=== PATIENT | male | born 1930 | race Caucasian/White ===

== ENCOUNTER 2017-01-18 14:51 | Inpatient (IN) | payer MEDICARE ==
[~2017-01-18] VITALS: Ht 193 cm; Wt 92.0 kg
--- NOTE | 2017-01-18 15:22 | EKG ---
[address] [address] Test Date: 2017-01-18 Test Time: 15:20:40 Pat Name: KISHAN LOMBARDO Department: Room: Gender: M Beater Boss: : 1930 Requested By: MALINDA DASH Order Number: [id number] Reading MD: Aries Hernandez Measurements Intervals [place] Rate: 68 P: 90 IN: 208 QRS: 21 QRSD: 76 T: 63 QT: 372 QTc: 400 Interpretive Statements SINUS RHYTHM ATRIAL PREMATURE COMPLEX(ES) CONSISTENT WITH SEPTAL INFARCT PVC Electronically Signed On 01-21-2017 9:46:21 CDT by Aries Hernandez
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
[2017-01-18 15:41] LABS: BASO # 0.1 x10^3/uL (0.0-0.2); BASO % 1 % (0-3); EOS # 0.5 x10^3/uL (0.0-0.7); EOS % 5 % (0-3); HEMATOCRIT 36.2 % (39.0-53.0); LYMPH # 1.7 x10^3/uL (1.0-4.8); LYMPH % 18 % (24-48); MEAN CORPUSCULAR HEMOGLOBIN 30 pg (25-35); MEAN CORPUSCULAR HGB CONC 33 g/dL (31-37); MEAN CORPUSCULAR VOLUME 92 fL (79-100); MONO # 0.9 x10^3/uL (0.0-1.1); MONO % 9 % (0-9); NEUT # 6.5 x10^3uL (1.8-7.7); NEUT % 67 % (31-73); PLATELET COUNT 218 x10^3/uL (140-400); RED BLOOD COUNT 3.95 x10^6/uL (4.30-5.70); RED CELL DISTRIBUTION WIDTH 14.9 % (11.5-14.5); WHITE BLOOD COUNT 9.8 x10^3/uL (4.0-11.0)
--- NOTE | 2017-01-18 15:51 | RAD ---
CT head without contrast History: Altered mental status. Comparison: None. Procedure: Axial images are obtained of the head from the skull base through the vertex without IV contrast. One or more of the following individualized dose reduction techniques were utilized for the study: Automated exposure control Adjustment of mA and/or kV according to patient's size Use of iterative reconstruction technique. Findings: The ventricles and sulci are normal for the patient's age. No mass-effect, intracranial mass, midline shift, hemorrhage or obvious acute infarction is identified. Basilar cisterns are patent. Patchy, nonspecific white matter low attenuation is seen, probably from chronic microvascular ischemic disease. Bone windows demonstrate no significant calvarial abnormality. The visualized paranasal sinuses appear clear. Impression: 1. No acute intracranial process. Please note that CT can be relatively insensitive to acute ischemic infarction for up to 24 hours after symptom onset. 2. Patchy, nonspecific white matter changes, probably from chronic microvascular ischemic disease.
[2017-01-18 15:56] LABS: ALBUMIN 3.6 g/dL (3.4-5.0); CALCIUM 9.1 mg/dL (8.5-10.1); CREATININE 1.6 mg/dL (0.7-1.3); GFR 41.2; POTASSIUM 4.4 mmol/L (3.5-5.1); TOTAL BILIRUBIN 0.4 mg/dL (0.2-1.0); TOTAL PROTEIN 7.1 g/dL (6.4-8.2)
[2017-01-18 16:05] LABS: ACETAMIN < 2.0 mcg/mL (10-30); ETHANOL < 10 mg/dL (0-10); SALIC 0.7 mg/dL (2.8-20.0)
[2017-01-18 16:12] LABS: BARBITURATES NEG (NEG); BENZODIAZEPINES NEG (NEG); CANNABINOIDS NEG (NEG); COCAINE NEG (NEG); METHADONE NEG (NEG); OPIATES NEG (NEG); PHENCYCLIDINE NEG (NEG)
[2017-01-18 16:13] LABS: AMPHETAMINE/METHAMPHETAMINE NEG (NEG)
[2017-01-18] MEDS ORDERED: LORA1TAB PO (16:15)
[2017-01-18] MEDS ORDERED: ATOR40TA59 PO (16:15)
[2017-01-18] MEDS ORDERED: CLOP75TA57 PO (16:15)
[2017-01-18] MEDS ORDERED: ATEN25TA PO (16:15)
[2017-01-18] MEDS ORDERED: OMEP20TA8 PO ×2 (16:17→16:32)
[2017-01-18] MEDS ORDERED: OLME20TA19 PO ×2 (16:17→16:31)
[2017-01-18 16:19] LABS: BILIRUBIN,URINE NEG (NEG); CLARITY,URINE CLEAR; COLOR,URINE YELLOW; GLUCOSE,URINE NEG (NEG)
[2017-01-18 16:20] LABS: BACTERIA,URINE 0 /HPF (0-FEW); NITRITE,URINE NEG (NEG); RBC,URINE OCC /HPF (0-2); SQUAMOUS EPITHELIAL CELL,UR FEW /LPF; UROBILINOGEN,URINE 0.2 mg/dL (0.2 mg/dL)
[2017-01-18] MEDS ORDERED: QUET100T4 PO (16:34)
[2017-01-18] MEDS ORDERED: MAG HYDROX/AL HYDROX/SIMETH 30 ML ORAL.SUSP PO PRN (17:15)
[2017-01-18] MEDS ORDERED: METHYL SALICYLATE/MENTHOL TOPICAL OINTMENT 29GM TUBE. TP PRN (17:15)
[2017-01-18] MEDS ORDERED: MAGNESIUM HYDROXIDE 2,400 MG/30 ML ORAL.SUSP. PO PRN (17:15)
[2017-01-18 17:38] VITALS: BP 148/70
[2017-01-18] MEDS: QUEtiapine 100 MG TABLET. PO SCH (20:16)
[2017-01-18] MEDS: ATORVASTATIN CALCIUM 20 MG TABLET PO SCH (20:16)
[2017-01-18] MEDS: ATENOLOL 25 MG TABLET PO SCH (20:17)
[2017-01-18] MEDS: LORazepam 1 MG TABLET PO PRN (22:17)
[2017-01-18] MEDS: ACETAMINOPHEN 325 MG TABLET PO PRN (22:17)
--- NOTE | 2017-01-19 01:38 | PDOC ---
Exam Mauricio Demential Exam: Mauricio Note: Please also refer to the separate dictated note~for this date of service dictated separately.~Patient seen individually. Discussed the patient with Nursing staff reviewed the chart.~Reviewed interim history and current functioning. Reviewed vital signs,~Labs/ Radiology~and current medications noted below. Continue current treatment with the changes noted in the dictated addendum note Assessment: Vital Signs: Vital Signs Date Time Temp Pulse Resp B/P Pulse Ox O2 Delivery O2 Flow Rate FiO2 01/18/17 20:17 78 148/70 01/18/17 17:38 98.5 19 100 Room Air Labs: Laboratory Tests Test 01/18/17 15:27 01/18/17 15:40 White Blood Count 9.8x10^3/uL (4.0-11.0) Red Blood Count 3.95x10^6/uL (4.30-5.70) L Hemoglobin 12.0g/dL (13.0-17.5) L Hematocrit 36.2% (39.0-53.0) L Mean Corpuscular Volume 92fL (79-100) Mean Corpuscular Hemoglobin 30pg (25-35) Mean Corpuscular Hemoglobin Concent 33g/dL (31-37) Red Cell Distribution Width 14.9% (11.5-14.5) H Platelet Count 218x10^3/uL (140-400) Neutrophils (%) (Auto) 67% (31-73) Lymphocytes (%) (Auto) 18% (24-48) L Monocytes (%) (Auto) 9% (0-9) Eosinophils (%) (Auto) 5% (0-3) H Basophils (%) (Auto) 1% (0-3) Neutrophils # (Auto) 6.5x10^3uL (1.8-7.7) Lymphocytes # (Auto) 1.7x10^3/uL (1.0-4.8) Monocytes # (Auto) 0.9x10^3/uL (0.0-1.1) Eosinophils # (Auto) 0.5x10^3/uL (0.0-0.7) Basophils # (Auto) 0.1x10^3/uL (0.0-0.2) Sodium Level 139mmol/L (136-145) Potassium Level 4.4mmol/L (3.5-5.1) Chloride Level 107mmol/L (98-107) Carbon Dioxide Level 27mmol/L (21-32) Anion Gap 5 (6-14) L Blood Urea Nitrogen 34mg/dL (8-26) H Creatinine 1.6mg/dL (0.7-1.3) H Estimated GFR (Cockcroft-Gault) 41.2 BUN/Creatinine Ratio 21 (6-20) H Glucose Level 128mg/dL (70-99) H Calcium Level 9.1mg/dL (8.5-10.1) Magnesium Level 2.2mg/dL (1.8-2.4) Total Bilirubin 0.4mg/dL (0.2-1.0) Aspartate Amino Transferase (AST) 33U/L (15-37) Alanine Aminotransferase (ALT) 34U/L (16-63) Alkaline Phosphatase 60U/L (46-116) Troponin I Quantitative < 0.017ng/mL (0-0.055) Total Protein 7.1g/dL (6.4-8.2) Albumin 3.6g/dL (3.4-5.0) Albumin/Globulin Ratio 1.0 (1.0-1.7) Salicylates Level 0.7mg/dL (2.8-20.0) L Salicylate Last Dose Date Unk Salicylate Last Dose Time Unk Acetaminophen Level < 2.0mcg/mL (10-30) L Acetaminophen Last Dose Date Unk Acetaminophen Last Dose Time Unk Ethyl Alcohol Level < 10mg/dL (0-10) Urine Collection Type Unknown Urine Color Yellow Urine Clarity Clear Urine pH 5.0 Urine Specific [place] 1.015 Urine Protein 30 mg/dl (NEG-TRACE) Urine Glucose (UA) Negmg/dL (NEG) Urine Ketones (Stick) Negmg/dL (NEG) Urine Blood Neg (NEG) Urine Nitrite Neg (NEG) Urine Bilirubin Neg (NEG) Urine Urobilinogen Dipstick 0.2mg/dL (0.2 mg/dL) Urine Leukocyte Esterase Neg (NEG) Urine RBC Occ/HPF (0-2) Urine WBC 1-4/HPF (0-4) Urine Squamous Epithelial Cells Few/LPF Urine Bacteria 0/HPF (0-FEW) Urine Opiates Screen Neg (NEG) Urine Methadone Screen Neg (NEG) Urine Barbiturates Neg (NEG) Urine Phencyclidine Screen Neg (NEG) Urine Amphetamine/Methamphetamine Neg (NEG) Urine Benzodiazepines Screen Neg (NEG) Urine Cocaine Screen Neg (NEG) Urine Cannabinoids Screen Neg (NEG) Urine Ethyl Alcohol Neg (NEG) Current Medications: Meds: Current Medications Multivitamins/ Minerals (Preservision) 1 cap DAILY PO ; Start 01/19/17 at 09:00 Multivitamins/ Calcium (Thera-M Plus) 1 tab DAILY PO ; Start 01/19/17 at 09:00 Atenolol (Tenormin) 25 mg BID PO Last administered on 01/18/17 20:17; Start at 21:00 Clopidogrel Bisulfate (Plavix) 75 mg DAILY PO ; Start 01/19/17 at 09:00 Lorazepam (Ativan) 1 mg PRN Q6HRS PRN PO ANXIETY / AGITATION; Start 01/18/17 at 17:15 Quetiapine Fumarate (SEROquel) 100 mg HS PO Last administered on 01/18/17 20: 16; Start 01/18/17 at 21:00 Atorvastatin Calcium (Lipitor) 40 mg QHS PO Last administered on 01/18/17 20: 16; Start 01/18/17 at 21:00 Losartan Potassium (Cozaar) 100 mg DAILY PO ; Start 01/19/17 at 09:00 Pantoprazole Sodium (Protonix) 40 mg DAILY PO ; Start 01/19/17 at 09:00 Acetaminophen (Tylenol) 650 mg PRN Q6HRS PRN PO PAIN / TEMP; Start 01/18/17 at 17:15 Multi-Ingredient Ointment (Analgesic [place]) 1 carlos PRN QID PRN TP MUSCLE PAIN; Start 01/18/17 at 17:15 Al Hydroxide/Mg Hydroxide (Mylanta Plus Xs) 15 ml PRN AFTMEALHC PRN PO DYSPEPSIA; Start 01/18/17 at 17:15 Magnesium Hydroxide (Milk Of Magnesia) 2,400 mg PRN QHS PRN PO CONSTIPATION; Start 01/18/17 at 17:15 Active Scripts Active Reported Seroquel (Quetiapine Fumarate) 100 Mg Tablet 100 Mg PO HS Omeprazole 20 Mg Tablet.dr 20 Mg PO DAILY Benicar (Olmesartan Medoxomil) 20 Mg Tablet 20 Mg PO DAILY Lorazepam 1 Mg Tablet 1 Mg PO PRN Q6HRS PRN Plavix (Clopidogrel Bisulfate) 75 Mg Tablet 75 Mg PO DAILY Atorvastatin Calcium 40 Mg Tablet 40 Mg PO QHS Atenolol 25 Mg Tablet 25 Mg PO BID Diagnosis: Problems: (1) Abnormal behavior MARTHA SRINIVASAN MD Jan 18, 2017 21:04
[2017-01-19 05:10] LABS: HEMOGLOBIN A1C 5.9 % (4.8-5.6)
[2017-01-19 06:03] VITALS: BP 134/79
[2017-01-19 06:09] LABS: T3 TOTAL 99 ng/dL (71-180)
[2017-01-19] MEDS: MULTIVITAMIN PRESERVISION CAPSULE. PO SCH (08:44)
[2017-01-19] MEDS: PANTOPRAZOLE 40 MG TABLET. PO SCH (08:44)
[2017-01-19] MEDS: CLOPIDOGREL BISULFATE 75 MG TABLET PO SCH (08:44)
[2017-01-19] MEDS: LOSARTAN 50 MG TABLET. PO SCH (08:44)
[2017-01-19] MEDS: MULTIVITAMIN with MINERAL TABLET. PO SCH (08:45)
[2017-01-19] MEDS: ATENOLOL 25 MG TABLET PO SCH ×2 (08:45→19:41)
[2017-01-19 16:32] VITALS: BP 126/60
[2017-01-19] MEDS: ATORVASTATIN CALCIUM 20 MG TABLET PO SCH (19:41)
[2017-01-19] MEDS: QUEtiapine 100 MG TABLET. PO SCH (19:41)
[2017-01-19] MEDS: LORazepam 1 MG TABLET PO PRN (22:20)
[2017-01-20] MEDS: ACETAMINOPHEN 325 MG TABLET PO PRN (04:40)
[2017-01-20 06:10] VITALS: BP 161/80
[2017-01-20] MEDS: PANTOPRAZOLE 40 MG TABLET. PO SCH (08:14)
[2017-01-20] MEDS: LOSARTAN 50 MG TABLET. PO SCH (08:14)
[2017-01-20] MEDS: MULTIVITAMIN PRESERVISION CAPSULE. PO SCH (08:14)
[2017-01-20] MEDS: CLOPIDOGREL BISULFATE 75 MG TABLET PO SCH (08:14)
[2017-01-20] MEDS: ATENOLOL 25 MG TABLET PO SCH ×2 (08:14→20:23)
[2017-01-20] MEDS: MULTIVITAMIN with MINERAL TABLET. PO SCH (08:15)
--- NOTE | 2017-01-20 09:34 | RAD ---
Two-view right wrist study History: Fall and injured right wrist with pain. Findings: No acute fracture or dislocation or osteolytic process is seen. IMPRESSION: No acute fracture.
--- NOTE | 2017-01-20 09:36 | RAD ---
Two-view right forearm study History: Fall and injured right forearm with pain. Findings: No acute fracture or dislocation or osteolytic process is seen. IMPRESSION: No acute fracture.
--- NOTE | 2017-01-20 10:51 | ACF ---
Admission Criteria Forms MENTAL STATUS CHANGE Clinical Indications for Inpatient Care (Place 'X' for any and all applicable criteria): Ongoing inpatient care may be needed for 1 or more of the following(1)(2)(3)(5)( 6): [ ]I. Suspected serious etiology (eg, medical disorder, SALT MAKER event) of altered mental status [X]II. Danger to self or others not manageable at lower level of care [ ]III. Grave disability (eg, inability to perform self care necessary at lower level of care) [ ]IV. Agitation or inappropriate behavior interfering with care for primary condition (eg, attempting to discontinue lines or drains prematurely, unable to cooperate with respiratory care) [ ]V. Delirium [A] [D][E] as described by 1 or more of the following(26): [ ]a) Delirium due to alcohol or sedative [F] withdrawal [ ]b) Delirium of uncertain etiology that has not responded to appropriate empiric treatment [ ]c) Delirium that prevents performance of a life-sustaining function (eg, feeding or hydrating oneself) [ ]. General contraindications and/or Inappropriate clinical situations for Observational Care in patients with Mental Status Change, when ANY ONE of the following is required: [ ]a) Prediction of prolongation of LOS based on ANY ONE of the following may be considered as a contraindication for observational care 2, 3, 4, 5, 6, 7, 8, 9, 10, 11 [ ]i) Age > 65 yrs. [ ]ii) Patient arriving by ambulance [ ]iii) Patient with high acuity [ ]iv) Patient requiring vital sign monitoring [ ]v) Patient on IV medication [ ]b) Systolic blood pressures greater than or equal to 180mmHg 3, 12 [ ]c) Patient with altered mental status including delirium and other alteration of consciousness, (3) [ ]d) Patient whose discharge disposition will be to a senior living home or rehabilitation home should not be managed in Emergency Department Observation Unit. CMS rule requires 3 days hospital stay before such placement.3,13 [ ]e) Patient with failure to thrive due to broad array of etiologies 3,16,17 [ ]f) Inability to ambulate 3,14 Extended stay beyond goal length of stay for the primary condition may be needed until ALL of the following are present(3)(5): [ ]a) Underlying medical etiology of mental status change is absent, or has been established and adequately treated [ ]b) Danger to self or others is absent or manageable at lower level of care. [ ]c) Behavior crisis management, including physical or chemical restraints, is not required or available at lower level of car [ ]d) Substance or alcohol withdrawal is absent or manageable at lower level of care. [ ]e) Behavioral symptoms (eg, agitation, somnolence, inappropriate behavior) are absent, or are manageable at lower level of care. The original [facility] [place] [employer] content created by [facility] has been revised. The portions of the content which have been revised are identified through the use of italic text or in bold, and [facility] has neither reviewed nor approved the modified material. All other unmodified content is copyright [facility]. Please see references footnoted in the original [facility] edition 2016 Admission Criteria Met?: Yes TERRELL MICHELE Jan 20, 2017 10:51
[2017-01-20] MEDS: ATORVASTATIN CALCIUM 20 MG TABLET PO SCH (20:22)
[2017-01-20] MEDS: QUEtiapine 100 MG TABLET. PO SCH (20:22)
[2017-01-20] MEDS: DIVALPROEX 125 MG CAP.SPRINK PO SCH (20:24)
[2017-01-21 06:10] VITALS: BP 162/82
[2017-01-21] MEDS: MULTIVITAMIN with MINERAL TABLET. PO SCH (09:35)
[2017-01-21] MEDS: CLOPIDOGREL BISULFATE 75 MG TABLET PO SCH (09:35)
[2017-01-21] MEDS: DIVALPROEX 125 MG CAP.SPRINK PO SCH ×2 (09:36→20:52)
[2017-01-21] MEDS: LOSARTAN 50 MG TABLET. PO SCH (09:36)
[2017-01-21] MEDS: ATENOLOL 25 MG TABLET PO SCH ×2 (09:36→20:52)
[2017-01-21] MEDS: PANTOPRAZOLE 40 MG TABLET. PO SCH (09:37)
[2017-01-21] MEDS: MULTIVITAMIN PRESERVISION CAPSULE. PO SCH (09:38)
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
--- NOTE | 2017-01-21 12:15 | PN ---
DATE: 01/19/2017 PSYCHIATRIC PROGRESS NOTE This is a late entry of 01/19/2017, covers elements not covered in my initial note. SUBJECTIVE: The patient remains extremely agitated and confused. Nursing staff had called me as an emergency as he was looking for the door and the keys, agitated, combative and delusional. He was started on Zyprexa, but seems to help. REVIEW OF SYSTEMS: No CV, , pulmonary, eye, ENT system symptoms on review. Reliability poor. MENTAL STATUS EXAM: Oriented to himself. Insight, judgment, recent and remote memory, attention, concentration, fund of knowledge poor, consistent with his diagnosis. IMPRESSION: Major neurocognitive disorder, Alzheimer, vascular with depression, delusion, behavioral disturbance; anxiety disorder, unspecified; impulse control disorder, unspecified. Rest diagnoses unchanged. PLAN: Continue Ativan 1 mg q. 6 hours p.r.n., Seroquel 100 mg at bedtime, Zyprexa p.r.n. Start him on Depakote Sprinkles 125 mg twice a day. Check lab level in 3 days. Adjust further as clinically indicated. MAN Jules SRINIVASAN MD DR: VIVEK/jocelyn JOB#: [id number] / [id number]
[2017-01-21 15:50] VITALS: BP 174/86
--- NOTE | 2017-01-21 20:45 | PDOC ---
Exam Mauricio Demential Exam: Mauricio Note: Please also refer to the separate dictated note~for this date of service dictated separately.~Patient seen individually. Discussed the patient with Nursing staff reviewed the chart.~Reviewed interim history and current functioning. Reviewed vital signs,~Labs/ Radiology~and current medications noted below. Continue current treatment with the changes noted in the dictated addendum note Assessment: Vital Signs: Vital Signs Date Time Temp Pulse Resp B/P Pulse Ox O2 Delivery O2 Flow Rate FiO2 01/21/17 15:50 98.3 69 20 174/86 100 01/18/17 17:38 Room Air I&O Intake and Output 01/21/17 07:00 Intake Total 1080 ml Balance 1080 ml Intake Oral 1080 ml # Bowel Movements 2 Current Medications: Meds: Current Medications Multivitamins/ Minerals (Preservision) 1 cap DAILY PO Last administered on 09:38; Start 01/19/17 at 09:00 Multivitamins/ Calcium (Thera-M Plus) 1 tab DAILY PO Last administered on 09:35; Start 01/19/17 at 09:00 Atenolol (Tenormin) 25 mg BID PO Last administered on 01/21/17 09:36; Start at 21:00 Clopidogrel Bisulfate (Plavix) 75 mg DAILY PO Last administered on 01/21/17 09: 35; Start 01/19/17 at 09:00 Lorazepam (Ativan) 1 mg PRN Q6HRS PRN PO ANXIETY / AGITATION Last administered on 01/19/17 22:20; Start 01/18/17 at 17:15 Quetiapine Fumarate (SEROquel) 100 mg HS PO Last administered on 01/20/17 20: 22; Start 01/18/17 at 21:00 Atorvastatin Calcium (Lipitor) 40 mg QHS PO Last administered on 01/20/17 20: 22; Start 01/18/17 at 21:00 Losartan Potassium (Cozaar) 100 mg DAILY PO Last administered on 01/21/17 09:36 ; Start 01/19/17 at 09:00 Pantoprazole Sodium (Protonix) 40 mg DAILY PO Last administered on 01/21/17 09: 37; Start 01/19/17 at 09:00 Acetaminophen (Tylenol) 650 mg PRN Q6HRS PRN PO PAIN / TEMP Last administered on 01/20/17 04:40; Start 01/18/17 at 17:15 Multi-Ingredient Ointment (Analgesic [place]) 1 carlos PRN QID PRN TP MUSCLE PAIN; Start 01/18/17 at 17:15 Al Hydroxide/Mg Hydroxide (Mylanta Plus Xs) 15 ml PRN AFTMEALHC PRN PO DYSPEPSIA; Start 01/18/17 at 17:15 Magnesium Hydroxide (Milk Of Magnesia) 2,400 mg PRN QHS PRN PO CONSTIPATION; Start 01/18/17 at 17:15 Olanzapine (Zyprexa Zydis) 2.5 mg PRN Q2HR PRN PO PSYCHOSIS Last administered on 01/19/17 22:20; Start 01/19/17 at 11:30 Divalproex Sodium (Depakote Sprinkles) 125 mg BID PO Last administered on 09:36; Start 01/20/17 at 21:00 Active Scripts Active Reported Seroquel (Quetiapine Fumarate) 100 Mg Tablet 100 Mg PO HS Omeprazole 20 Mg Tablet.dr 20 Mg PO DAILY Benicar (Olmesartan Medoxomil) 20 Mg Tablet 20 Mg PO DAILY Lorazepam 1 Mg Tablet 1 Mg PO PRN Q6HRS PRN Plavix (Clopidogrel Bisulfate) 75 Mg Tablet 75 Mg PO DAILY Atorvastatin Calcium 40 Mg Tablet 40 Mg PO QHS Atenolol 25 Mg Tablet 25 Mg PO BID Diagnosis: Problems: (1) Abnormal behavior (2) Anxiety disorder (3) Dementia in Alzheimer's disease with delusions (4) Dementia in Alzheimer's disease with depression (5) Dementia, vascular, with delusions (6) Dementia, vascular, with depression (7) Impulse control disorder MARTHA SRINIVASAN MD January 21, 2017 20:45
[2017-01-21] MEDS: ATORVASTATIN CALCIUM 20 MG TABLET PO SCH (20:51)
[2017-01-21] MEDS: QUEtiapine 100 MG TABLET. PO SCH (20:51)
--- NOTE | 2017-01-22 04:36 | PN ---
DATE: 01/20/2017 PSYCHIATRIC PROGRESS NOTE This is late entry of 01/20/2017. SUBJECTIVE: The patient was seen individually evening of 01/20/2017, discussed with nursing staff, reviewed the chart, temperature 97.4, BP 162/80, pulse 70, respirations 16. The patient's gait was unsteady morning of 01/20/2017, otherwise wandering all day, received Zyprexa x 2 p.r.n. along with Ativan, thinks someone is after him, paranoid, delusional, suspicious looking for his keys. REVIEW OF SYSTEMS: No CV, , pulmonary, eye, ENT system symptoms on review. Reliability poor. MENTAL STATUS EXAMINATION: Oriented to himself. Insight, judgment, recent and remote memory, attention, concentration, fund of knowledge poor, consistent with his diagnosis. IMPRESSION: Major neurocognitive disorder, Alzheimer, vascular with depression, delusion, behavioral disturbance, rest unchanged. PLAN: Maintain Ativan p.r.n., Seroquel 100 at bedtime, Depakote 125 b.i.d., check valproic acid level on 01/23/2017, adjust further as clinically indicated. MAN Jules SRINIVASAN MD DR: VIVEK/jocelyn JOB#: [id number] / [id number]
[2017-01-22 06:32] VITALS: BP 168/63
[2017-01-22] MEDS: PANTOPRAZOLE 40 MG TABLET. PO SCH (10:09)
[2017-01-22] MEDS: CLOPIDOGREL BISULFATE 75 MG TABLET PO SCH (10:09)
[2017-01-22] MEDS: DIVALPROEX 125 MG CAP.SPRINK PO SCH ×2 (10:09→19:28)
[2017-01-22] MEDS: ATENOLOL 25 MG TABLET PO SCH ×2 (10:10→19:27)
[2017-01-22] MEDS: LOSARTAN 50 MG TABLET. PO SCH (10:10)
[2017-01-22] MEDS: MULTIVITAMIN with MINERAL TABLET. PO SCH (10:10)
[2017-01-22] MEDS: MULTIVITAMIN PRESERVISION CAPSULE. PO SCH (10:15)
[2017-01-22 16:00] VITALS: BP_SYST 125; BP_SYST 132; BP_DIAS 48; BP_DIAS 79
[2017-01-22] MEDS: ATORVASTATIN CALCIUM 20 MG TABLET PO SCH (19:27)
[2017-01-22] MEDS: QUEtiapine 100 MG TABLET. PO SCH (19:27)
--- NOTE | 2017-01-22 21:21 | PDOC ---
Exam Mauricio Demential Exam: Mauricio Note: Please also refer to the separate dictated note~for this date of service dictated separately.~Patient seen individually. Discussed the patient with Nursing staff reviewed the chart.~Reviewed interim history and current functioning. Reviewed vital signs,~Labs/ Radiology~and current medications noted below. Continue current treatment with the changes noted in the dictated addendum note Assessment: Vital Signs: Vital Signs Date Time Temp Pulse Resp B/P Pulse Ox O2 Delivery O2 Flow Rate FiO2 01/22/17 19:27 74 125/79 01/22/17 16:00 97.5 18 98 01/18/17 17:38 Room Air I&O Intake and Output 01/22/17 07:00 Intake Total 720 ml Balance 720 ml Intake Oral 720 ml # Voids 1 # Bowel Movements 1 Current Medications: Meds: Current Medications Multivitamins/ Minerals (Preservision) 1 cap DAILY PO Last administered on 10:15; Start 01/19/17 at 09:00 Multivitamins/ Calcium (Thera-M Plus) 1 tab DAILY PO Last administered on 10:10; Start 01/19/17 at 09:00 Atenolol (Tenormin) 25 mg BID PO Last administered on 01/22/17 19:27; Start at 21:00 Clopidogrel Bisulfate (Plavix) 75 mg DAILY PO Last administered on 01/22/17 10: 09; Start 01/19/17 at 09:00 Lorazepam (Ativan) 1 mg PRN Q6HRS PRN PO ANXIETY / AGITATION Last administered on 01/19/17 22:20; Start 01/18/17 at 17:15 Quetiapine Fumarate (SEROquel) 100 mg HS PO Last administered on 01/22/17 19:27 ; Start 01/18/17 at 21:00 Atorvastatin Calcium (Lipitor) 40 mg QHS PO Last administered on 01/22/17 19:27 ; Start 01/18/17 at 21:00 Losartan Potassium (Cozaar) 100 mg DAILY PO Last administered on 01/22/17 10:10 ; Start 01/19/17 at 09:00 Pantoprazole Sodium (Protonix) 40 mg DAILY PO Last administered on 01/22/17 10: 09; Start 01/19/17 at 09:00 Acetaminophen (Tylenol) 650 mg PRN Q6HRS PRN PO PAIN / TEMP Last administered on 01/20/17 04:40; Start 01/18/17 at 17:15 Multi-Ingredient Ointment (Analgesic [place]) 1 carlos PRN QID PRN TP MUSCLE PAIN; Start 01/18/17 at 17:15 Al Hydroxide/Mg Hydroxide (Mylanta Plus Xs) 15 ml PRN AFTMEALHC PRN PO DYSPEPSIA; Start 01/18/17 at 17:15 Magnesium Hydroxide (Milk Of Magnesia) 2,400 mg PRN QHS PRN PO CONSTIPATION; Start 01/18/17 at 17:15 Olanzapine (Zyprexa Zydis) 2.5 mg PRN Q2HR PRN PO PSYCHOSIS Last administered on 01/19/17 22:20; Start 01/19/17 at 11:30 Divalproex Sodium (Depakote Sprinkles) 125 mg BID PO Last administered on 19:28; Start 01/20/17 at 21:00 Active Scripts Active Reported Seroquel (Quetiapine Fumarate) 100 Mg Tablet 100 Mg PO HS Omeprazole 20 Mg Tablet.dr 20 Mg PO DAILY Benicar (Olmesartan Medoxomil) 20 Mg Tablet 20 Mg PO DAILY Lorazepam 1 Mg Tablet 1 Mg PO PRN Q6HRS PRN Plavix (Clopidogrel Bisulfate) 75 Mg Tablet 75 Mg PO DAILY Atorvastatin Calcium 40 Mg Tablet 40 Mg PO QHS Atenolol 25 Mg Tablet 25 Mg PO BID Diagnosis: Problems: (1) Abnormal behavior (2) Anxiety disorder (3) Dementia in Alzheimer's disease with delusions (4) Dementia in Alzheimer's disease with depression (5) Dementia, vascular, with delusions (6) Dementia, vascular, with depression (7) Impulse control disorder MARTHA SRINIVASAN MD January 22, 2017 21:20
[2017-01-23] MEDS: ACETAMINOPHEN 325 MG TABLET PO PRN (05:38)
[2017-01-23 06:33] VITALS: BP 183/75
[2017-01-23 07:48] LABS: BASO # 0.1 x10^3/uL (0.0-0.2); BASO % 1 % (0-3); EOS # 0.6 x10^3/uL (0.0-0.7); EOS % 6 % (0-3); HEMATOCRIT 34.7 % (39.0-53.0); HEMOGLOBIN 11.7 g/dL (13.0-17.5); LYMPH # 1.6 x10^3/uL (1.0-4.8); LYMPH % 17 % (24-48); MEAN CORPUSCULAR HEMOGLOBIN 31 pg (25-35); MEAN CORPUSCULAR HGB CONC 34 g/dL (31-37); MEAN CORPUSCULAR VOLUME 91 fL (79-100); MONO # 1.1 x10^3/uL (0.0-1.1); MONO % 11 % (0-9); NEUT # 6.6 x10^3uL (1.8-7.7); NEUT % 66 % (31-73); PLATELET COUNT 204 x10^3/uL (140-400); RED BLOOD COUNT 3.82 x10^6/uL (4.30-5.70); RED CELL DISTRIBUTION WIDTH 14.7 % (11.5-14.5); WHITE BLOOD COUNT 9.9 x10^3/uL (4.0-11.0)
[2017-01-23 07:59] LABS: ALBUMIN 3.1 g/dL (3.4-5.0); ALK PHOS 56 U/L (46-116); ALT (SGPT) 30 U/L (16-63); ANION GAP 8 (6-14); AST (SGOT) 26 U/L (15-37); BLOOD UREA NITROGEN 30 mg/dL (8-26); BUN/CREATININE RATIO 23 (6-20); CALCIUM 8.8 mg/dL (8.5-10.1); CARBON DIOXIDE 26 mmol/L (21-32); CHLORIDE 108 mmol/L (98-107); CREATININE 1.3 mg/dL (0.7-1.3); GFR 52.3; GLUCOSE 99 mg/dL (70-99); POTASSIUM 4.2 mmol/L (3.5-5.1); SODIUM 142 mmol/L (136-145); TOTAL BILIRUBIN 0.5 mg/dL (0.2-1.0); TOTAL PROTEIN 6.3 g/dL (6.4-8.2)
[2017-01-23 08:01] LABS: VAL ACID 17 mcg/mL (50-100)
--- NOTE | 2017-01-23 08:23 | PN ---
DATE: 01/21/2017 PSYCHIATRIC PROGRESS NOTE This is late entry of 01/21/2017, covers elements not covered in my initial note. SUBJECTIVE: The patient did well the previous night and during the day on 01/21/2017, remains confused, but not aggressive. REVIEW OF SYSTEMS: No CV, , pulmonary, eye, ENT system symptoms on review. Reliability poor. MENTAL STATUS EXAMINATION: Oriented to himself. Insight, judgment, recent and remote memory, attention, concentration, fund of knowledge poor, consistent with his diagnosis. IMPRESSION: Major neurocognitive disorder, Alzheimer, vascular with depression, delusion, behavioral disturbance; anxiety disorder, unspecified; impulse control disorder, unspecified. PLAN: Continue Ativan p.r.n., Seroquel 100 at bedtime, Depakote 125 b.i.d., check lab levels on 01/23/2017 and then adjust as indicated, maintain Zyprexa and Ativan p.r.n. MAN Jules SRINIVASAN MD DR: VIVEK/jocelyn JOB#: [id number] / [id number]
[2017-01-23] MEDS: DIVALPROEX 125 MG CAP.SPRINK PO SCH ×2 (08:35→20:37)
[2017-01-23] MEDS: LOSARTAN 50 MG TABLET. PO SCH (08:35)
[2017-01-23] MEDS: CLOPIDOGREL BISULFATE 75 MG TABLET PO SCH (08:35)
[2017-01-23] MEDS: PANTOPRAZOLE 40 MG TABLET. PO SCH (08:35)
[2017-01-23] MEDS: MULTIVITAMIN with MINERAL TABLET. PO SCH (08:35)
[2017-01-23] MEDS: ATENOLOL 25 MG TABLET PO SCH ×2 (08:36→20:37)
[2017-01-23] MEDS: MULTIVITAMIN PRESERVISION CAPSULE. PO SCH (08:38)
[2017-01-23 15:48] VITALS: BP 137/62
[2017-01-23] MEDS: QUEtiapine 100 MG TABLET. PO SCH (20:37)
[2017-01-23] MEDS: ATORVASTATIN CALCIUM 20 MG TABLET PO SCH (20:37)
--- NOTE | 2017-01-23 21:08 | PDOC ---
Exam Mauricio Demential Exam: Mauricio Note: Please also refer to the separate dictated note~for this date of service dictated separately.~Patient seen individually. Discussed the patient with Nursing staff reviewed the chart.~Reviewed interim history and current functioning. Reviewed vital signs,~Labs/ Radiology~and current medications noted below. Continue current treatment with the changes noted in the dictated addendum note Assessment: Vital Signs: Vital Signs Date Time Temp Pulse Resp B/P Pulse Ox O2 Delivery O2 Flow Rate FiO2 01/23/17 20:37 69 137/62 01/23/17 15:48 97.3 18 99 01/18/17 17:38 Room Air I&O Intake and Output 01/23/17 07:00 Intake Total 960 ml Balance 960 ml Intake Oral 960 ml # Voids 1 Labs: Laboratory Tests Test 01/23/17 07:26 White Blood Count 9.9x10^3/uL (4.0-11.0) Red Blood Count 3.82x10^6/uL (4.30-5.70) L Hemoglobin 11.7g/dL (13.0-17.5) L Hematocrit 34.7% (39.0-53.0) L Mean Corpuscular Volume 91fL (79-100) Mean Corpuscular Hemoglobin 31pg (25-35) Mean Corpuscular Hemoglobin Concent 34g/dL (31-37) Red Cell Distribution Width 14.7% (11.5-14.5) H Platelet Count 204x10^3/uL (140-400) Neutrophils (%) (Auto) 66% (31-73) Lymphocytes (%) (Auto) 17% (24-48) L Monocytes (%) (Auto) 11% (0-9) H Eosinophils (%) (Auto) 6% (0-3) H Basophils (%) (Auto) 1% (0-3) Neutrophils # (Auto) 6.6x10^3uL (1.8-7.7) Lymphocytes # (Auto) 1.6x10^3/uL (1.0-4.8) Monocytes # (Auto) 1.1x10^3/uL (0.0-1.1) Eosinophils # (Auto) 0.6x10^3/uL (0.0-0.7) Basophils # (Auto) 0.1x10^3/uL (0.0-0.2) Sodium Level 142mmol/L (136-145) Potassium Level 4.2mmol/L (3.5-5.1) Chloride Level 108mmol/L (98-107) H Carbon Dioxide Level 26mmol/L (21-32) Anion Gap 8 (6-14) Blood Urea Nitrogen 30mg/dL (8-26) H Creatinine 1.3mg/dL (0.7-1.3) Estimated GFR (Cockcroft-Gault) 52.3 BUN/Creatinine Ratio 23 (6-20) H Glucose Level 99mg/dL (70-99) Calcium Level 8.8mg/dL (8.5-10.1) Total Bilirubin 0.5mg/dL (0.2-1.0) Aspartate Amino Transferase (AST) 26U/L (15-37) Alanine Aminotransferase (ALT) 30U/L (16-63) Alkaline Phosphatase 56U/L (46-116) Total Protein 6.3g/dL (6.4-8.2) L Albumin 3.1g/dL (3.4-5.0) L Albumin/Globulin Ratio 1.0 (1.0-1.7) Valproic Acid Level 17mcg/mL (50-100) L Valproic Acid Last Dose Date 01/22/2017 Valproic Acid Last Dose Time 2100 Current Medications: Meds: Current Medications Multivitamins/ Minerals (Preservision) 1 cap DAILY PO Last administered on 08:38; Start 01/19/17 at 09:00; Stop 01/23/17 at 14:48; Status DC Multivitamins/ Calcium (Thera-M Plus) 1 tab DAILY PO Last administered on 08:35; Start 01/19/17 at 09:00 Atenolol (Tenormin) 25 mg BID PO Last administered on 01/23/17 20:37; Start at 21:00 Clopidogrel Bisulfate (Plavix) 75 mg DAILY PO Last administered on 01/23/17 08: 35; Start 01/19/17 at 09:00 Lorazepam (Ativan) 1 mg PRN Q6HRS PRN PO ANXIETY / AGITATION Last administered on 01/19/17 22:20; Start 01/18/17 at 17:15; Stop 01/23/17 at 18:41; Status DC Quetiapine Fumarate (SEROquel) 100 mg HS PO Last administered on 01/23/17 20:37 ; Start 01/18/17 at 21:00 Atorvastatin Calcium (Lipitor) 40 mg QHS PO Last administered on 01/23/17 20:37 ; Start 01/18/17 at 21:00 Losartan Potassium (Cozaar) 100 mg DAILY PO Last administered on 01/23/17 08:35 ; Start 01/19/17 at 09:00 Pantoprazole Sodium (Protonix) 40 mg DAILY PO Last administered on 01/23/17 08: 35; Start 01/19/17 at 09:00 Acetaminophen (Tylenol) 650 mg PRN Q6HRS PRN PO PAIN / TEMP Last administered on 01/23/17 05:38; Start 01/18/17 at 17:15 Multi-Ingredient Ointment (Analgesic [place]) 1 carlos PRN QID PRN TP MUSCLE PAIN; Start 01/18/17 at 17:15 Al Hydroxide/Mg Hydroxide (Mylanta Plus Xs) 15 ml PRN AFTMEALHC PRN PO DYSPEPSIA; Start 01/18/17 at 17:15 Magnesium Hydroxide (Milk Of Magnesia) 2,400 mg PRN QHS PRN PO CONSTIPATION; Start 01/18/17 at 17:15 Olanzapine (Zyprexa Zydis) 2.5 mg PRN Q2HR PRN PO PSYCHOSIS Last administered on 01/19/17 22:20; Start 01/19/17 at 11:30 Divalproex Sodium (Depakote Sprinkles) 125 mg BID PO Last administered on 20:37; Start 01/20/17 at 21:00 Multivitamins/ Minerals (I-Roya) 1 tab DAILY PO ; Start 01/24/17 at 09:00 Lorazepam (Ativan) 0.5 mg PRN Q4HRS PRN PO ANXIETY / AGITATION; Start 01/24/17 at 17:15 Active Scripts Active Reported Seroquel (Quetiapine Fumarate) 100 Mg Tablet 100 Mg PO HS Omeprazole 20 Mg Tablet.dr 20 Mg PO DAILY Benicar (Olmesartan Medoxomil) 20 Mg Tablet 20 Mg PO DAILY Lorazepam 1 Mg Tablet 1 Mg PO PRN Q6HRS PRN Plavix (Clopidogrel Bisulfate) 75 Mg Tablet 75 Mg PO DAILY Atorvastatin Calcium 40 Mg Tablet 40 Mg PO QHS Atenolol 25 Mg Tablet 25 Mg PO BID Diagnosis: Problems: (1) Abnormal behavior (2) Anxiety disorder (3) Dementia in Alzheimer's disease with delusions (4) Dementia in Alzheimer's disease with depression (5) Dementia, vascular, with delusions (6) Dementia, vascular, with depression (7) Impulse control disorder MARTHA SRINIVASAN MD January 23, 2017 21:08
--- NOTE | 2017-01-24 02:56 | PN ---
DATE: 01/22/2017 This is a late entry 01/22/2017, covers elements not covered in my initial note. SUBJECTIVE: Overall, the patient remains confused and had a better day. No, he is in [place], otherwise unaware of where he is, why he came here, agitated with another demented patient who was psychotic. REVIEW OF SYSTEMS: No CV, , pulmonary, eye, ENT system symptoms on review. Reliability poor. MENTAL STATUS EXAM: Oriented to himself. Insight, judgment, recent, and remote memory, attention, concentration, fund of knowledge poor consistent with his diagnosis mentioned in my initial note. PLAN: Continue psychotropics mentioned in my initial note, follow labs, level on the Depakote. Adjust to reach a therapeutic level. MAN Jules SRINIVASAN MD DR: VIVEK/jocelyn JOB#: [id number] / [id number]
[2017-01-24] MEDS: MULTIVITAMIN with MINERAL TABLET. PO SCH (08:38)
[2017-01-24] MEDS: DIVALPROEX 125 MG CAP.SPRINK PO SCH ×2 (08:38→20:08)
[2017-01-24] MEDS: LOSARTAN 50 MG TABLET. PO SCH (08:38)
[2017-01-24] MEDS: CLOPIDOGREL BISULFATE 75 MG TABLET PO SCH (08:38)
[2017-01-24] MEDS: PANTOPRAZOLE 40 MG TABLET. PO SCH (08:38)
[2017-01-24] MEDS: ATENOLOL 25 MG TABLET PO SCH ×2 (08:39→20:10)
[2017-01-24] MEDS: MULTIVITAMIN I-VITE TABLET. PO SCH (08:40)
[2017-01-24 09:59] VITALS: BP 145/59
[2017-01-24 15:59] VITALS: BP 102/58
[2017-01-24] MEDS ORDERED: LORazepam 0.5 MG TABLET PO PRN (17:15)
[2017-01-24] MEDS: QUEtiapine 100 MG TABLET. PO SCH (20:08)
[2017-01-24] MEDS: ATORVASTATIN CALCIUM 20 MG TABLET PO SCH (20:08)
--- NOTE | 2017-01-24 20:27 | PDOC ---
Exam Mauricio Demential Exam: Mauricio Note: Please also refer to the separate dictated note~for this date of service dictated separately.~Patient seen individually. Discussed the patient with Nursing staff reviewed the chart.~Reviewed interim history and current functioning. Reviewed vital signs,~Labs/ Radiology~and current medications noted below. Continue current treatment with the changes noted in the dictated addendum note Assessment: Vital Signs: Vital Signs Date Time Temp Pulse Resp B/P (MAP) Pulse Ox O2 Delivery O2 Flow Rate FiO2 01/24/17 15:59 97.8 77 16 102/58 (73) 97 01/18/17 17:38 Room Air I&O Intake and Output 01/24/17 07:00 Intake Total 1200 ml Balance 1200 ml Intake Oral 1200 ml # Voids 1 # Bowel Movements 1 Current Medications: Meds: Current Medications Multivitamins/ Minerals (Preservision) 1 cap DAILY PO Last administered on 08:38; Start 01/19/17 at 09:00; Stop 01/23/17 at 14:48; Status DC Multivitamins/ Calcium (Thera-M Plus) 1 tab DAILY PO Last administered on 08:38; Start 01/19/17 at 09:00 Atenolol (Tenormin) 25 mg BID PO Last administered on 01/24/17 08:39; Start at 21:00 Clopidogrel Bisulfate (Plavix) 75 mg DAILY PO Last administered on 01/24/17 08: 38; Start 01/19/17 at 09:00 Lorazepam (Ativan) 1 mg PRN Q6HRS PRN PO ANXIETY / AGITATION Last administered on 01/19/17 22:20; Start 01/18/17 at 17:15; Stop 01/23/17 at 18:41; Status DC Quetiapine Fumarate (SEROquel) 100 mg HS PO Last administered on 01/23/17 20:37 ; Start 01/18/17 at 21:00 Atorvastatin Calcium (Lipitor) 40 mg QHS PO Last administered on 01/23/17 20:37 ; Start 01/18/17 at 21:00 Losartan Potassium (Cozaar) 100 mg DAILY PO Last administered on 01/24/17 08:38 ; Start 01/19/17 at 09:00 Pantoprazole Sodium (Protonix) 40 mg DAILY PO Last administered on 01/24/17 08: 38; Start 01/19/17 at 09:00 Acetaminophen (Tylenol) 650 mg PRN Q6HRS PRN PO PAIN / TEMP Last administered on 01/23/17 05:38; Start 01/18/17 at 17:15 Multi-Ingredient Ointment (Analgesic [place]) 1 carlos PRN QID PRN TP MUSCLE PAIN; Start 01/18/17 at 17:15 Al Hydroxide/Mg Hydroxide (Mylanta Plus Xs) 15 ml PRN AFTMEALHC PRN PO DYSPEPSIA; Start 01/18/17 at 17:15 Magnesium Hydroxide (Milk Of Magnesia) 2,400 mg PRN QHS PRN PO CONSTIPATION; Start 01/18/17 at 17:15 Olanzapine (Zyprexa Zydis) 2.5 mg PRN Q2HR PRN PO PSYCHOSIS Last administered on 01/19/17 22:20; Start 01/19/17 at 11:30 Divalproex Sodium (Depakote Sprinkles) 125 mg BID PO Last administered on 08:38; Start 01/20/17 at 21:00 Multivitamins/ Minerals (I-Roya) 1 tab DAILY PO Last administered on 01/24/17 08:40; Start 01/24/17 at 09:00 Lorazepam (Ativan) 0.5 mg PRN Q4HRS PRN PO ANXIETY / AGITATION; Start 01/24/17 at 17:15 Sertraline HCl (Zoloft) 25 mg DAILY PO ; Start 01/25/17 at 09:00 Active Scripts Active Reported Seroquel (Quetiapine Fumarate) 100 Mg Tablet 100 Mg PO HS Omeprazole 20 Mg Tablet.dr 20 Mg PO DAILY Benicar (Olmesartan Medoxomil) 20 Mg Tablet 20 Mg PO DAILY Lorazepam 1 Mg Tablet 1 Mg PO PRN Q6HRS PRN Plavix (Clopidogrel Bisulfate) 75 Mg Tablet 75 Mg PO DAILY Atorvastatin Calcium 40 Mg Tablet 40 Mg PO QHS Atenolol 25 Mg Tablet 25 Mg PO BID Diagnosis: Problems: (1) Abnormal behavior (2) Anxiety disorder (3) Dementia in Alzheimer's disease with delusions (4) Dementia in Alzheimer's disease with depression (5) Dementia, vascular, with delusions (6) Dementia, vascular, with depression (7) Impulse control disorder MARTHA SRINIVASAN MD January 24, 2017 20:27
[2017-01-25 06:32] VITALS: BP 170/69
[2017-01-25] MEDS: MULTIVITAMIN I-VITE TABLET. PO SCH (08:55)
[2017-01-25] MEDS: CLOPIDOGREL BISULFATE 75 MG TABLET PO SCH (08:55)
[2017-01-25] MEDS: LOSARTAN 50 MG TABLET. PO SCH (08:56)
[2017-01-25] MEDS: DIVALPROEX 125 MG CAP.SPRINK PO SCH ×2 (08:56→19:42)
[2017-01-25] MEDS: PANTOPRAZOLE 40 MG TABLET. PO SCH (08:56)
[2017-01-25] MEDS: ATENOLOL 25 MG TABLET PO SCH ×2 (08:56→19:43)
[2017-01-25] MEDS: MULTIVITAMIN with MINERAL TABLET. PO SCH (08:57)
[2017-01-25] MEDS: SERTRALINE 25 MG TABLET. PO SCH (08:57)
[2017-01-25 15:53] VITALS: BP 159/78
[2017-01-25] MEDS: QUEtiapine 100 MG TABLET. PO SCH (19:43)
[2017-01-25] MEDS: ATORVASTATIN CALCIUM 20 MG TABLET PO SCH (19:44)
--- NOTE | 2017-01-25 20:19 | PDOC ---
Exam Mauricio Demential Exam: Mauricio Note: Please also refer to the separate dictated note~for this date of service dictated separately.~Patient seen individually. Discussed the patient with Nursing staff reviewed the chart.~Reviewed interim history and current functioning. Reviewed vital signs,~Labs/ Radiology~and current medications noted below. Continue current treatment with the changes noted in the dictated addendum note Assessment: Vital Signs: Vital Signs Date Time Temp Pulse Resp B/P (MAP) Pulse Ox O2 Delivery O2 Flow Rate FiO2 01/25/17 19:43 100 159/78 01/25/17 15:53 97.6 18 99 I&O Intake and Output 01/25/17 07:00 Intake Total 1160 ml Balance 1160 ml Intake Oral 1160 ml # Voids 2 # Bowel Movements 1 Current Medications: Meds: Current Medications Multivitamins/ Minerals (Preservision) 1 cap DAILY PO Last administered on 08:38; Start 01/19/17 at 09:00; Stop 01/23/17 at 14:48; Status DC Multivitamins/ Calcium (Thera-M Plus) 1 tab DAILY PO Last administered on 08:57; Start 01/19/17 at 09:00 Atenolol (Tenormin) 25 mg BID PO Last administered on 01/25/17 19:43; Start at 21:00 Clopidogrel Bisulfate (Plavix) 75 mg DAILY PO Last administered on 01/25/17 08: 55; Start 01/19/17 at 09:00 Lorazepam (Ativan) 1 mg PRN Q6HRS PRN PO ANXIETY / AGITATION Last administered on 01/19/17 22:20; Start 01/18/17 at 17:15; Stop 01/23/17 at 18:41; Status DC Quetiapine Fumarate (SEROquel) 100 mg HS PO Last administered on 01/25/17 19:43 ; Start 01/18/17 at 21:00 Atorvastatin Calcium (Lipitor) 40 mg QHS PO Last administered on 01/25/17 19:44 ; Start 01/18/17 at 21:00 Losartan Potassium (Cozaar) 100 mg DAILY PO Last administered on 01/25/17 08:56 ; Start 01/19/17 at 09:00 Pantoprazole Sodium (Protonix) 40 mg DAILY PO Last administered on 01/25/17 08: 56; Start 01/19/17 at 09:00 Acetaminophen (Tylenol) 650 mg PRN Q6HRS PRN PO PAIN / TEMP Last administered on 01/23/17 05:38; Start 01/18/17 at 17:15 Multi-Ingredient Ointment (Analgesic [place]) 1 carlos PRN QID PRN TP MUSCLE PAIN; Start 01/18/17 at 17:15 Al Hydroxide/Mg Hydroxide (Mylanta Plus Xs) 15 ml PRN AFTMEALHC PRN PO DYSPEPSIA; Start 01/18/17 at 17:15 Magnesium Hydroxide (Milk Of Magnesia) 2,400 mg PRN QHS PRN PO CONSTIPATION; Start 01/18/17 at 17:15 Olanzapine (Zyprexa Zydis) 2.5 mg PRN Q2HR PRN PO PSYCHOSIS Last administered on 01/19/17 22:20; Start 01/19/17 at 11:30 Divalproex Sodium (Depakote Sprinkles) 125 mg BID PO Last administered on 19:42; Start 01/20/17 at 21:00 Multivitamins/ Minerals (I-Roya) 1 tab DAILY PO Last administered on 01/25/17 08:55; Start 01/24/17 at 09:00 Lorazepam (Ativan) 0.5 mg PRN Q4HRS PRN PO ANXIETY / AGITATION; Start 01/24/17 at 17:15 Sertraline HCl (Zoloft) 25 mg DAILY PO Last administered on 01/25/17 08:57; Start 01/25/17 at 09:00 Cyanocobalamin (Vitamin B-12) 1,000 mcg DAILY PO ; Start 01/26/17 at 09:00 Active Scripts Active Reported Seroquel (Quetiapine Fumarate) 100 Mg Tablet 100 Mg PO HS Omeprazole 20 Mg Tablet.dr 20 Mg PO DAILY Benicar (Olmesartan Medoxomil) 20 Mg Tablet 20 Mg PO DAILY Lorazepam 1 Mg Tablet 1 Mg PO PRN Q6HRS PRN Plavix (Clopidogrel Bisulfate) 75 Mg Tablet 75 Mg PO DAILY Atorvastatin Calcium 40 Mg Tablet 40 Mg PO QHS Atenolol 25 Mg Tablet 25 Mg PO BID Diagnosis: Problems: (1) Abnormal behavior (2) Anxiety disorder (3) Dementia in Alzheimer's disease with delusions (4) Dementia in Alzheimer's disease with depression (5) Dementia, vascular, with delusions (6) Dementia, vascular, with depression (7) Impulse control disorder MARTHA SRINIVASAN MD January 25, 2017 20:19
--- NOTE | 2017-01-26 03:33 | PN ---
DATE: 01/23/2017 This late entry for 01/23/2017 covers elements not covered in my initial note. SUBJECTIVE: The patient remains confused, gets a little anxious, agitated, but redirects. REVIEW OF SYSTEMS: No CV, , eye, ENT, pulmonary system symptoms on review. Reliability poor. MENTAL STATUS EXAM: Oriented to himself. Insight, judgment, recent and remote memory, attention, concentration, fund of knowledge poor, consistent with his diagnosis mentioned in my initial note. PLAN: Change Ativan p.r.n. to 0.5 mg q. 4 hours p.r.n. max 2 mg in 24 hours. Continue Seroquel 100 mg at bedtime, Depakote 125 mg b.i.d., level is subtherapeutic at 17, but clinically adequate for now. MAN Jules SRINIVASAN MD DR: VIVEK/jocelyn JOB#: [id number] / [id number]
--- NOTE | 2017-01-26 03:34 | PN ---
DATE: 01/24/2017 PSYCHIATRIC PROGRESS NOTE This is a late entry of 01/24/2017 covers elements not covered in my initial note. SUBJECTIVE: The patient was staffed at a treatment team meeting with the entire team and the patient's Macie attended the conference. Lengthy discussion about the patient's history progress, medications, discharge aftercare plans, sleeping about 6-1/2 hours. REVIEW OF SYSTEMS: No CV, , eye, ENT or pulmonary system symptoms on review. Reliability poor. MENTAL STATUS EXAM: Oriented to himself. Insight, judgment, recent and remote memory, attention, concentration, fund of knowledge poor, consistent with his diagnosis mentioned in my initial note. PLAN: Start Zoloft 25 mg a day, continue Ativan p.r.n., Seroquel 100 at bedtime, Depakote 125 b.i.d. Adjust further as clinically indicated. MAN Jules SRINIVASAN MD DR: VIVEK/jocelyn JOB#: [id number] / [id number]
[2017-01-26 06:46] VITALS: BP 158/61
[2017-01-26] MEDS: MULTIVITAMIN with MINERAL TABLET. PO SCH (08:54)
[2017-01-26] MEDS: ATENOLOL 25 MG TABLET PO SCH ×2 (08:55→20:15)
[2017-01-26] MEDS: CLOPIDOGREL BISULFATE 75 MG TABLET PO SCH (08:55)
[2017-01-26] MEDS: DIVALPROEX 125 MG CAP.SPRINK PO SCH ×2 (08:55→20:12)
[2017-01-26] MEDS: PANTOPRAZOLE 40 MG TABLET. PO SCH (08:55)
[2017-01-26] MEDS: LOSARTAN 50 MG TABLET. PO SCH (08:55)
[2017-01-26] MEDS: MULTIVITAMIN I-VITE TABLET. PO SCH (08:55)
[2017-01-26] MEDS: SERTRALINE 25 MG TABLET. PO SCH (08:55)
[2017-01-26] MEDS: CYANOCOBALAMIN (VITAMIN B-12) 1,000 MCG TABLET. PO SCH (08:56)
[2017-01-26 16:12] VITALS: BP 95/50
--- NOTE | 2017-01-26 19:12 | PDOC ---
Exam Mauricio Demential Exam: Mauricio Note: Please also refer to the separate dictated note~for this date of service dictated separately.~Patient seen individually. Discussed the patient with Nursing staff reviewed the chart.~Reviewed interim history and current functioning. Reviewed vital signs,~Labs/ Radiology~and current medications noted below. Continue current treatment with the changes noted in the dictated addendum note Assessment: Vital Signs: Vital Signs Date Time Temp Pulse Resp B/P (MAP) Pulse Ox O2 Delivery O2 Flow Rate FiO2 01/26/17 16:12 98.5 86 20 95/50 (65) 94 I&O Intake and Output 01/26/17 07:00 Intake Total 1320 ml Balance 1320 ml Intake Oral 1320 ml # Voids 2 # Bowel Movements 1 Current Medications: Meds: Current Medications Multivitamins/ Minerals (Preservision) 1 cap DAILY PO Last administered on 08:38; Start 01/19/17 at 09:00; Stop 01/23/17 at 14:48; Status DC Multivitamins/ Calcium (Thera-M Plus) 1 tab DAILY PO Last administered on 08:54; Start 01/19/17 at 09:00 Atenolol (Tenormin) 25 mg BID PO Last administered on 01/26/17 08:55; Start at 21:00 Clopidogrel Bisulfate (Plavix) 75 mg DAILY PO Last administered on 01/26/17 08: 55; Start 01/19/17 at 09:00 Lorazepam (Ativan) 1 mg PRN Q6HRS PRN PO ANXIETY / AGITATION Last administered on 01/19/17 22:20; Start 01/18/17 at 17:15; Stop 01/23/17 at 18:41; Status DC Quetiapine Fumarate (SEROquel) 100 mg HS PO Last administered on 01/25/17 19:43 ; Start 01/18/17 at 21:00 Atorvastatin Calcium (Lipitor) 40 mg QHS PO Last administered on 01/25/17 19:44 ; Start 01/18/17 at 21:00 Losartan Potassium (Cozaar) 100 mg DAILY PO Last administered on 01/26/17 08:55 ; Start 01/19/17 at 09:00 Pantoprazole Sodium (Protonix) 40 mg DAILY PO Last administered on 01/26/17 08: 55; Start 01/19/17 at 09:00 Acetaminophen (Tylenol) 650 mg PRN Q6HRS PRN PO PAIN / TEMP Last administered on 01/23/17 05:38; Start 01/18/17 at 17:15 Multi-Ingredient Ointment (Analgesic [place]) 1 carlos PRN QID PRN TP MUSCLE PAIN; Start 01/18/17 at 17:15 Al Hydroxide/Mg Hydroxide (Mylanta Plus Xs) 15 ml PRN AFTMEALHC PRN PO DYSPEPSIA; Start 01/18/17 at 17:15 Magnesium Hydroxide (Milk Of Magnesia) 2,400 mg PRN QHS PRN PO CONSTIPATION; Start 01/18/17 at 17:15 Olanzapine (Zyprexa Zydis) 2.5 mg PRN Q2HR PRN PO PSYCHOSIS Last administered on 01/19/17 22:20; Start 01/19/17 at 11:30 Divalproex Sodium (Depakote Sprinkles) 125 mg BID PO Last administered on 08:55; Start 01/20/17 at 21:00 Multivitamins/ Minerals (I-Roya) 1 tab DAILY PO Last administered on 01/26/17 08:55; Start 01/24/17 at 09:00 Lorazepam (Ativan) 0.5 mg PRN Q4HRS PRN PO ANXIETY / AGITATION; Start 01/24/17 at 17:15 Sertraline HCl (Zoloft) 25 mg DAILY PO Last administered on 01/26/17 08:55; Start 01/25/17 at 09:00 Cyanocobalamin (Vitamin B-12) 1,000 mcg DAILY PO Last administered on 01/26/17 08:56; Start 01/26/17 at 09:00 Active Scripts Active Reported Seroquel (Quetiapine Fumarate) 100 Mg Tablet 100 Mg PO HS Omeprazole 20 Mg Tablet.dr 20 Mg PO DAILY Benicar (Olmesartan Medoxomil) 20 Mg Tablet 20 Mg PO DAILY Lorazepam 1 Mg Tablet 1 Mg PO PRN Q6HRS PRN Plavix (Clopidogrel Bisulfate) 75 Mg Tablet 75 Mg PO DAILY Atorvastatin Calcium 40 Mg Tablet 40 Mg PO QHS Atenolol 25 Mg Tablet 25 Mg PO BID Diagnosis: Problems: (1) Abnormal behavior (2) Anxiety disorder (3) Dementia in Alzheimer's disease with delusions (4) Dementia in Alzheimer's disease with depression (5) Dementia, vascular, with delusions (6) Dementia, vascular, with depression (7) Impulse control disorder MARTHA SRINIVASAN MD January 26, 2017 19:12
[2017-01-26] MEDS: QUEtiapine 100 MG TABLET. PO SCH (20:12)
[2017-01-26] MEDS: ATORVASTATIN CALCIUM 20 MG TABLET PO SCH (20:12)
[2017-01-26 20:13] VITALS: BP 180/86
[2017-01-27 06:37] VITALS: BP 122/66
[2017-01-27] MEDS: ATENOLOL 25 MG TABLET PO SCH ×2 (09:00→20:35)
[2017-01-27] MEDS: LOSARTAN 50 MG TABLET. PO SCH ×2 (09:00→09:34)
[2017-01-27] MEDS: CYANOCOBALAMIN (VITAMIN B-12) 1,000 MCG TABLET. PO SCH (09:32)
[2017-01-27] MEDS: MULTIVITAMIN I-VITE TABLET. PO SCH (09:32)
[2017-01-27] MEDS: MULTIVITAMIN with MINERAL TABLET. PO SCH (09:32)
[2017-01-27] MEDS: CLOPIDOGREL BISULFATE 75 MG TABLET PO SCH (09:33)
[2017-01-27] MEDS: DIVALPROEX 125 MG CAP.SPRINK PO SCH ×2 (09:34→20:33)
[2017-01-27] MEDS: PANTOPRAZOLE 40 MG TABLET. PO SCH (09:35)
[2017-01-27] MEDS: SERTRALINE 50 MG TABLET. PO SCH (09:40)
--- NOTE | 2017-01-27 19:52 | PDOC ---
Exam Mauricio Demential Exam: Mauricio Note: Please also refer to the separate dictated note~for this date of service dictated separately.~Patient seen individually. Discussed the patient with Nursing staff reviewed the chart.~Reviewed interim history and current functioning. Reviewed vital signs,~Labs/ Radiology~and current medications noted below. Continue current treatment with the changes noted in the dictated addendum note Assessment: Vital Signs: Vital Signs Date Time Temp Pulse Resp B/P (MAP) Pulse Ox O2 Delivery O2 Flow Rate FiO2 01/27/17 09:00 72 148/64 01/27/17 06:37 98.0 14 96 I&O Intake and Output 01/27/17 07:00 Intake Total 1560 ml Balance 1560 ml Intake Oral 1560 ml # Voids 2 Current Medications: Meds: Current Medications Multivitamins/ Minerals (Preservision) 1 cap DAILY PO Last administered on 08:38; Start 01/19/17 at 09:00; Stop 01/23/17 at 14:48; Status DC Multivitamins/ Calcium (Thera-M Plus) 1 tab DAILY PO Last administered on 09:32; Start 01/19/17 at 09:00 Atenolol (Tenormin) 25 mg BID PO Last administered on 01/27/17 09:00; Start at 21:00 Clopidogrel Bisulfate (Plavix) 75 mg DAILY PO Last administered on 01/27/17 09: 33; Start 01/19/17 at 09:00 Lorazepam (Ativan) 1 mg PRN Q6HRS PRN PO ANXIETY / AGITATION Last administered on 01/19/17 22:20; Start 01/18/17 at 17:15; Stop 01/23/17 at 18:41; Status DC Quetiapine Fumarate (SEROquel) 100 mg HS PO Last administered on 01/26/17 20:12 ; Start 01/18/17 at 21:00 Atorvastatin Calcium (Lipitor) 40 mg QHS PO Last administered on 01/26/17 20:12 ; Start 01/18/17 at 21:00 Losartan Potassium (Cozaar) 100 mg DAILY PO Last administered on 01/27/17 09:00 ; Start 01/19/17 at 09:00 Pantoprazole Sodium (Protonix) 40 mg DAILY PO Last administered on 01/27/17 09: 35; Start 01/19/17 at 09:00 Acetaminophen (Tylenol) 650 mg PRN Q6HRS PRN PO PAIN / TEMP Last administered on 01/23/17 05:38; Start 01/18/17 at 17:15 Multi-Ingredient Ointment (Analgesic [place]) 1 carlos PRN QID PRN TP MUSCLE PAIN; Start 01/18/17 at 17:15 Al Hydroxide/Mg Hydroxide (Mylanta Plus Xs) 15 ml PRN AFTMEALHC PRN PO DYSPEPSIA; Start 01/18/17 at 17:15 Magnesium Hydroxide (Milk Of Magnesia) 2,400 mg PRN QHS PRN PO CONSTIPATION; Start 01/18/17 at 17:15 Olanzapine (Zyprexa Zydis) 2.5 mg PRN Q2HR PRN PO PSYCHOSIS Last administered on 01/19/17 22:20; Start 01/19/17 at 11:30 Divalproex Sodium (Depakote Sprinkles) 125 mg BID PO Last administered on 09:34; Start 01/20/17 at 21:00 Multivitamins/ Minerals (I-Roya) 1 tab DAILY PO Last administered on 01/27/17 09:32; Start 01/24/17 at 09:00 Lorazepam (Ativan) 0.5 mg PRN Q4HRS PRN PO ANXIETY / AGITATION; Start 01/24/17 at 17:15 Sertraline HCl (Zoloft) 25 mg DAILY PO Last administered on 01/26/17 08:55; Start 01/25/17 at 09:00; Stop 01/27/17 at 08:10; Status DC Cyanocobalamin (Vitamin B-12) 1,000 mcg DAILY PO Last administered on 01/27/17 09:32; Start 01/26/17 at 09:00 Sertraline HCl (Zoloft) 50 mg DAILY PO Last administered on 01/27/17 09:40; Start 01/27/17 at 09:00 Active Scripts Active Reported Seroquel (Quetiapine Fumarate) 100 Mg Tablet 100 Mg PO HS Omeprazole 20 Mg Tablet.dr 20 Mg PO DAILY Benicar (Olmesartan Medoxomil) 20 Mg Tablet 20 Mg PO DAILY Lorazepam 1 Mg Tablet 1 Mg PO PRN Q6HRS PRN Plavix (Clopidogrel Bisulfate) 75 Mg Tablet 75 Mg PO DAILY Atorvastatin Calcium 40 Mg Tablet 40 Mg PO QHS Atenolol 25 Mg Tablet 25 Mg PO BID Diagnosis: Problems: (1) Abnormal behavior (2) Anxiety disorder (3) 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
[2017-01-27] MEDS: ATORVASTATIN CALCIUM 20 MG TABLET PO SCH (20:33)
[2017-01-27] MEDS: QUEtiapine 100 MG TABLET. PO SCH (20:34)
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
--- NOTE | 2017-01-27 23:30 | PN ---
DATE: 01/26/2017 PSYCHIATRIC PROGRESS NOTE This is a late entry for 01/26/2017, covers elements not covered in my initial note. SUBJECTIVE: The patient remains confused, calm, compliant, and pleasant per nursing report, redirectable, less paranoid. REVIEW OF SYSTEMS: No CV, , pulmonary, eye, ENT system symptoms on review. Reliability poor. MENTAL STATUS EXAM: Oriented to himself. Insight, judgment, recent and remote memory, attention, concentration, fund of knowledge poor, consistent with his diagnosis mentioned in my initial note. LABORATORY DATA: Reviewed. Repeat valproic acid level then may adjust the Depakote. IMPRESSION: Unchanged from initial note. PLAN: Continue Seroquel 100 mg at bedtime, Depakote 125 mg b.i.d., Zoloft 25 mg a day. We will increase to 50 mg a day, Ativan is p.r.n. MAN Jules SRINIVASAN MD DR: VIVEK/jocelyn JOB#: [id number] / [id number]
[2017-01-28 06:37] VITALS: BP 162/77
[2017-01-28] MEDS: PANTOPRAZOLE 40 MG TABLET. PO SCH (09:37)
[2017-01-28] MEDS: MULTIVITAMIN with MINERAL TABLET. PO SCH (09:37)
[2017-01-28] MEDS: SERTRALINE 50 MG TABLET. PO SCH (09:37)
[2017-01-28] MEDS: DIVALPROEX 125 MG CAP.SPRINK PO SCH ×2 (09:37→20:22)
[2017-01-28] MEDS: LOSARTAN 50 MG TABLET. PO SCH (09:37)
[2017-01-28] MEDS: CYANOCOBALAMIN (VITAMIN B-12) 1,000 MCG TABLET. PO SCH (09:37)
[2017-01-28] MEDS: ATENOLOL 25 MG TABLET PO SCH ×2 (09:37→20:23)
[2017-01-28] MEDS: MULTIVITAMIN I-VITE TABLET. PO SCH (09:37)
[2017-01-28] MEDS: CLOPIDOGREL BISULFATE 75 MG TABLET PO SCH (09:37)
[2017-01-28 16:10] VITALS: BP 133/68
--- NOTE | 2017-01-28 20:09 | PDOC ---
Exam Mauricio Demential Exam: Mauricio Note: Please also refer to the separate dictated note~for this date of service dictated separately.~Patient seen individually. Discussed the patient with Nursing staff reviewed the chart.~Reviewed interim history and current functioning. Reviewed vital signs,~Labs/ Radiology~and current medications noted below. Continue current treatment with the changes noted in the dictated addendum note Assessment: Vital Signs: Vital Signs Date Time Temp Pulse Resp B/P (MAP) Pulse Ox O2 Delivery O2 Flow Rate FiO2 01/28/17 16:10 98.3 63 20 133/68 (89) 99 I&O Intake and Output 01/28/17 07:00 Intake Total 840 ml Balance 840 ml Intake Oral 840 ml Current Medications: Meds: Current Medications Multivitamins/ Minerals (Preservision) 1 cap DAILY PO Last administered on 08:38; Start 01/19/17 at 09:00; Stop 01/23/17 at 14:48; Status DC Multivitamins/ Calcium (Thera-M Plus) 1 tab DAILY PO Last administered on 09:37; Start 01/19/17 at 09:00 Atenolol (Tenormin) 25 mg BID PO Last administered on 01/28/17 09:37; Start at 21:00 Clopidogrel Bisulfate (Plavix) 75 mg DAILY PO Last administered on 01/28/17 09: 37; Start 01/19/17 at 09:00 Lorazepam (Ativan) 1 mg PRN Q6HRS PRN PO ANXIETY / AGITATION Last administered on 01/19/17 22:20; Start 01/18/17 at 17:15; Stop 01/23/17 at 18:41; Status DC Quetiapine Fumarate (SEROquel) 100 mg HS PO Last administered on 01/27/17 20:34 ; Start 01/18/17 at 21:00 Atorvastatin Calcium (Lipitor) 40 mg QHS PO Last administered on 01/27/17 20:33 ; Start 01/18/17 at 21:00 Losartan Potassium (Cozaar) 100 mg DAILY PO Last administered on 01/28/17 09:37 ; Start 01/19/17 at 09:00 Pantoprazole Sodium (Protonix) 40 mg DAILY PO Last administered on 01/28/17 09: 37; Start 01/19/17 at 09:00 Acetaminophen (Tylenol) 650 mg PRN Q6HRS PRN PO PAIN / TEMP Last administered on 01/23/17 05:38; Start 01/18/17 at 17:15 Multi-Ingredient Ointment (Analgesic [place]) 1 carlos PRN QID PRN TP MUSCLE PAIN; Start 01/18/17 at 17:15 Al Hydroxide/Mg Hydroxide (Mylanta Plus Xs) 15 ml PRN AFTMEALHC PRN PO DYSPEPSIA; Start 01/18/17 at 17:15 Magnesium Hydroxide (Milk Of Magnesia) 2,400 mg PRN QHS PRN PO CONSTIPATION; Start 01/18/17 at 17:15 Olanzapine (Zyprexa Zydis) 2.5 mg PRN Q2HR PRN PO PSYCHOSIS Last administered on 01/19/17 22:20; Start 01/19/17 at 11:30 Divalproex Sodium (Depakote Sprinkles) 125 mg BID PO Last administered on 09:37; Start 01/20/17 at 21:00 Multivitamins/ Minerals (I-Roya) 1 tab DAILY PO Last administered on 01/28/17 09:37; Start 01/24/17 at 09:00 Lorazepam (Ativan) 0.5 mg PRN Q4HRS PRN PO ANXIETY / AGITATION; Start 01/24/17 at 17:15 Sertraline HCl (Zoloft) 25 mg DAILY PO Last administered on 01/26/17 08:55; Start 01/25/17 at 09:00; Stop 01/27/17 at 08:10; Status DC Cyanocobalamin (Vitamin B-12) 1,000 mcg DAILY PO Last administered on 01/28/17 09:37; Start 01/26/17 at 09:00 Sertraline HCl (Zoloft) 50 mg DAILY PO Last administered on 01/28/17 09:37; Start 01/27/17 at 09:00 Active Scripts Active Reported Seroquel (Quetiapine Fumarate) 100 Mg Tablet 100 Mg PO HS Omeprazole 20 Mg Tablet.dr 20 Mg PO DAILY Benicar (Olmesartan Medoxomil) 20 Mg Tablet 20 Mg PO DAILY Lorazepam 1 Mg Tablet 1 Mg PO PRN Q6HRS PRN Plavix (Clopidogrel Bisulfate) 75 Mg Tablet 75 Mg PO DAILY Atorvastatin Calcium 40 Mg Tablet 40 Mg PO QHS Atenolol 25 Mg Tablet 25 Mg PO BID Diagnosis: Problems: (1) Abnormal behavior (2) Anxiety disorder (3) Dementia in Alzheimer's disease with delusions (4) Dementia in Alzheimer's disease with depression (5) Dementia, vascular, with delusions (6) Dementia, vascular, with depression (7) Impulse control disorder MARTHA SRINIVASAN MD January 28, 2017 20:09
[2017-01-28] MEDS: QUEtiapine 100 MG TABLET. PO SCH (20:22)
[2017-01-28] MEDS: ATORVASTATIN CALCIUM 20 MG TABLET PO SCH (20:25)
--- NOTE | 2017-01-29 00:58 | PN ---
DATE: 01/27/2017 PSYCHIATRIC PROGRESS NOTE This is a late entry of 01/27/2017, covers not covered in my initial note. SUBJECTIVE: Per nursing report, the patient has done reasonably well, confused. He takes his medications whole. REVIEW OF SYSTEMS: No CV, , eye, ENT or pulmonary system symptoms on review. Reliability poor. MENTAL STATUS EXAM: Oriented to himself. Insight, judgment, recent and remote memory, attention, concentration, fund of knowledge poor, consistent with his diagnosis mentioned in my initial note. PLAN: Continue current psychotropics. Transition to lower level of care this week. MAN Jules SRINIVASAN MD DR: VIVEK/jocelyn JOB#: [id number] / [id number]
[2017-01-29 06:02] VITALS: BP 178/67
[2017-01-29] MEDS: DIVALPROEX 125 MG CAP.SPRINK PO SCH ×2 (08:28→19:46)
[2017-01-29] MEDS: CYANOCOBALAMIN (VITAMIN B-12) 1,000 MCG TABLET. PO SCH (08:28)
[2017-01-29] MEDS: PANTOPRAZOLE 40 MG TABLET. PO SCH (08:28)
[2017-01-29] MEDS: MULTIVITAMIN I-VITE TABLET. PO SCH (08:28)
[2017-01-29] MEDS: CLOPIDOGREL BISULFATE 75 MG TABLET PO SCH (08:28)
[2017-01-29] MEDS: SERTRALINE 50 MG TABLET. PO SCH (08:28)
[2017-01-29] MEDS: MULTIVITAMIN with MINERAL TABLET. PO SCH (08:28)
[2017-01-29] MEDS: LOSARTAN 50 MG TABLET. PO SCH (08:29)
[2017-01-29] MEDS: ATENOLOL 25 MG TABLET PO SCH ×2 (08:30→19:47)
[2017-01-29] MEDS: ACETAMINOPHEN 325 MG TABLET PO PRN (12:39)
[2017-01-29 14:50] VITALS: BP 169/72
[2017-01-29] MEDS: ATORVASTATIN CALCIUM 20 MG TABLET PO SCH (19:46)
[2017-01-29] MEDS: QUEtiapine 100 MG TABLET. PO SCH (19:46)
[2017-01-29 20:35] LABS: HEMATOCRIT 32.5 % (39.0-53.0); HEMOGLOBIN 10.9 g/dL (13.0-17.5); RED BLOOD COUNT 3.59 x10^6/uL (4.30-5.70); RED CELL DISTRIBUTION WIDTH 14.5 % (11.5-14.5); WHITE BLOOD COUNT 8.4 x10^3/uL (4.0-11.0)
[2017-01-29 20:52] LABS: ALBUMIN/GLOBULIN RATIO 0.8 (1.0-1.7); ALK PHOS 61 U/L (46-116); ALT (SGPT) 31 U/L (16-63); ANION GAP 9 (6-14); AST (SGOT) 22 U/L (15-37); BLOOD UREA NITROGEN 28 mg/dL (8-26); BUN/CREATININE RATIO 22 (6-20); CALCIUM 8.6 mg/dL (8.5-10.1); CARBON DIOXIDE 24 mmol/L (21-32); CHLORIDE 106 mmol/L (98-107); CREATININE 1.3 mg/dL (0.7-1.3); GFR 52.3; GLUCOSE 195 mg/dL (70-99); POTASSIUM 4.3 mmol/L (3.5-5.1); SODIUM 139 mmol/L (136-145); TOTAL BILIRUBIN 0.3 mg/dL (0.2-1.0); TOTAL PROTEIN 6.7 g/dL (6.4-8.2)
[2017-01-29 20:55] LABS: VAL ACID 19 mcg/mL (50-100)
--- NOTE | 2017-01-29 21:07 | PDOC ---
Exam Mauricio Demential Exam: Mauricio Note: Please also refer to the separate dictated note~for this date of service dictated separately.~Patient seen individually. Discussed the patient with Nursing staff reviewed the chart.~Reviewed interim history and current functioning. Reviewed vital signs,~Labs/ Radiology~and current medications noted below. Continue current treatment with the changes noted in the dictated addendum note Assessment: Vital Signs: Vital Signs Date Time Temp Pulse Resp B/P (MAP) Pulse Ox O2 Delivery O2 Flow Rate FiO2 01/29/17 19:47 61 169/72 01/29/17 14:50 97.8 18 98 I&O Intake and Output 01/29/17 07:00 Intake Total 840 ml Balance 840 ml Intake Oral 840 ml # Bowel Movements 1 Labs: Laboratory Tests Test 01/29/17 20:25 White Blood Count 8.4 x10^3/uL (4.0-11.0) Red Blood Count 3.59 x10^6/uL (4.30-5.70) L Hemoglobin 10.9 g/dL (13.0-17.5) L Hematocrit 32.5 % (39.0-53.0) L Mean Corpuscular Volume 90 fL (79-100) Mean Corpuscular Hemoglobin 30 pg (25-35) Mean Corpuscular Hemoglobin Concent 34 g/dL (31-37) Red Cell Distribution Width 14.5 % (11.5-14.5) Platelet Count 227 x10^3/uL (140-400) Sodium Level 139 mmol/L (136-145) Potassium Level 4.3 mmol/L (3.5-5.1) Chloride Level 106 mmol/L (98-107) Carbon Dioxide Level 24 mmol/L (21-32) Anion Gap 9 (6-14) Blood Urea Nitrogen 28 mg/dL (8-26) H Creatinine 1.3 mg/dL (0.7-1.3) Estimated GFR (Cockcroft-Gault) 52.3 BUN/Creatinine Ratio 22 (6-20) H Glucose Level 195 mg/dL (70-99) H Calcium Level 8.6 mg/dL (8.5-10.1) Total Bilirubin 0.3 mg/dL (0.2-1.0) Aspartate Amino Transferase (AST) 22 U/L (15-37) Alanine Aminotransferase (ALT) 31 U/L (16-63) Alkaline Phosphatase 61 U/L (46-116) Total Protein 6.7 g/dL (6.4-8.2) Albumin 3.0 g/dL (3.4-5.0) L Albumin/Globulin Ratio 0.8 (1.0-1.7) L Valproic Acid Level 19 mcg/mL (50-100) L Valproic Acid Last Dose Date 01/29/17 Valproic Acid Last Dose Time 829 Current Medications: Meds: Current Medications Multivitamins/ Minerals (Preservision) 1 cap DAILY PO Last administered on 08:38; Start 01/19/17 at 09:00; Stop 01/23/17 at 14:48; Status DC Multivitamins/ Calcium (Thera-M Plus) 1 tab DAILY PO Last administered on 08:28; Start 01/19/17 at 09:00 Atenolol (Tenormin) 25 mg BID PO Last administered on 01/29/17 19:47; Start at 21:00 Clopidogrel Bisulfate (Plavix) 75 mg DAILY PO Last administered on 01/29/17 08: 28; Start 01/19/17 at 09:00 Lorazepam (Ativan) 1 mg PRN Q6HRS PRN PO ANXIETY / AGITATION Last administered on 01/19/17 22:20; Start 01/18/17 at 17:15; Stop 01/23/17 at 18:41; Status DC Quetiapine Fumarate (SEROquel) 100 mg HS PO Last administered on 01/29/17 19:46 ; Start 01/18/17 at 21:00 Atorvastatin Calcium (Lipitor) 40 mg QHS PO Last administered on 01/29/17 19:46 ; Start 01/18/17 at 21:00 Losartan Potassium (Cozaar) 100 mg DAILY PO Last administered on 01/29/17 08:29 ; Start 01/19/17 at 09:00 Pantoprazole Sodium (Protonix) 40 mg DAILY PO Last administered on 01/29/17 08: 28; Start 01/19/17 at 09:00 Acetaminophen (Tylenol) 650 mg PRN Q6HRS PRN PO PAIN / TEMP Last administered on 01/29/17 12:39; Start 01/18/17 at 17:15 Multi-Ingredient Ointment (Analgesic [place]) 1 carlos PRN QID PRN TP MUSCLE PAIN Last administered on 01/29/17 13:38; Start 01/18/17 at 17:15 Al Hydroxide/Mg Hydroxide (Mylanta Plus Xs) 15 ml PRN AFTMEALHC PRN PO DYSPEPSIA; Start 01/18/17 at 17:15 Magnesium Hydroxide (Milk Of Magnesia) 2,400 mg PRN QHS PRN PO CONSTIPATION; Start 01/18/17 at 17:15 Olanzapine (Zyprexa Zydis) 2.5 mg PRN Q2HR PRN PO PSYCHOSIS Last administered on 01/19/17 22:20; Start 01/19/17 at 11:30 Divalproex Sodium (Depakote Sprinkles) 125 mg BID PO Last administered on 19:46; Start 01/20/17 at 21:00 Multivitamins/ Minerals (I-Roya) 1 tab DAILY PO Last administered on 01/29/17 08:28; Start 01/24/17 at 09:00 Lorazepam (Ativan) 0.5 mg PRN Q4HRS PRN PO ANXIETY / AGITATION; Start 01/24/17 at 17:15 Sertraline HCl (Zoloft) 25 mg DAILY PO Last administered on 01/26/17 08:55; Start 01/25/17 at 09:00; Stop 01/27/17 at 08:10; Status DC Cyanocobalamin (Vitamin B-12) 1,000 mcg DAILY PO Last administered on 01/29/17 08:28; Start 01/26/17 at 09:00 Sertraline HCl (Zoloft) 50 mg DAILY PO Last administered on 01/29/17 08:28; Start 01/27/17 at 09:00 Active Scripts Active Reported Seroquel (Quetiapine Fumarate) 100 Mg Tablet 100 Mg PO HS Omeprazole 20 Mg Tablet.dr 20 Mg PO DAILY Benicar (Olmesartan Medoxomil) 20 Mg Tablet 20 Mg PO DAILY Lorazepam 1 Mg Tablet 1 Mg PO PRN Q6HRS PRN Plavix (Clopidogrel Bisulfate) 75 Mg Tablet 75 Mg PO DAILY Atorvastatin Calcium 40 Mg Tablet 40 Mg PO QHS Atenolol 25 Mg Tablet 25 Mg PO BID Diagnosis: Problems: (1) Abnormal behavior (2) Anxiety disorder (3) Dementia in Alzheimer's disease with delusions (4) Dementia in Alzheimer's disease with depression (5) Dementia, vascular, with delusions (6) Dementia, vascular, with depression (7) Impulse control disorder MARTHA SRINIVASAN MD January 29, 2017 21:07
--- NOTE | 2017-01-30 00:14 | PN ---
DATE: 01/28/2017 PSYCHIATRIC PROGRESS NOTE This is late entry of 01/28/2017, covers elements not covered in my initial note. SUBJECTIVE: The patient remains confused, wanders in the hallways, compliant with his medications, pleasant, smiling as I met with him, oblivious of his surroundings. REVIEW OF SYSTEMS: No CV, , pulmonary, eye, ENT system symptoms on review. Reliability poor. MENTAL STATUS EXAM: Oriented to himself. Insight, judgment, recent and remote memory, attention, concentration, fund of knowledge poor, consistent with his diagnosis. IMPRESSION: Major neurocognitive disorder, Alzheimer's, vascular with depression, delusion, behavioral disturbance. Rest unchanged. PLAN: Continue Zoloft 50 mg a day, Ativan p.r.n., Seroquel 100 at bedtime, Depakote 125 b.i.d. Follow labs, level on the Depakote. Adjust further as clinically indicated. MARTHA SRINIVASAN MD DR: VIVEK/jocelyn JOB#: [id number] / [id number]
[2017-01-30] MEDS ORDERED: ACET325T9 PO (01:45)
[2017-01-30] MEDS ORDERED: CYAN10005 PO (01:47)
[2017-01-30] MEDS ORDERED: DIVA125C PO (01:49)
[2017-01-30] MEDS ORDERED: LORA0.5T PO (01:50)
[2017-01-30] MEDS ORDERED: LOSA100T2 PO (01:51)
[2017-01-30] MEDS ORDERED: MAGN2400 PO (01:55)
[2017-01-30] MEDS ORDERED: MAG30ORA2 PO (01:55)
[2017-01-30] MEDS ORDERED: METH29OI TP (01:57)
[2017-01-30] MEDS ORDERED: VIT1TABL8 PO (01:58)
[2017-01-30] MEDS ORDERED: MULT-638 PO (01:59)
[2017-01-30] MEDS ORDERED: OLAN5TAB5 PO (02:02)
[2017-01-30] MEDS ORDERED: PANT40TA3 PO (02:11)
[2017-01-30] MEDS ORDERED: SERT50TA PO (02:12)
[2017-01-30 06:59] VITALS: BP 189/74
[2017-01-30] MEDS: MULTIVITAMIN I-VITE TABLET. PO SCH (07:55)
[2017-01-30] MEDS: LOSARTAN 50 MG TABLET. PO SCH (07:55)
[2017-01-30] MEDS: CLOPIDOGREL BISULFATE 75 MG TABLET PO SCH (07:55)
[2017-01-30] MEDS: MULTIVITAMIN with MINERAL TABLET. PO SCH (07:55)
[2017-01-30] MEDS: CYANOCOBALAMIN (VITAMIN B-12) 1,000 MCG TABLET. PO SCH (07:55)
[2017-01-30 07:56] VITALS: BP 189/74
[2017-01-30] MEDS: SERTRALINE 50 MG TABLET. PO SCH (07:56)
[2017-01-30] MEDS: DIVALPROEX 125 MG CAP.SPRINK PO SCH (07:56)
[2017-01-30] MEDS: ATENOLOL 25 MG TABLET PO SCH (07:56)
[2017-01-30] MEDS: PANTOPRAZOLE 40 MG TABLET. PO SCH (07:56)
--- NOTE | 2017-01-31 09:41 | PN ---
DATE: 01/29/2017 This is a later entry, cover elements not covered in my initial note. SUBJECTIVE: The patient remains confused, but redirectable, not aggressive. REVIEW OF SYSTEMS: No CV, , pulmonary, eye, ENT system symptoms on review. MENTAL STATUS EXAM: Oriented to himself. Insight, judgment, recent and remote memory, attention, concentration, fund of knowledge poor consistent with his diagnosis as mentioned in my initial note. He takes his medications whole, complained of some neck discomfort earlier on 01/29/2017. Valproic acid level will be repeated. IMPRESSION: Unchanged from initial note. PLAN: Continue psychotropics as mentioned in my initial note. Possible transition to halfway on 01/30/2017. MAN Jules SRINIVASAN MD DR: VIVEK/jocelyn JOB#: [id number] / [id number]
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
== END 2017-01-30 11:19 | DRG 884 ==
LOC: ER 14:51 → EEVIPCON 14:51 → GEROPSY 17:05
PROVIDERS: ADMIT Psychiatry & Neurology Psychiatry; ATTEND Psychiatry & Neurology Psychiatry
DX: F01.51 Vascular dementia, unspecified severity, with behavioral disturbance (principal); F02.81 Dementia in other diseases classified elsewhere, unspecified severity, with behavioral disturbance; G30.9 Alzheimer's disease, unspecified; F32.9 Major depressive disorder, single episode, unspecified; F41.9 Anxiety disorder, unspecified; F63.9 Impulse disorder, unspecified; I10 Essential (primary) hypertension; I25.10 Atherosclerotic heart disease of native coronary artery without angina pectoris; I73.9 Peripheral vascular disease, unspecified; J30.9 Allergic rhinitis, unspecified
CPT/HCPCS: 36415; 70450; 73090; 73100; 80053; 80061; 80164; 81001; 82306; 82607; 82947; 83036; 83540; 83550; 83735; 84443; 84480; 84484; 85027; 86592; 86593; 93005; G0480; G0481; G6038; 80196; 99285-25

== ENCOUNTER 2017-03-28 18:47 | Inpatient (IN) | payer MEDICARE ==
[~2017-03-28] VITALS: Ht 195.6 cm; Wt 83.9 kg
[~2017-03-28 18:47] MED LIST: ACET325T9 PO; ATEN25TA PO; ATOR40TA59 PO; CLOP75TA57 PO; CYAN10005 PO; DIVA125C PO; LORA0.5T PO; LORA1TAB PO; LOSA100T2 PO; MAG30ORA2 PO; MAGN2400 PO; METH29OI TP; MULT-638 PO; OLAN5TAB5 PO; OLME20TA19 PO; OMEP20TA8 PO; PANT40TA3 PO; QUET100T4 PO; SERT50TA PO; VIT1TABL8 PO
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
--- NOTE | 2017-03-28 19:23 | EKG ---
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
[2017-03-28 19:31] LABS: ALBUMIN 3.4 g/dL (3.4-5.0); BASO # 0.1 x10^3/uL (0.0-0.2); BASO % 1 % (0-3); CALCIUM 8.9 mg/dL (8.5-10.1); CREATININE 1.5 mg/dL (0.7-1.3); EOS # 0.4 x10^3/uL (0.0-0.7); EOS % 5 % (0-3); GFR 44.4; HEMATOCRIT 32.7 % (39.0-53.0); LYMPH # 1.5 x10^3/uL (1.0-4.8); LYMPH % 17 % (24-48); MAGNESIUM 1.8 mg/dL (1.8-2.4); MEAN CORPUSCULAR HEMOGLOBIN 30 pg (25-35); MEAN CORPUSCULAR HGB CONC 34 g/dL (31-37); MEAN CORPUSCULAR VOLUME 89 fL (79-100); MONO # 0.9 x10^3/uL (0.0-1.1); MONO % 10 % (0-9); NEUT # 5.9 x10^3uL (1.8-7.7); NEUT % 67 % (31-73); PLATELET COUNT 217 x10^3/uL (140-400); POTASSIUM 4.1 mmol/L (3.5-5.1); RED BLOOD COUNT 3.67 x10^6/uL (4.30-5.70); RED CELL DISTRIBUTION WIDTH 14.4 % (11.5-14.5); TOTAL BILIRUBIN 0.4 mg/dL (0.2-1.0); TOTAL PROTEIN 6.9 g/dL (6.4-8.2); WHITE BLOOD COUNT 8.8 x10^3/uL (4.0-11.0)
[2017-03-28 20:14] LABS: CLARITY,URINE CLEAR; COLOR,URINE YELLOW; GLUCOSE,URINE NEG (NEG)
[2017-03-28 20:15] LABS: BACTERIA,URINE 0 /HPF (0-FEW); BILIRUBIN,URINE NEG (NEG); NITRITE,URINE NEG (NEG); RBC,URINE OCC /HPF (0-2); UROBILINOGEN,URINE 0.2 mg/dL (0.2 mg/dL); WBC,URINE RARE /HPF (0-4)
[2017-03-28] MEDS ORDERED: LORazepam 1 MG TABLET PO ONE (21:00)
[2017-03-28] MEDS ORDERED: HALOPERIDOL 1 MG TABLET PO ONE (21:00)
[2017-03-28] MEDS ORDERED: TRAM50TA PO ×2 (23:00)
[2017-03-28] MEDS ORDERED: LORA1TAB PO (23:00)
[2017-03-28] MEDS ORDERED: MAGNESIUM HYDROXIDE 2,400 MG/30 ML ORAL.SUSP. PO PRN (23:15)
[2017-03-28] MEDS ORDERED: ACETAMINOPHEN 325 MG TABLET PO PRN ×2 (23:15→23:30)
[2017-03-28] MEDS ORDERED: MAG HYDROX/AL HYDROX/SIMETH 30 ML ORAL.SUSP PO PRN ×2 (23:15→23:30)
[2017-03-28] MEDS ORDERED: METHYL SALICYLATE/MENTHOL TOPICAL OINTMENT 29GM TUBE. TP PRN ×2 (23:15→23:30)
[2017-03-28] MEDS ORDERED: NON FORMULARY ITEM (Magnesium Hydroxide (Milk Of Magnesia) 2,400 MG) PO PRN (23:30)
[2017-03-28] MEDS ORDERED: traMADol 50 MG TABLET PO PRN ×2 (23:30)
[2017-03-28 23:36] LABS: VAL ACID 12 mcg/mL (50-100)
--- NOTE | 2017-03-29 02:59 | ACF ---
Admission Criteria Forms PSYCHIATRIC DISORDERS Clinical Indications for Inpatient Care (Place 'X' for any and all applicable criteria): Ongoing inpatient care may be needed for 1 or more of the following(1)(2)(3)(4)( 6)(7)(8): [ ]I. Danger to self or others not manageable at lower level of care. [ ]II. Grave disability (eg, inability to perform self care necessary at lower level of care) [ ]III. Agitation or inappropriate behavior interfering with care for primary condition (eg, attempting to discontinue lines or drains prematurely, unable to cooperate with respiratory care) [X]IV. Severe disability or disorder indicated by ALL of the following: [X]a) Severe behavioral health disorder-related symptoms or condition indicated by 1 or more of the following: [ ]i) Severe problem with cognition, memory, judgment, or impulse control [X]ii) Severe clinical manifestations (eg, hallucinations, delusions, other acute psychotic symptoms, shweta, extreme agitation or anxiety) [X]b) Patient management at lower level of care is not feasible until acute intervention or modification is initiated. Extended stay beyond goal length of stay for the primary condition may be needed untilALLof the following are present(1)(2)(3)(4)(722)(23): [ ]a) Danger to self or others is absent or manageable at lower level of care [ ]b) Behavior crisis management, including physical or chemical restraints, is required and is not available at a lower level of care. [ ]c) Behavioral symptoms (e.g., agitation, somnolence, inappropriate behavior) are present, and are not manageable at a lower level of care. [ ]d) Patient cannot understand follow-up treatment and crisis plan. [ ]e) Provider and supports are sufficiently available at lower level of care. [ ]f) Patient can participate (e.g., verify absence of plan for harm) and is in needed of monitoring. The original [email or web address] [email or web address] content created by [facility] [employer] has been revised. The portions of the content which have been revised are identified through the use of italic text, and [employer] has neither reviewed nor approved the modified material. All other unmodified content is copyright [facility] [employer]. Please see references footnoted in the original [facility] edition 2015 Admission Criteria Met?: Yes XAVI TATE Mar 29, 2017 02:59
[2017-03-29] MEDS: DIVALPROEX 125 MG CAP.SPRINK PO SCH ×3 (08:14→21:09)
[2017-03-29] MEDS: SERTRALINE 50 MG TABLET. PO SCH (08:14)
[2017-03-29] MEDS: CLOPIDOGREL BISULFATE 75 MG TABLET PO SCH (08:14)
[2017-03-29] MEDS: MULTIVITAMIN I-VITE TABLET. PO SCH (08:14)
[2017-03-29] MEDS: CYANOCOBALAMIN (VITAMIN B-12) 1,000 MCG TABLET. PO SCH (08:14)
[2017-03-29] MEDS: PANTOPRAZOLE 40 MG TABLET. PO SCH (08:14)
[2017-03-29] MEDS: ATENOLOL 25 MG TABLET PO SCH ×2 (08:15→21:10)
[2017-03-29] MEDS: MULTIVITAMIN with MINERAL TABLET. PO SCH (08:15)
[2017-03-29] MEDS: LOSARTAN 50 MG TABLET. PO SCH (08:15)
[2017-03-29 15:56] VITALS: BP 116/59
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
--- NOTE | 2017-03-29 20:09 | PDOC ---
Exam Mauricio Demential Exam: Mauricio Note: Please also refer to the separate dictated note~for this date of service dictated separately.~Patient seen individually. Discussed the patient with Nursing staff reviewed the chart.~Reviewed interim history and current functioning. Reviewed vital signs,~Labs/ Radiology~and current medications noted below. Continue current treatment with the changes noted in the dictated addendum note Assessment: Vital Signs: Vital Signs Date Time Temp Pulse Resp B/P (MAP) Pulse Ox O2 Delivery O2 Flow Rate FiO2 03/29/17 15:56 97.6 63 20 116/59 (78) 100 03/29/17 05:01 Room Air Current Medications: Meds: Current Medications Lorazepam (Ativan) 1 mg 1X ONCE PO Last administered on 03/28/17 21:01; Start 03/28/17 at 21:00; Stop 03/28/17 at 21:05; Status DC Haloperidol (Haldol) 5 mg 1X ONCE PO Last administered on 03/28/17 21:01; Start 03/28/17 at 21:00; Stop 03/28/17 at 21:05; Status DC Acetaminophen (Tylenol) 650 mg PRN Q6HRS PRN PO PAIN / TEMP; Start 03/28/17 at 23:15 Multi-Ingredient Ointment (Analgesic [place]) 1 vik PRN QID PRN TP MUSCLE PAIN; Start 03/28/17 at 23:15 Al Hydroxide/Mg Hydroxide (Mylanta Plus Xs) 15 ml PRN AFTMEALHC PRN PO DYSPEPSIA; Start 03/28/17 at 23:15 Magnesium Hydroxide (Milk Of Magnesia) 2,400 mg PRN QHS PRN PO CONSTIPATION; Start 03/28/17 at 23:15 Divalproex Sodium (Depakote Sprinkles) 125 mg TID PO Last administered on 14:13; Start 03/29/17 at 09:00; Stop 03/29/17 at 18:20; Status DC Lorazepam (Ativan) 1 mg PRN Q4HRS PRN PO ANXIETY; Start 03/28/17 at 23:30 Olanzapine (ZyPREXA ZYDIS) 2.5 mg PRN Q2HR PRN PO PSYCHOSIS Last administered on 03/29/17 03:54; Start 03/28/17 at 23:30 Quetiapine Fumarate (SEROquel) 100 mg HS PO ; Start 03/29/17 at 21:00 Sertraline HCl (Zoloft) 50 mg DAILY PO Last administered on 03/29/17 08:14; Start 03/29/17 at 09:00 Acetaminophen (Tylenol) 650 mg PRN Q6HRS PRN PO pain/temp; Start 03/28/17 at 23: 30; Status UNV Atenolol (Tenormin) 25 mg BID PO Last administered on 03/29/17 08:15; Start 03/29/17 at 09:00 Clopidogrel Bisulfate (Plavix) 75 mg DAILY PO Last administered on 03/29/17 08: 14; Start 03/29/17 at 09:00 Cyanocobalamin (Vitamin B-12) 1,000 mcg DAILY PO Last administered on 03/29/17 08:14; Start 03/29/17 at 09:00 Al Hydroxide/Mg Hydroxide (Mylanta Plus Xs) 15 ml PRN AFTMEALHC PRN PO DYSPEPSIA; Start 03/28/17 at 23:30; Status UNV Multi-Ingredient Ointment (Analgesic [place]) 1 vik PRN QID PRN TP MUSCLE PAIN; Start 03/28/17 at 23:30; Status UNV Multivitamins/ Calcium (Thera-M Plus) 1 tab DAILY PO Last administered on 08:15; Start 03/29/17 at 09:00 Pantoprazole Sodium (Protonix) 40 mg DAILYAC PO Last administered on 03/29/17 08:14; Start 03/29/17 at 07:30 Tramadol HCl (Ultram) 50 mg PRN BID PRN PO MODERATE PAIN; Start 03/28/17 at 23: 30; Status Cancel Tramadol HCl (Ultram) 50 mg PRN Q6HRS PRN PO MODERATE PAIN Last administered on 03/29/17 03:55; Start 03/28/17 at 23:30 Multivitamins/ Minerals (I-Roya) 1 tab DAILY PO Last administered on 03/29/17 08:14; Start 03/29/17 at 09:00 Atorvastatin Calcium (Lipitor) 40 mg QHS PO ; Start 03/29/17 at 21:00 Losartan Potassium (Cozaar) 100 mg DAILY PO Last administered on 03/29/17t 08:15 ; Start 03/29/17 at 09:00 Non-Formulary Medication 2,400 mg PRN QHS PRN PO CONSTIPATION; Start 03/28/17 at 23:30; Status UNV Divalproex Sodium (Depakote Sprinkles) 250 mg TID PO ; Start 03/29/17 at 21:00 Active Scripts Active Reported Tramadol Hcl (Tramadol HCl) 50 Mg Tablet 50 Mg PO BID PRN Tramadol Hcl (Tramadol HCl) 50 Mg Tablet 50 Mg PO PRN Q6HRS PRN Lorazepam 1 Mg Tablet 1 Mg PO PRN Q4HRS PRN Zoloft (Sertraline Hcl) 50 Mg Tablet 50 Mg PO DAILY Protonix (Pantoprazole Sodium) 40 Mg Tablet.dr 40 Mg PO DAILY Zyprexa Zydis (Olanzapine) 5 Mg Tab.rapdis 2.5 Mg PO PRN Q2HR PRN Thera M Plus Tablet (Multivits,Ca,Minerals/Iron/FA) 1 Each Tablet 1 Tab PO DAILY I-Roya Tablet (Vit A,C & E/Lutein/Minerals) 1 Each Tablet 1 Tab PO DAILY Analgesic [place] (Methyl Salicylate/Menthol) 29 Gm Oint...g. 1 Vik TP PRN QID PRN Milk Of Magnesia (Magnesium Hydroxide) 2,400 Mg/10 Ml Oral.susp 2,400 Mg PO PRN QHS PRN Mag-Al Plus Xs Suspension (Mag Hydrox/Al Hydrox/Simeth) 30 Ml Oral.susp 15 Ml PO PRN AFTMEALHC PRN Cozaar (Losartan Potassium) 100 Mg Tablet 100 Mg PO DAILY Depakote Sprinkle (Divalproex Sodium) 125 Mg Cap.sprink 125 Mg PO TID Vitamin B-12 (Cyanocobalamin (Vitamin B-12)) 1,000 Mcg Tablet 1,000 Mcg PO DAILY Tylenol (Acetaminophen) 325 Mg Tablet 650 Mg PO PRN Q6HRS PRN Seroquel (Quetiapine Fumarate) 100 Mg Tablet 100 Mg PO HS Plavix (Clopidogrel Bisulfate) 75 Mg Tablet 75 Mg PO DAILY Atorvastatin Calcium 40 Mg Tablet 40 Mg PO QHS Atenolol 25 Mg Tablet 25 Mg PO BID Diagnosis: Problems: (1) Anxiety disorder (2) Dementia in Alzheimer's disease with delusions (3) Dementia in Alzheimer's disease with depression (4) Dementia, vascular, with delusions (5) Dementia, vascular, with depression (6) Impulse control disorder (7) Abnormal behavior MARTHA SRINIVASAN MD Mar 29, 2017 20:09
[2017-03-29] MEDS: QUEtiapine 100 MG TABLET. PO SCH (21:09)
[2017-03-29] MEDS: ATORVASTATIN CALCIUM 20 MG TABLET PO SCH (21:09)
[2017-03-29 22:12] LABS: T3 TOTAL 95 ng/dL (71-180); THYROXINE 6.6 ug/dL (4.5-12.0)
[2017-03-30 01:07] LABS: HEMOGLOBIN A1C 5.6 % (4.8-5.6)
[2017-03-30 06:13] VITALS: BP 183/80
[2017-03-30] MEDS: PANTOPRAZOLE 40 MG TABLET. PO SCH (08:09)
[2017-03-30] MEDS: LOSARTAN 50 MG TABLET. PO SCH (08:10)
[2017-03-30] MEDS: CLOPIDOGREL BISULFATE 75 MG TABLET PO SCH (08:11)
[2017-03-30] MEDS: MULTIVITAMIN I-VITE TABLET. PO SCH (08:11)
[2017-03-30] MEDS: DIVALPROEX 125 MG CAP.SPRINK PO SCH ×3 (08:11→20:01)
[2017-03-30] MEDS: SERTRALINE 50 MG TABLET. PO SCH (08:12)
[2017-03-30] MEDS: CYANOCOBALAMIN (VITAMIN B-12) 1,000 MCG TABLET. PO SCH (08:12)
[2017-03-30] MEDS: ATENOLOL 25 MG TABLET PO SCH ×2 (08:12→20:00)
[2017-03-30] MEDS: MULTIVITAMIN with MINERAL TABLET. PO SCH (08:12)
[2017-03-30 15:55] VITALS: BP 111/52
[2017-03-30] MEDS: ATORVASTATIN CALCIUM 20 MG TABLET PO SCH (20:00)
[2017-03-30] MEDS: QUEtiapine 100 MG TABLET. PO SCH (20:00)
--- NOTE | 2017-03-30 23:21 | PDOC ---
Exam Mauricio Demential Exam: Mauricio Note: Please also refer to the separate dictated note~for this date of service dictated separately.~Patient seen individually. Discussed the patient with Nursing staff reviewed the chart.~Reviewed interim history and current functioning. Reviewed vital signs,~Labs/ Radiology~and current medications noted below. Continue current treatment with the changes noted in the dictated addendum note Assessment: Vital Signs: Vital Signs Date Time Temp Pulse Resp B/P (MAP) Pulse Ox O2 Delivery O2 Flow Rate FiO2 03/30/17 20:00 69 111/64 03/30/17 15:55 98.7 16 96 Room Air I&O Intake and Output 03/30/17 07:00 Intake Total 720 ml Balance 720 ml Intake Oral 720 ml # Voids 1 Current Medications: Meds: Current Medications Lorazepam (Ativan) 1 mg 1X ONCE PO Last administered on 03/28/17 21:01; Start 03/28/17 at 21:00; Stop 03/28/17 at 21:05; Status DC Haloperidol (Haldol) 5 mg 1X ONCE PO Last administered on 03/28/17 21:01; Start 03/28/17 at 21:00; Stop 03/28/17 at 21:05; Status DC Acetaminophen (Tylenol) 650 mg PRN Q6HRS PRN PO PAIN / TEMP; Start 03/28/17 at 23:15 Multi-Ingredient Ointment (Analgesic [place]) 1 vik PRN QID PRN TP MUSCLE PAIN; Start 03/28/17 at 23:15 Al Hydroxide/Mg Hydroxide (Mylanta Plus Xs) 15 ml PRN AFTMEALHC PRN PO DYSPEPSIA; Start 03/28/17 at 23:15 Magnesium Hydroxide (Milk Of Magnesia) 2,400 mg PRN QHS PRN PO CONSTIPATION; Start 03/28/17 at 23:15 Divalproex Sodium (Depakote Sprinkles) 125 mg TID PO Last administered on 14:13; Start 03/29/17 at 09:00; Stop 03/29/17 at 18:20; Status DC Lorazepam (Ativan) 1 mg PRN Q4HRS PRN PO ANXIETY; Start 03/28/17 at 23:30 Olanzapine (ZyPREXA ZYDIS) 2.5 mg PRN Q2HR PRN PO PSYCHOSIS Last administered on 03/29/17 03:54; Start 03/28/17 at 23:30 Quetiapine Fumarate (SEROquel) 100 mg HS PO Last administered on 03/30/17 20:00 ; Start 03/29/17 at 21:00 Sertraline HCl (Zoloft) 50 mg DAILY PO Last administered on 03/30/17 08:12; Start 03/29/17 at 09:00 Acetaminophen (Tylenol) 650 mg PRN Q6HRS PRN PO pain/temp; Start 03/28/17 at 23: 30; Status UNV Atenolol (Tenormin) 25 mg BID PO Last administered on 03/30/17 20:00; Start 03/29/17 at 09:00 Clopidogrel Bisulfate (Plavix) 75 mg DAILY PO Last administered on 03/30/17 08: 11; Start 03/29/17 at 09:00 Cyanocobalamin (Vitamin B-12) 1,000 mcg DAILY PO Last administered on 03/30/17 08:12; Start 03/29/17 at 09:00 Al Hydroxide/Mg Hydroxide (Mylanta Plus Xs) 15 ml PRN AFTMEALHC PRN PO DYSPEPSIA; Start 03/28/17 at 23:30; Status UNV Multi-Ingredient Ointment (Analgesic [place]) 1 vik PRN QID PRN TP MUSCLE PAIN; Start 03/28/17 at 23:30; Status UNV Multivitamins/ Calcium (Thera-M Plus) 1 tab DAILY PO Last administered on 08:12; Start 03/29/17 at 09:00 Pantoprazole Sodium (Protonix) 40 mg DAILYAC PO Last administered on 03/30/17 08:09; Start 03/29/17 at 07:30 Tramadol HCl (Ultram) 50 mg PRN BID PRN PO MODERATE PAIN; Start 03/28/17 at 23: 30; Status Cancel Tramadol HCl (Ultram) 50 mg PRN Q6HRS PRN PO MODERATE PAIN Last administered on 03/29/17 03:55; Start 03/28/17 at 23:30 Multivitamins/ Minerals (I-Roya) 1 tab DAILY PO Last administered on 03/30/17 08:11; Start 03/29/17 at 09:00 Atorvastatin Calcium (Lipitor) 40 mg QHS PO Last administered on 03/30/17 20:00 ; Start 03/29/17 at 21:00 Losartan Potassium (Cozaar) 100 mg DAILY PO Last administered on 03/30/17 08:10 ; Start 03/29/17 at 09:00 Non-Formulary Medication 2,400 mg PRN QHS PRN PO CONSTIPATION; Start 03/28/17 at 23:30; Status UNV Divalproex Sodium (Depakote Sprinkles) 250 mg TID PO Last administered on 20:01; Start 03/29/17 at 21:00 Active Scripts Active Reported Tramadol Hcl (Tramadol HCl) 50 Mg Tablet 50 Mg PO BID PRN Tramadol Hcl (Tramadol HCl) 50 Mg Tablet 50 Mg PO PRN Q6HRS PRN Lorazepam 1 Mg Tablet 1 Mg PO PRN Q4HRS PRN Zoloft (Sertraline Hcl) 50 Mg Tablet 50 Mg PO DAILY Protonix (Pantoprazole Sodium) 40 Mg Tablet.dr 40 Mg PO DAILY Zyprexa Zydis (Olanzapine) 5 Mg Tab.rapdis 2.5 Mg PO PRN Q2HR PRN Thera M Plus Tablet (Multivits,Ca,Minerals/Iron/FA) 1 Each Tablet 1 Tab PO DAILY I-Roya Tablet (Vit A,C & E/Lutein/Minerals) 1 Each Tablet 1 Tab PO DAILY Analgesic [place] (Methyl Salicylate/Menthol) 29 Gm Oint...g. 1 Vik TP PRN QID PRN Milk Of Magnesia (Magnesium Hydroxide) 2,400 Mg/10 Ml Oral.susp 2,400 Mg PO PRN QHS PRN Mag-Al Plus Xs Suspension (Mag Hydrox/Al Hydrox/Simeth) 30 Ml Oral.susp 15 Ml PO PRN AFTMEALHC PRN Cozaar (Losartan Potassium) 100 Mg Tablet 100 Mg PO DAILY Depakote Sprinkle (Divalproex Sodium) 125 Mg Cap.sprink 125 Mg PO TID Vitamin B-12 (Cyanocobalamin (Vitamin B-12)) 1,000 Mcg Tablet 1,000 Mcg PO DAILY Tylenol (Acetaminophen) 325 Mg Tablet 650 Mg PO PRN Q6HRS PRN Seroquel (Quetiapine Fumarate) 100 Mg Tablet 100 Mg PO HS Plavix (Clopidogrel Bisulfate) 75 Mg Tablet 75 Mg PO DAILY Atorvastatin Calcium 40 Mg Tablet 40 Mg PO QHS Atenolol 25 Mg Tablet 25 Mg PO BID Diagnosis: Problems: (1) Anxiety disorder (2) Dementia in Alzheimer's disease with delusions (3) Dementia in Alzheimer's disease with depression (4) Dementia, vascular, with delusions (5) Dementia, vascular, with depression (6) Impulse control disorder (7) Abnormal behavior MARTHA SRINIVASAN MD Mar 30, 2017 23:21
[2017-03-31 06:21] VITALS: BP 164/67
[2017-03-31] MEDS: SERTRALINE 50 MG TABLET. PO SCH (07:57)
[2017-03-31] MEDS: DIVALPROEX 125 MG CAP.SPRINK PO SCH ×3 (07:57→19:36)
[2017-03-31] MEDS: LOSARTAN 50 MG TABLET. PO SCH (07:57)
[2017-03-31] MEDS: CYANOCOBALAMIN (VITAMIN B-12) 1,000 MCG TABLET. PO SCH (07:57)
[2017-03-31] MEDS: CLOPIDOGREL BISULFATE 75 MG TABLET PO SCH (07:57)
[2017-03-31] MEDS: PANTOPRAZOLE 40 MG TABLET. PO SCH (07:58)
[2017-03-31] MEDS: MULTIVITAMIN I-VITE TABLET. PO SCH (07:58)
[2017-03-31] MEDS: MULTIVITAMIN with MINERAL TABLET. PO SCH (07:58)
[2017-03-31] MEDS: ATENOLOL 25 MG TABLET PO SCH ×2 (07:58→19:35)
[2017-03-31 16:45] VITALS: BP 147/64
[2017-03-31] MEDS: QUEtiapine 100 MG TABLET. PO SCH (19:35)
[2017-03-31] MEDS: ATORVASTATIN CALCIUM 20 MG TABLET PO SCH (19:36)
--- NOTE | 2017-03-31 20:17 | PDOC ---
Exam Mauricio Demential Exam: Mauricio Note: Please also refer to the separate dictated note~for this date of service dictated separately.~Patient seen individually. Discussed the patient with Nursing staff reviewed the chart.~Reviewed interim history and current functioning. Reviewed vital signs,~Labs/ Radiology~and current medications noted below. Continue current treatment with the changes noted in the dictated addendum note Assessment: Vital Signs: Vital Signs Date Time Temp Pulse Resp B/P (MAP) Pulse Ox O2 Delivery O2 Flow Rate FiO2 03/31/17 19:35 74 147/64 03/31/17 16:45 96.7 16 97 03/31/17 06:21 Room Air I&O Intake and Output 03/31/17 07:00 Intake Total 1140 ml Balance 1140 ml Intake Oral 1140 ml # Voids 1 # Bowel Movements 1 Current Medications: Meds: Current Medications Lorazepam (Ativan) 1 mg 1X ONCE PO Last administered on 03/28/17 21:01; Start 03/28/17 at 21:00; Stop 03/28/17 at 21:05; Status DC Haloperidol (Haldol) 5 mg 1X ONCE PO Last administered on 03/28/17 21:01; Start 03/28/17 at 21:00; Stop 03/28/17 at 21:05; Status DC Acetaminophen (Tylenol) 650 mg PRN Q6HRS PRN PO PAIN / TEMP; Start 03/28/17 at 23:15 Multi-Ingredient Ointment (Analgesic [place]) 1 vik PRN QID PRN TP MUSCLE PAIN; Start 03/28/17 at 23:15 Al Hydroxide/Mg Hydroxide (Mylanta Plus Xs) 15 ml PRN AFTMEALHC PRN PO DYSPEPSIA; Start 03/28/17 at 23:15 Magnesium Hydroxide (Milk Of Magnesia) 2,400 mg PRN QHS PRN PO CONSTIPATION; Start 03/28/17 at 23:15 Divalproex Sodium (Depakote Sprinkles) 125 mg TID PO Last administered on 14:13; Start 03/29/17 at 09:00; Stop 03/29/17 at 18:20; Status DC Lorazepam (Ativan) 1 mg PRN Q4HRS PRN PO ANXIETY; Start 03/28/17 at 23:30 Olanzapine (ZyPREXA ZYDIS) 2.5 mg PRN Q2HR PRN PO PSYCHOSIS Last administered on 03/29/17 03:54; Start 03/28/17 at 23:30 Quetiapine Fumarate (SEROquel) 100 mg HS PO Last administered on 03/31/17 19:35 ; Start 03/29/17 at 21:00 Sertraline HCl (Zoloft) 50 mg DAILY PO Last administered on 03/31/17 07:57; Start 03/29/17 at 09:00 Acetaminophen (Tylenol) 650 mg PRN Q6HRS PRN PO pain/temp; Start 03/28/17 at 23: 30; Status UNV Atenolol (Tenormin) 25 mg BID PO Last administered on 03/31/17 19:35; Start 03/29/17 at 09:00 Clopidogrel Bisulfate (Plavix) 75 mg DAILY PO Last administered on 03/31/17 07: 57; Start 03/29/17 at 09:00 Cyanocobalamin (Vitamin B-12) 1,000 mcg DAILY PO Last administered on 03/31/17 07:57; Start 03/29/17 at 09:00 Al Hydroxide/Mg Hydroxide (Mylanta Plus Xs) 15 ml PRN AFTMEALHC PRN PO DYSPEPSIA; Start 03/28/17 at 23:30; Status UNV Multi-Ingredient Ointment (Analgesic [place]) 1 vik PRN QID PRN TP MUSCLE PAIN; Start 03/28/17 at 23:30; Status UNV Multivitamins/ Calcium (Thera-M Plus) 1 tab DAILY PO Last administered on 07:58; Start 03/29/17 at 09:00 Pantoprazole Sodium (Protonix) 40 mg DAILYAC PO Last administered on 03/31/17 07:58; Start 03/29/17 at 07:30 Tramadol HCl (Ultram) 50 mg PRN BID PRN PO MODERATE PAIN; Start 03/28/17 at 23: 30; Status Cancel Tramadol HCl (Ultram) 50 mg PRN Q6HRS PRN PO MODERATE PAIN Last administered on 03/29/17 03:55; Start 03/28/17 at 23:30 Multivitamins/ Minerals (I-Roya) 1 tab DAILY PO Last administered on 03/31/17 07:58; Start 03/29/17 at 09:00 Atorvastatin Calcium (Lipitor) 40 mg QHS PO Last administered on 03/31/17 19:36 ; Start 03/29/17 at 21:00 Losartan Potassium (Cozaar) 100 mg DAILY PO Last administered on 03/31/17 07:57 ; Start 03/29/17 at 09:00 Non-Formulary Medication 2,400 mg PRN QHS PRN PO CONSTIPATION; Start 03/28/17 at 23:30; Status UNV Divalproex Sodium (Depakote Sprinkles) 250 mg TID PO Last administered on 19:36; Start 03/29/17 at 21:00 Active Scripts Active Reported Tramadol Hcl (Tramadol HCl) 50 Mg Tablet 50 Mg PO BID PRN Tramadol Hcl (Tramadol HCl) 50 Mg Tablet 50 Mg PO PRN Q6HRS PRN Lorazepam 1 Mg Tablet 1 Mg PO PRN Q4HRS PRN Zoloft (Sertraline Hcl) 50 Mg Tablet 50 Mg PO DAILY Protonix (Pantoprazole Sodium) 40 Mg Tablet.dr 40 Mg PO DAILY Zyprexa Zydis (Olanzapine) 5 Mg Tab.rapdis 2.5 Mg PO PRN Q2HR PRN Thera M Plus Tablet (Multivits,Ca,Minerals/Iron/FA) 1 Each Tablet 1 Tab PO DAILY I-Roya Tablet (Vit A,C & E/Lutein/Minerals) 1 Each Tablet 1 Tab PO DAILY Analgesic [place] (Methyl Salicylate/Menthol) 29 Gm Oint...g. 1 Vik TP PRN QID PRN Milk Of Magnesia (Magnesium Hydroxide) 2,400 Mg/10 Ml Oral.susp 2,400 Mg PO PRN QHS PRN Mag-Al Plus Xs Suspension (Mag Hydrox/Al Hydrox/Simeth) 30 Ml Oral.susp 15 Ml PO PRN AFTMEALHC PRN Cozaar (Losartan Potassium) 100 Mg Tablet 100 Mg PO DAILY Depakote Sprinkle (Divalproex Sodium) 125 Mg Cap.sprink 125 Mg PO TID Vitamin B-12 (Cyanocobalamin (Vitamin B-12)) 1,000 Mcg Tablet 1,000 Mcg PO DAILY Tylenol (Acetaminophen) 325 Mg Tablet 650 Mg PO PRN Q6HRS PRN Seroquel (Quetiapine Fumarate) 100 Mg Tablet 100 Mg PO HS Plavix (Clopidogrel Bisulfate) 75 Mg Tablet 75 Mg PO DAILY Atorvastatin Calcium 40 Mg Tablet 40 Mg PO QHS Atenolol 25 Mg Tablet 25 Mg PO BID Diagnosis: Problems: (1) Anxiety disorder (2) Dementia in Alzheimer's disease with delusions (3) Dementia in Alzheimer's disease with depression (4) Dementia, vascular, with delusions (5) Dementia, vascular, with depression (6) Impulse control disorder (7) Abnormal behavior MARTHA SRINIVASAN MD Mar 31, 2017 20:17
[2017-04-01 05:55] VITALS: BP 146/68
[2017-04-01] MEDS: PANTOPRAZOLE 40 MG TABLET. PO SCH (08:18)
[2017-04-01] MEDS: LOSARTAN 50 MG TABLET. PO SCH (08:19)
[2017-04-01] MEDS: DIVALPROEX 125 MG CAP.SPRINK PO SCH ×3 (08:19→19:20)
[2017-04-01] MEDS: MULTIVITAMIN I-VITE TABLET. PO SCH (08:19)
[2017-04-01] MEDS: CLOPIDOGREL BISULFATE 75 MG TABLET PO SCH (08:20)
[2017-04-01] MEDS: ATENOLOL 25 MG TABLET PO SCH ×2 (08:21→19:21)
[2017-04-01] MEDS: MULTIVITAMIN with MINERAL TABLET. PO SCH (08:21)
[2017-04-01] MEDS: QUEtiapine 25 MG TABLET. PO SCH ×2 (08:21→13:20)
[2017-04-01] MEDS: SERTRALINE 50 MG TABLET. PO SCH (08:22)
[2017-04-01] MEDS: CYANOCOBALAMIN (VITAMIN B-12) 1,000 MCG TABLET. PO SCH (08:22)
[2017-04-01 15:37] VITALS: BP_SYST 101
[2017-04-01] MEDS: ATORVASTATIN CALCIUM 20 MG TABLET PO SCH (19:20)
[2017-04-01] MEDS: QUEtiapine 100 MG TABLET. PO SCH (19:20)
--- NOTE | 2017-04-01 20:22 | PDOC ---
Exam Mauricio Demential Exam: Mauricio Note: Please also refer to the separate dictated note~for this date of service dictated separately.~Patient seen individually. Discussed the patient with Nursing staff reviewed the chart.~Reviewed interim history and current functioning. Reviewed vital signs,~Labs/ Radiology~and current medications noted below. Continue current treatment with the changes noted in the dictated addendum note Assessment: Vital Signs: Vital Signs Date Time Temp Pulse Resp B/P (MAP) Pulse Ox O2 Delivery O2 Flow Rate FiO2 04/01/17 19:21 98 101/50 04/01/17 15:37 98.6 20 100 03/31/17 06:21 Room Air I&O Intake and Output 04/01/17 07:00 Intake Total 720 ml Balance 720 ml Intake Oral 720 ml Current Medications: Meds: Current Medications Lorazepam (Ativan) 1 mg 1X ONCE PO Last administered on 03/28/17 21:01; Start 03/28/17 at 21:00; Stop 03/28/17 at 21:05; Status DC Haloperidol (Haldol) 5 mg 1X ONCE PO Last administered on 03/28/17 21:01; Start 03/28/17 at 21:00; Stop 03/28/17 at 21:05; Status DC Acetaminophen (Tylenol) 650 mg PRN Q6HRS PRN PO PAIN / TEMP; Start 03/28/17 at 23:15 Multi-Ingredient Ointment (Analgesic [place]) 1 vik PRN QID PRN TP MUSCLE PAIN; Start 03/28/17 at 23:15 Al Hydroxide/Mg Hydroxide (Mylanta Plus Xs) 15 ml PRN AFTMEALHC PRN PO DYSPEPSIA; Start 03/28/17 at 23:15 Magnesium Hydroxide (Milk Of Magnesia) 2,400 mg PRN QHS PRN PO CONSTIPATION; Start 03/28/17 at 23:15 Divalproex Sodium (Depakote Sprinkles) 125 mg TID PO Last administered on 14:13; Start 03/29/17 at 09:00; Stop 03/29/17 at 18:20; Status DC Lorazepam (Ativan) 1 mg PRN Q4HRS PRN PO ANXIETY; Start 03/28/17 at 23:30 Olanzapine (ZyPREXA ZYDIS) 2.5 mg PRN Q2HR PRN PO PSYCHOSIS Last administered on 04/01/17 19:22; Start 03/28/17 at 23:30 Quetiapine Fumarate (SEROquel) 100 mg HS PO Last administered on 04/01/17 19: 20; Start 03/29/17 at 21:00 Sertraline HCl (Zoloft) 50 mg DAILY PO Last administered on 04/01/17 08:22; Start 03/29/17 at 09:00 Acetaminophen (Tylenol) 650 mg PRN Q6HRS PRN PO pain/temp; Start 03/28/17 at 23: 30; Status UNV Atenolol (Tenormin) 25 mg BID PO Last administered on 04/01/17 19:21; Start at 09:00 Clopidogrel Bisulfate (Plavix) 75 mg DAILY PO Last administered on 04/01/17 08 :20; Start 03/29/17 at 09:00 Cyanocobalamin (Vitamin B-12) 1,000 mcg DAILY PO Last administered on 08:22; Start 03/29/17 at 09:00 Al Hydroxide/Mg Hydroxide (Mylanta Plus Xs) 15 ml PRN AFTMEALHC PRN PO DYSPEPSIA; Start 03/28/17 at 23:30; Status UNV Multi-Ingredient Ointment (Analgesic [place]) 1 vik PRN QID PRN TP MUSCLE PAIN; Start 03/28/17 at 23:30; Status UNV Multivitamins/ Calcium (Thera-M Plus) 1 tab DAILY PO Last administered on 08:21; Start 03/29/17 at 09:00 Pantoprazole Sodium (Protonix) 40 mg DAILYAC PO Last administered on 04/01/17 08:18; Start 03/29/17 at 07:30 Tramadol HCl (Ultram) 50 mg PRN BID PRN PO MODERATE PAIN; Start 03/28/17 at 23: 30; Status Cancel Tramadol HCl (Ultram) 50 mg PRN Q6HRS PRN PO MODERATE PAIN Last administered on 03/29/17 03:55; Start 03/28/17 at 23:30 Multivitamins/ Minerals (I-Roya) 1 tab DAILY PO Last administered on 04/01/17 08:19; Start 03/29/17 at 09:00 Atorvastatin Calcium (Lipitor) 40 mg QHS PO Last administered on 04/01/17 19: 20; Start 03/29/17 at 21:00 Losartan Potassium (Cozaar) 100 mg DAILY PO Last administered on 04/01/17 08: 19; Start 03/29/17 at 09:00 Non-Formulary Medication 2,400 mg PRN QHS PRN PO CONSTIPATION; Start 03/28/17 at 23:30; Status UNV Divalproex Sodium (Depakote Sprinkles) 250 mg TID PO Last administered on 19:20; Start 03/29/17 at 21:00 Quetiapine Fumarate (SEROquel) 25 mg BID92 PO Last administered on 04/01/17 13 :20; Start 04/01/17 at 09:00 Quetiapine Fumarate (SEROquel) 12.5 mg DAILYWLUN PO ; Start 04/02/17 at 12:00 Active Scripts Active Reported Tramadol Hcl (Tramadol HCl) 50 Mg Tablet 50 Mg PO BID PRN Tramadol Hcl (Tramadol HCl) 50 Mg Tablet 50 Mg PO PRN Q6HRS PRN Lorazepam 1 Mg Tablet 1 Mg PO PRN Q4HRS PRN Zoloft (Sertraline Hcl) 50 Mg Tablet 50 Mg PO DAILY Protonix (Pantoprazole Sodium) 40 Mg Tablet.dr 40 Mg PO DAILY Zyprexa Zydis (Olanzapine) 5 Mg Tab.rapdis 2.5 Mg PO PRN Q2HR PRN Thera M Plus Tablet (Multivits,Ca,Minerals/Iron/FA) 1 Each Tablet 1 Tab PO DAILY I-Roya Tablet (Vit A,C & E/Lutein/Minerals) 1 Each Tablet 1 Tab PO DAILY Analgesic [place] (Methyl Salicylate/Menthol) 29 Gm Oint...g. 1 Vik TP PRN QID PRN Milk Of Magnesia (Magnesium Hydroxide) 2,400 Mg/10 Ml Oral.susp 2,400 Mg PO PRN QHS PRN Mag-Al Plus Xs Suspension (Mag Hydrox/Al Hydrox/Simeth) 30 Ml Oral.susp 15 Ml PO PRN AFTMEALHC PRN Cozaar (Losartan Potassium) 100 Mg Tablet 100 Mg PO DAILY Depakote Sprinkle (Divalproex Sodium) 125 Mg Cap.sprink 125 Mg PO TID Vitamin B-12 (Cyanocobalamin (Vitamin B-12)) 1,000 Mcg Tablet 1,000 Mcg PO DAILY Tylenol (Acetaminophen) 325 Mg Tablet 650 Mg PO PRN Q6HRS PRN Seroquel (Quetiapine Fumarate) 100 Mg Tablet 100 Mg PO HS Plavix (Clopidogrel Bisulfate) 75 Mg Tablet 75 Mg PO DAILY Atorvastatin Calcium 40 Mg Tablet 40 Mg PO QHS Atenolol 25 Mg Tablet 25 Mg PO BID Diagnosis: Problems: (1) Anxiety disorder (2) Dementia in Alzheimer's disease with delusions (3) Dementia in Alzheimer's disease with depression (4) Dementia, vascular, with delusions (5) Dementia, vascular, with depression (6) Impulse control disorder (7) Abnormal behavior MARTHA SRINIVASAN MD Apr 01, 2017 20:22
[2017-04-02 06:08] VITALS: BP 177/80
[2017-04-02] MEDS: SERTRALINE 50 MG TABLET. PO SCH (08:03)
[2017-04-02] MEDS: PANTOPRAZOLE 40 MG TABLET. PO SCH (08:03)
[2017-04-02] MEDS: CLOPIDOGREL BISULFATE 75 MG TABLET PO SCH (08:03)
[2017-04-02] MEDS: MULTIVITAMIN I-VITE TABLET. PO SCH (08:04)
[2017-04-02] MEDS: ATENOLOL 25 MG TABLET PO SCH ×2 (08:04→19:31)
[2017-04-02] MEDS: CYANOCOBALAMIN (VITAMIN B-12) 1,000 MCG TABLET. PO SCH (08:04)
[2017-04-02] MEDS: QUEtiapine 25 MG TABLET. PO SCH ×3 (08:04→14:12)
[2017-04-02] MEDS: DIVALPROEX 125 MG CAP.SPRINK PO SCH ×3 (08:05→19:31)
[2017-04-02] MEDS: LOSARTAN 50 MG TABLET. PO SCH (08:05)
[2017-04-02] MEDS: MULTIVITAMIN with MINERAL TABLET. PO SCH (08:05)
[2017-04-02 08:10] LABS: BASO # 0.1 x10^3/uL (0.0-0.2); BASO % 1 % (0-3); EOS # 0.5 x10^3/uL (0.0-0.7); EOS % 7 % (0-3); HEMATOCRIT 36.3 % (39.0-53.0); HEMOGLOBIN 11.9 g/dL (13.0-17.5); LYMPH % 27 % (24-48); MEAN CORPUSCULAR HEMOGLOBIN 30 pg (25-35); MEAN CORPUSCULAR HGB CONC 33 g/dL (31-37); MEAN CORPUSCULAR VOLUME 91 fL (79-100); MONO # 0.9 x10^3/uL (0.0-1.1); MONO % 12 % (0-9); NEUT % 53 % (31-73); PLATELET COUNT 234 x10^3/uL (140-400); RED CELL DISTRIBUTION WIDTH 14.9 % (11.5-14.5); WHITE BLOOD COUNT 7.5 x10^3/uL (4.0-11.0)
[2017-04-02 08:13] LABS: ALBUMIN 3.4 g/dL (3.4-5.0); ALBUMIN/GLOBULIN RATIO 0.9 (1.0-1.7); ALK PHOS 57 U/L (46-116); ALT (SGPT) 19 U/L (16-63); ANION GAP 6 (6-14); AST (SGOT) 21 U/L (15-37); BLOOD UREA NITROGEN 35 mg/dL (8-26); BUN/CREATININE RATIO 22 (6-20); CALCIUM 9.1 mg/dL (8.5-10.1); CARBON DIOXIDE 29 mmol/L (21-32); CHLORIDE 106 mmol/L (98-107); CREATININE 1.6 mg/dL (0.7-1.3); GFR 41.2; GLUCOSE 89 mg/dL (70-99); POTASSIUM 4.3 mmol/L (3.5-5.1); SODIUM 141 mmol/L (136-145); TOTAL BILIRUBIN 0.6 mg/dL (0.2-1.0); TOTAL PROTEIN 7.2 g/dL (6.4-8.2)
[2017-04-02 08:31] LABS: MAGNESIUM 2.3 mg/dL (1.8-2.4)
[2017-04-02 16:00] VITALS: BP 109/66
[2017-04-02] MEDS: QUEtiapine 100 MG TABLET. PO SCH (19:30)
[2017-04-02] MEDS: ATORVASTATIN CALCIUM 20 MG TABLET PO SCH (19:30)
--- NOTE | 2017-04-02 20:15 | PDOC ---
Exam Mauricio Demential Exam: Mauricio Note: Please also refer to the separate dictated note~for this date of service dictated separately.~Patient seen individually. Discussed the patient with Nursing staff reviewed the chart.~Reviewed interim history and current functioning. Reviewed vital signs,~Labs/ Radiology~and current medications noted below. Continue current treatment with the changes noted in the dictated addendum note Assessment: Vital Signs: Vital Signs Date Time Temp Pulse Resp B/P (MAP) Pulse Ox O2 Delivery O2 Flow Rate FiO2 04/02/17 19:31 66 109/66 04/02/17 16:00 98.6 16 99 Room Air I&O Intake and Output 04/02/17 07:00 Intake Total 920 ml Balance 920 ml Intake Oral 920 ml Labs: Laboratory Tests Test 04/02/17 07:36 White Blood Count 7.5 x10^3/uL (4.0-11.0) Red Blood Count 4.00 x10^6/uL (4.30-5.70) L Hemoglobin 11.9 g/dL (13.0-17.5) L Hematocrit 36.3 % (39.0-53.0) L Mean Corpuscular Volume 91 fL (79-100) Mean Corpuscular Hemoglobin 30 pg (25-35) Mean Corpuscular Hemoglobin Concent 33 g/dL (31-37) Red Cell Distribution Width 14.9 % (11.5-14.5) H Platelet Count 234 x10^3/uL (140-400) Neutrophils (%) (Auto) 53 % (31-73) Lymphocytes (%) (Auto) 27 % (24-48) Monocytes (%) (Auto) 12 % (0-9) H Eosinophils (%) (Auto) 7 % (0-3) H Basophils (%) (Auto) 1 % (0-3) Neutrophils # (Auto) 4.0 x10^3uL (1.8-7.7) Lymphocytes # (Auto) 2.0 x10^3/uL (1.0-4.8) Monocytes # (Auto) 0.9 x10^3/uL (0.0-1.1) Eosinophils # (Auto) 0.5 x10^3/uL (0.0-0.7) Basophils # (Auto) 0.1 x10^3/uL (0.0-0.2) Sodium Level 141 mmol/L (136-145) Potassium Level 4.3 mmol/L (3.5-5.1) Chloride Level 106 mmol/L (98-107) Carbon Dioxide Level 29 mmol/L (21-32) Anion Gap 6 (6-14) Blood Urea Nitrogen 35 mg/dL (8-26) H Creatinine 1.6 mg/dL (0.7-1.3) H Estimated GFR (Cockcroft-Gault) 41.2 BUN/Creatinine Ratio 22 (6-20) H Glucose Level 89 mg/dL (70-99) Calcium Level 9.1 mg/dL (8.5-10.1) Magnesium Level 2.3 mg/dL (1.8-2.4) Total Bilirubin 0.6 mg/dL (0.2-1.0) Aspartate Amino Transferase (AST) 21 U/L (15-37) Alanine Aminotransferase (ALT) 19 U/L (16-63) Alkaline Phosphatase 57 U/L (46-116) Total Protein 7.2 g/dL (6.4-8.2) Albumin 3.4 g/dL (3.4-5.0) Albumin/Globulin Ratio 0.9 (1.0-1.7) L Valproic Acid Level mcg/mL (50-100) Valproic Acid Last Dose Date 03/31/2017 Valproic Acid Last Dose Time 1700 Current Medications: Meds: Current Medications Lorazepam (Ativan) 1 mg 1X ONCE PO Last administered on 03/28/17 21:01; Start 03/28/17 at 21:00; Stop 03/28/17 at 21:05; Status DC Haloperidol (Haldol) 5 mg 1X ONCE PO Last administered on 03/28/17 21:01; Start 03/28/17 at 21:00; Stop 03/28/17 at 21:05; Status DC Acetaminophen (Tylenol) 650 mg PRN Q6HRS PRN PO PAIN / TEMP; Start 03/28/17 at 23:15 Multi-Ingredient Ointment (Analgesic [place]) 1 vik PRN QID PRN TP MUSCLE PAIN; Start 03/28/17 at 23:15 Al Hydroxide/Mg Hydroxide (Mylanta Plus Xs) 15 ml PRN AFTMEALHC PRN PO DYSPEPSIA; Start 03/28/17 at 23:15 Magnesium Hydroxide (Milk Of Magnesia) 2,400 mg PRN QHS PRN PO CONSTIPATION; Start 03/28/17 at 23:15 Divalproex Sodium (Depakote Sprinkles) 125 mg TID PO Last administered on 14:13; Start 03/29/17 at 09:00; Stop 03/29/17 at 18:20; Status DC Lorazepam (Ativan) 1 mg PRN Q4HRS PRN PO ANXIETY; Start 03/28/17 at 23:30 Olanzapine (ZyPREXA ZYDIS) 2.5 mg PRN Q2HR PRN PO PSYCHOSIS Last administered on 04/01/17 19:22; Start 03/28/17 at 23:30 Quetiapine Fumarate (SEROquel) 100 mg HS PO Last administered on 04/02/17 19: 30; Start 03/29/17 at 21:00 Sertraline HCl (Zoloft) 50 mg DAILY PO Last administered on 04/02/17 08:03; Start 03/29/17 at 09:00 Acetaminophen (Tylenol) 650 mg PRN Q6HRS PRN PO pain/temp; Start 03/28/17 at 23: 30; Status UNV Atenolol (Tenormin) 25 mg BID PO Last administered on 04/02/17 19:31; Start at 09:00 Clopidogrel Bisulfate (Plavix) 75 mg DAILY PO Last administered on 04/02/17 08 :03; Start 03/29/17 at 09:00 Cyanocobalamin (Vitamin B-12) 1,000 mcg DAILY PO Last administered on 08:04; Start 03/29/17 at 09:00 Al Hydroxide/Mg Hydroxide (Mylanta Plus Xs) 15 ml PRN AFTMEALHC PRN PO DYSPEPSIA; Start 03/28/17 at 23:30; Status UNV Multi-Ingredient Ointment (Analgesic [place]) 1 vki PRN QID PRN TP MUSCLE PAIN; Start 03/28/17 at 23:30; Status UNV Multivitamins/ Calcium (Thera-M Plus) 1 tab DAILY PO Last administered on 08:05; Start 03/29/17 at 09:00 Pantoprazole Sodium (Protonix) 40 mg DAILYAC PO Last administered on 04/02/17 08:03; Start 03/29/17 at 07:30 Tramadol HCl (Ultram) 50 mg PRN BID PRN PO MODERATE PAIN; Start 03/28/17 at 23: 30; Status Cancel Tramadol HCl (Ultram) 50 mg PRN Q6HRS PRN PO MODERATE PAIN Last administered on 03/29/17 03:55; Start 03/28/17 at 23:30 Multivitamins/ Minerals (I-Roya) 1 tab DAILY PO Last administered on 04/02/17 08:04; Start 03/29/17 at 09:00 Atorvastatin Calcium (Lipitor) 40 mg QHS PO Last administered on 04/02/17 19: 30; Start 03/29/17 at 21:00 Losartan Potassium (Cozaar) 100 mg DAILY PO Last administered on 04/02/17 08: 05; Start 03/29/17 at 09:00 Non-Formulary Medication 2,400 mg PRN QHS PRN PO CONSTIPATION; Start 03/28/17 at 23:30; Status UNV Divalproex Sodium (Depakote Sprinkles) 250 mg TID PO Last administered on 19:31; Start 03/29/17 at 21:00 Quetiapine Fumarate (SEROquel) 25 mg [id number] PO Last administered on 04/02/17 14 :12; Start 04/01/17 at 09:00; Stop 04/02/17 at 19:29; Status DC Quetiapine Fumarate (SEROquel) 12.5 mg DAILYWLUN PO Last administered on 12:07; Start 04/02/17 at 12:00 Quetiapine Fumarate (SEROquel) 25 mg BID94 PO ; Start 04/03/17 at 09:00 Active Scripts Active Reported Tramadol Hcl (Tramadol HCl) 50 Mg Tablet 50 Mg PO BID PRN Tramadol Hcl (Tramadol HCl) 50 Mg Tablet 50 Mg PO PRN Q6HRS PRN Lorazepam 1 Mg Tablet 1 Mg PO PRN Q4HRS PRN Zoloft (Sertraline Hcl) 50 Mg Tablet 50 Mg PO DAILY Protonix (Pantoprazole Sodium) 40 Mg Tablet.dr 40 Mg PO DAILY Zyprexa Zydis (Olanzapine) 5 Mg Tab.rapdis 2.5 Mg PO PRN Q2HR PRN Thera M Plus Tablet (Multivits,Ca,Minerals/Iron/FA) 1 Each Tablet 1 Tab PO DAILY I-Roya Tablet (Vit A,C & E/Lutein/Minerals) 1 Each Tablet 1 Tab PO DAILY Analgesic [place] (Methyl Salicylate/Menthol) 29 Gm Oint...g. 1 Vki TP PRN QID PRN Milk Of Magnesia (Magnesium Hydroxide) 2,400 Mg/10 Ml Oral.susp 2,400 Mg PO PRN QHS PRN Mag-Al Plus Xs Suspension (Mag Hydrox/Al Hydrox/Simeth) 30 Ml Oral.susp 15 Ml PO PRN AFTMEALHC PRN Cozaar (Losartan Potassium) 100 Mg Tablet 100 Mg PO DAILY Depakote Sprinkle (Divalproex Sodium) 125 Mg Cap.sprink 125 Mg PO TID Vitamin B-12 (Cyanocobalamin (Vitamin B-12)) 1,000 Mcg Tablet 1,000 Mcg PO DAILY Tylenol (Acetaminophen) 325 Mg Tablet 650 Mg PO PRN Q6HRS PRN Seroquel (Quetiapine Fumarate) 100 Mg Tablet 100 Mg PO HS Plavix (Clopidogrel Bisulfate) 75 Mg Tablet 75 Mg PO DAILY Atorvastatin Calcium 40 Mg Tablet 40 Mg PO QHS Atenolol 25 Mg Tablet 25 Mg PO BID Diagnosis: Problems: (1) Anxiety disorder (2) Dementia in Alzheimer's disease with delusions (3) Dementia in Alzheimer's disease with depression (4) Dementia, vascular, with delusions (5) Dementia, vascular, with depression (6) Impulse control disorder (7) Abnormal behavior MARTHA SRINIVASAN MD Apr 02, 2017 20:15
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
[2017-04-03 05:55] VITALS: BP 175/77
[2017-04-03] MEDS: CLOPIDOGREL BISULFATE 75 MG TABLET PO SCH (07:57)
[2017-04-03] MEDS: SERTRALINE 50 MG TABLET. PO SCH (07:58)
[2017-04-03] MEDS: LOSARTAN 50 MG TABLET. PO SCH (07:58)
[2017-04-03] MEDS: CYANOCOBALAMIN (VITAMIN B-12) 1,000 MCG TABLET. PO SCH (07:58)
[2017-04-03] MEDS: MULTIVITAMIN with MINERAL TABLET. PO SCH (07:59)
[2017-04-03] MEDS: ATENOLOL 25 MG TABLET PO SCH ×2 (07:59→19:37)
[2017-04-03] MEDS: PANTOPRAZOLE 40 MG TABLET. PO SCH (07:59)
[2017-04-03] MEDS: DIVALPROEX 125 MG CAP.SPRINK PO SCH ×3 (07:59→19:37)
[2017-04-03] MEDS: MULTIVITAMIN I-VITE TABLET. PO SCH (07:59)
[2017-04-03] MEDS: QUEtiapine 25 MG TABLET. PO SCH ×3 (08:01→16:27)
[2017-04-03 16:11] VITALS: BP 147/64
[2017-04-03] MEDS: ATORVASTATIN CALCIUM 20 MG TABLET PO SCH (19:36)
[2017-04-03] MEDS: QUEtiapine 100 MG TABLET. PO SCH (19:37)
--- NOTE | 2017-04-03 19:53 | PDOC ---
Exam Mauricio Demential Exam: Mauricio Note: Please also refer to the separate dictated note~for this date of service dictated separately.~Patient seen individually. Discussed the patient with Nursing staff reviewed the chart.~Reviewed interim history and current functioning. Reviewed vital signs,~Labs/ Radiology~and current medications noted below. Continue current treatment with the changes noted in the dictated addendum note Assessment: Vital Signs: Vital Signs Date Time Temp Pulse Resp B/P (MAP) Pulse Ox O2 Delivery O2 Flow Rate FiO2 04/03/17 19:37 68 147/64 04/03/17 16:11 98.9 18 98 Room Air I&O Intake and Output 04/03/17 07:00 Intake Total 1080 ml Balance 1080 ml Intake Oral 1080 ml # Voids 2 # Bowel Movements 1 Current Medications: Meds: Current Medications Lorazepam (Ativan) 1 mg 1X ONCE PO Last administered on 03/28/17 21:01; Start 03/28/17 at 21:00; Stop 03/28/17 at 21:05; Status DC Haloperidol (Haldol) 5 mg 1X ONCE PO Last administered on 03/28/17 21:01; Start 03/28/17 at 21:00; Stop 03/28/17 at 21:05; Status DC Acetaminophen (Tylenol) 650 mg PRN Q6HRS PRN PO PAIN / TEMP; Start 03/28/17 at 23:15 Multi-Ingredient Ointment (Analgesic [place]) 1 vik PRN QID PRN TP MUSCLE PAIN; Start 03/28/17 at 23:15 Al Hydroxide/Mg Hydroxide (Mylanta Plus Xs) 15 ml PRN AFTMEALHC PRN PO DYSPEPSIA; Start 03/28/17 at 23:15 Magnesium Hydroxide (Milk Of Magnesia) 2,400 mg PRN QHS PRN PO CONSTIPATION; Start 03/28/17 at 23:15 Divalproex Sodium (Depakote Sprinkles) 125 mg TID PO Last administered on 14:13; Start 03/29/17 at 09:00; Stop 03/29/17 at 18:20; Status DC Lorazepam (Ativan) 1 mg PRN Q4HRS PRN PO ANXIETY; Start 03/28/17 at 23:30 Olanzapine (ZyPREXA ZYDIS) 2.5 mg PRN Q2HR PRN PO PSYCHOSIS Last administered on 04/01/17 19:22; Start 03/28/17 at 23:30 Quetiapine Fumarate (SEROquel) 100 mg HS PO Last administered on 04/03/17 19: 37; Start 03/29/17 at 21:00 Sertraline HCl (Zoloft) 50 mg DAILY PO Last administered on 04/03/17 07:58; Start 03/29/17 at 09:00 Acetaminophen (Tylenol) 650 mg PRN Q6HRS PRN PO pain/temp; Start 03/28/17 at 23: 30; Status UNV Atenolol (Tenormin) 25 mg BID PO Last administered on 04/03/17 19:37; Start at 09:00 Clopidogrel Bisulfate (Plavix) 75 mg DAILY PO Last administered on 04/03/17 07 :57; Start 03/29/17 at 09:00 Cyanocobalamin (Vitamin B-12) 1,000 mcg DAILY PO Last administered on 07:58; Start 03/29/17 at 09:00 Al Hydroxide/Mg Hydroxide (Mylanta Plus Xs) 15 ml PRN AFTMEALHC PRN PO DYSPEPSIA; Start 03/28/17 at 23:30; Status UNV Multi-Ingredient Ointment (Analgesic [place]) 1 vik PRN QID PRN TP MUSCLE PAIN; Start 03/28/17 at 23:30; Status UNV Multivitamins/ Calcium (Thera-M Plus) 1 tab DAILY PO Last administered on 07:59; Start 03/29/17 at 09:00 Pantoprazole Sodium (Protonix) 40 mg DAILYAC PO Last administered on 04/03/17 07:59; Start 03/29/17 at 07:30 Tramadol HCl (Ultram) 50 mg PRN BID PRN PO MODERATE PAIN; Start 03/28/17 at 23: 30; Status Cancel Tramadol HCl (Ultram) 50 mg PRN Q6HRS PRN PO MODERATE PAIN Last administered on 03/29/17 03:55; Start 03/28/17 at 23:30 Multivitamins/ Minerals (I-Roya) 1 tab DAILY PO Last administered on 04/03/17 07:59; Start 03/29/17 at 09:00 Atorvastatin Calcium (Lipitor) 40 mg QHS PO Last administered on 04/03/17 19: 36; Start 03/29/17 at 21:00 Losartan Potassium (Cozaar) 100 mg DAILY PO Last administered on 04/03/17 07: 58; Start 03/29/17 at 09:00 Non-Formulary Medication 2,400 mg PRN QHS PRN PO CONSTIPATION; Start 03/28/17 at 23:30; Status UNV Divalproex Sodium (Depakote Sprinkles) 250 mg TID PO Last administered on 14:13; Start 03/29/17 at 21:00; Stop 04/03/17 at 18:21; Status DC Quetiapine Fumarate (SEROquel) 25 mg [id number] PO Last administered on 04/02/17 14 :12; Start 04/01/17 at 09:00; Stop 04/02/17 at 19:29; Status DC Quetiapine Fumarate (SEROquel) 12.5 mg DAILYWLUN PO Last administered on 12:17; Start 04/02/17 at 12:00 Quetiapine Fumarate (SEROquel) 25 mg [id number] PO Last administered on 04/03/17 16 :27; Start 04/03/17 at 09:00 Divalproex Sodium (Depakote Sprinkles) 375 mg BID PO Last administered on 19:37; Start 04/03/17 at 21:00 Divalproex Sodium (Depakote Sprinkles) 250 mg 1400 PO ; Start 04/04/17 at 14:00 Active Scripts Active Reported Tramadol Hcl (Tramadol HCl) 50 Mg Tablet 50 Mg PO BID PRN Tramadol Hcl (Tramadol HCl) 50 Mg Tablet 50 Mg PO PRN Q6HRS PRN Lorazepam 1 Mg Tablet 1 Mg PO PRN Q4HRS PRN Zoloft (Sertraline Hcl) 50 Mg Tablet 50 Mg PO DAILY Protonix (Pantoprazole Sodium) 40 Mg Tablet.dr 40 Mg PO DAILY Zyprexa Zydis (Olanzapine) 5 Mg Tab.rapdis 2.5 Mg PO PRN Q2HR PRN Thera M Plus Tablet (Multivits,Ca,Minerals/Iron/FA) 1 Each Tablet 1 Tab PO DAILY I-Roya Tablet (Vit A,C & E/Lutein/Minerals) 1 Each Tablet 1 Tab PO DAILY Analgesic [place] (Methyl Salicylate/Menthol) 29 Gm Oint...g. 1 Vik TP PRN QID PRN Milk Of Magnesia (Magnesium Hydroxide) 2,400 Mg/10 Ml Oral.susp 2,400 Mg PO PRN QHS PRN Mag-Al Plus Xs Suspension (Mag Hydrox/Al Hydrox/Simeth) 30 Ml Oral.susp 15 Ml PO PRN AFTMEALHC PRN Cozaar (Losartan Potassium) 100 Mg Tablet 100 Mg PO DAILY Depakote Sprinkle (Divalproex Sodium) 125 Mg Cap.sprink 125 Mg PO TID Vitamin B-12 (Cyanocobalamin (Vitamin B-12)) 1,000 Mcg Tablet 1,000 Mcg PO DAILY Tylenol (Acetaminophen) 325 Mg Tablet 650 Mg PO PRN Q6HRS PRN Seroquel (Quetiapine Fumarate) 100 Mg Tablet 100 Mg PO HS Plavix (Clopidogrel Bisulfate) 75 Mg Tablet 75 Mg PO DAILY Atorvastatin Calcium 40 Mg Tablet 40 Mg PO QHS Atenolol 25 Mg Tablet 25 Mg PO BID Diagnosis: Problems: (1) Anxiety disorder (2) Dementia in Alzheimer's disease with delusions (3) Dementia in Alzheimer's disease with depression (4) Dementia, vascular, with delusions (5) Dementia, vascular, with depression (6) Impulse control disorder (7) Abnormal behavior MARTHA SRINIVASAN MD Apr 03, 2017 19:53
--- NOTE | 2017-04-03 20:19 | PDOC ---
Exam Mauricio Demential Exam: Mauricio Note: Please also refer to the separate dictated note~for this date of service dictated separately.~Patient seen individually. Discussed the patient with Nursing staff reviewed the chart.~Reviewed interim history and current functioning. Reviewed vital signs,~Labs/ Radiology~and current medications noted below. Continue current treatment with the changes noted in the dictated addendum note S/O: This is a late entry for 03/30/2017 and covers the elements not covered in my initial note. The patient was seen individually in the evening of 2016. He has been irritable, confused, paranoid, suspicious but redirectable per nursing report. No CV, , Pulmonary, Eye, ENT system symptoms on review. Reliability poor. MSE: Oriented to herself. Insight, judgment, recent and remote memory, attention and concentration, fund of knowledge poor consistent with his diagnosis mentioned in my initial note. Plan: Valproic acid level is low at 12. Depakote was increased yesterday to 250 mg three times a day since the level of the lower dosage was 12 subtherapeutic. We will follow labs level on the and then decide further changes. In the meantime, continue Seroquel and only Zyprexa and Ativan p.r.n. and Zoloft 50 mg a day. Assessment: Vital Signs: Vital Signs Date Time Temp Pulse Resp B/P (MAP) Pulse Ox O2 Delivery O2 Flow Rate FiO2 04/03/17 19:37 68 147/64 04/03/17 16:11 98.9 18 98 Room Air I&O Intake and Output 04/03/17 07:00 Intake Total 1080 ml Balance 1080 ml Intake Oral 1080 ml # Voids 2 # Bowel Movements 1 Current Medications: Meds: Current Medications Lorazepam (Ativan) 1 mg 1X ONCE PO Last administered on 03/28/17 21:01; Start 03/28/17 at 21:00; Stop 03/28/17 at 21:05; Status DC Haloperidol (Haldol) 5 mg 1X ONCE PO Last administered on 03/28/17 21:01; Start 03/28/17 at 21:00; Stop 03/28/17 at 21:05; Status DC Acetaminophen (Tylenol) 650 mg PRN Q6HRS PRN PO PAIN / TEMP; Start 03/28/17 at 23:15 Multi-Ingredient Ointment (Analgesic [place]) 1 vik PRN QID PRN TP MUSCLE PAIN; Start 03/28/17 at 23:15 Al Hydroxide/Mg Hydroxide (Mylanta Plus Xs) 15 ml PRN AFTMEALHC PRN PO DYSPEPSIA; Start 03/28/17 at 23:15 Magnesium Hydroxide (Milk Of Magnesia) 2,400 mg PRN QHS PRN PO CONSTIPATION; Start 03/28/17 at 23:15 Divalproex Sodium (Depakote Sprinkles) 125 mg TID PO Last administered on 14:13; Start 03/29/17 at 09:00; Stop 03/29/17 at 18:20; Status DC Lorazepam (Ativan) 1 mg PRN Q4HRS PRN PO ANXIETY; Start 03/28/17 at 23:30 Olanzapine (ZyPREXA ZYDIS) 2.5 mg PRN Q2HR PRN PO PSYCHOSIS Last administered on 04/01/17 19:22; Start 03/28/17 at 23:30 Quetiapine Fumarate (SEROquel) 100 mg HS PO Last administered on 04/03/17 19: 37; Start 03/29/17 at 21:00 Sertraline HCl (Zoloft) 50 mg DAILY PO Last administered on 04/03/17 07:58; Start 03/29/17 at 09:00 Acetaminophen (Tylenol) 650 mg PRN Q6HRS PRN PO pain/temp; Start 03/28/17 at 23: 30; Status UNV Atenolol (Tenormin) 25 mg BID PO Last administered on 04/03/17 19:37; Start at 09:00 Clopidogrel Bisulfate (Plavix) 75 mg DAILY PO Last administered on 04/03/17 07 :57; Start 03/29/17 at 09:00 Cyanocobalamin (Vitamin B-12) 1,000 mcg DAILY PO Last administered on 07:58; Start 03/29/17 at 09:00 Al Hydroxide/Mg Hydroxide (Mylanta Plus Xs) 15 ml PRN AFTMEALHC PRN PO DYSPEPSIA; Start 03/28/17 at 23:30; Status UNV Multi-Ingredient Ointment (Analgesic [place]) 1 vik PRN QID PRN TP MUSCLE PAIN; Start 03/28/17 at 23:30; Status UNV Multivitamins/ Calcium (Thera-M Plus) 1 tab DAILY PO Last administered on 07:59; Start 03/29/17 at 09:00 Pantoprazole Sodium (Protonix) 40 mg DAILYAC PO Last administered on 04/03/17 07:59; Start 03/29/17 at 07:30 Tramadol HCl (Ultram) 50 mg PRN BID PRN PO MODERATE PAIN; Start 03/28/17 at 23: 30; Status Cancel Tramadol HCl (Ultram) 50 mg PRN Q6HRS PRN PO MODERATE PAIN Last administered on 03/29/17 03:55; Start 03/28/17 at 23:30 Multivitamins/ Minerals (I-Roya) 1 tab DAILY PO Last administered on 04/03/17 07:59; Start 03/29/17 at 09:00 Atorvastatin Calcium (Lipitor) 40 mg QHS PO Last administered on 04/03/17 19: 36; Start 03/29/17 at 21:00 Losartan Potassium (Cozaar) 100 mg DAILY PO Last administered on 04/03/17 07: 58; Start 03/29/17 at 09:00 Non-Formulary Medication 2,400 mg PRN QHS PRN PO CONSTIPATION; Start 03/28/17 at 23:30; Status UNV Divalproex Sodium (Depakote Sprinkles) 250 mg TID PO Last administered on 14:13; Start 03/29/17 at 21:00; Stop 04/03/17 at 18:21; Status DC Quetiapine Fumarate (SEROquel) 25 mg [id number] PO Last administered on 04/02/17 14 :12; Start 04/01/17 at 09:00; Stop 04/02/17 at 19:29; Status DC Quetiapine Fumarate (SEROquel) 12.5 mg DAILYWLUN PO Last administered on 12:17; Start 04/02/17 at 12:00 Quetiapine Fumarate (SEROquel) 25 mg BID94 PO Last administered on 04/03/17 16 :27; Start 7/12/17 at 09:00 Divalproex Sodium (Depakote Sprinkles) 375 mg BID PO Last administered on t 19:37; Start 04/03/17 at 21:00 Divalproex Sodium (Depakote Sprinkles) 250 mg 1400 PO ; Start 04/04/17 at 14:00 Active Scripts Active Reported Tramadol Hcl (Tramadol HCl) 50 Mg Tablet 50 Mg PO BID PRN Tramadol Hcl (Tramadol HCl) 50 Mg Tablet 50 Mg PO PRN Q6HRS PRN Lorazepam 1 Mg Tablet 1 Mg PO PRN Q4HRS PRN Zoloft (Sertraline Hcl) 50 Mg Tablet 50 Mg PO DAILY Protonix (Pantoprazole Sodium) 40 Mg Tablet.dr 40 Mg PO DAILY Zyprexa Zydis (Olanzapine) 5 Mg Tab.rapdis 2.5 Mg PO PRN Q2HR PRN Thera M Plus Tablet (Multivits,Ca,Minerals/Iron/FA) 1 Each Tablet 1 Tab PO DAILY I-Roya Tablet (Vit A,C & E/Lutein/Minerals) 1 Each Tablet 1 Tab PO DAILY Analgesic [place] (Methyl Salicylate/Menthol) 29 Gm Oint...g. 1 Vik TP PRN QID PRN Milk Of Magnesia (Magnesium Hydroxide) 2,400 Mg/10 Ml Oral.susp 2,400 Mg PO PRN QHS PRN Mag-Al Plus Xs Suspension (Mag Hydrox/Al Hydrox/Simeth) 30 Ml Oral.susp 15 Ml PO PRN AFTMEALHC PRN Cozaar (Losartan Potassium) 100 Mg Tablet 100 Mg PO DAILY Depakote Sprinkle (Divalproex Sodium) 125 Mg Cap.sprink 125 Mg PO TID Vitamin B-12 (Cyanocobalamin (Vitamin B-12)) 1,000 Mcg Tablet 1,000 Mcg PO DAILY Tylenol (Acetaminophen) 325 Mg Tablet 650 Mg PO PRN Q6HRS PRN Seroquel (Quetiapine Fumarate) 100 Mg Tablet 100 Mg PO HS Plavix (Clopidogrel Bisulfate) 75 Mg Tablet 75 Mg PO DAILY Atorvastatin Calcium 40 Mg Tablet 40 Mg PO QHS Atenolol 25 Mg Tablet 25 Mg PO BID MARTHA SRINIVASAN MD Apr 03, 2017 20:19
--- NOTE | 2017-04-03 20:55 | PDOC ---
Exam Mauricio Demential Exam: Mauricio Note: Please also refer to the separate dictated note~for this date of service dictated separately.~Patient seen individually. Discussed the patient with Nursing staff reviewed the chart.~Reviewed interim history and current functioning. Reviewed vital signs,~Labs/ Radiology~and current medications noted below. Continue current treatment with the changes noted in the dictated addendum note S/O: This is a late entry for date of service 03/31/2017 and covers the elements that are not covered in my initial note of 03/31/2017. Per nursing report, the patient had been agitated with staff, chasing staff down the hallway , cursing at visitors, intrusive, wandering, and does redirect. Review of Systems: No CV, , Eye, ENT, Pulmonary system symptoms on review. Reliability is poor. MSE: Oriented to himself. Insight and judgment, recent and remote memory, attention, concentration, fund of knowledge poor consistent with his diagnosis mentioned in my initial note. Labs: Reviewed. Plan: Continue psychotropics as mentioned in my initial note. Depakote was increased. Lab levels are awaited on the . Add Seroquel 25 mg in the morning 9 am and 2 p.m. and continue 100 mg h.s. Adjust further as clinically indicated. Assessment: Vital Signs: Vital Signs Date Time Temp Pulse Resp B/P (MAP) Pulse Ox O2 Delivery O2 Flow Rate FiO2 04/03/17 19:37 68 147/64 04/03/17 16:11 98.9 18 98 Room Air I&O Intake and Output 04/03/17 07:00 Intake Total 1080 ml Balance 1080 ml Intake Oral 1080 ml # Voids 2 # Bowel Movements 1 Current Medications: Meds: Current Medications Lorazepam (Ativan) 1 mg 1X ONCE PO Last administered on 03/28/17 21:01; Start 03/28/17 at 21:00; Stop 03/28/17 at 21:05; Status DC Haloperidol (Haldol) 5 mg 1X ONCE PO Last administered on 03/28/17 21:01; Start 03/28/17 at 21:00; Stop 03/28/17 at 21:05; Status DC Acetaminophen (Tylenol) 650 mg PRN Q6HRS PRN PO PAIN / TEMP; Start 03/28/17 at 23:15 Multi-Ingredient Ointment (Analgesic [place]) 1 vik PRN QID PRN TP MUSCLE PAIN; Start 03/28/17 at 23:15 Al Hydroxide/Mg Hydroxide (Mylanta Plus Xs) 15 ml PRN AFTMEALHC PRN PO DYSPEPSIA; Start 03/28/17 at 23:15 Magnesium Hydroxide (Milk Of Magnesia) 2,400 mg PRN QHS PRN PO CONSTIPATION; Start 03/28/17 at 23:15 Divalproex Sodium (Depakote Sprinkles) 125 mg TID PO Last administered on 14:13; Start 03/29/17 at 09:00; Stop 03/29/17 at 18:20; Status DC Lorazepam (Ativan) 1 mg PRN Q4HRS PRN PO ANXIETY; Start 03/28/17 at 23:30 Olanzapine (ZyPREXA ZYDIS) 2.5 mg PRN Q2HR PRN PO PSYCHOSIS Last administered on 04/01/17 19:22; Start 03/28/17 at 23:30 Quetiapine Fumarate (SEROquel) 100 mg HS PO Last administered on 04/03/17 19: 37; Start 03/29/17 at 21:00 Sertraline HCl (Zoloft) 50 mg DAILY PO Last administered on 04/03/17 07:58; Start 03/29/17 at 09:00 Acetaminophen (Tylenol) 650 mg PRN Q6HRS PRN PO pain/temp; Start 03/28/17 at 23: 30; Status UNV Atenolol (Tenormin) 25 mg BID PO Last administered on 04/03/17 19:37; Start at 09:00 Clopidogrel Bisulfate (Plavix) 75 mg DAILY PO Last administered on 04/03/17 07 :57; Start 03/29/17 at 09:00 Cyanocobalamin (Vitamin B-12) 1,000 mcg DAILY PO Last administered on 07:58; Start 03/29/17 at 09:00 Al Hydroxide/Mg Hydroxide (Mylanta Plus Xs) 15 ml PRN AFTMEALHC PRN PO DYSPEPSIA; Start 03/28/17 at 23:30; Status UNV Multi-Ingredient Ointment (Analgesic [place]) 1 vik PRN QID PRN TP MUSCLE PAIN; Start 03/28/17 at 23:30; Status UNV Multivitamins/ Calcium (Thera-M Plus) 1 tab DAILY PO Last administered on 07:59; Start 03/29/17 at 09:00 Pantoprazole Sodium (Protonix) 40 mg DAILYAC PO Last administered on 04/03/17 07:59; Start 03/29/17 at 07:30 Tramadol HCl (Ultram) 50 mg PRN BID PRN PO MODERATE PAIN; Start 03/28/17 at 23: 30; Status Cancel Tramadol HCl (Ultram) 50 mg PRN Q6HRS PRN PO MODERATE PAIN Last administered on 03/29/17 03:55; Start 03/28/17 at 23:30 Multivitamins/ Minerals (I-Roya) 1 tab DAILY PO Last administered on 04/03/17 07:59; Start 03/29/17 at 09:00 Atorvastatin Calcium (Lipitor) 40 mg QHS PO Last administered on 04/03/17 19: 36; Start 03/29/17 at 21:00 Losartan Potassium (Cozaar) 100 mg DAILY PO Last administered on 04/03/17 07: 58; Start 03/29/17 at 09:00 Non-Formulary Medication 2,400 mg PRN QHS PRN PO CONSTIPATION; Start 03/28/17 at 23:30; Status UNV Divalproex Sodium (Depakote Sprinkles) 250 mg TID PO Last administered on 14:13; Start 03/29/17 at 21:00; Stop 04/03/17 at 18:21; Status DC Quetiapine Fumarate (SEROquel) 25 mg [id number] PO Last administered on 04/02/17 14 :12; Start 04/01/17 at 09:00; Stop 04/02/17 at 19:29; Status DC Quetiapine Fumarate (SEROquel) 12.5 mg DAILYWLUN PO Last administered on 12:17; Start 04/02/17 at 12:00 Quetiapine Fumarate (SEROquel) 25 mg [id number] PO Last administered on 04/03/17 16 :27; Start 04/03/17 at 09:00 Divalproex Sodium (Depakote Sprinkles) 375 mg BID PO Last administered on t 19:37; Start 04/03/17 at 21:00 Divalproex Sodium (Depakote Sprinkles) 250 mg 1400 PO ; Start 04/04/17 at 14:00 Active Scripts Active Reported Tramadol Hcl (Tramadol HCl) 50 Mg Tablet 50 Mg PO BID PRN Tramadol Hcl (Tramadol HCl) 50 Mg Tablet 50 Mg PO PRN Q6HRS PRN Lorazepam 1 Mg Tablet 1 Mg PO PRN Q4HRS PRN Zoloft (Sertraline Hcl) 50 Mg Tablet 50 Mg PO DAILY Protonix (Pantoprazole Sodium) 40 Mg Tablet.dr 40 Mg PO DAILY Zyprexa Zydis (Olanzapine) 5 Mg Tab.rapdis 2.5 Mg PO PRN Q2HR PRN Thera M Plus Tablet (Multivits,Ca,Minerals/Iron/FA) 1 Each Tablet 1 Tab PO DAILY I-Roya Tablet (Vit A,C & E/Lutein/Minerals) 1 Each Tablet 1 Tab PO DAILY Analgesic [place] (Methyl Salicylate/Menthol) 29 Gm Oint...g. 1 Vik TP PRN QID PRN Milk Of Magnesia (Magnesium Hydroxide) 2,400 Mg/10 Ml Oral.susp 2,400 Mg PO PRN QHS PRN Mag-Al Plus Xs Suspension (Mag Hydrox/Al Hydrox/Simeth) 30 Ml Oral.susp 15 Ml PO PRN AFTMEALHC PRN Cozaar (Losartan Potassium) 100 Mg Tablet 100 Mg PO DAILY Depakote Sprinkle (Divalproex Sodium) 125 Mg Cap.sprink 125 Mg PO TID Vitamin B-12 (Cyanocobalamin (Vitamin B-12)) 1,000 Mcg Tablet 1,000 Mcg PO DAILY Tylenol (Acetaminophen) 325 Mg Tablet 650 Mg PO PRN Q6HRS PRN Seroquel (Quetiapine Fumarate) 100 Mg Tablet 100 Mg PO HS Plavix (Clopidogrel Bisulfate) 75 Mg Tablet 75 Mg PO DAILY Atorvastatin Calcium 40 Mg Tablet 40 Mg PO QHS Atenolol 25 Mg Tablet 25 Mg PO BID MARTHA SRINIVASAN MD Apr 03, 2017 20:55
[2017-04-04 05:57] VITALS: BP 165/52
[2017-04-04] MEDS: CYANOCOBALAMIN (VITAMIN B-12) 1,000 MCG TABLET. PO SCH (08:26)
[2017-04-04] MEDS: PANTOPRAZOLE 40 MG TABLET. PO SCH (08:26)
[2017-04-04] MEDS: DIVALPROEX 125 MG CAP.SPRINK PO SCH ×3 (08:27→19:52)
[2017-04-04] MEDS: LOSARTAN 50 MG TABLET. PO SCH (08:28)
[2017-04-04] MEDS: CLOPIDOGREL BISULFATE 75 MG TABLET PO SCH (08:28)
[2017-04-04] MEDS: QUEtiapine 25 MG TABLET. PO SCH ×3 (08:28→16:29)
[2017-04-04] MEDS: MULTIVITAMIN with MINERAL TABLET. PO SCH (08:28)
[2017-04-04] MEDS: MULTIVITAMIN I-VITE TABLET. PO SCH (08:28)
[2017-04-04] MEDS: SERTRALINE 50 MG TABLET. PO SCH (08:28)
[2017-04-04] MEDS: ATENOLOL 25 MG TABLET PO SCH ×2 (08:29→19:53)
[2017-04-04 15:34] VITALS: BP 109/58
--- NOTE | 2017-04-04 15:56 | RAD ---
Pelvis with left hip, 3 views, 04/04/2017: History: Fall, left hip pain No fracture or dislocation is identified. There is mild narrowing of the hip joints with mild marginal spurring. Surgical clips are present the left groin level. There are moderate scattered arterial calcifications. IMPRESSION: No acute bony abnormality is detected.
[2017-04-04] MEDS: ATORVASTATIN CALCIUM 20 MG TABLET PO SCH (19:50)
[2017-04-04] MEDS: QUEtiapine 100 MG TABLET. PO SCH (19:52)
--- NOTE | 2017-04-04 20:05 | PDOC ---
Exam Mauricio Demential Exam: Mauricio Note: Please also refer to the separate dictated note~for this date of service dictated separately.~Patient seen individually. Discussed the patient with Nursing staff reviewed the chart.~Reviewed interim history and current functioning. Reviewed vital signs,~Labs/ Radiology~and current medications noted below. Continue current treatment with the changes noted in the dictated addendum note Assessment: Vital Signs: Vital Signs Date Time Temp Pulse Resp B/P (MAP) Pulse Ox O2 Delivery O2 Flow Rate FiO2 04/04/17 19:53 65 109/58 04/04/17 15:34 97.3 20 99 04/03/17 16:11 Room Air I&O Intake and Output 04/04/17 07:00 Intake Total 1080 ml Balance 1080 ml Intake Oral 1080 ml # Voids 1 Current Medications: Meds: Current Medications Lorazepam (Ativan) 1 mg 1X ONCE PO Last administered on 03/28/17 21:01; Start 03/28/17 at 21:00; Stop 03/28/17 at 21:05; Status DC Haloperidol (Haldol) 5 mg 1X ONCE PO Last administered on 03/28/17 21:01; Start 03/28/17 at 21:00; Stop 03/28/17 at 21:05; Status DC Acetaminophen (Tylenol) 650 mg PRN Q6HRS PRN PO PAIN / TEMP; Start 03/28/17 at 23:15 Multi-Ingredient Ointment (Analgesic [place]) 1 vik PRN QID PRN TP MUSCLE PAIN; Start 03/28/17 at 23:15 Al Hydroxide/Mg Hydroxide (Mylanta Plus Xs) 15 ml PRN AFTMEALHC PRN PO DYSPEPSIA; Start 03/28/17 at 23:15 Magnesium Hydroxide (Milk Of Magnesia) 2,400 mg PRN QHS PRN PO CONSTIPATION; Start 03/28/17 at 23:15 Divalproex Sodium (Depakote Sprinkles) 125 mg TID PO Last administered on 14:13; Start 03/29/17 at 09:00; Stop 03/29/17 at 18:20; Status DC Lorazepam (Ativan) 1 mg PRN Q4HRS PRN PO ANXIETY; Start 03/28/17 at 23:30 Olanzapine (ZyPREXA ZYDIS) 2.5 mg PRN Q2HR PRN PO PSYCHOSIS Last administered on 04/01/17 19:22; Start 03/28/17 at 23:30 Quetiapine Fumarate (SEROquel) 100 mg HS PO Last administered on 04/04/17 19: 52; Start 03/29/17 at 21:00 Sertraline HCl (Zoloft) 50 mg DAILY PO Last administered on 04/04/17 08:28; Start 03/29/17 at 09:00 Acetaminophen (Tylenol) 650 mg PRN Q6HRS PRN PO pain/temp; Start 03/28/17 at 23: 30; Status UNV Atenolol (Tenormin) 25 mg BID PO Last administered on 04/04/17 08:29; Start at 09:00 Clopidogrel Bisulfate (Plavix) 75 mg DAILY PO Last administered on 04/04/17 08 :28; Start 03/29/17 at 09:00 Cyanocobalamin (Vitamin B-12) 1,000 mcg DAILY PO Last administered on 08:26; Start 03/29/17 at 09:00 Al Hydroxide/Mg Hydroxide (Mylanta Plus Xs) 15 ml PRN AFTMEALHC PRN PO DYSPEPSIA; Start 03/28/17 at 23:30; Status UNV Multi-Ingredient Ointment (Analgesic [place]) 1 vik PRN QID PRN TP MUSCLE PAIN; Start 03/28/17 at 23:30; Status UNV Multivitamins/ Calcium (Thera-M Plus) 1 tab DAILY PO Last administered on 08:28; Start 03/29/17 at 09:00 Pantoprazole Sodium (Protonix) 40 mg DAILYAC PO Last administered on 04/04/17 08:26; Start 03/29/17 at 07:30 Tramadol HCl (Ultram) 50 mg PRN BID PRN PO MODERATE PAIN; Start 03/28/17 at 23: 30; Status Cancel Tramadol HCl (Ultram) 50 mg PRN Q6HRS PRN PO MODERATE PAIN Last administered on 03/29/17 03:55; Start 03/28/17 at 23:30 Multivitamins/ Minerals (I-Roya) 1 tab DAILY PO Last administered on 04/04/17 08:28; Start 03/29/17 at 09:00 Atorvastatin Calcium (Lipitor) 40 mg QHS PO Last administered on 04/04/17 19: 50; Start 03/29/17 at 21:00 Losartan Potassium (Cozaar) 100 mg DAILY PO Last administered on 04/04/17 08: 28; Start 03/29/17 at 09:00 Non-Formulary Medication 2,400 mg PRN QHS PRN PO CONSTIPATION; Start 03/28/17 at 23:30; Status UNV Divalproex Sodium (Depakote Sprinkles) 250 mg TID PO Last administered on 14:13; Start 03/29/17 at 21:00; Stop 04/03/17 at 18:21; Status DC Quetiapine Fumarate (SEROquel) 25 mg [id number] PO Last administered on 04/02/17 14 :12; Start 04/01/17 at 09:00; Stop 04/02/17 at 19:29; Status DC Quetiapine Fumarate (SEROquel) 12.5 mg DAILYWLUN PO Last administered on 12:17; Start 04/02/17 at 12:00; Stop 04/04/17 at 09:42; Status DC Quetiapine Fumarate (SEROquel) 25 mg [id number] PO Last administered on 04/04/17 16 :29; Start 04/03/17 at 09:00 Divalproex Sodium (Depakote Sprinkles) 375 mg BID PO Last administered on 19:52; Start 04/03/17 at 21:00 Divalproex Sodium (Depakote Sprinkles) 250 mg 1400 PO Last administered on 04/04 14:31; Start 04/04/17 at 14:00 Quetiapine Fumarate (SEROquel) 25 mg DAILYWLUN PO Last administered on 11:45; Start 04/04/17 at 12:00 Active Scripts Active Reported Tramadol Hcl (Tramadol HCl) 50 Mg Tablet 50 Mg PO BID PRN Tramadol Hcl (Tramadol HCl) 50 Mg Tablet 50 Mg PO PRN Q6HRS PRN Lorazepam 1 Mg Tablet 1 Mg PO PRN Q4HRS PRN Zoloft (Sertraline Hcl) 50 Mg Tablet 50 Mg PO DAILY Protonix (Pantoprazole Sodium) 40 Mg Tablet.dr 40 Mg PO DAILY Zyprexa Zydis (Olanzapine) 5 Mg Tab.rapdis 2.5 Mg PO PRN Q2HR PRN Thera M Plus Tablet (Multivits,Ca,Minerals/Iron/FA) 1 Each Tablet 1 Tab PO DAILY I-Roya Tablet (Vit A,C & E/Lutein/Minerals) 1 Each Tablet 1 Tab PO DAILY Analgesic [place] (Methyl Salicylate/Menthol) 29 Gm Oint...g. 1 Vik TP PRN QID PRN Milk Of Magnesia (Magnesium Hydroxide) 2,400 Mg/10 Ml Oral.susp 2,400 Mg PO PRN QHS PRN Mag-Al Plus Xs Suspension (Mag Hydrox/Al Hydrox/Simeth) 30 Ml Oral.susp 15 Ml PO PRN AFTMEALHC PRN Cozaar (Losartan Potassium) 100 Mg Tablet 100 Mg PO DAILY Depakote Sprinkle (Divalproex Sodium) 125 Mg Cap.sprink 125 Mg PO TID Vitamin B-12 (Cyanocobalamin (Vitamin B-12)) 1,000 Mcg Tablet 1,000 Mcg PO DAILY Tylenol (Acetaminophen) 325 Mg Tablet 650 Mg PO PRN Q6HRS PRN Seroquel (Quetiapine Fumarate) 100 Mg Tablet 100 Mg PO HS Plavix (Clopidogrel Bisulfate) 75 Mg Tablet 75 Mg PO DAILY Atorvastatin Calcium 40 Mg Tablet 40 Mg PO QHS Atenolol 25 Mg Tablet 25 Mg PO BID Diagnosis: Problems: (1) Anxiety disorder (2) Dementia in Alzheimer's disease with delusions (3) Dementia in Alzheimer's disease with depression (4) Dementia, vascular, with delusions (5) Dementia, vascular, with depression (6) Impulse control disorder (7) Abnormal behavior MARTHA SRINIVASAN MD Apr 04, 2017 20:05
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
--- NOTE | 2017-04-04 21:01 | PDOC ---
Exam Mauricio Demential Exam: Mauricio Note: Please also refer to the separate dictated note~for this date of service dictated separately.~Patient seen individually. Discussed the patient with Nursing staff reviewed the chart.~Reviewed interim history and current functioning. Reviewed vital signs,~Labs/ Radiology~and current medications noted below. Continue current treatment with the changes noted in the dictated addendum note S/O: This is a late entry for date of service 04/02/2017 and covers elements not covered in my initial note. The patient remains confused, was calm, cooperative, and compliant in the morning. Evening, he was wandering, anxious, somewhat agitated, and redirectable. Review of Systems: No CV, , Pulmonary, Eye, ENT system symptoms on review. Reliability poor. MSE: Oriented to himself. Insight, judgment, recent and remote memory, attention and concentration, and fund of knowledge poor consistent with his diagnosis. He is pleasant, smiling, and oblivious of his surroundings as I met with him individually. Imp: Unchanged from initial note. Plan: Continue current psychotropics. Adjust as indicated. Assessment: Vital Signs: Vital Signs Date Time Temp Pulse Resp B/P (MAP) Pulse Ox O2 Delivery O2 Flow Rate FiO2 04/04/17 19:53 65 109/58 04/04/17 15:34 97.3 20 99 04/03/17 16:11 Room Air I&O Intake and Output 04/04/17 07:00 Intake Total 1080 ml Balance 1080 ml Intake Oral 1080 ml # Voids 1 Current Medications: Meds: Current Medications Lorazepam (Ativan) 1 mg 1X ONCE PO Last administered on 03/28/17 21:01; Start 03/28/17 at 21:00; Stop 03/28/17 at 21:05; Status DC Haloperidol (Haldol) 5 mg 1X ONCE PO Last administered on 03/28/17 21:01; Start 03/28/17 at 21:00; Stop 03/28/17 at 21:05; Status DC Acetaminophen (Tylenol) 650 mg PRN Q6HRS PRN PO PAIN / TEMP; Start 03/28/17 at 23:15 Multi-Ingredient Ointment (Analgesic [place]) 1 vik PRN QID PRN TP MUSCLE PAIN; Start 03/28/17 at 23:15 Al Hydroxide/Mg Hydroxide (Mylanta Plus Xs) 15 ml PRN AFTMEALHC PRN PO DYSPEPSIA; Start 03/28/17 at 23:15 Magnesium Hydroxide (Milk Of Magnesia) 2,400 mg PRN QHS PRN PO CONSTIPATION; Start 03/28/17 at 23:15 Divalproex Sodium (Depakote Sprinkles) 125 mg TID PO Last administered on 14:13; Start 03/29/17 at 09:00; Stop 03/29/17 at 18:20; Status DC Lorazepam (Ativan) 1 mg PRN Q4HRS PRN PO ANXIETY; Start 03/28/17 at 23:30 Olanzapine (ZyPREXA ZYDIS) 2.5 mg PRN Q2HR PRN PO PSYCHOSIS Last administered on 04/01/17 19:22; Start 03/28/17 at 23:30 Quetiapine Fumarate (SEROquel) 100 mg HS PO Last administered on 04/04/17 19: 52; Start 03/29/17 at 21:00 Sertraline HCl (Zoloft) 50 mg DAILY PO Last administered on 04/04/17 08:28; Start 03/29/17 at 09:00 Acetaminophen (Tylenol) 650 mg PRN Q6HRS PRN PO pain/temp; Start 03/28/17 at 23: 30; Status UNV Atenolol (Tenormin) 25 mg BID PO Last administered on 04/04/17 08:29; Start at 09:00 Clopidogrel Bisulfate (Plavix) 75 mg DAILY PO Last administered on 04/04/17 08 :28; Start 03/29/17 at 09:00 Cyanocobalamin (Vitamin B-12) 1,000 mcg DAILY PO Last administered on 08:26; Start 03/29/17 at 09:00 Al Hydroxide/Mg Hydroxide (Mylanta Plus Xs) 15 ml PRN AFTMEALHC PRN PO DYSPEPSIA; Start 03/28/17 at 23:30; Status UNV Multi-Ingredient Ointment (Analgesic [place]) 1 vik PRN QID PRN TP MUSCLE PAIN; Start 03/28/17 at 23:30; Status UNV Multivitamins/ Calcium (Thera-M Plus) 1 tab DAILY PO Last administered on 08:28; Start 03/29/17 at 09:00 Pantoprazole Sodium (Protonix) 40 mg DAILYAC PO Last administered on 04/04/17 08:26; Start 03/29/17 at 07:30 Tramadol HCl (Ultram) 50 mg PRN BID PRN PO MODERATE PAIN; Start 03/28/17 at 23: 30; Status Cancel Tramadol HCl (Ultram) 50 mg PRN Q6HRS PRN PO MODERATE PAIN Last administered on 03/29/17 03:55; Start 03/28/17 at 23:30 Multivitamins/ Minerals (I-Roya) 1 tab DAILY PO Last administered on 04/04/17 08:28; Start 03/29/17 at 09:00 Atorvastatin Calcium (Lipitor) 40 mg QHS PO Last administered on 04/04/17 19: 50; Start 03/29/17 at 21:00 Losartan Potassium (Cozaar) 100 mg DAILY PO Last administered on 04/04/17 08: 28; Start 03/29/17 at 09:00 Non-Formulary Medication 2,400 mg PRN QHS PRN PO CONSTIPATION; Start 03/28/17 at 23:30; Status UNV Divalproex Sodium (Depakote Sprinkles) 250 mg TID PO Last administered on 14:13; Start 03/29/17 at 21:00; Stop 04/03/17 at 18:21; Status DC Quetiapine Fumarate (SEROquel) 25 mg [id number] PO Last administered on 04/02/17 14 :12; Start 04/01/17 at 09:00; Stop 04/02/17 at 19:29; Status DC Quetiapine Fumarate (SEROquel) 12.5 mg DAILYWLUN PO Last administered on 12:17; Start 04/02/17 at 12:00; Stop 04/04/17 at 09:42; Status DC Quetiapine Fumarate (SEROquel) 25 mg [id number] PO Last administered on 04/04/17 16 :29; Start 04/03/17 at 09:00 Divalproex Sodium (Depakote Sprinkles) 375 mg BID PO Last administered on 19:52; Start 04/03/17 at 21:00 Divalproex Sodium (Depakote Sprinkles) 250 mg 1400 PO Last administered on 04/04 14:31; Start 04/04/17 at 14:00 Quetiapine Fumarate (SEROquel) 25 mg DAILYWLUN PO Last administered on 11:45; Start 04/04/17 at 12:00 Active Scripts Active Reported Tramadol Hcl (Tramadol HCl) 50 Mg Tablet 50 Mg PO BID PRN Tramadol Hcl (Tramadol HCl) 50 Mg Tablet 50 Mg PO PRN Q6HRS PRN Lorazepam 1 Mg Tablet 1 Mg PO PRN Q4HRS PRN Zoloft (Sertraline Hcl) 50 Mg Tablet 50 Mg PO DAILY Protonix (Pantoprazole Sodium) 40 Mg Tablet.dr 40 Mg PO DAILY Zyprexa Zydis (Olanzapine) 5 Mg Tab.rapdis 2.5 Mg PO PRN Q2HR PRN Thera M Plus Tablet (Multivits,Ca,Minerals/Iron/FA) 1 Each Tablet 1 Tab PO DAILY I-Roya Tablet (Vit A,C & E/Lutein/Minerals) 1 Each Tablet 1 Tab PO DAILY Analgesic [place] (Methyl Salicylate/Menthol) 29 Gm Oint...g. 1 Vik TP PRN QID PRN Milk Of Magnesia (Magnesium Hydroxide) 2,400 Mg/10 Ml Oral.susp 2,400 Mg PO PRN QHS PRN Mag-Al Plus Xs Suspension (Mag Hydrox/Al Hydrox/Simeth) 30 Ml Oral.susp 15 Ml PO PRN AFTMEALHC PRN Cozaar (Losartan Potassium) 100 Mg Tablet 100 Mg PO DAILY Depakote Sprinkle (Divalproex Sodium) 125 Mg Cap.sprink 125 Mg PO TID Vitamin B-12 (Cyanocobalamin (Vitamin B-12)) 1,000 Mcg Tablet 1,000 Mcg PO DAILY Tylenol (Acetaminophen) 325 Mg Tablet 650 Mg PO PRN Q6HRS PRN Seroquel (Quetiapine Fumarate) 100 Mg Tablet 100 Mg PO HS Plavix (Clopidogrel Bisulfate) 75 Mg Tablet 75 Mg PO DAILY Atorvastatin Calcium 40 Mg Tablet 40 Mg PO QHS Atenolol 25 Mg Tablet 25 Mg PO BID MARTHA SRINIVASAN MD Apr 04, 2017 21:01
[2017-04-05 06:21] VITALS: BP 174/71
[2017-04-05] MEDS: PANTOPRAZOLE 40 MG TABLET. PO SCH (07:47)
[2017-04-05] MEDS: QUEtiapine 25 MG TABLET. PO SCH ×3 (07:47→16:18)
[2017-04-05] MEDS: MULTIVITAMIN with MINERAL TABLET. PO SCH (07:47)
[2017-04-05] MEDS: CLOPIDOGREL BISULFATE 75 MG TABLET PO SCH (07:47)
[2017-04-05] MEDS: CYANOCOBALAMIN (VITAMIN B-12) 1,000 MCG TABLET. PO SCH (07:47)
[2017-04-05] MEDS: DIVALPROEX 125 MG CAP.SPRINK PO SCH ×3 (07:47→20:23)
[2017-04-05] MEDS: MULTIVITAMIN I-VITE TABLET. PO SCH (07:47)
[2017-04-05] MEDS: ATENOLOL 25 MG TABLET PO SCH ×2 (07:47→20:22)
[2017-04-05] MEDS: LOSARTAN 50 MG TABLET. PO SCH (07:48)
[2017-04-05] MEDS: SERTRALINE 50 MG TABLET. PO SCH (07:48)
[2017-04-05 16:33] VITALS: BP 91/57
--- NOTE | 2017-04-05 20:07 | PDOC ---
Exam Mauricio Demential Exam: Mauricio Note: Please also refer to the separate dictated note~for this date of service dictated separately.~Patient seen individually. Discussed the patient with Nursing staff reviewed the chart.~Reviewed interim history and current functioning. Reviewed vital signs,~Labs/ Radiology~and current medications noted below. Continue current treatment with the changes noted in the dictated addendum note Assessment: Vital Signs: Vital Signs Date Time Temp Pulse Resp B/P (MAP) Pulse Ox O2 Delivery O2 Flow Rate FiO2 04/05/17 16:33 98.3 81 16 91/57 (68) 97 04/03/17 16:11 Room Air I&O Intake and Output 04/05/17 07:00 Intake Total 960 ml Balance 960 ml Intake Oral 960 ml # Voids 1 # Bowel Movements 1 Current Medications: Meds: Current Medications Lorazepam (Ativan) 1 mg 1X ONCE PO Last administered on 03/28/17 21:01; Start 03/28/17 at 21:00; Stop 03/28/17 at 21:05; Status DC Haloperidol (Haldol) 5 mg 1X ONCE PO Last administered on 03/28/17 21:01; Start 03/28/17 at 21:00; Stop 03/28/17 at 21:05; Status DC Acetaminophen (Tylenol) 650 mg PRN Q6HRS PRN PO PAIN / TEMP; Start 03/28/17 at 23:15 Multi-Ingredient Ointment (Analgesic [place]) 1 vik PRN QID PRN TP MUSCLE PAIN; Start 03/28/17 at 23:15 Al Hydroxide/Mg Hydroxide (Mylanta Plus Xs) 15 ml PRN AFTMEALHC PRN PO DYSPEPSIA; Start 03/28/17 at 23:15 Magnesium Hydroxide (Milk Of Magnesia) 2,400 mg PRN QHS PRN PO CONSTIPATION; Start 03/28/17 at 23:15 Divalproex Sodium (Depakote Sprinkles) 125 mg TID PO Last administered on 14:13; Start 03/29/17 at 09:00; Stop 03/29/17 at 18:20; Status DC Lorazepam (Ativan) 1 mg PRN Q4HRS PRN PO ANXIETY; Start 03/28/17 at 23:30 Olanzapine (ZyPREXA ZYDIS) 2.5 mg PRN Q2HR PRN PO PSYCHOSIS Last administered on 04/01/17 19:22; Start 03/28/17 at 23:30 Quetiapine Fumarate (SEROquel) 100 mg HS PO Last administered on 04/04/17 19: 52; Start 03/29/17 at 21:00 Sertraline HCl (Zoloft) 50 mg DAILY PO Last administered on 04/05/17 07:48; Start 03/29/17 at 09:00 Acetaminophen (Tylenol) 650 mg PRN Q6HRS PRN PO pain/temp; Start 03/28/17 at 23: 30; Status UNV Atenolol (Tenormin) 25 mg BID PO Last administered on 04/05/17 07:47; Start at 09:00 Clopidogrel Bisulfate (Plavix) 75 mg DAILY PO Last administered on 04/05/17 07 :47; Start 03/29/17 at 09:00 Cyanocobalamin (Vitamin B-12) 1,000 mcg DAILY PO Last administered on 07:47; Start 03/29/17 at 09:00 Al Hydroxide/Mg Hydroxide (Mylanta Plus Xs) 15 ml PRN AFTMEALHC PRN PO DYSPEPSIA; Start 03/28/17 at 23:30; Status UNV Multi-Ingredient Ointment (Analgesic [place]) 1 vik PRN QID PRN TP MUSCLE PAIN; Start 03/28/17 at 23:30; Status UNV Multivitamins/ Calcium (Thera-M Plus) 1 tab DAILY PO Last administered on 07:47; Start 03/29/17 at 09:00 Pantoprazole Sodium (Protonix) 40 mg DAILYAC PO Last administered on 04/05/17 07:47; Start 03/29/17 at 07:30 Tramadol HCl (Ultram) 50 mg PRN BID PRN PO MODERATE PAIN; Start 03/28/17 at 23: 30; Status Cancel Tramadol HCl (Ultram) 50 mg PRN Q6HRS PRN PO MODERATE PAIN Last administered on 03/29/17 03:55; Start 03/28/17 at 23:30 Multivitamins/ Minerals (I-Roya) 1 tab DAILY PO Last administered on 04/05/17 07:47; Start 03/29/17 at 09:00 Atorvastatin Calcium (Lipitor) 40 mg QHS PO Last administered on 04/04/17 19: 50; Start 03/29/17 at 21:00 Losartan Potassium (Cozaar) 100 mg DAILY PO Last administered on 04/05/17 07: 48; Start 03/29/17 at 09:00 Non-Formulary Medication 2,400 mg PRN QHS PRN PO CONSTIPATION; Start 03/28/17 at 23:30; Status UNV Divalproex Sodium (Depakote Sprinkles) 250 mg TID PO Last administered on 14:13; Start 03/29/17 at 21:00; Stop 04/03/17 at 18:21; Status DC Quetiapine Fumarate (SEROquel) 25 mg [id number] PO Last administered on 04/02/17 14 :12; Start 04/01/17 at 09:00; Stop 04/02/17 at 19:29; Status DC Quetiapine Fumarate (SEROquel) 12.5 mg DAILYWLUN PO Last administered on 12:17; Start 04/02/17 at 12:00; Stop 04/04/17 at 09:42; Status DC Quetiapine Fumarate (SEROquel) 25 mg [id number] PO Last administered on 04/05/17 16 :18; Start 04/03/17 at 09:00 Divalproex Sodium (Depakote Sprinkles) 375 mg BID PO Last administered on 07:47; Start 04/03/17 at 21:00 Divalproex Sodium (Depakote Sprinkles) 250 mg 1400 PO Last administered on 04/05 13:29; Start 04/04/17 at 14:00 Quetiapine Fumarate (SEROquel) 25 mg DAILYWLUN PO Last administered on 12:00; Start 04/04/17 at 12:00 Active Scripts Active Reported Tramadol Hcl (Tramadol HCl) 50 Mg Tablet 50 Mg PO BID PRN Tramadol Hcl (Tramadol HCl) 50 Mg Tablet 50 Mg PO PRN Q6HRS PRN Lorazepam 1 Mg Tablet 1 Mg PO PRN Q4HRS PRN Zoloft (Sertraline Hcl) 50 Mg Tablet 50 Mg PO DAILY Protonix (Pantoprazole Sodium) 40 Mg Tablet.dr 40 Mg PO DAILY Zyprexa Zydis (Olanzapine) 5 Mg Tab.rapdis 2.5 Mg PO PRN Q2HR PRN Thera M Plus Tablet (Multivits,Ca,Minerals/Iron/FA) 1 Each Tablet 1 Tab PO DAILY I-Roya Tablet (Vit A,C & E/Lutein/Minerals) 1 Each Tablet 1 Tab PO DAILY Analgesic [place] (Methyl Salicylate/Menthol) 29 Gm Oint...g. 1 Vik TP PRN QID PRN Milk Of Magnesia (Magnesium Hydroxide) 2,400 Mg/10 Ml Oral.susp 2,400 Mg PO PRN QHS PRN Mag-Al Plus Xs Suspension (Mag Hydrox/Al Hydrox/Simeth) 30 Ml Oral.susp 15 Ml PO PRN AFTMEALHC PRN Cozaar (Losartan Potassium) 100 Mg Tablet 100 Mg PO DAILY Depakote Sprinkle (Divalproex Sodium) 125 Mg Cap.sprink 125 Mg PO TID Vitamin B-12 (Cyanocobalamin (Vitamin B-12)) 1,000 Mcg Tablet 1,000 Mcg PO DAILY Tylenol (Acetaminophen) 325 Mg Tablet 650 Mg PO PRN Q6HRS PRN Seroquel (Quetiapine Fumarate) 100 Mg Tablet 100 Mg PO HS Plavix (Clopidogrel Bisulfate) 75 Mg Tablet 75 Mg PO DAILY Atorvastatin Calcium 40 Mg Tablet 40 Mg PO QHS Atenolol 25 Mg Tablet 25 Mg PO BID Diagnosis: Problems: (1) Anxiety disorder (2) Dementia in Alzheimer's disease with delusions (3) Dementia in Alzheimer's disease with depression (4) Dementia, vascular, with delusions (5) Dementia, vascular, with depression (6) Impulse control disorder (7) Abnormal behavior MARTHA SRINIVASAN MD Apr 05, 2017 20:07
[2017-04-05] MEDS: QUEtiapine 100 MG TABLET. PO SCH (20:21)
[2017-04-05] MEDS: ATORVASTATIN CALCIUM 20 MG TABLET PO SCH (20:22)
--- NOTE | 2017-04-05 20:42 | PDOC ---
Exam Mauricio Demential Exam: Mauricio Note: Please also refer to the separate dictated note~for this date of service dictated separately.~Patient seen individually. Discussed the patient with Nursing staff reviewed the chart.~Reviewed interim history and current functioning. Reviewed vital signs,~Labs/ Radiology~and current medications noted below. Continue current treatment with the changes noted in the dictated addendum note S/O: This is late entry on 04/03/2017 covers element not covered in my initial note. The patient is seen individually on evening of 04/03/2017. He slept 7 hours last night. He remains confused, repeatedly picking on himself, pulling something out of his pocket like he is looking at it, saw a girl running on the sidewalk, and intermittently psychotic. Review of systems: No CV, , Pulmonary, Eye, ENT system symptoms on review. Reliability is poor. MSE: Oriented to himself. Insight, judgment, recent and remote memory, attention, concentration, fund of knowledge is poor, consistent with his diagnosis mentioned in my initial note. Plan: Continue current psychotropics. Increase Depakote from 250 mg t.i.d. to 375 mg b.i.d., 250 mg once a day. Since level at the lower dosage is 43.2, we will check labs and valproic acid level in three days including CBC, CMP, maintain the rest unchanged. Assessment: Vital Signs: Vital Signs Date Time Temp Pulse Resp B/P (MAP) Pulse Ox O2 Delivery O2 Flow Rate FiO2 04/05/17 20:22 81 91/57 04/05/17 16:33 98.3 16 97 04/03/17 16:11 Room Air I&O Intake and Output 04/05/17 07:00 Intake Total 960 ml Balance 960 ml Intake Oral 960 ml # Voids 1 # Bowel Movements 1 Current Medications: Meds: Current Medications Lorazepam (Ativan) 1 mg 1X ONCE PO Last administered on 03/28/17 21:01; Start 03/28/17 at 21:00; Stop 03/28/17 at 21:05; Status DC Haloperidol (Haldol) 5 mg 1X ONCE PO Last administered on 03/28/17 21:01; Start 03/28/17 at 21:00; Stop 03/28/17 at 21:05; Status DC Acetaminophen (Tylenol) 650 mg PRN Q6HRS PRN PO PAIN / TEMP; Start 03/28/17 at 23:15 Multi-Ingredient Ointment (Analgesic [place]) 1 vik PRN QID PRN TP MUSCLE PAIN; Start 03/28/17 at 23:15 Al Hydroxide/Mg Hydroxide (Mylanta Plus Xs) 15 ml PRN AFTMEALHC PRN PO DYSPEPSIA; Start 03/28/17 at 23:15 Magnesium Hydroxide (Milk Of Magnesia) 2,400 mg PRN QHS PRN PO CONSTIPATION; Start 03/28/17 at 23:15 Divalproex Sodium (Depakote Sprinkles) 125 mg TID PO Last administered on 14:13; Start 03/29/17 at 09:00; Stop 03/29/17 at 18:20; Status DC Lorazepam (Ativan) 1 mg PRN Q4HRS PRN PO ANXIETY; Start 03/28/17 at 23:30 Olanzapine (ZyPREXA ZYDIS) 2.5 mg PRN Q2HR PRN PO PSYCHOSIS Last administered on 04/01/17 19:22; Start 03/28/17 at 23:30 Quetiapine Fumarate (SEROquel) 100 mg HS PO Last administered on 04/05/17 20: 21; Start 03/29/17 at 21:00 Sertraline HCl (Zoloft) 50 mg DAILY PO Last administered on 04/05/17 07:48; Start 03/29/17 at 09:00 Acetaminophen (Tylenol) 650 mg PRN Q6HRS PRN PO pain/temp; Start 03/28/17 at 23: 30; Status UNV Atenolol (Tenormin) 25 mg BID PO Last administered on 04/05/17 07:47; Start at 09:00 Clopidogrel Bisulfate (Plavix) 75 mg DAILY PO Last administered on 04/05/17 07 :47; Start 03/29/17 at 09:00 Cyanocobalamin (Vitamin B-12) 1,000 mcg DAILY PO Last administered on 07:47; Start 03/29/17 at 09:00 Al Hydroxide/Mg Hydroxide (Mylanta Plus Xs) 15 ml PRN AFTMEALHC PRN PO DYSPEPSIA; Start 03/28/17 at 23:30; Status UNV Multi-Ingredient Ointment (Analgesic [place]) 1 vik PRN QID PRN TP MUSCLE PAIN; Start 03/28/17 at 23:30; Status UNV Multivitamins/ Calcium (Thera-M Plus) 1 tab DAILY PO Last administered on 07:47; Start 03/29/17 at 09:00 Pantoprazole Sodium (Protonix) 40 mg DAILYAC PO Last administered on 04/05/17 07:47; Start 03/29/17 at 07:30 Tramadol HCl (Ultram) 50 mg PRN BID PRN PO MODERATE PAIN; Start 03/28/17 at 23: 30; Status Cancel Tramadol HCl (Ultram) 50 mg PRN Q6HRS PRN PO MODERATE PAIN Last administered on 03/29/17 03:55; Start 03/28/17 at 23:30 Multivitamins/ Minerals (I-Roya) 1 tab DAILY PO Last administered on 04/05/17 07:47; Start 03/29/17 at 09:00 Atorvastatin Calcium (Lipitor) 40 mg QHS PO Last administered on 04/05/17 20: 22; Start 03/29/17 at 21:00 Losartan Potassium (Cozaar) 100 mg DAILY PO Last administered on 04/05/17 07: 48; Start 03/29/17 at 09:00 Non-Formulary Medication 2,400 mg PRN QHS PRN PO CONSTIPATION; Start 03/28/17 at 23:30; Status UNV Divalproex Sodium (Depakote Sprinkles) 250 mg TID PO Last administered on 14:13; Start 03/29/17 at 21:00; Stop 04/03/17 at 18:21; Status DC Quetiapine Fumarate (SEROquel) 25 mg [id number] PO Last administered on 04/02/17 14 :12; Start 04/01/17 at 09:00; Stop 04/02/17 at 19:29; Status DC Quetiapine Fumarate (SEROquel) 12.5 mg DAILYWLUN PO Last administered on 12:17; Start 04/02/17 at 12:00; Stop 04/04/17 at 09:42; Status DC Quetiapine Fumarate (SEROquel) 25 mg [id number] PO Last administered on 04/05/17 16 :18; Start 04/03/17 at 09:00 Divalproex Sodium (Depakote Sprinkles) 375 mg BID PO Last administered on 20:23; Start 04/03/17 at 21:00 Divalproex Sodium (Depakote Sprinkles) 250 mg 1400 PO Last administered on 04/05 13:29; Start 04/04/17 at 14:00 Quetiapine Fumarate (SEROquel) 25 mg DAILYWLUN PO Last administered on 12:00; Start 04/04/17 at 12:00 Active Scripts Active Reported Tramadol Hcl (Tramadol HCl) 50 Mg Tablet 50 Mg PO BID PRN Tramadol Hcl (Tramadol HCl) 50 Mg Tablet 50 Mg PO PRN Q6HRS PRN Lorazepam 1 Mg Tablet 1 Mg PO PRN Q4HRS PRN Zoloft (Sertraline Hcl) 50 Mg Tablet 50 Mg PO DAILY Protonix (Pantoprazole Sodium) 40 Mg Tablet.dr 40 Mg PO DAILY Zyprexa Zydis (Olanzapine) 5 Mg Tab.rapdis 2.5 Mg PO PRN Q2HR PRN Thera M Plus Tablet (Multivits,Ca,Minerals/Iron/FA) 1 Each Tablet 1 Tab PO DAILY I-Roya Tablet (Vit A,C & E/Lutein/Minerals) 1 Each Tablet 1 Tab PO DAILY Analgesic [place] (Methyl Salicylate/Menthol) 29 Gm Oint...g. 1 Vik TP PRN QID PRN Milk Of Magnesia (Magnesium Hydroxide) 2,400 Mg/10 Ml Oral.susp 2,400 Mg PO PRN QHS PRN Mag-Al Plus Xs Suspension (Mag Hydrox/Al Hydrox/Simeth) 30 Ml Oral.susp 15 Ml PO PRN AFTMEALHC PRN Cozaar (Losartan Potassium) 100 Mg Tablet 100 Mg PO DAILY Depakote Sprinkle (Divalproex Sodium) 125 Mg Cap.sprink 125 Mg PO TID Vitamin B-12 (Cyanocobalamin (Vitamin B-12)) 1,000 Mcg Tablet 1,000 Mcg PO DAILY Tylenol (Acetaminophen) 325 Mg Tablet 650 Mg PO PRN Q6HRS PRN Seroquel (Quetiapine Fumarate) 100 Mg Tablet 100 Mg PO HS Plavix (Clopidogrel Bisulfate) 75 Mg Tablet 75 Mg PO DAILY Atorvastatin Calcium 40 Mg Tablet 40 Mg PO QHS Atenolol 25 Mg Tablet 25 Mg PO BID MARTHA SRINIVASAN MD Apr 05, 2017 20:42
[2017-04-05] MEDS: LORazepam 1 MG TABLET PO PRN (20:59)
[2017-04-06 06:07] VITALS: BP 187/92
[2017-04-06] MEDS: ATENOLOL 25 MG TABLET PO SCH ×2 (08:08→20:02)
[2017-04-06] MEDS: CYANOCOBALAMIN (VITAMIN B-12) 1,000 MCG TABLET. PO SCH (08:08)
[2017-04-06] MEDS: MULTIVITAMIN with MINERAL TABLET. PO SCH (08:08)
[2017-04-06] MEDS: CLOPIDOGREL BISULFATE 75 MG TABLET PO SCH (08:09)
[2017-04-06] MEDS: QUEtiapine 25 MG TABLET. PO SCH ×3 (08:09→17:37)
[2017-04-06] MEDS: SERTRALINE 50 MG TABLET. PO SCH (08:09)
[2017-04-06] MEDS: PANTOPRAZOLE 40 MG TABLET. PO SCH (08:09)
[2017-04-06] MEDS: MULTIVITAMIN I-VITE TABLET. PO SCH (08:09)
[2017-04-06] MEDS: DIVALPROEX 125 MG CAP.SPRINK PO SCH ×3 (08:09→20:02)
[2017-04-06] MEDS: LOSARTAN 50 MG TABLET. PO SCH ×2 (08:10→22:03)
[2017-04-06 16:14] VITALS: BP 193/77
--- NOTE | 2017-04-06 16:44 | PDOC ---
PROGRESS NOTES Assessment Pt's nurse called stating BP 190/90 this afternoon, pt is sleeping. After reviewing his chart, it appears his BP has been about this high from waking until about 4 in afternoon each day. Then, his BP has been as low as 90/60 in the evenings. Meds reviewed. Pt receives both Atenolol and losartan in the morning. He also receives several psychiatric medications throughout the day. I am going to try changing his losartan to 50 mg BID. I am concerned that he might drop too low in the evenings if we add a PRN like hydralazine during the day. Pt's nurse notified, order entered. If BP stays high all day we will add an additional BP med. Problems: Objective Vital Signs Date Time Temp Pulse Resp B/P (MAP) Pulse Ox O2 Delivery O2 Flow Rate FiO2 04/06/17 16:14 97.4 68 18 193/77 (115) 98 04/03/17 16:11 Room Air Intake and Output 04/06/17 07:00 Intake Total 720 ml Balance 720 ml Intake Oral 720 ml # Voids 1 Review of Relevant I have reviewed the following items luciano (where applicable) has been applied. Medications Current Medications Lorazepam (Ativan) 1 mg 1X ONCE PO Last administered on 03/28/17 21:01; Start 03/28/17 at 21:00; Stop 03/28/17 at 21:05; Status DC Haloperidol (Haldol) 5 mg 1X ONCE PO Last administered on 03/28/17 21:01; Start 03/28/17 at 21:00; Stop 03/28/17 at 21:05; Status DC Acetaminophen (Tylenol) 650 mg PRN Q6HRS PRN PO PAIN / TEMP Last administered on 04/05/17 20:59; Start 03/28/17 at 23:15 Multi-Ingredient Ointment (Analgesic [place]) 1 vik PRN QID PRN TP MUSCLE PAIN; Start 03/28/17 at 23:15 Al Hydroxide/Mg Hydroxide (Mylanta Plus Xs) 15 ml PRN AFTMEALHC PRN PO DYSPEPSIA; Start 03/28/17 at 23:15 Magnesium Hydroxide (Milk Of Magnesia) 2,400 mg PRN QHS PRN PO CONSTIPATION; Start 03/28/17 at 23:15 Divalproex Sodium (Depakote Sprinkles) 125 mg TID PO Last administered on 14:13; Start 03/29/17 at 09:00; Stop 03/29/17 at 18:20; Status DC Lorazepam (Ativan) 1 mg PRN Q4HRS PRN PO ANXIETY Last administered on 20:59; Start 03/28/17 at 23:30 Olanzapine (ZyPREXA ZYDIS) 2.5 mg PRN Q2HR PRN PO PSYCHOSIS Last administered on 04/05/17 20:44; Start 03/28/17 at 23:30 Quetiapine Fumarate (SEROquel) 100 mg HS PO Last administered on 04/05/17 20: 21; Start 03/29/17 at 21:00 Sertraline HCl (Zoloft) 50 mg DAILY PO Last administered on 04/06/17 08:09; Start 03/29/17 at 09:00 Acetaminophen (Tylenol) 650 mg PRN Q6HRS PRN PO pain/temp; Start 03/28/17 at 23: 30; Status UNV Atenolol (Tenormin) 25 mg BID PO Last administered on 04/06/17 08:08; Start at 09:00 Clopidogrel Bisulfate (Plavix) 75 mg DAILY PO Last administered on 04/06/17 08 :09; Start 03/29/17 at 09:00 Cyanocobalamin (Vitamin B-12) 1,000 mcg DAILY PO Last administered on 08:08; Start 03/29/17 at 09:00 Al Hydroxide/Mg Hydroxide (Mylanta Plus Xs) 15 ml PRN AFTMEALHC PRN PO DYSPEPSIA; Start 03/28/17 at 23:30; Status UNV Multi-Ingredient Ointment (Analgesic [place]) 1 vik PRN QID PRN TP MUSCLE PAIN; Start 03/28/17 at 23:30; Status UNV Multivitamins/ Calcium (Thera-M Plus) 1 tab DAILY PO Last administered on 08:08; Start 03/29/17 at 09:00 Pantoprazole Sodium (Protonix) 40 mg DAILYAC PO Last administered on 04/06/17 08:09; Start 03/29/17 at 07:30 Tramadol HCl (Ultram) 50 mg PRN BID PRN PO MODERATE PAIN; Start 03/28/17 at 23: 30; Status Cancel Tramadol HCl (Ultram) 50 mg PRN Q6HRS PRN PO MODERATE PAIN Last administered on 03/29/17 03:55; Start 03/28/17 at 23:30 Multivitamins/ Minerals (I-Roya) 1 tab DAILY PO Last administered on 04/06/17 08:09; Start 03/29/17 at 09:00 Atorvastatin Calcium (Lipitor) 40 mg QHS PO Last administered on 04/05/17 20: 22; Start 03/29/17 at 21:00 Losartan Potassium (Cozaar) 100 mg DAILY PO Last administered on 04/06/17 08: 10; Start 03/29/17 at 09:00 Non-Formulary Medication 2,400 mg PRN QHS PRN PO CONSTIPATION; Start 03/28/17 at 23:30; Status UNV Divalproex Sodium (Depakote Sprinkles) 250 mg TID PO Last administered on 14:13; Start 03/29/17 at 21:00; Stop 04/03/17 at 18:21; Status DC Quetiapine Fumarate (SEROquel) 25 mg [id number] PO Last administered on 04/02/17 14 :12; Start 04/01/17 at 09:00; Stop 04/02/17 at 19:29; Status DC Quetiapine Fumarate (SEROquel) 12.5 mg DAILYWLUN PO Last administered on 12:17; Start 04/02/17 at 12:00; Stop 04/04/17 at 09:42; Status DC Quetiapine Fumarate (SEROquel) 25 mg [id number] PO Last administered on 04/06/17 08 :09; Start 04/03/17 at 09:00 Divalproex Sodium (Depakote Sprinkles) 375 mg BID PO Last administered on 08:09; Start 04/03/17 at 21:00 Divalproex Sodium (Depakote Sprinkles) 250 mg 1400 PO Last administered on 04/06 13:05; Start 04/04/17 at 14:00 Quetiapine Fumarate (SEROquel) 25 mg DAILYWLUN PO Last administered on t 13:02; Start 04/04/17 at 12:00 Active Scripts Active Reported Tramadol Hcl (Tramadol HCl) 50 Mg Tablet 50 Mg PO BID PRN Tramadol Hcl (Tramadol HCl) 50 Mg Tablet 50 Mg PO PRN Q6HRS PRN Lorazepam 1 Mg Tablet 1 Mg PO PRN Q4HRS PRN Zoloft (Sertraline Hcl) 50 Mg Tablet 50 Mg PO DAILY Protonix (Pantoprazole Sodium) 40 Mg Tablet.dr 40 Mg PO DAILY Zyprexa Zydis (Olanzapine) 5 Mg Tab.rapdis 2.5 Mg PO PRN Q2HR PRN Thera M Plus Tablet (Multivits,Ca,Minerals/Iron/FA) 1 Each Tablet 1 Tab PO DAILY I-Roya Tablet (Vit A,C & E/Lutein/Minerals) 1 Each Tablet 1 Tab PO DAILY Analgesic [place] (Methyl Salicylate/Menthol) 29 Gm Oint...g. 1 Vik TP PRN QID PRN Milk Of Magnesia (Magnesium Hydroxide) 2,400 Mg/10 Ml Oral.susp 2,400 Mg PO PRN QHS PRN Mag-Al Plus Xs Suspension (Mag Hydrox/Al Hydrox/Simeth) 30 Ml Oral.susp 15 Ml PO PRN AFTMEALHC PRN Cozaar (Losartan Potassium) 100 Mg Tablet 100 Mg PO DAILY Depakote Sprinkle (Divalproex Sodium) 125 Mg Cap.sprink 125 Mg PO TID Vitamin B-12 (Cyanocobalamin (Vitamin B-12)) 1,000 Mcg Tablet 1,000 Mcg PO DAILY Tylenol (Acetaminophen) 325 Mg Tablet 650 Mg PO PRN Q6HRS PRN Seroquel (Quetiapine Fumarate) 100 Mg Tablet 100 Mg PO HS Plavix (Clopidogrel Bisulfate) 75 Mg Tablet 75 Mg PO DAILY Atorvastatin Calcium 40 Mg Tablet 40 Mg PO QHS Atenolol 25 Mg Tablet 25 Mg PO BID Vitals/I & O Vital Sign - Last 24 Hours 04/05/17 04/06/17 04/06/17 04/06/17 20:22 06:07 08:08 08:10 Temp 97.5 Pulse 81 86 86 86 Resp 24 B/P (MAP) 91/57 187/92 (123) 187/92 187/92 Pulse Ox 97 04/06/17 16:14 Temp 97.4 Pulse 68 Resp 18 B/P (MAP) 193/77 (115) Pulse Ox 98 Intake and Output 04/05/17 04/05/17 04/06/17 15:00 23:00 07:00 Intake Total 480 ml 240 ml Balance 480 ml 240 ml JOSIAH VELASCO MD Apr 06, 2017 16:44
[2017-04-06 18:50] VITALS: BP 150/89
--- NOTE | 2017-04-06 19:30 | PDOC ---
Exam Mauricio Demential Exam: Mauricio Note: ~Patient seen individually. Discussed the patient with Nursing staff reviewed the chart.~Reviewed interim history and current functioning. Reviewed vital signs,~Labs/ Radiology~and current medications noted below. Continue current treatment with the changes noted Patient was seen individually the evening of 04/06. Per nursing report patient was quite irritable labile last evening and received Zyprexa and Ativan when necessary which seemed to help. He did not get up for breakfast but then after he awakened he is done better. Ambulation impaired and he was in a wheelchair as I met with him this evening. Gait is unsteady. His compliant with his medications. Review of systems: Positive for impaired ambulation and wheelchair no CV GI pulmonary eye ENT system symptoms on review. Mental status examination: Patient is oriented to himself pleasant verbal as I met with him and revealed him down to the TV lounge. He was appreciative of this. Insight and judgment recent and remote memory attention concentration fund of knowledge are poor and consistent with his diagnosis. No active suicidal or homicidal ideation and no active hallucinations noted. Plan: Continue psychotropics mentioned below. Transition to a lower level of care early next week Assessment: Vital Signs: Vital Signs Date Time Temp Pulse Resp B/P (MAP) Pulse Ox O2 Delivery O2 Flow Rate FiO2 04/06/17 18:50 78 18 150/89 (109) 97 04/06/17 16:14 97.4 04/03/17 16:11 Room Air I&O Intake and Output 04/06/17 07:00 Intake Total 720 ml Balance 720 ml Intake Oral 720 ml # Voids 1 Current Medications: Meds: Current Medications Lorazepam (Ativan) 1 mg 1X ONCE PO Last administered on 03/28/17 21:01; Start 03/28/17 at 21:00; Stop 03/28/17 at 21:05; Status DC Haloperidol (Haldol) 5 mg 1X ONCE PO Last administered on 03/28/17 21:01; Start 03/28/17 at 21:00; Stop 03/28/17 at 21:05; Status DC Acetaminophen (Tylenol) 650 mg PRN Q6HRS PRN PO PAIN / TEMP Last administered on 04/05/17 20:59; Start 03/28/17 at 23:15 Multi-Ingredient Ointment (Analgesic [place]) 1 vik PRN QID PRN TP MUSCLE PAIN; Start 03/28/17 at 23:15 Al Hydroxide/Mg Hydroxide (Mylanta Plus Xs) 15 ml PRN AFTMEALHC PRN PO DYSPEPSIA; Start 03/28/17 at 23:15 Magnesium Hydroxide (Milk Of Magnesia) 2,400 mg PRN QHS PRN PO CONSTIPATION; Start 03/28/17 at 23:15 Divalproex Sodium (Depakote Sprinkles) 125 mg TID PO Last administered on 14:13; Start 03/29/17 at 09:00; Stop 03/29/17 at 18:20; Status DC Lorazepam (Ativan) 1 mg PRN Q4HRS PRN PO ANXIETY Last administered on 20:59; Start 03/28/17 at 23:30 Olanzapine (ZyPREXA ZYDIS) 2.5 mg PRN Q2HR PRN PO PSYCHOSIS Last administered on 04/05/17 20:44; Start 03/28/17 at 23:30 Quetiapine Fumarate (SEROquel) 100 mg HS PO Last administered on 04/05/17 20: 21; Start 03/29/17 at 21:00 Sertraline HCl (Zoloft) 50 mg DAILY PO Last administered on 04/06/17 08:09; Start 03/29/17 at 09:00 Acetaminophen (Tylenol) 650 mg PRN Q6HRS PRN PO pain/temp; Start 03/28/17 at 23: 30; Status UNV Atenolol (Tenormin) 25 mg BID PO Last administered on 04/06/17 08:08; Start at 09:00 Clopidogrel Bisulfate (Plavix) 75 mg DAILY PO Last administered on 04/06/17 08 :09; Start 03/29/17 at 09:00 Cyanocobalamin (Vitamin B-12) 1,000 mcg DAILY PO Last administered on 08:08; Start 03/29/17 at 09:00 Al Hydroxide/Mg Hydroxide (Mylanta Plus Xs) 15 ml PRN AFTMEALHC PRN PO DYSPEPSIA; Start 03/28/17 at 23:30; Status UNV Multi-Ingredient Ointment (Analgesic [place]) 1 vik PRN QID PRN TP MUSCLE PAIN; Start 03/28/17 at 23:30; Status UNV Multivitamins/ Calcium (Thera-M Plus) 1 tab DAILY PO Last administered on 08:08; Start 03/29/17 at 09:00 Pantoprazole Sodium (Protonix) 40 mg DAILYAC PO Last administered on 04/06/17 08:09; Start 03/29/17 at 07:30 Tramadol HCl (Ultram) 50 mg PRN BID PRN PO MODERATE PAIN; Start 03/28/17 at 23: 30; Status Cancel Tramadol HCl (Ultram) 50 mg PRN Q6HRS PRN PO MODERATE PAIN Last administered on 03/29/17 03:55; Start 03/28/17 at 23:30 Multivitamins/ Minerals (I-Roya) 1 tab DAILY PO Last administered on 04/06/17 08:09; Start 03/29/17 at 09:00 Atorvastatin Calcium (Lipitor) 40 mg QHS PO Last administered on 04/05/17 20: 22; Start 03/29/17 at 21:00 Losartan Potassium (Cozaar) 100 mg DAILY PO Last administered on 04/06/17 08: 10; Start 03/29/17 at 09:00; Stop 04/06/17 at 16:37; Status DC Non-Formulary Medication 2,400 mg PRN QHS PRN PO CONSTIPATION; Start 03/28/17 at 23:30; Status UNV Divalproex Sodium (Depakote Sprinkles) 250 mg TID PO Last administered on 14:13; Start 03/29/17 at 21:00; Stop 04/03/17 at 18:21; Status DC Quetiapine Fumarate (SEROquel) 25 mg [id number] PO Last administered on 04/02/17 14 :12; Start 04/01/17 at 09:00; Stop 04/02/17 at 19:29; Status DC Quetiapine Fumarate (SEROquel) 12.5 mg DAILYWLUN PO Last administered on 12:17; Start 04/02/17 at 12:00; Stop 04/04/17 at 09:42; Status DC Quetiapine Fumarate (SEROquel) 25 mg BID94 PO Last administered on 04/06/17 17 :37; Start 04/03/17 at 09:00 Divalproex Sodium (Depakote Sprinkles) 375 mg BID PO Last administered on 08:09; Start 04/03/17 at 21:00 Divalproex Sodium (Depakote Sprinkles) 250 mg 1400 PO Last administered on 04/06 13:05; Start 04/04/17 at 14:00 Quetiapine Fumarate (SEROquel) 25 mg DAILYWLUN PO Last administered on 13:02; Start 04/04/17 at 12:00 Losartan Potassium (Cozaar) 50 mg BID PO ; Start 04/06/17 at 21:00 Active Scripts Active Reported Tramadol Hcl (Tramadol HCl) 50 Mg Tablet 50 Mg PO BID PRN Tramadol Hcl (Tramadol HCl) 50 Mg Tablet 50 Mg PO PRN Q6HRS PRN Lorazepam 1 Mg Tablet 1 Mg PO PRN Q4HRS PRN Zoloft (Sertraline Hcl) 50 Mg Tablet 50 Mg PO DAILY Protonix (Pantoprazole Sodium) 40 Mg Tablet.dr 40 Mg PO DAILY Zyprexa Zydis (Olanzapine) 5 Mg Tab.rapdis 2.5 Mg PO PRN Q2HR PRN Thera M Plus Tablet (Multivits,Ca,Minerals/Iron/FA) 1 Each Tablet 1 Tab PO DAILY I-Roya Tablet (Vit A,C & E/Lutein/Minerals) 1 Each Tablet 1 Tab PO DAILY Analgesic [place] (Methyl Salicylate/Menthol) 29 Gm Oint...g. 1 Vik TP PRN QID PRN Milk Of Magnesia (Magnesium Hydroxide) 2,400 Mg/10 Ml Oral.susp 2,400 Mg PO PRN QHS PRN Mag-Al Plus Xs Suspension (Mag Hydrox/Al Hydrox/Simeth) 30 Ml Oral.susp 15 Ml PO PRN AFTMEALHC PRN Cozaar (Losartan Potassium) 100 Mg Tablet 100 Mg PO DAILY Depakote Sprinkle (Divalproex Sodium) 125 Mg Cap.sprink 125 Mg PO TID Vitamin B-12 (Cyanocobalamin (Vitamin B-12)) 1,000 Mcg Tablet 1,000 Mcg PO DAILY Tylenol (Acetaminophen) 325 Mg Tablet 650 Mg PO PRN Q6HRS PRN Seroquel (Quetiapine Fumarate) 100 Mg Tablet 100 Mg PO HS Plavix (Clopidogrel Bisulfate) 75 Mg Tablet 75 Mg PO DAILY Atorvastatin Calcium 40 Mg Tablet 40 Mg PO QHS Atenolol 25 Mg Tablet 25 Mg PO BID Diagnosis: Problems: (1) Impulse control disorder (2) Dementia, vascular, with depression (3) Dementia, vascular, 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
[2017-04-06] MEDS: ATORVASTATIN CALCIUM 20 MG TABLET PO SCH (20:01)
[2017-04-06] MEDS: QUEtiapine 100 MG TABLET. PO SCH (20:02)
--- NOTE | 2017-04-06 20:59 | RAD ---
CT brain without contrast. HISTORY: Fell today head laceration above right eye CT scan of the brain with and without contrast. There is no intracranial hemorrhage or subdural hematoma. There is diffuse cerebral and cerebellar atrophy. Ventricles are mildly dilated from atrophy. An acute CVA is not identified. A skull fracture is not identified. Sinuses are clear. IMPRESSION: 1. Atrophy. 2. No intracranial hemorrhage or acute change noted. PQRS Compliance Statement: One or more of the following individualized dose reduction techniques were utilized for this examination: 1. Automated exposure control 2. Adjustment of the mA and/or kV according to patient size 3. Use of iterative reconstruction technique Electronically signed by: Bronson Barlow MD (04/06/2017 8:56 PM) [facility]
[2017-04-07 06:41] VITALS: BP 180/73
[2017-04-07] MEDS: CYANOCOBALAMIN (VITAMIN B-12) 1,000 MCG TABLET. PO SCH (07:26)
[2017-04-07] MEDS: MULTIVITAMIN I-VITE TABLET. PO SCH (07:26)
[2017-04-07] MEDS: SERTRALINE 50 MG TABLET. PO SCH (07:27)
[2017-04-07] MEDS: DIVALPROEX 125 MG CAP.SPRINK PO SCH ×3 (07:27→20:15)
[2017-04-07] MEDS: PANTOPRAZOLE 40 MG TABLET. PO SCH (07:27)
[2017-04-07] MEDS: LOSARTAN 50 MG TABLET. PO SCH ×2 (07:27→20:14)
[2017-04-07] MEDS: MULTIVITAMIN with MINERAL TABLET. PO SCH (07:27)
[2017-04-07] MEDS: CLOPIDOGREL BISULFATE 75 MG TABLET PO SCH (07:27)
[2017-04-07] MEDS: ATENOLOL 25 MG TABLET PO SCH ×2 (07:27→20:15)
[2017-04-07] MEDS: QUEtiapine 25 MG TABLET. PO SCH ×3 (07:29→18:02)
[2017-04-07 10:20] LABS: BASO # 0.1 x10^3/uL (0.0-0.2); BASO % 2 % (0-3); EOS # 0.5 x10^3/uL (0.0-0.7); EOS % 7 % (0-3); HEMATOCRIT 36.5 % (39.0-53.0); HEMOGLOBIN 12.1 g/dL (13.0-17.5); LYMPH # 1.3 x10^3/uL (1.0-4.8); LYMPH % 17 % (24-48); MEAN CORPUSCULAR HEMOGLOBIN 30 pg (25-35); MEAN CORPUSCULAR HGB CONC 33 g/dL (31-37); MEAN CORPUSCULAR VOLUME 90 fL (79-100); MONO # 0.8 x10^3/uL (0.0-1.1); MONO % 10 % (0-9); NEUT # 4.9 x10^3uL (1.8-7.7); NEUT % 65 % (31-73); PLATELET COUNT 218 x10^3/uL (140-400); RED BLOOD COUNT 4.04 x10^6/uL (4.30-5.70); RED CELL DISTRIBUTION WIDTH 14.8 % (11.5-14.5); WHITE BLOOD COUNT 7.6 x10^3/uL (4.0-11.0)
[2017-04-07 10:40] LABS: ALBUMIN 3.3 g/dL (3.4-5.0); ALBUMIN/GLOBULIN RATIO 0.9 (1.0-1.7); ALK PHOS 57 U/L (46-116); ALT (SGPT) 25 U/L (16-63); ANION GAP 5 (6-14); AST (SGOT) 27 U/L (15-37); BLOOD UREA NITROGEN 30 mg/dL (8-26); BUN/CREATININE RATIO 21 (6-20); CALCIUM 8.9 mg/dL (8.5-10.1); CARBON DIOXIDE 28 mmol/L (21-32); CHLORIDE 106 mmol/L (98-107); CREATININE 1.4 mg/dL (0.7-1.3); GFR 48.1; GLUCOSE 104 mg/dL (70-99); POTASSIUM 4.3 mmol/L (3.5-5.1); SODIUM 139 mmol/L (136-145); TOTAL BILIRUBIN 0.6 mg/dL (0.2-1.0)
[2017-04-07 10:46] LABS: VAL ACID 77 mcg/mL (50-100)
[2017-04-07 16:01] VITALS: BP 184/74
--- NOTE | 2017-04-07 20:05 | PDOC ---
Exam Mauricio Demential Exam: Mauricio Note: Please also refer to the separate dictated note~for this date of service dictated separately.~Patient seen individually. Discussed the patient with Nursing staff reviewed the chart.~Reviewed interim history and current functioning. Reviewed vital signs,~Labs/ Radiology~and current medications noted below. Continue current treatment with the changes noted in the dictated addendum note Assessment: Vital Signs: Vital Signs Date Time Temp Pulse Resp B/P (MAP) Pulse Ox O2 Delivery O2 Flow Rate FiO2 04/07/17 16:01 97.6 65 20 184/74 (110) 96 04/03/17 16:11 Room Air I&O Intake and Output 04/07/17 07:00 Intake Total 600 ml Balance 600 ml Intake Oral 600 ml # Voids 1 Labs: Laboratory Tests Test 04/07/17 09:34 White Blood Count 7.6 x10^3/uL (4.0-11.0) Red Blood Count 4.04 x10^6/uL (4.30-5.70) L Hemoglobin 12.1 g/dL (13.0-17.5) L Hematocrit 36.5 % (39.0-53.0) L Mean Corpuscular Volume 90 fL (79-100) Mean Corpuscular Hemoglobin 30 pg (25-35) Mean Corpuscular Hemoglobin Concent 33 g/dL (31-37) Red Cell Distribution Width 14.8 % (11.5-14.5) H Platelet Count 218 x10^3/uL (140-400) Neutrophils (%) (Auto) 65 % (31-73) Lymphocytes (%) (Auto) 17 % (24-48) L Monocytes (%) (Auto) 10 % (0-9) H Eosinophils (%) (Auto) 7 % (0-3) H Basophils (%) (Auto) 2 % (0-3) Neutrophils # (Auto) 4.9 x10^3uL (1.8-7.7) Lymphocytes # (Auto) 1.3 x10^3/uL (1.0-4.8) Monocytes # (Auto) 0.8 x10^3/uL (0.0-1.1) Eosinophils # (Auto) 0.5 x10^3/uL (0.0-0.7) Basophils # (Auto) 0.1 x10^3/uL (0.0-0.2) Sodium Level 139 mmol/L (136-145) Potassium Level 4.3 mmol/L (3.5-5.1) Chloride Level 106 mmol/L (98-107) Carbon Dioxide Level 28 mmol/L (21-32) Anion Gap 5 (6-14) L Blood Urea Nitrogen 30 mg/dL (8-26) H Creatinine 1.4 mg/dL (0.7-1.3) H Estimated GFR (Cockcroft-Gault) 48.1 BUN/Creatinine Ratio 21 (6-20) H Glucose Level 104 mg/dL (70-99) H Calcium Level 8.9 mg/dL (8.5-10.1) Magnesium Level 2.0 mg/dL (1.8-2.4) Total Bilirubin 0.6 mg/dL (0.2-1.0) Aspartate Amino Transferase (AST) 27 U/L (15-37) Alanine Aminotransferase (ALT) 25 U/L (16-63) Alkaline Phosphatase 57 U/L (46-116) Total Protein 7.0 g/dL (6.4-8.2) Albumin 3.3 g/dL (3.4-5.0) L Albumin/Globulin Ratio 0.9 (1.0-1.7) L Valproic Acid Level 77 mcg/mL (50-100) Valproic Acid Last Dose Date 04/06/2017 Valproic Acid Last Dose Time 2100 Current Medications: Meds: Current Medications Lorazepam (Ativan) 1 mg 1X ONCE PO Last administered on 03/28/17 21:01; Start 03/28/17 at 21:00; Stop 03/28/17 at 21:05; Status DC Haloperidol (Haldol) 5 mg 1X ONCE PO Last administered on 03/28/17 21:01; Start 03/28/17 at 21:00; Stop 03/28/17 at 21:05; Status DC Acetaminophen (Tylenol) 650 mg PRN Q6HRS PRN PO PAIN / TEMP Last administered on 04/05/17 20:59; Start 03/28/17 at 23:15 Multi-Ingredient Ointment (Analgesic [place]) 1 vik PRN QID PRN TP MUSCLE PAIN; Start 03/28/17 at 23:15 Al Hydroxide/Mg Hydroxide (Mylanta Plus Xs) 15 ml PRN AFTMEALHC PRN PO DYSPEPSIA; Start 03/28/17 at 23:15 Magnesium Hydroxide (Milk Of Magnesia) 2,400 mg PRN QHS PRN PO CONSTIPATION; Start 03/28/17 at 23:15 Divalproex Sodium (Depakote Sprinkles) 125 mg TID PO Last administered on 14:13; Start 03/29/17 at 09:00; Stop 03/29/17 at 18:20; Status DC Lorazepam (Ativan) 1 mg PRN Q4HRS PRN PO ANXIETY Last administered on 20:59; Start 03/28/17 at 23:30 Olanzapine (ZyPREXA ZYDIS) 2.5 mg PRN Q2HR PRN PO PSYCHOSIS Last administered on 04/05/17 20:44; Start 03/28/17 at 23:30 Quetiapine Fumarate (SEROquel) 100 mg HS PO Last administered on 04/06/17 20: 02; Start 03/29/17 at 21:00 Sertraline HCl (Zoloft) 50 mg DAILY PO Last administered on 04/07/17 07:27; Start 03/29/17 at 09:00 Acetaminophen (Tylenol) 650 mg PRN Q6HRS PRN PO pain/temp; Start 03/28/17 at 23: 30; Status UNV Atenolol (Tenormin) 25 mg BID PO Last administered on 04/07/17 07:27; Start at 09:00 Clopidogrel Bisulfate (Plavix) 75 mg DAILY PO Last administered on 04/07/17 07 :27; Start 03/29/17 at 09:00 Cyanocobalamin (Vitamin B-12) 1,000 mcg DAILY PO Last administered on 07:26; Start 03/29/17 at 09:00 Al Hydroxide/Mg Hydroxide (Mylanta Plus Xs) 15 ml PRN AFTMEALHC PRN PO DYSPEPSIA; Start 03/28/17 at 23:30; Status UNV Multi-Ingredient Ointment (Analgesic [place]) 1 vik PRN QID PRN TP MUSCLE PAIN; Start 03/28/17 at 23:30; Status UNV Multivitamins/ Calcium (Thera-M Plus) 1 tab DAILY PO Last administered on 07:27; Start 03/29/17 at 09:00 Pantoprazole Sodium (Protonix) 40 mg DAILYAC PO Last administered on 04/07/17 07:27; Start 03/29/17 at 07:30 Tramadol HCl (Ultram) 50 mg PRN BID PRN PO MODERATE PAIN; Start 03/28/17 at 23: 30; Status Cancel Tramadol HCl (Ultram) 50 mg PRN Q6HRS PRN PO MODERATE PAIN Last administered on 03/29/17 03:55; Start 03/28/17 at 23:30 Multivitamins/ Minerals (I-Roya) 1 tab DAILY PO Last administered on 04/07/17 07:26; Start 03/29/17 at 09:00 Atorvastatin Calcium (Lipitor) 40 mg QHS PO Last administered on 04/06/17 20: 01; Start 03/29/17 at 21:00 Losartan Potassium (Cozaar) 100 mg DAILY PO Last administered on 04/06/17 08: 10; Start 03/29/17 at 09:00; Stop 04/06/17 at 16:37; Status DC Non-Formulary Medication 2,400 mg PRN QHS PRN PO CONSTIPATION; Start 03/28/17 at 23:30; Status UNV Divalproex Sodium (Depakote Sprinkles) 250 mg TID PO Last administered on 14:13; Start 03/29/17 at 21:00; Stop 04/03/17 at 18:21; Status DC Quetiapine Fumarate (SEROquel) 25 mg BID92 PO Last administered on 04/02/17 14 :12; Start 04/01/17 at 09:00; Stop 04/02/17 at 19:29; Status DC Quetiapine Fumarate (SEROquel) 12.5 mg DAILYWLUN PO Last administered on 12:17; Start 04/02/17 at 12:00; Stop 04/04/17 at 09:42; Status DC Quetiapine Fumarate (SEROquel) 25 mg BID94 PO Last administered on 04/07/17 18 :02; Start 04/03/17 at 09:00 Divalproex Sodium (Depakote Sprinkles) 375 mg BID PO Last administered on 07:27; Start 04/03/17 at 21:00 Divalproex Sodium (Depakote Sprinkles) 250 mg 1400 PO Last administered on 04/07 13:35; Start 04/04/17 at 14:00 Quetiapine Fumarate (SEROquel) 25 mg DAILYWLUN PO Last administered on 12:00; Start 04/04/17 at 12:00 Losartan Potassium (Cozaar) 50 mg BID PO Last administered on 04/07/17 07:27; Start 04/06/17 at 21:00 Active Scripts Active Reported Tramadol Hcl (Tramadol HCl) 50 Mg Tablet 50 Mg PO BID PRN Tramadol Hcl (Tramadol HCl) 50 Mg Tablet 50 Mg PO PRN Q6HRS PRN Lorazepam 1 Mg Tablet 1 Mg PO PRN Q4HRS PRN Zoloft (Sertraline Hcl) 50 Mg Tablet 50 Mg PO DAILY Protonix (Pantoprazole Sodium) 40 Mg Tablet.dr 40 Mg PO DAILY Zyprexa Zydis (Olanzapine) 5 Mg Tab.rapdis 2.5 Mg PO PRN Q2HR PRN Thera M Plus Tablet (Multivits,Ca,Minerals/Iron/FA) 1 Each Tablet 1 Tab PO DAILY I-Roya Tablet (Vit A,C & E/Lutein/Minerals) 1 Each Tablet 1 Tab PO DAILY Analgesic [place] (Methyl Salicylate/Menthol) 29 Gm Oint...g. 1 Vik TP PRN QID PRN Milk Of Magnesia (Magnesium Hydroxide) 2,400 Mg/10 Ml Oral.susp 2,400 Mg PO PRN QHS PRN Mag-Al Plus Xs Suspension (Mag Hydrox/Al Hydrox/Simeth) 30 Ml Oral.susp 15 Ml PO PRN AFTMEALHC PRN Cozaar (Losartan Potassium) 100 Mg Tablet 100 Mg PO DAILY Depakote Sprinkle (Divalproex Sodium) 125 Mg Cap.sprink 125 Mg PO TID Vitamin B-12 (Cyanocobalamin (Vitamin B-12)) 1,000 Mcg Tablet 1,000 Mcg PO DAILY Tylenol (Acetaminophen) 325 Mg Tablet 650 Mg PO PRN Q6HRS PRN Seroquel (Quetiapine Fumarate) 100 Mg Tablet 100 Mg PO HS Plavix (Clopidogrel Bisulfate) 75 Mg Tablet 75 Mg PO DAILY Atorvastatin Calcium 40 Mg Tablet 40 Mg PO QHS Atenolol 25 Mg Tablet 25 Mg PO BID Diagnosis: Problems: (1) Anxiety disorder (2) Dementia in Alzheimer's disease with delusions (3) Dementia in Alzheimer's disease with depression (4) Dementia, vascular, with delusions (5) Dementia, vascular, with depression (6) Impulse control disorder (7) Abnormal behavior MARTHA SRINIVASAN MD Apr 07, 2017 20:05
[2017-04-07] MEDS: ATORVASTATIN CALCIUM 20 MG TABLET PO SCH (20:15)
[2017-04-07] MEDS: QUEtiapine 100 MG TABLET. PO SCH (20:15)
[2017-04-08 06:10] VITALS: BP 151/72
[2017-04-08] MEDS: PANTOPRAZOLE 40 MG TABLET. PO SCH (08:09)
[2017-04-08] MEDS: SERTRALINE 50 MG TABLET. PO SCH (08:09)
[2017-04-08] MEDS: QUEtiapine 25 MG TABLET. PO SCH ×3 (08:09→16:38)
[2017-04-08] MEDS: CLOPIDOGREL BISULFATE 75 MG TABLET PO SCH (08:10)
[2017-04-08] MEDS: DIVALPROEX 125 MG CAP.SPRINK PO SCH ×3 (08:10→19:56)
[2017-04-08] MEDS: ATENOLOL 25 MG TABLET PO SCH ×2 (08:10→19:56)
[2017-04-08] MEDS: CYANOCOBALAMIN (VITAMIN B-12) 1,000 MCG TABLET. PO SCH (08:10)
[2017-04-08] MEDS: LOSARTAN 50 MG TABLET. PO SCH ×2 (08:11→19:57)
[2017-04-08] MEDS: MULTIVITAMIN with MINERAL TABLET. PO SCH (08:11)
[2017-04-08] MEDS: MULTIVITAMIN I-VITE TABLET. PO SCH (08:11)
[2017-04-08] MEDS: LORazepam 1 MG TABLET PO PRN (13:29)
[2017-04-08 15:31] VITALS: BP 133/62
[2017-04-08] MEDS: ATORVASTATIN CALCIUM 20 MG TABLET PO SCH (19:56)
[2017-04-08] MEDS: QUEtiapine 100 MG TABLET. PO SCH (19:57)
--- NOTE | 2017-04-08 20:08 | PDOC ---
Exam Mauricio Demential Exam: Mauricio Note: Please also refer to the separate dictated note~for this date of service dictated separately.~Patient seen individually. Discussed the patient with Nursing staff reviewed the chart.~Reviewed interim history and current functioning. Reviewed vital signs,~Labs/ Radiology~and current medications noted below. Continue current treatment with the changes noted in the dictated addendum note Assessment: Vital Signs: Vital Signs Date Time Temp Pulse Resp B/P (MAP) Pulse Ox O2 Delivery O2 Flow Rate FiO2 04/08/17 19:57 54 133/62 04/08/17 15:31 97.3 20 95 Room Air I&O Intake and Output 04/08/17 07:00 Intake Total 840 ml Balance 840 ml Intake Oral 840 ml # Voids 1 # Bowel Movements 1 Current Medications: Meds: Current Medications Lorazepam (Ativan) 1 mg 1X ONCE PO Last administered on 03/28/17 21:01; Start 03/28/17 at 21:00; Stop 03/28/17 at 21:05; Status DC Haloperidol (Haldol) 5 mg 1X ONCE PO Last administered on 03/28/17 21:01; Start 03/28/17 at 21:00; Stop 03/28/17 at 21:05; Status DC Acetaminophen (Tylenol) 650 mg PRN Q6HRS PRN PO PAIN / TEMP Last administered on 04/05/17 20:59; Start 03/28/17 at 23:15 Multi-Ingredient Ointment (Analgesic [place]) 1 vik PRN QID PRN TP MUSCLE PAIN; Start 03/28/17 at 23:15 Al Hydroxide/Mg Hydroxide (Mylanta Plus Xs) 15 ml PRN AFTMEALHC PRN PO DYSPEPSIA; Start 03/28/17 at 23:15 Magnesium Hydroxide (Milk Of Magnesia) 2,400 mg PRN QHS PRN PO CONSTIPATION; Start 03/28/17 at 23:15 Divalproex Sodium (Depakote Sprinkles) 125 mg TID PO Last administered on 14:13; Start 03/29/17 at 09:00; Stop 03/29/17 at 18:20; Status DC Lorazepam (Ativan) 1 mg PRN Q4HRS PRN PO ANXIETY Last administered on 13:29; Start 03/28/17 at 23:30 Olanzapine (ZyPREXA ZYDIS) 2.5 mg PRN Q2HR PRN PO PSYCHOSIS Last administered on 04/05/17 20:44; Start 03/28/17 at 23:30 Quetiapine Fumarate (SEROquel) 100 mg HS PO Last administered on 04/08/17 19: 57; Start 03/29/17 at 21:00 Sertraline HCl (Zoloft) 50 mg DAILY PO Last administered on 04/08/17 08:09; Start 03/29/17 at 09:00 Acetaminophen (Tylenol) 650 mg PRN Q6HRS PRN PO pain/temp; Start 03/28/17 at 23: 30; Status UNV Atenolol (Tenormin) 25 mg BID PO Last administered on 04/08/17 19:56; Start at 09:00 Clopidogrel Bisulfate (Plavix) 75 mg DAILY PO Last administered on 04/08/17 08 :10; Start 03/29/17 at 09:00 Cyanocobalamin (Vitamin B-12) 1,000 mcg DAILY PO Last administered on 08:10; Start 03/29/17 at 09:00 Al Hydroxide/Mg Hydroxide (Mylanta Plus Xs) 15 ml PRN AFTMEALHC PRN PO DYSPEPSIA; Start 03/28/17 at 23:30; Status UNV Multi-Ingredient Ointment (Analgesic [place]) 1 vik PRN QID PRN TP MUSCLE PAIN; Start 03/28/17 at 23:30; Status UNV Multivitamins/ Calcium (Thera-M Plus) 1 tab DAILY PO Last administered on 08:11; Start 03/29/17 at 09:00 Pantoprazole Sodium (Protonix) 40 mg DAILYAC PO Last administered on 04/08/17 08:09; Start 03/29/17 at 07:30 Tramadol HCl (Ultram) 50 mg PRN BID PRN PO MODERATE PAIN; Start 03/28/17 at 23: 30; Status Cancel Tramadol HCl (Ultram) 50 mg PRN Q6HRS PRN PO MODERATE PAIN Last administered on 03/29/17 03:55; Start 03/28/17 at 23:30 Multivitamins/ Minerals (I-Roya) 1 tab DAILY PO Last administered on 04/08/17 08:11; Start 03/29/17 at 09:00 Atorvastatin Calcium (Lipitor) 40 mg QHS PO Last administered on 04/08/17 19: 56; Start 03/29/17 at 21:00 Losartan Potassium (Cozaar) 100 mg DAILY PO Last administered on 04/06/17 08: 10; Start 03/29/17 at 09:00; Stop 04/06/17 at 16:37; Status DC Non-Formulary Medication 2,400 mg PRN QHS PRN PO CONSTIPATION; Start 03/28/17 at 23:30; Status UNV Divalproex Sodium (Depakote Sprinkles) 250 mg TID PO Last administered on 14:13; Start 03/29/17 at 21:00; Stop 04/03/17 at 18:21; Status DC Quetiapine Fumarate (SEROquel) 25 mg BID92 PO Last administered on 04/02/17 14 :12; Start 04/01/17 at 09:00; Stop 04/02/17 at 19:29; Status DC Quetiapine Fumarate (SEROquel) 12.5 mg DAILYWLUN PO Last administered on 12:17; Start 04/02/17 at 12:00; Stop 04/04/17 at 09:42; Status DC Quetiapine Fumarate (SEROquel) 25 mg BID94 PO Last administered on 04/08/17 16 :38; Start 04/03/17 at 09:00; Stop 04/08/17 at 19:04; Status DC Divalproex Sodium (Depakote Sprinkles) 375 mg BID PO Last administered on 19:56; Start 04/03/17 at 21:00 Divalproex Sodium (Depakote Sprinkles) 250 mg 1400 PO Last administered on 04/08 13:29; Start 04/04/17 at 14:00 Quetiapine Fumarate (SEROquel) 25 mg DAILYWLUN PO Last administered on 11:58; Start 04/04/17 at 12:00; Stop 04/08/17 at 19:04; Status DC Losartan Potassium (Cozaar) 50 mg BID PO Last administered on 04/08/17t 19:57; Start 04/06/17 at 21:00 Quetiapine Fumarate (SEROquel) 12.5 mg BID94 PO ; Start 04/09/17 at 09:00 Quetiapine Fumarate (SEROquel) 12.5 mg DAILYWLUN PO ; Start 04/09/17 at 12:00 Active Scripts Active Reported Tramadol Hcl (Tramadol HCl) 50 Mg Tablet 50 Mg PO BID PRN Tramadol Hcl (Tramadol HCl) 50 Mg Tablet 50 Mg PO PRN Q6HRS PRN Lorazepam 1 Mg Tablet 1 Mg PO PRN Q4HRS PRN Zoloft (Sertraline Hcl) 50 Mg Tablet 50 Mg PO DAILY Protonix (Pantoprazole Sodium) 40 Mg Tablet.dr 40 Mg PO DAILY Zyprexa Zydis (Olanzapine) 5 Mg Tab.rapdis 2.5 Mg PO PRN Q2HR PRN Thera M Plus Tablet (Multivits,Ca,Minerals/Iron/FA) 1 Each Tablet 1 Tab PO DAILY I-Roya Tablet (Vit A,C & E/Lutein/Minerals) 1 Each Tablet 1 Tab PO DAILY Analgesic [place] (Methyl Salicylate/Menthol) 29 Gm Oint...g. 1 Vik TP PRN QID PRN Milk Of Magnesia (Magnesium Hydroxide) 2,400 Mg/10 Ml Oral.susp 2,400 Mg PO PRN QHS PRN Mag-Al Plus Xs Suspension (Mag Hydrox/Al Hydrox/Simeth) 30 Ml Oral.susp 15 Ml PO PRN AFTMEALHC PRN Cozaar (Losartan Potassium) 100 Mg Tablet 100 Mg PO DAILY Depakote Sprinkle (Divalproex Sodium) 125 Mg Cap.sprink 125 Mg PO TID Vitamin B-12 (Cyanocobalamin (Vitamin B-12)) 1,000 Mcg Tablet 1,000 Mcg PO DAILY Tylenol (Acetaminophen) 325 Mg Tablet 650 Mg PO PRN Q6HRS PRN Seroquel (Quetiapine Fumarate) 100 Mg Tablet 100 Mg PO HS Plavix (Clopidogrel Bisulfate) 75 Mg Tablet 75 Mg PO DAILY Atorvastatin Calcium 40 Mg Tablet 40 Mg PO QHS Atenolol 25 Mg Tablet 25 Mg PO BID Diagnosis: Problems: (1) Anxiety disorder (2) Dementia in Alzheimer's disease with delusions (3) Dementia in Alzheimer's disease with depression (4) Dementia, vascular, with delusions (5) Dementia, vascular, with depression (6) Impulse control disorder (7) Abnormal behavior MARTHA SRINIVASAN MD Apr 08, 2017 20:08
--- NOTE | 2017-04-08 20:44 | PDOC ---
Exam Mauricio Demential Exam: Mauricio Note: Please also refer to the separate dictated note~for this date of service dictated separately.~Patient seen individually. Discussed the patient with Nursing staff reviewed the chart.~Reviewed interim history and current functioning. Reviewed vital signs,~Labs/ Radiology~and current medications noted below. Continue current treatment with the changes noted in the dictated addendum note S/O: This is a late entry 04/04/2017 and covers elements not covered in my initial note. The patient's staff had treatment team meeting with the entire team in the morning of April 04, seen individually in the evening of April 04 , fell around 2:30 p.m., and left hip pain was complained by the patient. X- ray negative. Sleeping about 7 hours, appetite 70%, wandering, chewing her medications, agitated more so in the evening. Review of Systems: No CV, , Pulmonary, Eye, ENT system symptoms on review. Reliability poor. Ambulation impaired, with a walker. MSE: Oriented to herself. Insight, judgment, recent and remote memory, attention, concentration, and fund of knowledge are poor consistent with her diagnosis mentioned in my initial note. Plan: Continue current psychotropics mentioned in my initial note. Adjust further as clinically indicated. Increase noon Seroquel from 12.5 to 25 mg. Assessment: Vital Signs: Vital Signs Date Time Temp Pulse Resp B/P (MAP) Pulse Ox O2 Delivery O2 Flow Rate FiO2 04/08/17 19:57 54 133/62 04/08/17 15:31 97.3 20 95 Room Air I&O Intake and Output 04/08/17 07:00 Intake Total 840 ml Balance 840 ml Intake Oral 840 ml # Voids 1 # Bowel Movements 1 Current Medications: Meds: Current Medications Lorazepam (Ativan) 1 mg 1X ONCE PO Last administered on 03/28/17 21:01; Start 03/28/17 at 21:00; Stop 03/28/17 at 21:05; Status DC Haloperidol (Haldol) 5 mg 1X ONCE PO Last administered on 03/28/17 21:01; Start 03/28/17 at 21:00; Stop 03/28/17 at 21:05; Status DC Acetaminophen (Tylenol) 650 mg PRN Q6HRS PRN PO PAIN / TEMP Last administered on 04/05/17 20:59; Start 03/28/17 at 23:15 Multi-Ingredient Ointment (Analgesic [place]) 1 vik PRN QID PRN TP MUSCLE PAIN; Start 03/28/17 at 23:15 Al Hydroxide/Mg Hydroxide (Mylanta Plus Xs) 15 ml PRN AFTMEALHC PRN PO DYSPEPSIA; Start 03/28/17 at 23:15 Magnesium Hydroxide (Milk Of Magnesia) 2,400 mg PRN QHS PRN PO CONSTIPATION; Start 03/28/17 at 23:15 Divalproex Sodium (Depakote Sprinkles) 125 mg TID PO Last administered on 14:13; Start 03/29/17 at 09:00; Stop 03/29/17 at 18:20; Status DC Lorazepam (Ativan) 1 mg PRN Q4HRS PRN PO ANXIETY Last administered on 13:29; Start 03/28/17 at 23:30 Olanzapine (ZyPREXA ZYDIS) 2.5 mg PRN Q2HR PRN PO PSYCHOSIS Last administered on 04/05/17 20:44; Start 03/28/17 at 23:30 Quetiapine Fumarate (SEROquel) 100 mg HS PO Last administered on 04/08/17 19: 57; Start 03/29/17 at 21:00 Sertraline HCl (Zoloft) 50 mg DAILY PO Last administered on 04/08/17 08:09; Start 03/29/17 at 09:00 Acetaminophen (Tylenol) 650 mg PRN Q6HRS PRN PO pain/temp; Start 03/28/17 at 23: 30; Status UNV Atenolol (Tenormin) 25 mg BID PO Last administered on 04/08/17 19:56; Start at 09:00 Clopidogrel Bisulfate (Plavix) 75 mg DAILY PO Last administered on 04/08/17 08 :10; Start 03/29/17 at 09:00 Cyanocobalamin (Vitamin B-12) 1,000 mcg DAILY PO Last administered on 08:10; Start 03/29/17 at 09:00 Al Hydroxide/Mg Hydroxide (Mylanta Plus Xs) 15 ml PRN AFTMEALHC PRN PO DYSPEPSIA; Start 03/28/17 at 23:30; Status UNV Multi-Ingredient Ointment (Analgesic [place]) 1 vik PRN QID PRN TP MUSCLE PAIN; Start 03/28/17 at 23:30; Status UNV Multivitamins/ Calcium (Thera-M Plus) 1 tab DAILY PO Last administered on 08:11; Start 03/29/17 at 09:00 Pantoprazole Sodium (Protonix) 40 mg DAILYAC PO Last administered on 04/08/17 08:09; Start 03/29/17 at 07:30 Tramadol HCl (Ultram) 50 mg PRN BID PRN PO MODERATE PAIN; Start 03/28/17 at 23: 30; Status Cancel Tramadol HCl (Ultram) 50 mg PRN Q6HRS PRN PO MODERATE PAIN Last administered on 03/29/17 03:55; Start 03/28/17 at 23:30 Multivitamins/ Minerals (I-Roya) 1 tab DAILY PO Last administered on 04/08/17 08:11; Start 03/29/17 at 09:00 Atorvastatin Calcium (Lipitor) 40 mg QHS PO Last administered on 04/08/17 19: 56; Start 03/29/17 at 21:00 Losartan Potassium (Cozaar) 100 mg DAILY PO Last administered on 04/06/17 08: 10; Start 03/29/17 at 09:00; Stop 04/06/17 at 16:37; Status DC Non-Formulary Medication 2,400 mg PRN QHS PRN PO CONSTIPATION; Start 03/28/17 at 23:30; Status UNV Divalproex Sodium (Depakote Sprinkles) 250 mg TID PO Last administered on 14:13; Start 03/29/17 at 21:00; Stop 04/03/17 at 18:21; Status DC Quetiapine Fumarate (SEROquel) 25 mg BID92 PO Last administered on 04/02/17 14 :12; Start 04/01/17 at 09:00; Stop 04/02/17 at 19:29; Status DC Quetiapine Fumarate (SEROquel) 12.5 mg DAILYWLUN PO Last administered on 12:17; Start 04/02/17 at 12:00; Stop 04/04/17 at 09:42; Status DC Quetiapine Fumarate (SEROquel) 25 mg BID94 PO Last administered on 04/08/17 16 :38; Start 04/03/17 at 09:00; Stop 04/08/17 at 19:04; Status DC Divalproex Sodium (Depakote Sprinkles) 375 mg BID PO Last administered on 19:56; Start 04/03/17 at 21:00 Divalproex Sodium (Depakote Sprinkles) 250 mg 1400 PO Last administered on 04/08 13:29; Start 04/04/17 at 14:00 Quetiapine Fumarate (SEROquel) 25 mg DAILYWLUN PO Last administered on 11:58; Start 04/04/17 at 12:00; Stop 04/08/17 at 19:04; Status DC Losartan Potassium (Cozaar) 50 mg BID PO Last administered on 04/08/17 19:57; Start 04/06/17 at 21:00 Quetiapine Fumarate (SEROquel) 12.5 mg BID94 PO ; Start 04/09/17 at 09:00 Quetiapine Fumarate (SEROquel) 12.5 mg DAILYWLUN PO ; Start 04/09/17 at 12:00 Active Scripts Active Reported Tramadol Hcl (Tramadol HCl) 50 Mg Tablet 50 Mg PO BID PRN Tramadol Hcl (Tramadol HCl) 50 Mg Tablet 50 Mg PO PRN Q6HRS PRN Lorazepam 1 Mg Tablet 1 Mg PO PRN Q4HRS PRN Zoloft (Sertraline Hcl) 50 Mg Tablet 50 Mg PO DAILY Protonix (Pantoprazole Sodium) 40 Mg Tablet.dr 40 Mg PO DAILY Zyprexa Zydis (Olanzapine) 5 Mg Tab.rapdis 2.5 Mg PO PRN Q2HR PRN Thera M Plus Tablet (Multivits,Ca,Minerals/Iron/FA) 1 Each Tablet 1 Tab PO DAILY I-Roya Tablet (Vit A,C & E/Lutein/Minerals) 1 Each Tablet 1 Tab PO DAILY Analgesic [place] (Methyl Salicylate/Menthol) 29 Gm Oint...g. 1 Vik TP PRN QID PRN Milk Of Magnesia (Magnesium Hydroxide) 2,400 Mg/10 Ml Oral.susp 2,400 Mg PO PRN QHS PRN Mag-Al Plus Xs Suspension (Mag Hydrox/Al Hydrox/Simeth) 30 Ml Oral.susp 15 Ml PO PRN AFTMEALHC PRN Cozaar (Losartan Potassium) 100 Mg Tablet 100 Mg PO DAILY Depakote Sprinkle (Divalproex Sodium) 125 Mg Cap.sprink 125 Mg PO TID Vitamin B-12 (Cyanocobalamin (Vitamin B-12)) 1,000 Mcg Tablet 1,000 Mcg PO DAILY Tylenol (Acetaminophen) 325 Mg Tablet 650 Mg PO PRN Q6HRS PRN Seroquel (Quetiapine Fumarate) 100 Mg Tablet 100 Mg PO HS Plavix (Clopidogrel Bisulfate) 75 Mg Tablet 75 Mg PO DAILY Atorvastatin Calcium 40 Mg Tablet 40 Mg PO QHS Atenolol 25 Mg Tablet 25 Mg PO BID MARTHA SRINIVASAN MD Apr 08, 2017 20:44
[2017-04-09 05:55] VITALS: BP 173/75
[2017-04-09] MEDS: PANTOPRAZOLE 40 MG TABLET. PO SCH (08:03)
[2017-04-09] MEDS: CLOPIDOGREL BISULFATE 75 MG TABLET PO SCH (08:03)
[2017-04-09] MEDS: DIVALPROEX 125 MG CAP.SPRINK PO SCH ×3 (08:04→19:55)
[2017-04-09] MEDS: MULTIVITAMIN with MINERAL TABLET. PO SCH (08:04)
[2017-04-09] MEDS: LOSARTAN 50 MG TABLET. PO SCH ×2 (08:04→19:55)
[2017-04-09] MEDS: SERTRALINE 50 MG TABLET. PO SCH (08:04)
[2017-04-09] MEDS: CYANOCOBALAMIN (VITAMIN B-12) 1,000 MCG TABLET. PO SCH (08:04)
[2017-04-09] MEDS: ATENOLOL 25 MG TABLET PO SCH ×2 (08:04→19:57)
[2017-04-09] MEDS: MULTIVITAMIN I-VITE TABLET. PO SCH (08:04)
[2017-04-09] MEDS: QUEtiapine 25 MG TABLET. PO SCH ×3 (08:06→16:40)
[2017-04-09] MEDS: LORazepam 1 MG TABLET PO PRN (14:18)
[2017-04-09 16:07] VITALS: BP 151/69
[2017-04-09] MEDS: ATORVASTATIN CALCIUM 20 MG TABLET PO SCH (19:56)
[2017-04-09] MEDS: QUEtiapine 100 MG TABLET. PO SCH (19:56)
--- NOTE | 2017-04-09 20:31 | PDOC ---
Exam Mauricio Demential Exam: Mauricio Note: Please also refer to the separate dictated note~for this date of service dictated separately.~Patient seen individually. Discussed the patient with Nursing staff reviewed the chart.~Reviewed interim history and current functioning. Reviewed vital signs,~Labs/ Radiology~and current medications noted below. Continue current treatment with the changes noted in the dictated addendum note Assessment: Vital Signs: Vital Signs Date Time Temp Pulse Resp B/P (MAP) Pulse Ox O2 Delivery O2 Flow Rate FiO2 04/09/17 19:57 54 151/69 04/09/17 16:07 97.2 20 96 04/08/17 15:31 Room Air I&O Intake and Output 04/09/17 07:00 Intake Total 960 ml Balance 960 ml Intake Oral 960 ml Current Medications: Meds: Current Medications Lorazepam (Ativan) 1 mg 1X ONCE PO Last administered on 03/28/17 21:01; Start 03/28/17 at 21:00; Stop 03/28/17 at 21:05; Status DC Haloperidol (Haldol) 5 mg 1X ONCE PO Last administered on 03/28/17 21:01; Start 03/28/17 at 21:00; Stop 03/28/17 at 21:05; Status DC Acetaminophen (Tylenol) 650 mg PRN Q6HRS PRN PO PAIN / TEMP Last administered on 04/05/17 20:59; Start 03/28/17 at 23:15 Multi-Ingredient Ointment (Analgesic [place]) 1 vik PRN QID PRN TP MUSCLE PAIN; Start 03/28/17 at 23:15 Al Hydroxide/Mg Hydroxide (Mylanta Plus Xs) 15 ml PRN AFTMEALHC PRN PO DYSPEPSIA; Start 03/28/17 at 23:15 Magnesium Hydroxide (Milk Of Magnesia) 2,400 mg PRN QHS PRN PO CONSTIPATION; Start 03/28/17 at 23:15 Divalproex Sodium (Depakote Sprinkles) 125 mg TID PO Last administered on 14:13; Start 03/29/17 at 09:00; Stop 03/29/17 at 18:20; Status DC Lorazepam (Ativan) 1 mg PRN Q4HRS PRN PO ANXIETY Last administered on 14:18; Start 03/28/17 at 23:30 Olanzapine (ZyPREXA ZYDIS) 2.5 mg PRN Q2HR PRN PO PSYCHOSIS Last administered on 04/05/17 20:44; Start 03/28/17 at 23:30 Quetiapine Fumarate (SEROquel) 100 mg HS PO Last administered on 04/09/17 19: 56; Start 03/29/17 at 21:00 Sertraline HCl (Zoloft) 50 mg DAILY PO Last administered on 04/09/17 08:04; Start 03/29/17 at 09:00 Acetaminophen (Tylenol) 650 mg PRN Q6HRS PRN PO pain/temp; Start 03/28/17 at 23: 30; Status UNV Atenolol (Tenormin) 25 mg BID PO Last administered on 04/09/17 19:57; Start at 09:00 Clopidogrel Bisulfate (Plavix) 75 mg DAILY PO Last administered on 04/09/17 08 :03; Start 03/29/17 at 09:00 Cyanocobalamin (Vitamin B-12) 1,000 mcg DAILY PO Last administered on 08:04; Start 03/29/17 at 09:00 Al Hydroxide/Mg Hydroxide (Mylanta Plus Xs) 15 ml PRN AFTMEALHC PRN PO DYSPEPSIA; Start 03/28/17 at 23:30; Status UNV Multi-Ingredient Ointment (Analgesic [place]) 1 vik PRN QID PRN TP MUSCLE PAIN; Start 03/28/17 at 23:30; Status UNV Multivitamins/ Calcium (Thera-M Plus) 1 tab DAILY PO Last administered on 08:04; Start 03/29/17 at 09:00 Pantoprazole Sodium (Protonix) 40 mg DAILYAC PO Last administered on 04/09/17 08:03; Start 03/29/17 at 07:30 Tramadol HCl (Ultram) 50 mg PRN BID PRN PO MODERATE PAIN; Start 03/28/17 at 23: 30; Status Cancel Tramadol HCl (Ultram) 50 mg PRN Q6HRS PRN PO MODERATE PAIN Last administered on 03/29/17 03:55; Start 03/28/17 at 23:30 Multivitamins/ Minerals (I-Roya) 1 tab DAILY PO Last administered on 04/09/17 08:04; Start 03/29/17 at 09:00 Atorvastatin Calcium (Lipitor) 40 mg QHS PO Last administered on 04/09/17 19: 56; Start 03/29/17 at 21:00 Losartan Potassium (Cozaar) 100 mg DAILY PO Last administered on 04/06/17 08: 10; Start 03/29/17 at 09:00; Stop 04/06/17 at 16:37; Status DC Non-Formulary Medication 2,400 mg PRN QHS PRN PO CONSTIPATION; Start 03/28/17 at 23:30; Status UNV Divalproex Sodium (Depakote Sprinkles) 250 mg TID PO Last administered on 14:13; Start 03/29/17 at 21:00; Stop 04/03/17 at 18:21; Status DC Quetiapine Fumarate (SEROquel) 25 mg BID92 PO Last administered on 04/02/17 14 :12; Start 04/01/17 at 09:00; Stop 04/02/17 at 19:29; Status DC Quetiapine Fumarate (SEROquel) 12.5 mg DAILYWLUN PO Last administered on 12:17; Start 04/02/17 at 12:00; Stop 04/04/17 at 09:42; Status DC Quetiapine Fumarate (SEROquel) 25 mg BID94 PO Last administered on 04/08/17 16 :38; Start 04/03/17 at 09:00; Stop 04/08/17 at 19:04; Status DC Divalproex Sodium (Depakote Sprinkles) 375 mg BID PO Last administered on 19:55; Start 04/03/17 at 21:00 Divalproex Sodium (Depakote Sprinkles) 250 mg 1400 PO Last administered on 04/09 12:40; Start 04/04/17 at 14:00 Quetiapine Fumarate (SEROquel) 25 mg DAILYWLUN PO Last administered on 11:58; Start 04/04/17 at 12:00; Stop 04/08/17 at 19:04; Status DC Losartan Potassium (Cozaar) 50 mg BID PO Last administered on 04/09/17 19:55; Start 04/06/17 at 21:00 Quetiapine Fumarate (SEROquel) 12.5 mg BID94 PO Last administered on 04/09/17 16:40; Start 04/09/17 at 09:00 Quetiapine Fumarate (SEROquel) 12.5 mg DAILYWLUN PO Last administered on 12:39; Start 04/09/17 at 12:00 Active Scripts Active Reported Tramadol Hcl (Tramadol HCl) 50 Mg Tablet 50 Mg PO BID PRN Tramadol Hcl (Tramadol HCl) 50 Mg Tablet 50 Mg PO PRN Q6HRS PRN Lorazepam 1 Mg Tablet 1 Mg PO PRN Q4HRS PRN Zoloft (Sertraline Hcl) 50 Mg Tablet 50 Mg PO DAILY Protonix (Pantoprazole Sodium) 40 Mg Tablet.dr 40 Mg PO DAILY Zyprexa Zydis (Olanzapine) 5 Mg Tab.rapdis 2.5 Mg PO PRN Q2HR PRN Thera M Plus Tablet (Multivits,Ca,Minerals/Iron/FA) 1 Each Tablet 1 Tab PO DAILY I-Roya Tablet (Vit A,C & E/Lutein/Minerals) 1 Each Tablet 1 Tab PO DAILY Analgesic [place] (Methyl Salicylate/Menthol) 29 Gm Oint...g. 1 Vik TP PRN QID PRN Milk Of Magnesia (Magnesium Hydroxide) 2,400 Mg/10 Ml Oral.susp 2,400 Mg PO PRN QHS PRN Mag-Al Plus Xs Suspension (Mag Hydrox/Al Hydrox/Simeth) 30 Ml Oral.susp 15 Ml PO PRN AFTMEALHC PRN Cozaar (Losartan Potassium) 100 Mg Tablet 100 Mg PO DAILY Depakote Sprinkle (Divalproex Sodium) 125 Mg Cap.sprink 125 Mg PO TID Vitamin B-12 (Cyanocobalamin (Vitamin B-12)) 1,000 Mcg Tablet 1,000 Mcg PO DAILY Tylenol (Acetaminophen) 325 Mg Tablet 650 Mg PO PRN Q6HRS PRN Seroquel (Quetiapine Fumarate) 100 Mg Tablet 100 Mg PO HS Plavix (Clopidogrel Bisulfate) 75 Mg Tablet 75 Mg PO DAILY Atorvastatin Calcium 40 Mg Tablet 40 Mg PO QHS Atenolol 25 Mg Tablet 25 Mg PO BID Diagnosis: Problems: (1) Anxiety disorder (2) Dementia in Alzheimer's disease with delusions (3) Dementia in Alzheimer's disease with depression (4) Dementia, vascular, with delusions (5) Dementia, vascular, with depression (6) Impulse control disorder (7) Abnormal behavior MARTHA SRINIVASAN MD Apr 09, 2017 20:31
[2017-04-10 05:29] VITALS: BP 136/73
[2017-04-10] MEDS: LOSARTAN 50 MG TABLET. PO SCH ×2 (07:35→19:25)
[2017-04-10] MEDS: PANTOPRAZOLE 40 MG TABLET. PO SCH (07:35)
[2017-04-10] MEDS: CYANOCOBALAMIN (VITAMIN B-12) 1,000 MCG TABLET. PO SCH (07:35)
[2017-04-10] MEDS: DIVALPROEX 125 MG CAP.SPRINK PO SCH ×3 (07:35→19:26)
[2017-04-10] MEDS: MULTIVITAMIN I-VITE TABLET. PO SCH (07:35)
[2017-04-10] MEDS: SERTRALINE 50 MG TABLET. PO SCH (07:35)
[2017-04-10] MEDS: CLOPIDOGREL BISULFATE 75 MG TABLET PO SCH (07:35)
[2017-04-10] MEDS: ATENOLOL 25 MG TABLET PO SCH ×2 (07:36→19:25)
[2017-04-10] MEDS: QUEtiapine 25 MG TABLET. PO SCH ×3 (07:36→16:35)
[2017-04-10] MEDS: MULTIVITAMIN with MINERAL TABLET. PO SCH (07:36)
[2017-04-10 16:00] VITALS: BP 153/78
[2017-04-10] MEDS: ATORVASTATIN CALCIUM 20 MG TABLET PO SCH (19:25)
[2017-04-10] MEDS: QUEtiapine 100 MG TABLET. PO SCH (19:25)
--- NOTE | 2017-04-10 20:27 | PDOC ---
Exam Mauricio Demential Exam: Mauricio Note: Please also refer to the separate dictated note~for this date of service dictated separately.~Patient seen individually. Discussed the patient with Nursing staff reviewed the chart.~Reviewed interim history and current functioning. Reviewed vital signs,~Labs/ Radiology~and current medications noted below. Continue current treatment with the changes noted in the dictated addendum note Patient was seen individually the evening of 04/10. Patient gets somewhat anxious restless per nursing reports patient even he is unable to ambulate. He remains in a Broda chair because he is unsteady but physical therapy is working with him. Nursing staff about to try and walk him as well since this should help with the anxiety. Otherwise he is not being aggressive or disruptive in no clear psychotic symptoms noted. Review of systems: Ambulation impaired and Broda chair but no CV GI/ pulmonary eye ENT integumentary system symptoms on review. Reliability poor. Mental status examination: Patient is oriented to himself not very verbal. Insight judgment recent remote memory attention concentration fund of knowledge poor consistent with his diagnosis. Attention span short language function intact. Intellect compromised by his diagnosis of dementia. 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 Assessment: Vital Signs: Vital Signs Date Time Temp Pulse Resp B/P (MAP) Pulse Ox O2 Delivery O2 Flow Rate FiO2 04/10/17 19:25 82 153/78 04/10/17 16:00 97.2 19 94 04/08/17 15:31 Room Air I&O Intake and Output 04/10/17 07:00 Intake Total 1080 ml Balance 1080 ml Intake Oral 1080 ml # Bowel Movements 2 Current Medications: Meds: Current Medications Lorazepam (Ativan) 1 mg 1X ONCE PO Last administered on 03/28/17 21:01; Start 03/28/17 at 21:00; Stop 03/28/17 at 21:05; Status DC Haloperidol (Haldol) 5 mg 1X ONCE PO Last administered on 03/28/17 21:01; Start 03/28/17 at 21:00; Stop 03/28/17 at 21:05; Status DC Acetaminophen (Tylenol) 650 mg PRN Q6HRS PRN PO PAIN / TEMP Last administered on 04/05/17 20:59; Start 03/28/17 at 23:15 Multi-Ingredient Ointment (Analgesic [place]) 1 vik PRN QID PRN TP MUSCLE PAIN; Start 03/28/17 at 23:15 Al Hydroxide/Mg Hydroxide (Mylanta Plus Xs) 15 ml PRN AFTMEALHC PRN PO DYSPEPSIA; Start 03/28/17 at 23:15 Magnesium Hydroxide (Milk Of Magnesia) 2,400 mg PRN QHS PRN PO CONSTIPATION; Start 03/28/17 at 23:15 Divalproex Sodium (Depakote Sprinkles) 125 mg TID PO Last administered on 14:13; Start 03/29/17 at 09:00; Stop 03/29/17 at 18:20; Status DC Lorazepam (Ativan) 1 mg PRN Q4HRS PRN PO ANXIETY Last administered on 14:18; Start 03/28/17 at 23:30 Olanzapine (ZyPREXA ZYDIS) 2.5 mg PRN Q2HR PRN PO PSYCHOSIS Last administered on 04/05/17 20:44; Start 03/28/17 at 23:30 Quetiapine Fumarate (SEROquel) 100 mg HS PO Last administered on 04/10/17 19: 25; Start 03/29/17 at 21:00 Sertraline HCl (Zoloft) 50 mg DAILY PO Last administered on 04/10/17 07:35; Start 03/29/17 at 09:00 Acetaminophen (Tylenol) 650 mg PRN Q6HRS PRN PO pain/temp; Start 03/28/17 at 23: 30; Status UNV Atenolol (Tenormin) 25 mg BID PO Last administered on 04/10/17 19:25; Start at 09:00 Clopidogrel Bisulfate (Plavix) 75 mg DAILY PO Last administered on 04/10/17 07 :35; Start 03/29/17 at 09:00 Cyanocobalamin (Vitamin B-12) 1,000 mcg DAILY PO Last administered on 07:35; Start 03/29/17 at 09:00 Al Hydroxide/Mg Hydroxide (Mylanta Plus Xs) 15 ml PRN AFTMEALHC PRN PO DYSPEPSIA; Start 03/28/17 at 23:30; Status UNV Multi-Ingredient Ointment (Analgesic [place]) 1 vik PRN QID PRN TP MUSCLE PAIN; Start 03/28/17 at 23:30; Status UNV Multivitamins/ Calcium (Thera-M Plus) 1 tab DAILY PO Last administered on 07:36; Start 03/29/17 at 09:00 Pantoprazole Sodium (Protonix) 40 mg DAILYAC PO Last administered on 04/10/17 07:35; Start 03/29/17 at 07:30 Tramadol HCl (Ultram) 50 mg PRN BID PRN PO MODERATE PAIN; Start 03/28/17 at 23: 30; Status Cancel Tramadol HCl (Ultram) 50 mg PRN Q6HRS PRN PO MODERATE PAIN Last administered on 03/29/17 03:55; Start 03/28/17 at 23:30 Multivitamins/ Minerals (I-Roya) 1 tab DAILY PO Last administered on 04/10/17 07:35; Start 03/29/17 at 09:00 Atorvastatin Calcium (Lipitor) 40 mg QHS PO Last administered on 04/10/17 19: 25; Start 03/29/17 at 21:00 Losartan Potassium (Cozaar) 100 mg DAILY PO Last administered on 04/06/17 08: 10; Start 03/29/17 at 09:00; Stop 04/06/17 at 16:37; Status DC Non-Formulary Medication 2,400 mg PRN QHS PRN PO CONSTIPATION; Start 03/28/17 at 23:30; Status UNV Divalproex Sodium (Depakote Sprinkles) 250 mg TID PO Last administered on 14:13; Start 03/29/17 at 21:00; Stop 04/03/17 at 18:21; Status DC Quetiapine Fumarate (SEROquel) 25 mg BID92 PO Last administered on 04/02/17 14 :12; Start 04/01/17 at 09:00; Stop 04/02/17 at 19:29; Status DC Quetiapine Fumarate (SEROquel) 12.5 mg DAILYWLUN PO Last administered on 12:17; Start 04/02/17 at 12:00; Stop 04/04/17 at 09:42; Status DC Quetiapine Fumarate (SEROquel) 25 mg BID94 PO Last administered on 04/08/17 16 :38; Start 04/03/17 at 09:00; Stop 04/08/17 at 19:04; Status DC Divalproex Sodium (Depakote Sprinkles) 375 mg BID PO Last administered on 19:26; Start 04/03/17 at 21:00 Divalproex Sodium (Depakote Sprinkles) 250 mg 1400 PO Last administered on 04/10 13:53; Start 04/04/17 at 14:00 Quetiapine Fumarate (SEROquel) 25 mg DAILYWLUN PO Last administered on 11:58; Start 04/04/17 at 12:00; Stop 04/08/17 at 19:04; Status DC Losartan Potassium (Cozaar) 50 mg BID PO Last administered on 04/10/17 19:25; Start 04/06/17 at 21:00 Quetiapine Fumarate (SEROquel) 12.5 mg BID94 PO Last administered on 04/10/17 16:35; Start 04/09/17 at 09:00 Quetiapine Fumarate (SEROquel) 12.5 mg DAILYWLUN PO Last administered on 13:53; Start 04/09/17 at 12:00 Active Scripts Active Reported Tramadol Hcl (Tramadol HCl) 50 Mg Tablet 50 Mg PO BID PRN Tramadol Hcl (Tramadol HCl) 50 Mg Tablet 50 Mg PO PRN Q6HRS PRN Lorazepam 1 Mg Tablet 1 Mg PO PRN Q4HRS PRN Zoloft (Sertraline Hcl) 50 Mg Tablet 50 Mg PO DAILY Protonix (Pantoprazole Sodium) 40 Mg Tablet.dr 40 Mg PO DAILY Zyprexa Zydis (Olanzapine) 5 Mg Tab.rapdis 2.5 Mg PO PRN Q2HR PRN Thera M Plus Tablet (Multivits,Ca,Minerals/Iron/FA) 1 Each Tablet 1 Tab PO DAILY I-Roya Tablet (Vit A,C & E/Lutein/Minerals) 1 Each Tablet 1 Tab PO DAILY Analgesic [place] (Methyl Salicylate/Menthol) 29 Gm Oint...g. 1 Vik TP PRN QID PRN Milk Of Magnesia (Magnesium Hydroxide) 2,400 Mg/10 Ml Oral.susp 2,400 Mg PO PRN QHS PRN Mag-Al Plus Xs Suspension (Mag Hydrox/Al Hydrox/Simeth) 30 Ml Oral.susp 15 Ml PO PRN AFTMEALHC PRN Cozaar (Losartan Potassium) 100 Mg Tablet 100 Mg PO DAILY Depakote Sprinkle (Divalproex Sodium) 125 Mg Cap.sprink 125 Mg PO TID Vitamin B-12 (Cyanocobalamin (Vitamin B-12)) 1,000 Mcg Tablet 1,000 Mcg PO DAILY Tylenol (Acetaminophen) 325 Mg Tablet 650 Mg PO PRN Q6HRS PRN Seroquel (Quetiapine Fumarate) 100 Mg Tablet 100 Mg PO HS Plavix (Clopidogrel Bisulfate) 75 Mg Tablet 75 Mg PO DAILY Atorvastatin Calcium 40 Mg Tablet 40 Mg PO QHS Atenolol 25 Mg Tablet 25 Mg PO BID Diagnosis: Problems: (1) Anxiety disorder (2) Dementia in Alzheimer's disease with delusions (3) Dementia in Alzheimer's disease with depression (4) Dementia, vascular, with delusions (5) Dementia, vascular, with depression (6) Impulse control disorder (7) Abnormal behavior MARTHA SRINIVASAN MD Apr 10, 2017 20:27
--- NOTE | 2017-04-10 20:50 | PDOC ---
Exam Mauricio Demential Exam: Mauricio Note: Please also refer to the separate dictated note~for this date of service dictated separately.~Patient seen individually. Discussed the patient with Nursing staff reviewed the chart.~Reviewed interim history and current functioning. Reviewed vital signs,~Labs/ Radiology~and current medications noted below. Continue current treatment with the changes noted in the dictated addendum note S/O: This is a late entry for April 05 covers elements not covered in my initial note. I met with the patient in the evening of April 05. The patient remains confused, complains of some pain secondary to a fall, no injuries noted. His and daughter visited him in the afternoon. He was calling his and his mother that this could be generational and additionally due to his dementia rather than any overt delusion. He seemed to recognize their faces, but not the names. Review of Systems: No CV, , Pulmonary, Eye, ENT system symptoms on review. Reliability poor. MSE: He is pleasant, verbal, smiling as I met with him. Insight, judgment, recent and remote memory, attention, concentration, and fund of knowledge are poor consistent with his diagnosis mentioned in my initial note. Plan: Continue current psychotropics. Discharge to a lower level of care early next week. Assessment: Vital Signs: Vital Signs Date Time Temp Pulse Resp B/P (MAP) Pulse Ox O2 Delivery O2 Flow Rate FiO2 04/10/17 19:25 82 153/78 04/10/17 16:00 97.2 19 94 04/08/17 15:31 Room Air I&O Intake and Output 04/10/17 07:00 Intake Total 1080 ml Balance 1080 ml Intake Oral 1080 ml # Bowel Movements 2 Current Medications: Meds: Current Medications Lorazepam (Ativan) 1 mg 1X ONCE PO Last administered on 03/28/17 21:01; Start 03/28/17 at 21:00; Stop 03/28/17 at 21:05; Status DC Haloperidol (Haldol) 5 mg 1X ONCE PO Last administered on 03/28/17 21:01; Start 03/28/17 at 21:00; Stop 03/28/17 at 21:05; Status DC Acetaminophen (Tylenol) 650 mg PRN Q6HRS PRN PO PAIN / TEMP Last administered on 04/05/17 20:59; Start 03/28/17 at 23:15 Multi-Ingredient Ointment (Analgesic [place]) 1 vik PRN QID PRN TP MUSCLE PAIN; Start 03/28/17 at 23:15 Al Hydroxide/Mg Hydroxide (Mylanta Plus Xs) 15 ml PRN AFTMEALHC PRN PO DYSPEPSIA; Start 03/28/17 at 23:15 Magnesium Hydroxide (Milk Of Magnesia) 2,400 mg PRN QHS PRN PO CONSTIPATION; Start 03/28/17 at 23:15 Divalproex Sodium (Depakote Sprinkles) 125 mg TID PO Last administered on 14:13; Start 03/29/17 at 09:00; Stop 03/29/17 at 18:20; Status DC Lorazepam (Ativan) 1 mg PRN Q4HRS PRN PO ANXIETY Last administered on 14:18; Start 03/28/17 at 23:30 Olanzapine (ZyPREXA ZYDIS) 2.5 mg PRN Q2HR PRN PO PSYCHOSIS Last administered on 04/05/17 20:44; Start 03/28/17 at 23:30 Quetiapine Fumarate (SEROquel) 100 mg HS PO Last administered on 04/10/17 19: 25; Start 03/29/17 at 21:00 Sertraline HCl (Zoloft) 50 mg DAILY PO Last administered on 04/10/17 07:35; Start 03/29/17 at 09:00 Acetaminophen (Tylenol) 650 mg PRN Q6HRS PRN PO pain/temp; Start 03/28/17 at 23: 30; Status UNV Atenolol (Tenormin) 25 mg BID PO Last administered on 04/10/17 19:25; Start at 09:00 Clopidogrel Bisulfate (Plavix) 75 mg DAILY PO Last administered on 04/10/17 07 :35; Start 03/29/17 at 09:00 Cyanocobalamin (Vitamin B-12) 1,000 mcg DAILY PO Last administered on 07:35; Start 03/29/17 at 09:00 Al Hydroxide/Mg Hydroxide (Mylanta Plus Xs) 15 ml PRN AFTMEALHC PRN PO DYSPEPSIA; Start 03/28/17 at 23:30; Status UNV Multi-Ingredient Ointment (Analgesic [place]) 1 vik PRN QID PRN TP MUSCLE PAIN; Start 03/28/17 at 23:30; Status UNV Multivitamins/ Calcium (Thera-M Plus) 1 tab DAILY PO Last administered on 07:36; Start 03/29/17 at 09:00 Pantoprazole Sodium (Protonix) 40 mg DAILYAC PO Last administered on 04/10/17 07:35; Start 03/29/17 at 07:30 Tramadol HCl (Ultram) 50 mg PRN BID PRN PO MODERATE PAIN; Start 03/28/17 at 23: 30; Status Cancel Tramadol HCl (Ultram) 50 mg PRN Q6HRS PRN PO MODERATE PAIN Last administered on 03/29/17 03:55; Start 03/28/17 at 23:30 Multivitamins/ Minerals (I-Roya) 1 tab DAILY PO Last administered on 04/10/17 07:35; Start 03/29/17 at 09:00 Atorvastatin Calcium (Lipitor) 40 mg QHS PO Last administered on 04/10/17 19: 25; Start 03/29/17 at 21:00 Losartan Potassium (Cozaar) 100 mg DAILY PO Last administered on 04/06/17 08: 10; Start 03/29/17 at 09:00; Stop 04/06/17 at 16:37; Status DC Non-Formulary Medication 2,400 mg PRN QHS PRN PO CONSTIPATION; Start 03/28/17 at 23:30; Status UNV Divalproex Sodium (Depakote Sprinkles) 250 mg TID PO Last administered on 14:13; Start 03/29/17 at 21:00; Stop 04/03/17 at 18:21; Status DC Quetiapine Fumarate (SEROquel) 25 mg [id number] PO Last administered on 04/02/17 14 :12; Start 04/01/17 at 09:00; Stop 04/02/17 at 19:29; Status DC Quetiapine Fumarate (SEROquel) 12.5 mg DAILYWLUN PO Last administered on 12:17; Start 04/02/17 at 12:00; Stop 04/04/17 at 09:42; Status DC Quetiapine Fumarate (SEROquel) 25 mg BID94 PO Last administered on 04/08/17 16 :38; Start 04/03/17 at 09:00; Stop 04/08/17 at 19:04; Status DC Divalproex Sodium (Depakote Sprinkles) 375 mg BID PO Last administered on 19:26; Start 04/03/17 at 21:00 Divalproex Sodium (Depakote Sprinkles) 250 mg 1400 PO Last administered on 04/10 13:53; Start 04/04/17 at 14:00 Quetiapine Fumarate (SEROquel) 25 mg DAILYWLUN PO Last administered on 11:58; Start 04/04/17 at 12:00; Stop 04/08/17 at 19:04; Status DC Losartan Potassium (Cozaar) 50 mg BID PO Last administered on 04/10/17 19:25; Start 04/06/17 at 21:00 Quetiapine Fumarate (SEROquel) 12.5 mg BID94 PO Last administered on 04/10/17 16:35; Start 04/09/17 at 09:00 Quetiapine Fumarate (SEROquel) 12.5 mg DAILYWLUN PO Last administered on 13:53; Start 04/09/17 at 12:00 Active Scripts Active Reported Tramadol Hcl (Tramadol HCl) 50 Mg Tablet 50 Mg PO BID PRN Tramadol Hcl (Tramadol HCl) 50 Mg Tablet 50 Mg PO PRN Q6HRS PRN Lorazepam 1 Mg Tablet 1 Mg PO PRN Q4HRS PRN Zoloft (Sertraline Hcl) 50 Mg Tablet 50 Mg PO DAILY Protonix (Pantoprazole Sodium) 40 Mg Tablet.dr 40 Mg PO DAILY Zyprexa Zydis (Olanzapine) 5 Mg Tab.rapdis 2.5 Mg PO PRN Q2HR PRN Thera M Plus Tablet (Multivits,Ca,Minerals/Iron/FA) 1 Each Tablet 1 Tab PO DAILY I-Roya Tablet (Vit A,C & E/Lutein/Minerals) 1 Each Tablet 1 Tab PO DAILY Analgesic [place] (Methyl Salicylate/Menthol) 29 Gm Oint...g. 1 Vik TP PRN QID PRN Milk Of Magnesia (Magnesium Hydroxide) 2,400 Mg/10 Ml Oral.susp 2,400 Mg PO PRN QHS PRN Mag-Al Plus Xs Suspension (Mag Hydrox/Al Hydrox/Simeth) 30 Ml Oral.susp 15 Ml PO PRN AFTMEALHC PRN Cozaar (Losartan Potassium) 100 Mg Tablet 100 Mg PO DAILY Depakote Sprinkle (Divalproex Sodium) 125 Mg Cap.sprink 125 Mg PO TID Vitamin B-12 (Cyanocobalamin (Vitamin B-12)) 1,000 Mcg Tablet 1,000 Mcg PO DAILY Tylenol (Acetaminophen) 325 Mg Tablet 650 Mg PO PRN Q6HRS PRN Seroquel (Quetiapine Fumarate) 100 Mg Tablet 100 Mg PO HS Plavix (Clopidogrel Bisulfate) 75 Mg Tablet 75 Mg PO DAILY Atorvastatin Calcium 40 Mg Tablet 40 Mg PO QHS Atenolol 25 Mg Tablet 25 Mg PO BID MARTHA SRINIVASAN MD Apr 10, 2017 20:50
--- NOTE | 2017-04-10 21:22 | PDOC ---
Exam Mauricio Demential Exam: Mauricio Note: Please also refer to the separate dictated note~for this date of service dictated separately.~Patient seen individually. Discussed the patient with Nursing staff reviewed the chart.~Reviewed interim history and current functioning. Reviewed vital signs,~Labs/ Radiology~and current medications noted below. Continue current treatment with the changes noted in the dictated addendum note S/O: This is a late entry for date of service 04/07/2017. I met with the patient individually on evening of April 07, discussed with nursing staff, and reviewed the chart. This note covers elements not covered in my initial note. The patient has done better. Remains confused. Unsteady gait. I met with him in his room. Review of Systems: No CV, , Pulmonary, Eye, ENT system symptoms on review. Reliability poor. MSE: Oriented to himself. Insight and judgment, recent and remote memory, attention and concentration, fund of knowledge poor consistent with his diagnosis mentioned in my initial note. Imp: Unchanged from initial note. Plan: Continue current psychotropics for now. Assessment: Vital Signs: Vital Signs Date Time Temp Pulse Resp B/P (MAP) Pulse Ox O2 Delivery O2 Flow Rate FiO2 04/10/17 19:25 82 153/78 04/10/17 16:00 97.2 19 94 04/08/17 15:31 Room Air I&O Intake and Output 04/10/17 07:00 Intake Total 1080 ml Balance 1080 ml Intake Oral 1080 ml # Bowel Movements 2 Current Medications: Meds: Current Medications Lorazepam (Ativan) 1 mg 1X ONCE PO Last administered on 03/28/17 21:01; Start 03/28/17 at 21:00; Stop 03/28/17 at 21:05; Status DC Haloperidol (Haldol) 5 mg 1X ONCE PO Last administered on 03/28/17 21:01; Start 03/28/17 at 21:00; Stop 03/28/17 at 21:05; Status DC Acetaminophen (Tylenol) 650 mg PRN Q6HRS PRN PO PAIN / TEMP Last administered on 04/05/17 20:59; Start 03/28/17 at 23:15 Multi-Ingredient Ointment (Analgesic [place]) 1 vik PRN QID PRN TP MUSCLE PAIN; Start 03/28/17 at 23:15 Al Hydroxide/Mg Hydroxide (Mylanta Plus Xs) 15 ml PRN AFTMEALHC PRN PO DYSPEPSIA; Start 03/28/17 at 23:15 Magnesium Hydroxide (Milk Of Magnesia) 2,400 mg PRN QHS PRN PO CONSTIPATION; Start 03/28/17 at 23:15 Divalproex Sodium (Depakote Sprinkles) 125 mg TID PO Last administered on 14:13; Start 03/29/17 at 09:00; Stop 03/29/17 at 18:20; Status DC Lorazepam (Ativan) 1 mg PRN Q4HRS PRN PO ANXIETY Last administered on 14:18; Start 03/28/17 at 23:30 Olanzapine (ZyPREXA ZYDIS) 2.5 mg PRN Q2HR PRN PO PSYCHOSIS Last administered on 04/05/17 20:44; Start 03/28/17 at 23:30 Quetiapine Fumarate (SEROquel) 100 mg HS PO Last administered on 04/10/17 19: 25; Start 03/29/17 at 21:00 Sertraline HCl (Zoloft) 50 mg DAILY PO Last administered on 04/10/17 07:35; Start 03/29/17 at 09:00 Acetaminophen (Tylenol) 650 mg PRN Q6HRS PRN PO pain/temp; Start 03/28/17 at 23: 30; Status UNV Atenolol (Tenormin) 25 mg BID PO Last administered on 04/10/17 19:25; Start at 09:00 Clopidogrel Bisulfate (Plavix) 75 mg DAILY PO Last administered on 04/10/17 07 :35; Start 03/29/17 at 09:00 Cyanocobalamin (Vitamin B-12) 1,000 mcg DAILY PO Last administered on 07:35; Start 03/29/17 at 09:00 Al Hydroxide/Mg Hydroxide (Mylanta Plus Xs) 15 ml PRN AFTMEALHC PRN PO DYSPEPSIA; Start 03/28/17 at 23:30; Status UNV Multi-Ingredient Ointment (Analgesic [place]) 1 vik PRN QID PRN TP MUSCLE PAIN; Start 03/28/17 at 23:30; Status UNV Multivitamins/ Calcium (Thera-M Plus) 1 tab DAILY PO Last administered on 07:36; Start 03/29/17 at 09:00 Pantoprazole Sodium (Protonix) 40 mg DAILYAC PO Last administered on 04/10/17 07:35; Start 03/29/17 at 07:30 Tramadol HCl (Ultram) 50 mg PRN BID PRN PO MODERATE PAIN; Start 03/28/17 at 23: 30; Status Cancel Tramadol HCl (Ultram) 50 mg PRN Q6HRS PRN PO MODERATE PAIN Last administered on 03/29/17 03:55; Start 03/28/17 at 23:30 Multivitamins/ Minerals (I-Roya) 1 tab DAILY PO Last administered on 04/10/17 07:35; Start 03/29/17 at 09:00 Atorvastatin Calcium (Lipitor) 40 mg QHS PO Last administered on 04/10/17 19: 25; Start 03/29/17 at 21:00 Losartan Potassium (Cozaar) 100 mg DAILY PO Last administered on 04/06/17 08: 10; Start 03/29/17 at 09:00; Stop 04/06/17 at 16:37; Status DC Non-Formulary Medication 2,400 mg PRN QHS PRN PO CONSTIPATION; Start 03/28/17 at 23:30; Status UNV Divalproex Sodium (Depakote Sprinkles) 250 mg TID PO Last administered on 14:13; Start 03/29/17 at 21:00; Stop 04/03/17 at 18:21; Status DC Quetiapine Fumarate (SEROquel) 25 mg [id number] PO Last administered on 04/02/17 14 :12; Start 04/01/17 at 09:00; Stop 04/02/17 at 19:29; Status DC Quetiapine Fumarate (SEROquel) 12.5 mg DAILYWLUN PO Last administered on 12:17; Start 04/02/17 at 12:00; Stop 04/04/17 at 09:42; Status DC Quetiapine Fumarate (SEROquel) 25 mg [id number] PO Last administered on 04/08/17 16 :38; Start 04/03/17 at 09:00; Stop 04/08/17 at 19:04; Status DC Divalproex Sodium (Depakote Sprinkles) 375 mg BID PO Last administered on 19:26; Start 04/03/17 at 21:00 Divalproex Sodium (Depakote Sprinkles) 250 mg 1400 PO Last administered on 04/10 13:53; Start 04/04/17 at 14:00 Quetiapine Fumarate (SEROquel) 25 mg DAILYWLUN PO Last administered on 11:58; Start 04/04/17 at 12:00; Stop 04/08/17 at 19:04; Status DC Losartan Potassium (Cozaar) 50 mg BID PO Last administered on 04/10/17 19:25; Start 04/06/17 at 21:00 Quetiapine Fumarate (SEROquel) 12.5 mg [id number] PO Last administered on 04/10/17 16:35; Start 04/09/17 at 09:00 Quetiapine Fumarate (SEROquel) 12.5 mg DAILYWLUN PO Last administered on 13:53; Start 04/09/17 at 12:00 Active Scripts Active Reported Tramadol Hcl (Tramadol HCl) 50 Mg Tablet 50 Mg PO BID PRN Tramadol Hcl (Tramadol HCl) 50 Mg Tablet 50 Mg PO PRN Q6HRS PRN Lorazepam 1 Mg Tablet 1 Mg PO PRN Q4HRS PRN Zoloft (Sertraline Hcl) 50 Mg Tablet 50 Mg PO DAILY Protonix (Pantoprazole Sodium) 40 Mg Tablet.dr 40 Mg PO DAILY Zyprexa Zydis (Olanzapine) 5 Mg Tab.rapdis 2.5 Mg PO PRN Q2HR PRN Thera M Plus Tablet (Multivits,Ca,Minerals/Iron/FA) 1 Each Tablet 1 Tab PO DAILY I-Roya Tablet (Vit A,C & E/Lutein/Minerals) 1 Each Tablet 1 Tab PO DAILY Analgesic [place] (Methyl Salicylate/Menthol) 29 Gm Oint...g. 1 Vik TP PRN QID PRN Milk Of Magnesia (Magnesium Hydroxide) 2,400 Mg/10 Ml Oral.susp 2,400 Mg PO PRN QHS PRN Mag-Al Plus Xs Suspension (Mag Hydrox/Al Hydrox/Simeth) 30 Ml Oral.susp 15 Ml PO PRN AFTMEALHC PRN Cozaar (Losartan Potassium) 100 Mg Tablet 100 Mg PO DAILY Depakote Sprinkle (Divalproex Sodium) 125 Mg Cap.sprink 125 Mg PO TID Vitamin B-12 (Cyanocobalamin (Vitamin B-12)) 1,000 Mcg Tablet 1,000 Mcg PO DAILY Tylenol (Acetaminophen) 325 Mg Tablet 650 Mg PO PRN Q6HRS PRN Seroquel (Quetiapine Fumarate) 100 Mg Tablet 100 Mg PO HS Plavix (Clopidogrel Bisulfate) 75 Mg Tablet 75 Mg PO DAILY Atorvastatin Calcium 40 Mg Tablet 40 Mg PO QHS Atenolol 25 Mg Tablet 25 Mg PO BID MARTHA SRINIVASAN MD Apr 10, 2017 21:22
[2017-04-11 05:37] VITALS: BP 136/68
[2017-04-11] MEDS: CYANOCOBALAMIN (VITAMIN B-12) 1,000 MCG TABLET. PO SCH (08:46)
[2017-04-11] MEDS: MULTIVITAMIN I-VITE TABLET. PO SCH (08:46)
[2017-04-11 08:47] VITALS: BP 136/68
[2017-04-11] MEDS: QUEtiapine 25 MG TABLET. PO SCH (08:47)
[2017-04-11] MEDS: DIVALPROEX 125 MG CAP.SPRINK PO SCH (08:47)
[2017-04-11] MEDS: CLOPIDOGREL BISULFATE 75 MG TABLET PO SCH (08:47)
[2017-04-11] MEDS: SERTRALINE 50 MG TABLET. PO SCH (08:47)
[2017-04-11] MEDS: ATENOLOL 25 MG TABLET PO SCH (08:47)
[2017-04-11] MEDS: MULTIVITAMIN with MINERAL TABLET. PO SCH (08:47)
[2017-04-11] MEDS: PANTOPRAZOLE 40 MG TABLET. PO SCH (08:47)
[2017-04-11] MEDS: LOSARTAN 50 MG TABLET. PO SCH (08:47)
[2017-04-11] MEDS ORDERED: QUEtiapine 25 MG TABLET. PO SCH (12:00)
[2017-04-11 12:27] LABS: BASO # 0.1 x10^3/uL (0.0-0.2); BASO % 1 % (0-3); EOS # 0.5 x10^3/uL (0.0-0.7); EOS % 6 % (0-3); HEMATOCRIT 35.4 % (39.0-53.0); HEMOGLOBIN 11.6 g/dL (13.0-17.5); LYMPH # 1.9 x10^3/uL (1.0-4.8); LYMPH % 21 % (24-48); MEAN CORPUSCULAR HEMOGLOBIN 30 pg (25-35); MEAN CORPUSCULAR HGB CONC 33 g/dL (31-37); MEAN CORPUSCULAR VOLUME 91 fL (79-100); MONO # 0.8 x10^3/uL (0.0-1.1); MONO % 9 % (0-9); NEUT # 5.5 x10^3uL (1.8-7.7); NEUT % 63 % (31-73); PLATELET COUNT 245 x10^3/uL (140-400); RED CELL DISTRIBUTION WIDTH 15.5 % (11.5-14.5); WHITE BLOOD COUNT 8.8 x10^3/uL (4.0-11.0)
--- NOTE | 2017-04-11 12:27 | EKG ---
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
[2017-04-11 12:41] LABS: ALBUMIN 3.3 g/dL (3.4-5.0); ALBUMIN/GLOBULIN RATIO 0.9 (1.0-1.7); ALK PHOS 58 U/L (46-116); ALT (SGPT) 25 U/L (16-63); ANION GAP 11 (6-14); AST (SGOT) 29 U/L (15-37); BLOOD UREA NITROGEN 36 mg/dL (8-26); BUN/CREATININE RATIO 24 (6-20); CALCIUM 8.8 mg/dL (8.5-10.1); CARBON DIOXIDE 26 mmol/L (21-32); CHLORIDE 105 mmol/L (98-107); CREATININE 1.5 mg/dL (0.7-1.3); GFR 44.4; GLUCOSE 89 mg/dL (70-99); MAGNESIUM 1.9 mg/dL (1.8-2.4); SODIUM 142 mmol/L (136-145); TOTAL BILIRUBIN 0.5 mg/dL (0.2-1.0); VAL ACID 63 mcg/mL (50-100)
[2017-04-11] MEDS ORDERED: DIVA125C PO (13:44)
[2017-04-11] MEDS ORDERED: QUET25TA5 PO (13:47)
--- NOTE | 2017-04-11 14:21 | RAD ---
EXAM: CT OF THE CHEST, ABDOMEN AND PELVIS WITHOUT INTRAVENOUS CONTRAST. HISTORY: Diffuse chest and abdominal pain. Altered mental status, seizures. TECHNIQUE: Computed tomography of the chest, abdomen and pelvis was performed without intravenous contrast. COMPARISON: None. FINDINGS: Bone windows reveal no suspicious lesions. There is a moderate Schmorl's node at the superior endplate of L4. There is slight grade 1 anterolisthesis at L5-S1 from bilateral chronic L5 pars interarticularis defects. There are no pathologically enlarged mediastinal or axillary lymph nodes. Calcified mediastinal lymph nodes are likely secondary to old granulomatous disease. There is no pleural or pericardial effusion. The heart is not enlarged. A cardiac monitoring devices noted. There are calcifications of the aortic valve and coronary arteries. There is respiratory motion artifact in the lung bases. Biapical centrilobular emphysema and pleural parenchymal scarring are moderate. There is dependent atelectasis in the costophrenic angles. A gallstone is suspected dependently in the gallbladder. There is no pericholecystic inflammation. There is a 17 mm slightly hypoattenuating nodule arising exophytically along the posterior aspect of hepatic segment 7. The pancreas, spleen, adrenal glands and kidneys are unremarkable without contrast. There are no pathologically enlarged lymph nodes. The appendix is surgically absent. There is no obstruction. Changes of left femoral bypass are partially visualized. IMPRESSION: 1. Moderate biapical emphysema. 2. Aortic valve calcifications. Correlate for aortic stenosis. 3. A 17 mm exophytic nodule along the posterior aspect of hepatic segment 7 is statistically most likely a benign lesion in the absence of known malignancy. 4. Suspect a small gallstone. No CT evidence of acute cholecystitis. 5. 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 *One or more of the following individualized dose reduction techniques were utilized for this examination: 1. Automated exposure control. 2. Adjustment of the mA and/or kV according to patient size. 3. Use of iterative reconstruction technique.
--- NOTE | 2017-04-11 20:17 | PDOC3 ---
Discharge Summary Visit Information Final Diagnosis Problems Medical Problems: (1) Dementia in Alzheimer's disease with delusions Status: Acute Problems: Brief Hospital Course Allergies Allergies Coded Allergies Type Severity Reaction Last Updated Verified No Known Drug Allergies 01/18/17 No Vital Signs Vital Signs Date Time Temp Pulse Resp B/P (MAP) Pulse Ox O2 Delivery O2 Flow Rate FiO2 04/11/17 08:47 60 136/68 04/11/17 05:37 97.7 18 96 04/08/17 15:31 Room Air Lab Results Laboratory Tests Test 04/11/17 12:20 White Blood Count 8.8 x10^3/uL (4.0-11.0) Red Blood Count 3.90 x10^6/uL (4.30-5.70) Hemoglobin 11.6 g/dL (13.0-17.5) Hematocrit 35.4 % (39.0-53.0) Mean Corpuscular Volume 91 fL (79-100) Mean Corpuscular Hemoglobin 30 pg (25-35) Mean Corpuscular Hemoglobin Concent 33 g/dL (31-37) Red Cell Distribution Width 15.5 % (11.5-14.5) Platelet Count 245 x10^3/uL (140-400) Neutrophils (%) (Auto) 63 % (31-73) Lymphocytes (%) (Auto) 21 % (24-48) Monocytes (%) (Auto) 9 % (0-9) Eosinophils (%) (Auto) 6 % (0-3) Basophils (%) (Auto) 1 % (0-3) Neutrophils # (Auto) 5.5 x10^3uL (1.8-7.7) Lymphocytes # (Auto) 1.9 x10^3/uL (1.0-4.8) Monocytes # (Auto) 0.8 x10^3/uL (0.0-1.1) Eosinophils # (Auto) 0.5 x10^3/uL (0.0-0.7) Basophils # (Auto) 0.1 x10^3/uL (0.0-0.2) Sodium Level 142 mmol/L (136-145) Potassium Level 4.0 mmol/L (3.5-5.1) Chloride Level 105 mmol/L (98-107) Carbon Dioxide Level 26 mmol/L (21-32) Anion Gap 11 (6-14) Blood Urea Nitrogen 36 mg/dL (8-26) Creatinine 1.5 mg/dL (0.7-1.3) Estimated GFR (Cockcroft-Gault) 44.4 BUN/Creatinine Ratio 24 (6-20) Glucose Level 89 mg/dL (70-99) Lactic Acid Level 4.0 mmol/L (0.4-2.0) Calcium Level 8.8 mg/dL (8.5-10.1) Magnesium Level 1.9 mg/dL (1.8-2.4) Total Bilirubin 0.5 mg/dL (0.2-1.0) Aspartate Amino Transf (AST/SGOT) 29 U/L (15-37) Alanine Aminotransferase (ALT/SGPT) 25 U/L (16-63) Alkaline Phosphatase 58 U/L (46-116) Creatine Kinase 167 U/L (39-308) Creatine Kinase MB (Mass) 5.3 ng/mL (0.0-3.6) Creatine Kinase MB Relative Index 3.2 % (0-4) Total Protein 7.0 g/dL (6.4-8.2) Albumin 3.3 g/dL (3.4-5.0) Albumin/Globulin Ratio 0.9 (1.0-1.7) Valproic Acid (Depakene) Level 63 mcg/mL (50-100) Valproic Acid Last Dose Date 04/11/17 Valproic Acid Last Dose Time 0900 Brief Hospital Course Mr. Aguilar is a 86 old [sex] who presented with [ ] This is a late entry for date of service April 08 covers elements not covered in my initial note. Reason for Admission: Please refer to the admission history for details. Briefly, the patient is 77-year-old male referred to us from [facility] in [place], [place] but he presented from [facility]. At the hospital, he was quite delirious, confused, physically attacking staff, combative, resistive to care with medications. He is noncompliant with his medications, which made treatment of his delirium and psychosis even more complicated. He was deemed a potential danger, unable to return home or to senior care, referred to us for psychiatric stabilization. Significant Findings/Clinical Course Following admission: The patient was seen daily individually by myself, followed medically per Dr. Mina/Dr. Nails. He remained confused, forgetful, and intermittently more coherent. Adjustments were made in the psychotropics and he seemed to respond to a combination of Aricept 10 mg a day, Namenda 10 mg b.i.d., Seroquel 50 mg t.i.d., Depakote 250 mg a.m. and 500 mg h.s. with the level therapeutic at 65. He was also on Seroquel 25 mg q. 4 hours p.r.n.; trazodone 50 mg h.s. p.r.n., january repeat x1; Ativan p.r.n.; BuSpar 10 mg t.i.d.; trazodone t.i.d. scheduled during the day for his anxiety and mood lability. Condition at Discharge: Improved prior to discharge. Review of Systems: Impaired ambulation, in wheelchair. No CV, , Pulmonary, Eye system symptoms on review. MSE: Oriented to himself. Somewhat delusional at times but he believes he has to go to work. Insight, judgment, recent and remote memory are impaired. Language function is intact. Mood and affect lability is improved. Final Diagnoses: Major neurocognitive disorder, early Alzheimer's vascular with delirium, delusion, behavioral disturbance; anxiety disorder, unspecified; impulse control disorder, unspecified. Rest unchanged from admission. Discharge Medications: Please refer to the EMRAD. Outpatient psychiatric and medical followup at the senior care. Discharge Information Dischare Medications Current Medications Lorazepam (Ativan) 1 mg 1X ONCE PO Last administered on 03/28/17 21:01; Start 03/28/17 at 21:00; Stop 03/28/17 at 21:05; Status DC Haloperidol (Haldol) 5 mg 1X ONCE PO Last administered on 03/28/17 21:01; Start 03/28/17 at 21:00; Stop 03/28/17 at 21:05; Status DC Acetaminophen (Tylenol) 650 mg PRN Q6HRS PRN PO PAIN / TEMP Last administered on 04/05/17 20:59; Start 03/28/17 at 23:15; Stop 04/11/17 at 13:53; Status DC Multi-Ingredient Ointment (Analgesic [place]) 1 vik PRN QID PRN TP MUSCLE PAIN; Start 03/28/17 at 23:15; Stop 04/11/17 at 13:53; Status DC Al Hydroxide/Mg Hydroxide (Mylanta Plus Xs) 15 ml PRN AFTMEALHC PRN PO DYSPEPSIA; Start 03/28/17 at 23:15; Stop 04/11/17 at 13:53; Status DC Magnesium Hydroxide (Milk Of Magnesia) 2,400 mg PRN QHS PRN PO CONSTIPATION; Start 03/28/17 at 23:15; Stop 04/11/17 at 13:53; Status DC Divalproex Sodium (Depakote Sprinkles) 125 mg TID PO Last administered on 14:13; Start 03/29/17 at 09:00; Stop 03/29/17 at 18:20; Status DC Lorazepam (Ativan) 1 mg PRN Q4HRS PRN PO ANXIETY Last administered on 14:18; Start 03/28/17 at 23:30; Stop 04/11/17 at 13:53; Status DC Olanzapine (ZyPREXA ZYDIS) 2.5 mg PRN Q2HR PRN PO PSYCHOSIS Last administered on 04/05/17 20:44; Start 03/28/17 at 23:30; Stop 04/11/17 at 13:53; Status DC Quetiapine Fumarate (SEROquel) 100 mg HS PO Last administered on 04/10/17 19: 25; Start 03/29/17 at 21:00; Stop 04/11/17 at 13:53; Status DC Sertraline HCl (Zoloft) 50 mg DAILY PO Last administered on 04/11/17 08:47; Start 03/29/17 at 09:00; Stop 04/11/17 at 13:53; Status DC Acetaminophen (Tylenol) 650 mg PRN Q6HRS PRN PO pain/temp; Start 03/28/17 at 23: 30; Status UNV Atenolol (Tenormin) 25 mg BID PO Last administered on 04/11/17 08:47; Start at 09:00; Stop 04/11/17 at 13:53; Status DC Clopidogrel Bisulfate (Plavix) 75 mg DAILY PO Last administered on 04/11/17 08 :47; Start 03/29/17 at 09:00; Stop 04/11/17 at 13:53; Status DC Cyanocobalamin (Vitamin B-12) 1,000 mcg DAILY PO Last administered on 08:46; Start 03/29/17 at 09:00; Stop 04/11/17 at 13:53; Status DC Al Hydroxide/Mg Hydroxide (Mylanta Plus Xs) 15 ml PRN AFTMEALHC PRN PO DYSPEPSIA; Start 03/28/17 at 23:30; Status UNV Multi-Ingredient Ointment (Analgesic [place]) 1 vik PRN QID PRN TP MUSCLE PAIN; Start 03/28/17 at 23:30; Status UNV Multivitamins/ Calcium (Thera-M Plus) 1 tab DAILY PO Last administered on 08:47; Start 03/29/17 at 09:00; Stop 04/11/17 at 13:53; Status DC Pantoprazole Sodium (Protonix) 40 mg DAILYAC PO Last administered on 04/11/17 08:47; Start 03/29/17 at 07:30; Stop 04/11/17 at 13:53; Status DC Tramadol HCl (Ultram) 50 mg PRN BID PRN PO MODERATE PAIN; Start 03/28/17 at 23: 30; Status Cancel Tramadol HCl (Ultram) 50 mg PRN Q6HRS PRN PO MODERATE PAIN Last administered on 03/29/17 03:55; Start 03/28/17 at 23:30; Stop 04/11/17 at 13:53; Status DC Multivitamins/ Minerals (I-Roya) 1 tab DAILY PO Last administered on 04/11/17 08:46; Start 03/29/17 at 09:00; Stop 04/11/17 at 13:53; Status DC Atorvastatin Calcium (Lipitor) 40 mg QHS PO Last administered on 04/10/17 19: 25; Start 03/29/17 at 21:00; Stop 04/11/17 at 13:53; Status DC Losartan Potassium (Cozaar) 100 mg DAILY PO Last administered on 04/06/17 08: 10; Start 03/29/17 at 09:00; Stop 04/06/17 at 16:37; Status DC Non-Formulary Medication 2,400 mg PRN QHS PRN PO CONSTIPATION; Start 03/28/17 at 23:30; Status UNV Divalproex Sodium (Depakote Sprinkles) 250 mg TID PO Last administered on 14:13; Start 03/29/17 at 21:00; Stop 04/03/17 at 18:21; Status DC Quetiapine Fumarate (SEROquel) 25 mg [id number] PO Last administered on 04/02/17 14 :12; Start 04/01/17 at 09:00; Stop 04/02/17 at 19:29; Status DC Quetiapine Fumarate (SEROquel) 12.5 mg DAILYWLUN PO Last administered on 12:17; Start 04/02/17 at 12:00; Stop 04/04/17 at 09:42; Status DC Quetiapine Fumarate (SEROquel) 25 mg BID94 PO Last administered on 04/08/17 16 :38; Start 04/03/17 at 09:00; Stop 04/08/17 at 19:04; Status DC Divalproex Sodium (Depakote Sprinkles) 375 mg BID PO Last administered on 08:47; Start 04/03/17 at 21:00; Stop 04/11/17 at 13:53; Status DC Divalproex Sodium (Depakote Sprinkles) 250 mg 1400 PO Last administered on 04/10 13:53; Start 04/04/17 at 14:00; Stop 04/11/17 at 13:53; Status DC Quetiapine Fumarate (SEROquel) 25 mg DAILYWLUN PO Last administered on 11:58; Start 04/04/17 at 12:00; Stop 04/08/17 at 19:04; Status DC Losartan Potassium (Cozaar) 50 mg BID PO Last administered on 04/11/17 08:47; Start 04/06/17 at 21:00; Stop 04/11/17 at 13:53; Status DC Quetiapine Fumarate (SEROquel) 12.5 mg BID94 PO Last administered on 04/11/17 08:47; Start 04/09/17 at 09:00; Stop 04/11/17 at 11:07; Status DC Quetiapine Fumarate (SEROquel) 12.5 mg DAILYWLUN PO Last administered on t 13:53; Start 04/09/17 at 12:00; Stop 04/11/17 at 11:07; Status DC Quetiapine Fumarate (SEROquel) 12.5 mg TIDWMEALS PO Last administered on 11:19; Start 04/11/17 at 12:00; Stop 04/11/17 at 13:53; Status DC Active Scripts Active Reported Seroquel (Quetiapine Fumarate) 25 Mg Tablet 12.5 Mg PO TIDWMEALS Depakote Sprinkle (Divalproex Sodium) 125 Mg Cap.sprink 250 Mg PO 1400 Tramadol Hcl (Tramadol HCl) 50 Mg Tablet 50 Mg PO PRN Q6HRS PRN Lorazepam 1 Mg Tablet 1 Mg PO PRN Q4HRS PRN Zoloft (Sertraline Hcl) 50 Mg Tablet 50 Mg PO DAILY Protonix (Pantoprazole Sodium) 40 Mg Tablet.dr 40 Mg PO DAILY Zyprexa Zydis (Olanzapine) 5 Mg Tab.rapdis 2.5 Mg PO PRN Q2HR PRN Thera M Plus Tablet (Multivits,Ca,Minerals/Iron/FA) 1 Each Tablet 1 Tab PO DAILY Analgesic [place] (Methyl Salicylate/Menthol) 29 Gm Oint...g. 1 Vik TP PRN QID PRN Milk Of Magnesia (Magnesium Hydroxide) 2,400 Mg/10 Ml Oral.susp 2,400 Mg PO PRN QHS PRN Mag-Al Plus Xs Suspension (Mag Hydrox/Al Hydrox/Simeth) 30 Ml Oral.susp 15 Ml PO PRN AFTMEALHC PRN Cozaar (Losartan Potassium) 100 Mg Tablet 50 Mg PO BID Depakote Sprinkle (Divalproex Sodium) 125 Mg Cap.sprink 375 Mg PO BID Vitamin B-12 (Cyanocobalamin (Vitamin B-12)) 1,000 Mcg Tablet 1,000 Mcg PO DAILY Tylenol (Acetaminophen) 325 Mg Tablet 650 Mg PO PRN Q6HRS PRN Seroquel (Quetiapine Fumarate) 100 Mg Tablet 100 Mg PO HS Plavix (Clopidogrel Bisulfate) 75 Mg Tablet 75 Mg PO DAILY Atorvastatin Calcium 40 Mg Tablet 40 Mg PO QHS Atenolol 25 Mg Tablet 25 Mg PO BID MARTHA SRINIVASAN MD Apr 11, 2017 20:17
--- NOTE | 2017-04-11 21:06 | PDOC ---
Exam Mauricio Demential Exam: Mauricio Note: Please also refer to the separate dictated note~for this date of service dictated separately.~Patient seen individually. Discussed the patient with Nursing staff reviewed the chart.~Reviewed interim history and current functioning. Reviewed vital signs,~Labs/ Radiology~and current medications noted below. Continue current treatment with the changes noted in the dictated addendum note S/O: This is a late entry of April 08 covers elements not covered in my initial note. The patient slept 7 hours last night. Gait has been unsteady. He had falls and he is in a Broda chair. Review of systems: No CV, , Pulmonary, Eye, ENT system symptoms on review. Reliability poor. MSE: Oriented to himself. Insight, judgment, recent and remote memory, attention, concentration, and fund of knowledge are poor consistent with his diagnosis mentioned in my initial note. Plan: On account of his impaired gait, we will reduce Seroquel from 25 mg t.i.d. to 12.5 mg t.i.d. Start physical therapy. Maintain rest of the psychotropics for now. Assessment: Vital Signs: Vital Signs Date Time Temp Pulse Resp B/P (MAP) Pulse Ox O2 Delivery O2 Flow Rate FiO2 04/11/17 08:47 60 136/68 04/11/17 05:37 97.7 18 96 04/08/17 15:31 Room Air I&O Intake and Output 04/11/17 07:00 Intake Total 780 ml Balance 780 ml Intake Oral 780 ml Labs: Laboratory Tests Test 04/11/17 12:20 White Blood Count 8.8 x10^3/uL (4.0-11.0) Red Blood Count 3.90 x10^6/uL (4.30-5.70) L Hemoglobin 11.6 g/dL (13.0-17.5) L Hematocrit 35.4 % (39.0-53.0) L Mean Corpuscular Volume 91 fL (79-100) Mean Corpuscular Hemoglobin 30 pg (25-35) Mean Corpuscular Hemoglobin Concent 33 g/dL (31-37) Red Cell Distribution Width 15.5 % (11.5-14.5) H Platelet Count 245 x10^3/uL (140-400) Neutrophils (%) (Auto) 63 % (31-73) Lymphocytes (%) (Auto) 21 % (24-48) L Monocytes (%) (Auto) 9 % (0-9) Eosinophils (%) (Auto) 6 % (0-3) H Basophils (%) (Auto) 1 % (0-3) Neutrophils # (Auto) 5.5 x10^3uL (1.8-7.7) Lymphocytes # (Auto) 1.9 x10^3/uL (1.0-4.8) Monocytes # (Auto) 0.8 x10^3/uL (0.0-1.1) Eosinophils # (Auto) 0.5 x10^3/uL (0.0-0.7) Basophils # (Auto) 0.1 x10^3/uL (0.0-0.2) Sodium Level 142 mmol/L (136-145) Potassium Level 4.0 mmol/L (3.5-5.1) Chloride Level 105 mmol/L (98-107) Carbon Dioxide Level 26 mmol/L (21-32) Anion Gap 11 (6-14) Blood Urea Nitrogen 36 mg/dL (8-26) H Creatinine 1.5 mg/dL (0.7-1.3) H Estimated GFR (Cockcroft-Gault) 44.4 BUN/Creatinine Ratio 24 (6-20) H Glucose Level 89 mg/dL (70-99) Lactic Acid Level 4.0 mmol/L (0.4-2.0) *H Calcium Level 8.8 mg/dL (8.5-10.1) Magnesium Level 1.9 mg/dL (1.8-2.4) Total Bilirubin 0.5 mg/dL (0.2-1.0) Aspartate Amino Transferase (AST) 29 U/L (15-37) Alanine Aminotransferase (ALT) 25 U/L (16-63) Alkaline Phosphatase 58 U/L (46-116) Creatine Kinase 167 U/L (39-308) Creatine Kinase MB (Mass) 5.3 ng/mL (0.0-3.6) H Creatine Kinase MB Relative Index 3.2 % (0-4) Total Protein 7.0 g/dL (6.4-8.2) Albumin 3.3 g/dL (3.4-5.0) L Albumin/Globulin Ratio 0.9 (1.0-1.7) L Valproic Acid Level 63 mcg/mL (50-100) Valproic Acid Last Dose Date 04/11/17 Valproic Acid Last Dose Time 0900 Current Medications: Meds: Current Medications Lorazepam (Ativan) 1 mg 1X ONCE PO Last administered on 03/28/17 21:01; Start 03/28/17 at 21:00; Stop 03/28/17 at 21:05; Status DC Haloperidol (Haldol) 5 mg 1X ONCE PO Last administered on 03/28/17 21:01; Start 03/28/17 at 21:00; Stop 03/28/17 at 21:05; Status DC Acetaminophen (Tylenol) 650 mg PRN Q6HRS PRN PO PAIN / TEMP Last administered on 04/05/17 20:59; Start 03/28/17 at 23:15; Stop 04/11/17 at 13:53; Status DC Multi-Ingredient Ointment (Analgesic [place]) 1 vik PRN QID PRN TP MUSCLE PAIN; Start 03/28/17 at 23:15; Stop 04/11/17 at 13:53; Status DC Al Hydroxide/Mg Hydroxide (Mylanta Plus Xs) 15 ml PRN AFTMEALHC PRN PO DYSPEPSIA; Start 03/28/17 at 23:15; Stop 04/11/17 at 13:53; Status DC Magnesium Hydroxide (Milk Of Magnesia) 2,400 mg PRN QHS PRN PO CONSTIPATION; Start 03/28/17 at 23:15; Stop 04/11/17 at 13:53; Status DC Divalproex Sodium (Depakote Sprinkles) 125 mg TID PO Last administered on 14:13; Start 03/29/17 at 09:00; Stop 03/29/17 at 18:20; Status DC Lorazepam (Ativan) 1 mg PRN Q4HRS PRN PO ANXIETY Last administered on 14:18; Start 03/28/17 at 23:30; Stop 04/11/17 at 13:53; Status DC Olanzapine (ZyPREXA ZYDIS) 2.5 mg PRN Q2HR PRN PO PSYCHOSIS Last administered on 04/05/17 20:44; Start 03/28/17 at 23:30; Stop 04/11/17 at 13:53; Status DC Quetiapine Fumarate (SEROquel) 100 mg HS PO Last administered on 04/10/17 19: 25; Start 03/29/17 at 21:00; Stop 04/11/17 at 13:53; Status DC Sertraline HCl (Zoloft) 50 mg DAILY PO Last administered on 04/11/17 08:47; Start 03/29/17 at 09:00; Stop 04/11/17 at 13:53; Status DC Acetaminophen (Tylenol) 650 mg PRN Q6HRS PRN PO pain/temp; Start 03/28/17 at 23: 30; Status UNV Atenolol (Tenormin) 25 mg BID PO Last administered on 04/11/17 08:47; Start at 09:00; Stop 04/11/17 at 13:53; Status DC Clopidogrel Bisulfate (Plavix) 75 mg DAILY PO Last administered on 04/11/17 08 :47; Start 03/29/17 at 09:00; Stop 04/11/17 at 13:53; Status DC Cyanocobalamin (Vitamin B-12) 1,000 mcg DAILY PO Last administered on 08:46; Start 03/29/17 at 09:00; Stop 04/11/17 at 13:53; Status DC Al Hydroxide/Mg Hydroxide (Mylanta Plus Xs) 15 ml PRN AFTMEALHC PRN PO DYSPEPSIA; Start 03/28/17 at 23:30; Status UNV Multi-Ingredient Ointment (Analgesic [place]) 1 vik PRN QID PRN TP MUSCLE PAIN; Start 03/28/17 at 23:30; Status UNV Multivitamins/ Calcium (Thera-M Plus) 1 tab DAILY PO Last administered on 08:47; Start 03/29/17 at 09:00; Stop 04/11/17 at 13:53; Status DC Pantoprazole Sodium (Protonix) 40 mg DAILYAC PO Last administered on 04/11/17 08:47; Start 03/29/17 at 07:30; Stop 04/11/17 at 13:53; Status DC Tramadol HCl (Ultram) 50 mg PRN BID PRN PO MODERATE PAIN; Start 03/28/17 at 23: 30; Status Cancel Tramadol HCl (Ultram) 50 mg PRN Q6HRS PRN PO MODERATE PAIN Last administered on 03/29/17 03:55; Start 03/28/17 at 23:30; Stop 04/11/17 at 13:53; Status DC Multivitamins/ Minerals (I-Roya) 1 tab DAILY PO Last administered on 04/11/17 08:46; Start 03/29/17 at 09:00; Stop 04/11/17 at 13:53; Status DC Atorvastatin Calcium (Lipitor) 40 mg QHS PO Last administered on 04/10/17 19: 25; Start 03/29/17 at 21:00; Stop 04/11/17 at 13:53; Status DC Losartan Potassium (Cozaar) 100 mg DAILY PO Last administered on 04/06/17 08: 10; Start 03/29/17 at 09:00; Stop 04/06/17 at 16:37; Status DC Non-Formulary Medication 2,400 mg PRN QHS PRN PO CONSTIPATION; Start 03/28/17 at 23:30; Status UNV Divalproex Sodium (Depakote Sprinkles) 250 mg TID PO Last administered on 14:13; Start 03/29/17 at 21:00; Stop 04/03/17 at 18:21; Status DC Quetiapine Fumarate (SEROquel) 25 mg [id number] PO Last administered on 04/02/17 14 :12; Start 04/01/17 at 09:00; Stop 04/02/17 at 19:29; Status DC Quetiapine Fumarate (SEROquel) 12.5 mg DAILYWLUN PO Last administered on 12:17; Start 04/02/17 at 12:00; Stop 04/04/17 at 09:42; Status DC Quetiapine Fumarate (SEROquel) 25 mg [id number] PO Last administered on 04/08/17 16 :38; Start 04/03/17 at 09:00; Stop 04/08/17 at 19:04; Status DC Divalproex Sodium (Depakote Sprinkles) 375 mg BID PO Last administered on 08:47; Start 04/03/17 at 21:00; Stop 04/11/17 at 13:53; Status DC Divalproex Sodium (Depakote Sprinkles) 250 mg 1400 PO Last administered on 04/10 13:53; Start 04/04/17 at 14:00; Stop 04/11/17 at 13:53; Status DC Quetiapine Fumarate (SEROquel) 25 mg DAILYWLUN PO Last administered on 11:58; Start 04/04/17 at 12:00; Stop 04/08/17 at 19:04; Status DC Losartan Potassium (Cozaar) 50 mg BID PO Last administered on 04/11/17 08:47; Start 04/06/17 at 21:00; Stop 04/11/17 at 13:53; Status DC Quetiapine Fumarate (SEROquel) 12.5 mg [id number] PO Last administered on 04/11/17 08:47; Start 04/09/17 at 09:00; Stop 04/11/17 at 11:07; Status DC Quetiapine Fumarate (SEROquel) 12.5 mg DAILYWLUN PO Last administered on 13:53; Start 04/09/17 at 12:00; Stop 04/11/17 at 11:07; Status DC Quetiapine Fumarate (SEROquel) 12.5 mg TIDWMEALS PO Last administered on 11:19; Start 04/11/17 at 12:00; Stop 04/11/17 at 13:53; Status DC Active Scripts Active Reported Seroquel (Quetiapine Fumarate) 25 Mg Tablet 12.5 Mg PO TIDWMEALS Depakote Sprinkle (Divalproex Sodium) 125 Mg Cap.sprink 250 Mg PO 1400 Tramadol Hcl (Tramadol HCl) 50 Mg Tablet 50 Mg PO PRN Q6HRS PRN Lorazepam 1 Mg Tablet 1 Mg PO PRN Q4HRS PRN Zoloft (Sertraline Hcl) 50 Mg Tablet 50 Mg PO DAILY Protonix (Pantoprazole Sodium) 40 Mg Tablet.dr 40 Mg PO DAILY Zyprexa Zydis (Olanzapine) 5 Mg Tab.rapdis 2.5 Mg PO PRN Q2HR PRN Thera M Plus Tablet (Multivits,Ca,Minerals/Iron/FA) 1 Each Tablet 1 Tab PO DAILY Analgesic [place] (Methyl Salicylate/Menthol) 29 Gm Oint...g. 1 Vik TP PRN QID PRN Milk Of Magnesia (Magnesium Hydroxide) 2,400 Mg/10 Ml Oral.susp 2,400 Mg PO PRN QHS PRN Mag-Al Plus Xs Suspension (Mag Hydrox/Al Hydrox/Simeth) 30 Ml Oral.susp 15 Ml PO PRN AFTMEALHC PRN Cozaar (Losartan Potassium) 100 Mg Tablet 50 Mg PO BID Depakote Sprinkle (Divalproex Sodium) 125 Mg Cap.sprink 375 Mg PO BID Vitamin B-12 (Cyanocobalamin (Vitamin B-12)) 1,000 Mcg Tablet 1,000 Mcg PO DAILY Tylenol (Acetaminophen) 325 Mg Tablet 650 Mg PO PRN Q6HRS PRN Seroquel (Quetiapine Fumarate) 100 Mg Tablet 100 Mg PO HS Plavix (Clopidogrel Bisulfate) 75 Mg Tablet 75 Mg PO DAILY Atorvastatin Calcium 40 Mg Tablet 40 Mg PO QHS Atenolol 25 Mg Tablet 25 Mg PO BID MARTHA SRINIVASAN MD Apr 11, 2017 21:06
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
--- NOTE | 2017-04-14 20:33 | PDOC ---
Exam Mauricio Demential Exam: Mauricio Note: Please also refer to the separate dictated note~for this date of service dictated separately.~Patient seen individually. Discussed the patient with Nursing staff reviewed the chart.~Reviewed interim history and current functioning. Reviewed vital signs,~Labs/ Radiology~and current medications noted below. Continue current treatment with the changes noted in the dictated addendum note S/O: This is a late entry for date of service April 09 and covers the elements not covered in my initial note of April 09. The patient was seen individually on the evening of April 09. Gait has been unsteady, seems more confused in a Broda chair. Review of Systems: No CV, , Pulmonary, Eye, ENT system symptoms on review. Reliability is poor. MSE: Oriented to himself. Insight and judgment, recent and remote memory, attention and concentration, fund of knowledge poor consistent with his diagnosis mentioned in my initial note. Plan: Continue current psychotropics. He has not been aggressive. I prefer not to reduce or adjust. [facility]. Assessment: Vital Signs: Vital Signs Date Time Temp Pulse Resp B/P (MAP) Pulse Ox O2 Delivery O2 Flow Rate FiO2 04/11/17 08:47 60 136/68 04/11/17 05:37 97.7 18 96 04/08/17 15:31 Room Air Current Medications: Meds: Current Medications Lorazepam (Ativan) 1 mg 1X ONCE PO Last administered on 03/28/17 21:01; Start 03/28/17 at 21:00; Stop 03/28/17 at 21:05; Status DC Haloperidol (Haldol) 5 mg 1X ONCE PO Last administered on 03/28/17 21:01; Start 03/28/17 at 21:00; Stop 03/28/17 at 21:05; Status DC Acetaminophen (Tylenol) 650 mg PRN Q6HRS PRN PO PAIN / TEMP Last administered on 04/05/17 20:59; Start 03/28/17 at 23:15; Stop 04/11/17 at 13:53; Status DC Multi-Ingredient Ointment (Analgesic [place]) 1 vik PRN QID PRN TP MUSCLE PAIN; Start 03/28/17 at 23:15; Stop 04/11/17 at 13:53; Status DC Al Hydroxide/Mg Hydroxide (Mylanta Plus Xs) 15 ml PRN AFTMEALHC PRN PO DYSPEPSIA; Start 03/28/17 at 23:15; Stop 04/11/17 at 13:53; Status DC Magnesium Hydroxide (Milk Of Magnesia) 2,400 mg PRN QHS PRN PO CONSTIPATION; Start 03/28/17 at 23:15; Stop 04/11/17 at 13:53; Status DC Divalproex Sodium (Depakote Sprinkles) 125 mg TID PO Last administered on 14:13; Start 03/29/17 at 09:00; Stop 03/29/17 at 18:20; Status DC Lorazepam (Ativan) 1 mg PRN Q4HRS PRN PO ANXIETY Last administered on 14:18; Start 03/28/17 at 23:30; Stop 04/11/17 at 13:53; Status DC Olanzapine (ZyPREXA ZYDIS) 2.5 mg PRN Q2HR PRN PO PSYCHOSIS Last administered on 04/05/17 20:44; Start 03/28/17 at 23:30; Stop 04/11/17 at 13:53; Status DC Quetiapine Fumarate (SEROquel) 100 mg HS PO Last administered on 04/10/17 19: 25; Start 03/29/17 at 21:00; Stop 04/11/17 at 13:53; Status DC Sertraline HCl (Zoloft) 50 mg DAILY PO Last administered on 04/11/17 08:47; Start 03/29/17 at 09:00; Stop 04/11/17 at 13:53; Status DC Acetaminophen (Tylenol) 650 mg PRN Q6HRS PRN PO pain/temp; Start 03/28/17 at 23: 30; Status UNV Atenolol (Tenormin) 25 mg BID PO Last administered on 04/11/17 08:47; Start at 09:00; Stop 04/11/17 at 13:53; Status DC Clopidogrel Bisulfate (Plavix) 75 mg DAILY PO Last administered on 04/11/17 08 :47; Start 03/29/17 at 09:00; Stop 04/11/17 at 13:53; Status DC Cyanocobalamin (Vitamin B-12) 1,000 mcg DAILY PO Last administered on 08:46; Start 03/29/17 at 09:00; Stop 04/11/17 at 13:53; Status DC Al Hydroxide/Mg Hydroxide (Mylanta Plus Xs) 15 ml PRN AFTMEALHC PRN PO DYSPEPSIA; Start 03/28/17 at 23:30; Status UNV Multi-Ingredient Ointment (Analgesic [place]) 1 vik PRN QID PRN TP MUSCLE PAIN; Start 03/28/17 at 23:30; Status UNV Multivitamins/ Calcium (Thera-M Plus) 1 tab DAILY PO Last administered on 08:47; Start 03/29/17 at 09:00; Stop 04/11/17 at 13:53; Status DC Pantoprazole Sodium (Protonix) 40 mg DAILYAC PO Last administered on 04/11/17 08:47; Start 03/29/17 at 07:30; Stop 04/11/17 at 13:53; Status DC Tramadol HCl (Ultram) 50 mg PRN BID PRN PO MODERATE PAIN; Start 03/28/17 at 23: 30; Status Cancel Tramadol HCl (Ultram) 50 mg PRN Q6HRS PRN PO MODERATE PAIN Last administered on 03/29/17 03:55; Start 03/28/17 at 23:30; Stop 04/11/17 at 13:53; Status DC Multivitamins/ Minerals (I-Roya) 1 tab DAILY PO Last administered on 04/11/17 08:46; Start 03/29/17 at 09:00; Stop 04/11/17 at 13:53; Status DC Atorvastatin Calcium (Lipitor) 40 mg QHS PO Last administered on 04/10/17 19: 25; Start 03/29/17 at 21:00; Stop 04/11/17 at 13:53; Status DC Losartan Potassium (Cozaar) 100 mg DAILY PO Last administered on 04/06/17 08: 10; Start 03/29/17 at 09:00; Stop 04/06/17 at 16:37; Status DC Non-Formulary Medication 2,400 mg PRN QHS PRN PO CONSTIPATION; Start 03/28/17 at 23:30; Status UNV Divalproex Sodium (Depakote Sprinkles) 250 mg TID PO Last administered on 14:13; Start 03/29/17 at 21:00; Stop 04/03/17 at 18:21; Status DC Quetiapine Fumarate (SEROquel) 25 mg [id number] PO Last administered on 04/02/17 14 :12; Start 04/01/17 at 09:00; Stop 04/02/17 at 19:29; Status DC Quetiapine Fumarate (SEROquel) 12.5 mg DAILYWLUN PO Last administered on 12:17; Start 04/02/17 at 12:00; Stop 04/04/17 at 09:42; Status DC Quetiapine Fumarate (SEROquel) 25 mg [id number] PO Last administered on 04/08/17 16 :38; Start 04/03/17 at 09:00; Stop 04/08/17 at 19:04; Status DC Divalproex Sodium (Depakote Sprinkles) 375 mg BID PO Last administered on 08:47; Start 04/03/17 at 21:00; Stop 04/11/17 at 13:53; Status DC Divalproex Sodium (Depakote Sprinkles) 250 mg 1400 PO Last administered on 04/10 13:53; Start 04/04/17 at 14:00; Stop 04/11/17 at 13:53; Status DC Quetiapine Fumarate (SEROquel) 25 mg DAILYWLUN PO Last administered on 11:58; Start 04/04/17 at 12:00; Stop 04/08/17 at 19:04; Status DC Losartan Potassium (Cozaar) 50 mg BID PO Last administered on 04/11/17 08:47; Start 04/06/17 at 21:00; Stop 04/11/17 at 13:53; Status DC Quetiapine Fumarate (SEROquel) 12.5 mg BID94 PO Last administered on 04/11/17 08:47; Start 04/09/17 at 09:00; Stop 04/11/17 at 11:07; Status DC Quetiapine Fumarate (SEROquel) 12.5 mg DAILYWLUN PO Last administered on 13:53; Start 04/09/17 at 12:00; Stop 04/11/17 at 11:07; Status DC Quetiapine Fumarate (SEROquel) 12.5 mg TIDWMEALS PO Last administered on 11:19; Start 04/11/17 at 12:00; Stop 04/11/17 at 13:53; Status DC Active Scripts Active Reported Hydralazine Hcl 25 Mg Tablet 25 Mg PO TID Nystatin 15 Gm Powder 1 Vik TP PRN BID PRN Enoxaparin Sodium 40 Mg/0.4 Ml Disp.syrin 40 Mg SQ DAILY Seroquel (Quetiapine Fumarate) 25 Mg Tablet 12.5 Mg PO TIDWMEALS Depakote Sprinkle (Divalproex Sodium) 125 Mg Cap.sprink 250 Mg PO 1400 Tramadol Hcl (Tramadol HCl) 50 Mg Tablet 50 Mg PO PRN Q6HRS PRN Lorazepam 1 Mg Tablet 1 Mg PO PRN Q4HRS PRN Zoloft (Sertraline Hcl) 50 Mg Tablet 50 Mg PO DAILY Protonix (Pantoprazole Sodium) 40 Mg Tablet.dr 40 Mg PO DAILY Zyprexa Zydis (Olanzapine) 5 Mg Tab.rapdis 2.5 Mg PO PRN Q2HR PRN Thera M Plus Tablet (Multivits,Ca,Minerals/Iron/FA) 1 Each Tablet 1 Tab PO DAILY Analgesic [place] (Methyl Salicylate/Menthol) 29 Gm Oint...g. 1 Vik TP PRN QID PRN Milk Of Magnesia (Magnesium Hydroxide) 2,400 Mg/10 Ml Oral.susp 2,400 Mg PO PRN QHS PRN Mag-Al Plus Xs Suspension (Mag Hydrox/Al Hydrox/Simeth) 30 Ml Oral.susp 15 Ml PO PRN AFTMEALHC PRN Cozaar (Losartan Potassium) 100 Mg Tablet 50 Mg PO BID Depakote Sprinkle (Divalproex Sodium) 125 Mg Cap.sprink 375 Mg PO BID Vitamin B-12 (Cyanocobalamin (Vitamin B-12)) 1,000 Mcg Tablet 1,000 Mcg PO DAILY Tylenol (Acetaminophen) 325 Mg Tablet 650 Mg PO PRN Q6HRS PRN Seroquel (Quetiapine Fumarate) 100 Mg Tablet 100 Mg PO HS Plavix (Clopidogrel Bisulfate) 75 Mg Tablet 75 Mg PO DAILY Atorvastatin Calcium 40 Mg Tablet 40 Mg PO QHS Atenolol 25 Mg Tablet 25 Mg PO BID MARTHA SRINIVASAN MD Apr 14, 2017 20:33
== END 2017-04-11 13:51 | disposition short-term general hospital (02) | DRG 884 ==
LOC: ER 18:47 → GEROPSY 22:15
PROVIDERS: ADMIT Psychiatry & Neurology Psychiatry; ATTEND Psychiatry & Neurology Psychiatry
DX: F01.51 Vascular dementia, unspecified severity, with behavioral disturbance (principal); F02.81 Dementia in other diseases classified elsewhere, unspecified severity, with behavioral disturbance; F22 Delusional disorders; F32.9 Major depressive disorder, single episode, unspecified; F41.9 Anxiety disorder, unspecified; F63.9 Impulse disorder, unspecified; G30.0 Alzheimer's disease with early onset; I10 Essential (primary) hypertension; I25.10 Atherosclerotic heart disease of native coronary artery without angina pectoris; I73.9 Peripheral vascular disease, unspecified; Z79.899 Other long term (current) drug therapy; Z91.14 Patient's other noncompliance with medication regimen
CPT/HCPCS: 36415; 70450; 71250; 73502; 74176; 80053; 80061; 80164; 81001; 82306; 82553; 82607; 83036; 83540; 83550; 83605; 83735; 84436; 84443; 84480; 84484; 85027; 86592; 86593; 93005; 97116; 97530; 99285-25

== ENCOUNTER 2017-04-11 14:41 | Inpatient (IN) | payer MEDICARE ==
[~2017-04-11] VITALS: Ht 195.6 cm; Wt 83.9 kg
[2017-04-11] VITALS (8 sets, daily range): BP systolic 77–180; BP diastolic 38–83
[~2017-04-11 14:41] MED LIST changes: +QUET25TA5 PO; +TRAM50TA PO
--- NOTE | 2017-04-11 15:28 | RAD ---
EXAM: CT head without contrast. HISTORY: Seizure. TECHNIQUE: Computed tomography of the head was performed without intravenous contrast. COMPARISON: 04/06/2017. FINDINGS: There is no intracranial hemorrhage. Hypoattenuation within the periventricular white matter indicates moderate chronic small vessel ischemic change. Prominence of the lateral ventricles and hemispheric sulci indicate moderate atrophy. The visualized paranasal sinuses appear clear. There are changes of bilateral cataract surgery. The temporal bones are unremarkable. The calvarium reveals no suspicious lesions. IMPRESSION: 1. No acute intracranial findings. 2. Moderate atrophy and chronic small vessel ischemic white matter change. *One or more of the following individualized dose reduction techniques were utilized for this examination: 1. Automated exposure control. 2. Adjustment of the mA and/or kV according to patient size. 3. Use of iterative reconstruction technique.
[2017-04-11] MEDS: IV NORMAL SALINE 1,000ML 1,000 ML IV SCH ×2 (15:50→20:30)
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
[2017-04-11] MEDS ORDERED: traMADol 50 MG TABLET PO PRN (17:00)
[2017-04-11] MEDS ORDERED: ACETAMINOPHEN 325 MG TABLET PO PRN (17:00)
[2017-04-11] MEDS ORDERED: METHYL SALICYLATE/MENTHOL TOPICAL OINTMENT 29GM TUBE. TP PRN (17:00)
[2017-04-11] MEDS ORDERED: MAG HYDROX/AL HYDROX/SIMETH 30 ML ORAL.SUSP PO PRN (17:00)
[2017-04-11] MEDS ORDERED: MAGNESIUM HYDROXIDE 2,400 MG/30 ML ORAL.SUSP. PO PRN (17:15)
[2017-04-11] MEDS ORDERED: PNEUMOC CONJ VACC 23-VALENT 0.5 ML VIAL. VAX IM ONE (18:15)
[2017-04-11] MEDS: QUEtiapine 25 MG TABLET. PO SCH (18:33)
[2017-04-11] MEDS: hydrALAZINE 25 MG TABLET PO SCH ×2 (19:00→20:56)
[2017-04-11] MEDS ORDERED: hydrALAZINE 20 MG/ML VIAL. IV PRN (19:45)
[2017-04-11] MEDS ORDERED: HALOPERIDOL LACT 5 MG/ML VIAL. IM PRN (19:45)
[2017-04-11] MEDS: DIVALPROEX 125 MG CAP.SPRINK PO SCH (20:55)
[2017-04-11] MEDS: QUEtiapine 100 MG TABLET. PO SCH (20:55)
[2017-04-11] MEDS: ATORVASTATIN CALCIUM 20 MG TABLET PO SCH (20:55)
[2017-04-11] MEDS: LOSARTAN 50 MG TABLET. PO SCH (20:56)
[2017-04-11] MEDS: ATENOLOL 25 MG TABLET PO SCH (20:56)
[2017-04-12] VITALS (21 sets, daily range): BP systolic 79–185; BP diastolic 38–94
[2017-04-12] MEDS: LORazepam 2 MG/ML VIAL IV PRN ×2 (03:30→20:04)
[2017-04-12 05:53] LABS: BASO # 0.1 x10^3/uL (0.0-0.2); BASO % 1 % (0-3); EOS # 0.6 x10^3/uL (0.0-0.7); EOS % 8 % (0-3); HEMATOCRIT 30.8 % (39.0-53.0); HEMOGLOBIN 10.1 g/dL (13.0-17.5); LYMPH # 1.7 x10^3/uL (1.0-4.8); LYMPH % 22 % (24-48); MEAN CORPUSCULAR HEMOGLOBIN 30 pg (25-35); MEAN CORPUSCULAR HGB CONC 33 g/dL (31-37); MEAN CORPUSCULAR VOLUME 91 fL (79-100); MONO # 0.9 x10^3/uL (0.0-1.1); MONO % 12 % (0-9); NEUT # 4.5 x10^3uL (1.8-7.7); NEUT % 58 % (31-73); PLATELET COUNT 190 x10^3/uL (140-400); RED BLOOD COUNT 3.39 x10^6/uL (4.30-5.70); RED CELL DISTRIBUTION WIDTH 15.1 % (11.5-14.5); WHITE BLOOD COUNT 7.7 x10^3/uL (4.0-11.0)
[2017-04-12 06:10] LABS: ALBUMIN 2.8 g/dL (3.4-5.0); ALBUMIN/GLOBULIN RATIO 0.9 (1.0-1.7); CALCIUM 8.2 mg/dL (8.5-10.1); CREATININE 1.2 mg/dL (0.7-1.3); GFR 57.4; POTASSIUM 3.8 mmol/L (3.5-5.1); TOTAL BILIRUBIN 0.6 mg/dL (0.2-1.0); TOTAL PROTEIN 5.8 g/dL (6.4-8.2)
--- NOTE | 2017-04-12 06:40 | ACF ---
Admit Criteria Forms Admit Criteria Forms Admit Criteria Forms SEIZURE Clinical Indications for Admission to Inpatient Care (Place 'X' for any and all applicable criteria): Admission is indicated for seizure and ANY ONE of the following(1)(2)(3)(4)(5): [X]I. Inpatient admission required rather than observation care (Also use Seizure: Observation Care Criteria as appropriate) because of ANY ONE of the following: [ ]a) Altered mental status that is severe or persistent [ ]b) New focal neurologic deficit that is severe or persistent [ ]c) Metabolic disorder (eg, hypoglycemia, hyponatremia) that is severe or persistent [ ]d) Recurrent seizure [ ]e) Outpatient antiseizure regimen cannot be established (eg , patient cannot tolerate medication, initiation requires inpatient care) [ ]f) Need for ongoing intravenous infusion of antiseizure medication [ ]g) Cardiac arrhythmias of immediate concern [ ]h) Cerebral bleeding, hydrocephalus, or vasospasm monitoring (14) [ ]i) Increased intracranial pressure or cerebral edema monitoring (15) [X]j) Other treatment or monitoring requiring inpatient admission [ ]II. Status epilepticus [A] or repetitive seizures not controlled with emergent treatment (6)(8) [ ]III. Brain disorder (eg, tumor, edema, and hydrocephalus) that requiring monitoring or intervention available only at inpatient level of care. [ ]IV. Brain insult (eg, severe trauma, stroke, drug toxicity, or withdrawal) that requires monitoring or intervention available only at inpatient level of care (10)(11) Extended stay beyond goal length of stay may be needed for (22) [ ]a) Complications of status epilepticus [ ]b) Refractory status epilepticus [ ]c) Etiology-specific therapy for conditions such as [employer] infection, head injury,eclampsia, severe metabolic abnormalities, and brain tumor [ ]d) Residual neurologic damage, [ ]e) Initiation of significant change to anticonvulsant treatment [ ]f) Older patients (65 years or older) [ ]g) Patient requiring intubation (eg, to protect airway) The original [facility] content created by [employer] has been revised. The portions of the content which have been revised are identified through the use of italic text or in bold, and [facility] has neither reviewed nor approved the modified material. All other unmodified content is copyright [facility] Samantha. Please see references footnoted in the original [facility] edition 2016 DALIA LOTT Apr 12, 2017 06:40
[2017-04-12] MEDS: QUEtiapine 25 MG TABLET. PO SCH ×4 (08:00→17:53)
[2017-04-12] MEDS: IV NORMAL SALINE 1,000ML 1,000 ML IV SCH ×2 (08:42→21:30)
--- NOTE | 2017-04-12 08:52 | RAD ---
INDICATION: Syncope COMPARISON: None. TECHNIQUE: Color, grayscale and doppler ultrasound images obtained of the carotid system bilaterally. Percent stenosis is estimated using criteria that correlates with NASCET methodology. FINDINGS: Peak systolic velocities are as follows in cm/s: Right Carotid System: CCA: 65 ICA: Could not obtain ECA: 316 ICA/CCA Ratio could not obtain Left Carotid System: CCA: 79 ICA: 113 ECA: 134 ICA/CCA Ratio 1.4 Vertebral arteries are antegrade bilaterally. IMPRESSION: 1. No hemodynamically significant stenosis of left internal carotid artery. Could not evaluate the right internal carotid artery secondary to the patient's mental status therefore cannot evaluate for hemodynamically significant stenosis. There is evidence of plaque throughout the vascular system bilaterally. 2. Elevated velocity right external carotid artery. Could be secondary to a site of narrowing.
[2017-04-12] MEDS ORDERED: PNEUMOC CONJ VACC 23-VALENT 0.5 ML VIAL. VAX IM ONE (09:00)
[2017-04-12] MEDS: ATENOLOL 25 MG TABLET PO SCH ×2 (09:00→20:24)
[2017-04-12] MEDS: hydrALAZINE 25 MG TABLET PO SCH ×3 (09:00→20:30)
[2017-04-12] MEDS: LOSARTAN 50 MG TABLET. PO SCH ×2 (09:00→20:30)
[2017-04-12] MEDS: SERTRALINE 50 MG TABLET. PO SCH (09:00)
[2017-04-12] MEDS: DIVALPROEX 125 MG CAP.SPRINK PO SCH ×3 (09:00→20:25)
[2017-04-12] MEDS: MULTIVITAMIN with MINERAL TABLET. PO SCH (09:00)
[2017-04-12] MEDS: CYANOCOBALAMIN (VITAMIN B-12) 1,000 MCG TABLET. PO SCH (09:00)
[2017-04-12] MEDS: PANTOPRAZOLE 40 MG TABLET. PO SCH (09:00)
[2017-04-12] MEDS: CLOPIDOGREL BISULFATE 75 MG TABLET PO SCH (09:00)
--- NOTE | 2017-04-12 09:08 | PDOC2 ---
CONSULT Date of Admission DATE: 04/12/17 TIME: 08:59 History of Present Illness Mr Aguilar is an 86 year old [facility] resident originally admitted to [facility] for dementia with increasing agitation and physical aggression. Yesterday he was apparently noted to be having recurrent spells of what was initially thought to be seizures or possible syncope so he was transferred to the ICU and consult ordered. Last pm he had significantly elevated blood pressure and agitation so was given haldol. This am he is sedated and unable to give history. He had an episode of hypotension last noc after his meds were given and this resolved with IVF. Currently his blood pressure is running 170' s systolic. Past Medical History Patient unable to give history due to sedation and mental status so it is obtained from the chart. Significant for hypertension, peripheral vascular disease, orthostatic hypotension, and Alzheimer disease, coronary artery disease, allergic rhinitis, spinal stenosis, proteinuria. Past Surgical History Unremarkable. Family History non contributory Social History He is a resident [facility] in [place]. He does not smoke, drink alcohol or use any recreational drugs. Current Medications Current Medications Sodium Chloride 1,000 ml @ 100 mls/hr Q10H IV Last administered on 04/12/17 08:42; Start 04/11/17 at 15:30 Acetaminophen (Tylenol) 650 mg PRN Q6HRS PRN PO pain/temp; Start 04/11/17 at 17 :00 Atenolol (Tenormin) 25 mg BID PO Last administered on 04/11/17 20:56; Start at 21:00 Clopidogrel Bisulfate (Plavix) 75 mg DAILY PO ; Start 04/12/17 at 09:00 Cyanocobalamin (Vitamin B-12) 1,000 mcg DAILY PO ; Start 04/12/17 at 09:00 Divalproex Sodium (Depakote Sprinkles) 250 mg DAILY@1400 PO ; Start 04/12/17 at 14:00 Divalproex Sodium (Depakote Sprinkles) 375 mg BID PO Last administered on 20:55; Start 04/11/17 at 21:00 Lorazepam (Ativan) 1 mg PRN Q4HRS PRN PO ANXIETY; Start 04/11/17 at 17:00 Al Hydroxide/Mg Hydroxide (Mylanta Plus Xs) 15 ml PRN AFTMEALHC PRN PO DYSPEPSIA; Start 04/11/17 at 17:00 Multi-Ingredient Ointment (Analgesic [place]) 1 vik PRN QID PRN TP MUSCLE PAIN; Start 04/11/17 at 17:00 Multivitamins/ Calcium (Thera-M Plus) 1 tab DAILY PO ; Start 04/12/17 at 09:00 Olanzapine (ZyPREXA ZYDIS) 2.5 mg PRN Q2HR PRN PO PSYCHOSIS Last administered on 04/11/17 19:16; Start 04/11/17 at 17:00 Pantoprazole Sodium (Protonix) 40 mg DAILY PO ; Start 04/12/17 at 09:00 Quetiapine Fumarate (SEROquel) 12.5 mg TIDWMEALS PO Last administered on 18:33; Start 04/11/17 at 17:00 Quetiapine Fumarate (SEROquel) 100 mg HS PO Last administered on 04/11/17 20: 55; Start 04/11/17 at 21:00 Sertraline HCl (Zoloft) 50 mg DAILY PO ; Start 04/12/17 at 09:00 Tramadol HCl (Ultram) 50 mg PRN Q6HRS PRN PO PAIN; Start 04/11/17 at 17:00 Atorvastatin Calcium (Lipitor) 40 mg QHS PO Last administered on 04/11/17 20: 55; Start 04/11/17 at 21:00 Losartan Potassium (Cozaar) 50 mg BID PO Last administered on 04/11/17 20:56; Start 04/11/17 at 21:00 Magnesium Hydroxide (Milk Of Magnesia) 2,400 mg PRN QHS PRN PO CONSTIPATION; Start 04/11/17 at 17:15 Pneumococcal Polyvalent Vaccine (Pneumovax 23) 0.5 ml ONCE ONCE VAX IM ; Start 04/11/17 at 18:15; Stop 04/11/17 at 18:44; Status DC Pneumococcal Polyvalent Vaccine (Pneumovax 23) 0.5 ml ONCE ONCE VAX IM ; Start 04/12/17 at 09:00; Stop 04/12/17 at 09:01 Hydralazine HCl (Apresoline) 25 mg TID PO Last administered on 04/11/17 20:56 ; Start 04/11/17 at 19:00 Haloperidol Lactate (Haldol) 5 mg PRN Q4HRS PRN IM AGITATION Last administered on 04/11/17 19:30; Start 04/11/17 at 19:45 Lorazepam (Ativan) 1 mg PRN Q4HRS PRN IV ANXIETY / AGITATION Last administered on 04/12/17 03:30; Start 04/11/17 at 19:45 Hydralazine HCl (Apresoline) 10 mg PRN Q4HRS PRN IV ELEVATED BP, SEE COMMENTS; Start 04/11/17 at 19:45 Active Scripts Active Reported Seroquel (Quetiapine Fumarate) 25 Mg Tablet 12.5 Mg PO TIDWMEALS Depakote Sprinkle (Divalproex Sodium) 125 Mg Cap.sprink 250 Mg PO 1400 Tramadol Hcl (Tramadol HCl) 50 Mg Tablet 50 Mg PO PRN Q6HRS PRN Lorazepam 1 Mg Tablet 1 Mg PO PRN Q4HRS PRN Zoloft (Sertraline Hcl) 50 Mg Tablet 50 Mg PO DAILY Protonix (Pantoprazole Sodium) 40 Mg Tablet.dr 40 Mg PO DAILY Zyprexa Zydis (Olanzapine) 5 Mg Tab.rapdis 2.5 Mg PO PRN Q2HR PRN Thera M Plus Tablet (Multivits,Ca,Minerals/Iron/FA) 1 Each Tablet 1 Tab PO DAILY Analgesic [place] (Methyl Salicylate/Menthol) 29 Gm Oint...g. 1 Vik TP PRN QID PRN Milk Of Magnesia (Magnesium Hydroxide) 2,400 Mg/10 Ml Oral.susp 2,400 Mg PO PRN QHS PRN Mag-Al Plus Xs Suspension (Mag Hydrox/Al Hydrox/Simeth) 30 Ml Oral.susp 15 Ml PO PRN AFTMEALHC PRN Cozaar (Losartan Potassium) 100 Mg Tablet 50 Mg PO BID Depakote Sprinkle (Divalproex Sodium) 125 Mg Cap.sprink 375 Mg PO BID Vitamin B-12 (Cyanocobalamin (Vitamin B-12)) 1,000 Mcg Tablet 1,000 Mcg PO DAILY Tylenol (Acetaminophen) 325 Mg Tablet 650 Mg PO PRN Q6HRS PRN Seroquel (Quetiapine Fumarate) 100 Mg Tablet 100 Mg PO HS Plavix (Clopidogrel Bisulfate) 75 Mg Tablet 75 Mg PO DAILY Atorvastatin Calcium 40 Mg Tablet 40 Mg PO QHS Atenolol 25 Mg Tablet 25 Mg PO BID Allergies: Coded Allergies: No Known Drug Allergies (Unverified , 01/18/17) Review of System unable to obtain due to mental status and sedation. General: Other (sedated) HEENT: Atraumatic Lungs: Other (clear anteriorly) Heart: Other (distant S1S2 without obvious gallops, murmurs, clicks or rubs) Abdomen: Normal bowel sounds, Soft Extremities: No clubbing, No cyanosis, Normal pulses, Other (trace edema) VITALS Vital Signs Date Time Temp Pulse Resp B/P (MAP) Pulse Ox O2 Delivery O2 Flow Rate FiO2 04/12/17 06:00 64 20 134/58 (83) 99 Nasal Cannula 2.0 04/12/17 03:02 97.1 Labs Laboratory Tests Test 04/11/17 16:15 04/11/17 16:25 04/12/17 05:41 Lactic Acid Level 0.9 mmol/L (0.4-2.0) 0.6 mmol/L (0.4-2.0) Creatine Kinase 178 U/L (39-308) Creatine Kinase MB (Mass) 5.6 ng/mL (0.0-3.6) Creatine Kinase MB Relative Index 3.1 % (0-4) Nasal Screen MRSA (PCR) Negative (Negative) White Blood Count 7.7 x10^3/uL (4.0-11.0) Red Blood Count 3.39 x10^6/uL (4.30-5.70) Hemoglobin 10.1 g/dL (13.0-17.5) Hematocrit 30.8 % (39.0-53.0) Mean Corpuscular Volume 91 fL (79-100) Mean Corpuscular Hemoglobin 30 pg (25-35) Mean Corpuscular Hemoglobin Concent 33 g/dL (31-37) Red Cell Distribution Width 15.1 % (11.5-14.5) Platelet Count 190 x10^3/uL (140-400) Neutrophils (%) (Auto) 58 % (31-73) Lymphocytes (%) (Auto) 22 % (24-48) Monocytes (%) (Auto) 12 % (0-9) Eosinophils (%) (Auto) 8 % (0-3) Basophils (%) (Auto) 1 % (0-3) Neutrophils # (Auto) 4.5 x10^3uL (1.8-7.7) Lymphocytes # (Auto) 1.7 x10^3/uL (1.0-4.8) Monocytes # (Auto) 0.9 x10^3/uL (0.0-1.1) Eosinophils # (Auto) 0.6 x10^3/uL (0.0-0.7) Basophils # (Auto) 0.1 x10^3/uL (0.0-0.2) Sodium Level 143 mmol/L (136-145) Potassium Level 3.8 mmol/L (3.5-5.1) Chloride Level 109 mmol/L (98-107) Carbon Dioxide Level 27 mmol/L (21-32) Anion Gap 7 (6-14) Blood Urea Nitrogen 32 mg/dL (8-26) Creatinine 1.2 mg/dL (0.7-1.3) Estimated GFR (Cockcroft-Gault) 57.4 BUN/Creatinine Ratio 27 (6-20) Glucose Level 83 mg/dL (70-99) Calcium Level 8.2 mg/dL (8.5-10.1) Total Bilirubin 0.6 mg/dL (0.2-1.0) Aspartate Amino Transf (AST/SGOT) 24 U/L (15-37) Alanine Aminotransferase (ALT/SGPT) 20 U/L (16-63) Alkaline Phosphatase 50 U/L (46-116) Total Protein 5.8 g/dL (6.4-8.2) Albumin 2.8 g/dL (3.4-5.0) Albumin/Globulin Ratio 0.9 (1.0-1.7) Images CT head IMPRESSION: 1. No acute intracranial findings. 2. Moderate atrophy and chronic small vessel ischemic white matter change. Carotid duplex IMPRESSION: 1. No hemodynamically significant stenosis of left internal carotid artery. Could not evaluate the right internal carotid artery secondary to the patient's mental status therefore cannot evaluate for hemodynamically significant stenosis. There is evidence of plaque throughout the vascular system bilaterally. 2. Elevated velocity right external carotid artery. Could be secondary to a site of narrowing. CT chest/abd/pelvis IMPRESSION: 1. Moderate biapical emphysema. 2. Aortic valve calcifications. Correlate for aortic stenosis. 3. A 17 mm exophytic nodule along the posterior aspect of hepatic segment 7 is statistically most likely a benign lesion in the absence of known malignancy. 4. Suspect a small gallstone. No CT evidence of acute cholecystitis. 5. 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 Assessment/Plan 1. syncope vs seizure activity - satellite project site monitor, check pacemaker, check echo , neuro consulted. He has what appears to possibly be a loop recorder implanted (possibly a [employer] reveal device). Will check on possibility of interrogating the device. 2. labile hypertension - likely partly secondary to agitation. PRN hydralazine cautiously. await echo 3. CT suggestive of possible aortic stenosis - await echo. manage medically. 4. history of coronary artery disease - poor candidate for invasive evaluation or intervention. manage medically. 5. hyperlipidemia - continue statin 6. dementia - per Psych Problems: AMANDA MCCLURE APRN Apr 12, 2017 09:08
[2017-04-12] MEDS ORDERED: NYSTATIN TOPICAL POWDER 15GM BOTTLE. TP PRN (12:00)
[2017-04-12] MEDS: ENOXAPARIN 40 MG/0.4 ML DISP.SYRIN. SQ SCH (15:28)
[2017-04-12] MEDS: QUEtiapine 100 MG TABLET. PO SCH (20:24)
[2017-04-12] MEDS: ATORVASTATIN CALCIUM 20 MG TABLET PO SCH (20:24)
[2017-04-13 00:19] VITALS: BP 132/59
[2017-04-13] MEDS: LORazepam 1 MG TABLET PO PRN ×3 (01:16→12:28)
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
[2017-04-13 05:53] LABS: BASO # 0.1 x10^3/uL (0.0-0.2); BASO % 1 % (0-3); EOS # 0.7 x10^3/uL (0.0-0.7); EOS % 7 % (0-3); HEMATOCRIT 32.2 % (39.0-53.0); HEMOGLOBIN 10.9 g/dL (13.0-17.5); LYMPH # 1.8 x10^3/uL (1.0-4.8); LYMPH % 17 % (24-48); MEAN CORPUSCULAR HEMOGLOBIN 30 pg (25-35); MEAN CORPUSCULAR HGB CONC 34 g/dL (31-37); MEAN CORPUSCULAR VOLUME 90 fL (79-100); MONO # 1.2 x10^3/uL (0.0-1.1); MONO % 12 % (0-9); NEUT # 6.5 x10^3uL (1.8-7.7); NEUT % 63 % (31-73); PLATELET COUNT 164 x10^3/uL (140-400); RED BLOOD COUNT 3.59 x10^6/uL (4.30-5.70); RED CELL DISTRIBUTION WIDTH 15.4 % (11.5-14.5); WHITE BLOOD COUNT 10.3 x10^3/uL (4.0-11.0)
[2017-04-13 06:03] LABS: ALBUMIN 2.8 g/dL (3.4-5.0); ALBUMIN/GLOBULIN RATIO 0.9 (1.0-1.7); CALCIUM 8.5 mg/dL (8.5-10.1); CREATININE 1.1 mg/dL (0.7-1.3); GFR 63.5; POTASSIUM 3.7 mmol/L (3.5-5.1); TOTAL BILIRUBIN 0.5 mg/dL (0.2-1.0)
[2017-04-13] MEDS: IV NORMAL SALINE 1,000ML 1,000 ML IV SCH ×2 (07:30→17:04)
[2017-04-13 08:00] VITALS: BP 132/59
[2017-04-13] MEDS: QUEtiapine 25 MG TABLET. PO SCH ×3 (08:00→17:00)
[2017-04-13] MEDS: MULTIVITAMIN with MINERAL TABLET. PO SCH (08:08)
[2017-04-13] MEDS: CYANOCOBALAMIN (VITAMIN B-12) 1,000 MCG TABLET. PO SCH (08:08)
[2017-04-13] MEDS ORDERED: OLANZapine IM 10 MG VIAL. IM ONE (08:30)
--- NOTE | 2017-04-13 08:42 | CONS ---
DATE OF CONSULTATION: 04/12/2017 REFERRING PHYSICIAN: Dr. Nails. REASON FOR CONSULTATION: Rule out seizure versus syncope. HISTORY OF PRESENT ILLNESS: This is an 86-year-old right-handed male who was transferred from [facility] after he had several episodes described as seizure-like activities wherein the patient will lose consciousness and had tongue biting or urinary or bowel incontinence. According to the chart, the patient has had several episodes lasted a few minutes and followed by aggressive behavior, which he has been presenting 2 weeks prior to admission to [facility]. Subsequently, the patient was transferred to ICU for further evaluation and observation. According to the nursing staff, the patient has not had any episode of seizure-like activities since admission to ICU. The patient has had a longstanding history of Alzheimer and advanced dementia and unable to provide any information regarding the underlying conditions. Due to underlying Alzheimer disease, he has not complained of any problems during this interview. He has been restless, agitated, confused, delusional and paranoid. The patient had history of syncope, diagnosed by securities settlement processor at [facility] several years ago and he was found to have orthostatic hypotension. According to medical record obtained from [facility], his previous EEG performed several years ago was normal. PAST MEDICAL HISTORY: Significant for peripheral vascular disease, hypertension, orthostatic hypotension, and Alzheimer disease. PAST SURGICAL HISTORY: Negative. FAMILY HISTORY: Not obtainable. SOCIAL HISTORY: The patient is a [facility] resident in [place]. He has no history of smoking, alcohol drinking, or illicit drug use. REVIEW OF SYSTEMS: Very limited to perform due to underlying Alzheimer disease. CURRENT MEDICATIONS: Include Tylenol, atenolol, Lipitor, Plavix, vitamin B12, valproic acid, lorazepam, losartan, magnesium, multivitamins, olanzapine, , sertraline, and tramadol. ALLERGIES: No known drug allergies. PHYSICAL EXAMINATION: GENERAL: A well-developed, well-nourished white male, not in acute distress. VITAL SIGNS: Blood pressure 165/68 in sitting positions and 99/84 in standing positions, pulse is 76 and regular with respiratory rate of 18 and oxygen saturation 92% on room air. HEENT: Normocephalic, atraumatic, otherwise unremarkable. NECK: Supple. Negative for carotid bruit, lymphadenopathy or thyromegaly. LUNGS: Clear to A and P. CARDIOVASCULAR: Regular rate and rhythm, normal S1, S2. There is no S3, S4 or murmur. ABDOMEN: Soft. Bowel sounds positive. EXTREMITIES: Negative for cyanosis, clubbing or pitting edema. NEUROLOGICAL EXAMINATION: Mental status: The patient is alert and restless, but disoriented to time, place and person. Speech is noncoherent. The patient does not follow any commands. Judgment, memory and abstract thinking are impaired. Cranial nerves: The pupils are reactive to light and accommodation. The extraocular movements are intact. There is no nystagmus. There is no facial motor or sensory deficit. Hearing appears to be intact. The palate is elevated symmetrically. Sternocleidomastoid muscles are powerful bilaterally. The patient does not shrug his shoulder or protrudes his tongue when he was asked to do so. Motor examination: No focal muscle bulk was seen. The tone is normal. The strength appeared to be 5/5 throughout. Sensory examination revealed the patient used all his extremities to noxious stimuli. Deep tendon reflexes were symmetric and hypoactive with absent Achilles responses. Gait: The stance is unsteady. LABORATORY DATA: CBC revealed white cells of , hemoglobin 11.1, hematocrit 30.8, platelet count 190,000. Chemistry revealed sodium of 143, potassium 3.8, chloride 109, CO2 27, BUN 32, creatinine 1.2, glucose is 83 and calcium 8.2. Liver enzymes are normal. CK-MB is high at 5.6. Lipid profile is normal except for low HDL at 39. DIAGNOSTIC DATA: Initial head CT scan revealed no evidence of acute intracranial hemorrhage, but showed moderate atrophy and chronic small vessel ischemic changes. Carotid Doppler study revealed no significant stenosis of the left internal carotid artery. However, the right internal carotid artery could not be evaluated, but the patient had a history of complete occlusion of the right internal carotid artery. IMPRESSION: 1. Seizure versus syncope with current orthostatic hypotension suggestive of his spells most likely due to orthostatic hypotension; however, seizure could not be entirely excluded at this time. 2. Multiple medical and psychiatric problems as described above. RECOMMENDATIONS: 1. It is difficult to obtain an EEG as the patient has been restless and cannot stay still unless he is sedated with Valium prior to the procedure. According to the nursing staff, the patient's family members expressed conservative but not extensive procedures. 2. Correct the underlying orthostatic hypotension. 3. Continue with current management initiated by Dr. Nails. M Charisma CURIEL MD DR: ELIDA/jocelyn JOB#: [id number] / [id number]
[2017-04-13] MEDS: SERTRALINE 50 MG TABLET. PO SCH (09:00)
[2017-04-13] MEDS: DIVALPROEX 125 MG CAP.SPRINK PO SCH ×3 (09:00→14:00)
[2017-04-13] MEDS: ATENOLOL 25 MG TABLET PO SCH (09:00)
[2017-04-13] MEDS: CLOPIDOGREL BISULFATE 75 MG TABLET PO SCH (09:00)
[2017-04-13] MEDS: PANTOPRAZOLE 40 MG TABLET. PO SCH (09:00)
[2017-04-13] MEDS: hydrALAZINE 25 MG TABLET PO SCH ×2 (09:00→14:00)
[2017-04-13] MEDS: LOSARTAN 50 MG TABLET. PO SCH (09:00)
--- NOTE | 2017-04-13 11:43 | PDOC ---
Exam Mauricio Demential Exam: Mauricio Note: Please also refer to the separate dictated note~for this date of service dictated separately.~Patient seen individually. Discussed the patient with Nursing staff reviewed the chart.~Reviewed interim history and current functioning. Reviewed vital signs,~Labs/ Radiology~and current medications noted below. Continue current treatment with the changes noted in the dictated addendum note Assessment: Vital Signs: Vital Signs Date Time Temp Pulse Resp B/P (MAP) Pulse Ox O2 Delivery O2 Flow Rate FiO2 04/13/17 09:00 76 132/59 04/13/17 08:00 Room Air 04/13/17 08:00 16 04/13/17 02:07 97.6 04/12/17 17:58 92 04/12/17 10:12 2.0 I&O Intake and Output 04/13/17 07:00 Intake Total 690 ml Output Total 1400 ml Balance -710 ml Intake Oral 690 ml Output Urine Total 1400 ml # Voids 1 Labs: Laboratory Tests Test 04/13/17 05:30 White Blood Count 10.3 x10^3/uL (4.0-11.0) Red Blood Count 3.59 x10^6/uL (4.30-5.70) L Hemoglobin 10.9 g/dL (13.0-17.5) L Hematocrit 32.2 % (39.0-53.0) L Mean Corpuscular Volume 90 fL (79-100) Mean Corpuscular Hemoglobin 30 pg (25-35) Mean Corpuscular Hemoglobin Concent 34 g/dL (31-37) Red Cell Distribution Width 15.4 % (11.5-14.5) H Platelet Count 164 x10^3/uL (140-400) Neutrophils (%) (Auto) 63 % (31-73) Lymphocytes (%) (Auto) 17 % (24-48) L Monocytes (%) (Auto) 12 % (0-9) H Eosinophils (%) (Auto) 7 % (0-3) H Basophils (%) (Auto) 1 % (0-3) Neutrophils # (Auto) 6.5 x10^3uL (1.8-7.7) Lymphocytes # (Auto) 1.8 x10^3/uL (1.0-4.8) Monocytes # (Auto) 1.2 x10^3/uL (0.0-1.1) H Eosinophils # (Auto) 0.7 x10^3/uL (0.0-0.7) Basophils # (Auto) 0.1 x10^3/uL (0.0-0.2) Sodium Level 140 mmol/L (136-145) Potassium Level 3.7 mmol/L (3.5-5.1) Chloride Level 108 mmol/L (98-107) H Carbon Dioxide Level 25 mmol/L (21-32) Anion Gap 7 (6-14) Blood Urea Nitrogen 26 mg/dL (8-26) Creatinine 1.1 mg/dL (0.7-1.3) Estimated GFR (Cockcroft-Gault) 63.5 BUN/Creatinine Ratio 24 (6-20) H Glucose Level 77 mg/dL (70-99) Calcium Level 8.5 mg/dL (8.5-10.1) Total Bilirubin 0.5 mg/dL (0.2-1.0) Aspartate Amino Transferase (AST) 26 U/L (15-37) Alanine Aminotransferase (ALT) 18 U/L (16-63) Alkaline Phosphatase 54 U/L (46-116) Total Protein 6.0 g/dL (6.4-8.2) L Albumin 2.8 g/dL (3.4-5.0) L Albumin/Globulin Ratio 0.9 (1.0-1.7) L Current Medications: Meds: Current Medications Sodium Chloride 1,000 ml @ 100 mls/hr Q10H IV Last administered on 04/12/17 08:42; Start 04/11/17 at 15:30 Acetaminophen (Tylenol) 650 mg PRN Q6HRS PRN PO pain/temp; Start 04/11/17 at 17 :00 Atenolol (Tenormin) 25 mg BID PO Last administered on 04/12/17 20:24; Start at 21:00 Clopidogrel Bisulfate (Plavix) 75 mg DAILY PO ; Start 04/12/17 at 09:00 Cyanocobalamin (Vitamin B-12) 1,000 mcg DAILY PO ; Start 04/12/17 at 09:00 Divalproex Sodium (Depakote Sprinkles) 250 mg DAILY@1400 PO ; Start 04/12/17 at 14:00 Divalproex Sodium (Depakote Sprinkles) 375 mg BID PO Last administered on 20:25; Start 04/11/17 at 21:00 Lorazepam (Ativan) 1 mg PRN Q4HRS PRN PO ANXIETY Last administered on 01:16; Start 04/11/17 at 17:00 Al Hydroxide/Mg Hydroxide (Mylanta Plus Xs) 15 ml PRN AFTMEALHC PRN PO DYSPEPSIA; Start 04/11/17 at 17:00 Multi-Ingredient Ointment (Analgesic Cromwell) 1 vik PRN QID PRN TP MUSCLE PAIN; Start 04/11/17 at 17:00 Multivitamins/ Calcium (Thera-M Plus) 1 tab DAILY PO ; Start 04/12/17 at 09:00 Olanzapine (ZyPREXA ZYDIS) 2.5 mg PRN Q2HR PRN PO PSYCHOSIS Last administered on 04/13/17 00:59; Start 04/11/17 at 17:00 Pantoprazole Sodium (Protonix) 40 mg DAILY PO ; Start 04/12/17 at 09:00 Quetiapine Fumarate (SEROquel) 12.5 mg TIDWMEALS PO Last administered on 17:53; Start 04/11/17 at 17:00 Quetiapine Fumarate (SEROquel) 100 mg HS PO Last administered on 04/12/17 20: 24; Start 04/11/17 at 21:00 Sertraline HCl (Zoloft) 50 mg DAILY PO ; Start 04/12/17 at 09:00 Tramadol HCl (Ultram) 50 mg PRN Q6HRS PRN PO PAIN; Start 04/11/17 at 17:00 Atorvastatin Calcium (Lipitor) 40 mg QHS PO Last administered on 04/12/17 20: 24; Start 04/11/17 at 21:00 Losartan Potassium (Cozaar) 50 mg BID PO Last administered on 04/11/17 20:56; Start 04/11/17 at 21:00 Magnesium Hydroxide (Milk Of Magnesia) 2,400 mg PRN QHS PRN PO CONSTIPATION; Start 04/11/17 at 17:15 Pneumococcal Polyvalent Vaccine (Pneumovax 23) 0.5 ml ONCE ONCE VAX IM ; Start 04/11/17 at 18:15; Stop 04/11/17 at 18:44; Status DC Pneumococcal Polyvalent Vaccine (Pneumovax 23) 0.5 ml ONCE ONCE VAX IM ; Start 04/12/17 at 09:00; Stop 04/12/17 at 09:01; Status DC Hydralazine HCl (Apresoline) 25 mg TID PO Last administered on 04/11/17 20:56 ; Start 04/11/17 at 19:00 Haloperidol Lactate (Haldol) 5 mg PRN Q4HRS PRN IM AGITATION Last administered on 04/11/17 19:30; Start 04/11/17 at 19:45; Stop 04/12/17 at 13:49; Status DC Lorazepam (Ativan) 1 mg PRN Q4HRS PRN IV ANXIETY / AGITATION Last administered on 04/12/17 20:04; Start 04/11/17 at 19:45 Hydralazine HCl (Apresoline) 10 mg PRN Q4HRS PRN IV ELEVATED BP, SEE COMMENTS; Start 04/11/17 at 19:45 Nystatin (Nystop) 1 vik BID PRN TP REDNESS; Start 04/12/17 at 12:00 Enoxaparin Sodium (Lovenox) 40 mg Q24H SQ Last administered on 04/12/17 15:28 ; Start 04/12/17 at 14:00 Olanzapine (ZyPREXA IM) 2.5 mg 1X ONCE IM Last administered on 04/13/17 08:42 ; Start 04/13/17 at 08:30; Stop 04/13/17 at 08:31; Status DC Active Scripts Active Reported Seroquel (Quetiapine Fumarate) 25 Mg Tablet 12.5 Mg PO TIDWMEALS Depakote Sprinkle (Divalproex Sodium) 125 Mg Cap.sprink 250 Mg PO 1400 Tramadol Hcl (Tramadol HCl) 50 Mg Tablet 50 Mg PO PRN Q6HRS PRN Lorazepam 1 Mg Tablet 1 Mg PO PRN Q4HRS PRN Zoloft (Sertraline Hcl) 50 Mg Tablet 50 Mg PO DAILY Protonix (Pantoprazole Sodium) 40 Mg Tablet.dr 40 Mg PO DAILY Zyprexa Zydis (Olanzapine) 5 Mg Tab.rapdis 2.5 Mg PO PRN Q2HR PRN Thera M Plus Tablet (Multivits,Ca,Minerals/Iron/FA) 1 Each Tablet 1 Tab PO DAILY Analgesic Cromwell (Methyl Salicylate/Menthol) 29 Gm Oint...g. 1 Vik TP PRN QID PRN Milk Of Magnesia (Magnesium Hydroxide) 2,400 Mg/10 Ml Oral.susp 2,400 Mg PO PRN QHS PRN Mag-Al Plus Xs Suspension (Mag Hydrox/Al Hydrox/Simeth) 30 Ml Oral.susp 15 Ml PO PRN AFTMEALHC PRN Cozaar (Losartan Potassium) 100 Mg Tablet 50 Mg PO BID Depakote Sprinkle (Divalproex Sodium) 125 Mg Cap.sprink 375 Mg PO BID Vitamin B-12 (Cyanocobalamin (Vitamin B-12)) 1,000 Mcg Tablet 1,000 Mcg PO DAILY Tylenol (Acetaminophen) 325 Mg Tablet 650 Mg PO PRN Q6HRS PRN Seroquel (Quetiapine Fumarate) 100 Mg Tablet 100 Mg PO HS Plavix (Clopidogrel Bisulfate) 75 Mg Tablet 75 Mg PO DAILY Atorvastatin Calcium 40 Mg Tablet 40 Mg PO QHS Atenolol 25 Mg Tablet 25 Mg PO BID Diagnosis: Problems: (1) Anxiety disorder (2) Dementia in Alzheimer's disease with delusions (3) Dementia in Alzheimer's disease with depression (4) Dementia, vascular, with delusions (5) Dementia, vascular, with depression (6) Impulse control disorder (7) Abnormal behavior MARTHA SRINIVASAN MD Apr 13, 2017 11:43
[2017-04-13 12:30] VITALS: BP 139/81
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
[2017-04-13] MEDS: ENOXAPARIN 40 MG/0.4 ML DISP.SYRIN. SQ SCH (15:56)
[2017-04-13 16:30] VITALS: BP 150/70
[2017-04-13] MEDS ORDERED: ENOX40DI3 SQ (19:56)
[2017-04-13] MEDS ORDERED: NYST15PO9 TP (19:56)
[2017-04-13] MEDS ORDERED: HYDR-2868 PO (19:56)
--- NOTE | 2017-04-13 23:30 | DS ---
DATE OF DISCHARGE: 04/13/2017 HOSPITAL COURSE: The patient was transferred from [facility] on account of recurrent syncopal episode versus seizure disorder. His lactic acid was high. He has also had acute kidney injury. His creatinine was 1.5 and 1.6. He has started on IV fluid and has had extensive investigation including CT scan of the head, which was unremarkable. CT scan of the chest, abdomen and pelvis also was unremarkable. The patient continued to be extremely restless, agitated or else markedly sedated. His lactic acid has normalized and he was seen in consultation by the Cardiology team as well as the neurologist. Dr. Miller did not think that the patient will be able to see is difficult to obtain an EEG as the patient has been restless and cannot stay still unless he is sedated. He was seen also in consultation by the Cardiology team and their impression is that the patient has syncope versus seizure activity. He was monitored throughout his stay in the ICU and there was no evidence of any arrhythmias or high-grade heart block. The CT scan suggests the possibility of aortic stenosis. He is not a candidate for any surgical intervention, although he has a history of coronary artery disease, he is a poor candidate for any invasive evaluation, intervention and given that, we cannot do an EEG, and medically even if he has aortic stenosis, he is not a candidate for any surgical intervention. A decision was made to transfer him back to [facility] to continue inpatient psychiatric stabilization. PHYSICAL EXAMINATION: GENERAL: On examining him this afternoon, he was resting slightly propped up in bed, in no apparent respiratory distress, he was slightly pale with no jaundice, cyanosis or thyromegaly. No jugular venous distension. No lower limb edema. VITAL SIGNS: His heart rate was 76, blood pressure was 139/81, temperature was 97.6, respiratory rate was 20 and oxygen saturation was 97%. HEAD, EYES, EARS, NOSE AND THROAT: Showed normocephalic, atraumatic. NECK: Supple. HEART: Showed normal first and second heart sounds with no gallop, rub or murmur. CHEST: Clear to auscultation. No crepitation or rhonchi. ABDOMEN: Distended, soft, nontender. NEUROLOGIC: He is demented without any obvious lateralizing sign. The patient continued to be sedated, excessively aggressive and restless and agitated attempting to get out of the bed. LABORATORY DATA: Today showed a white cell count 10,000, hemoglobin 11, hematocrit 32, MCV 90 and platelet count of 164,000. His chemistry showed a serum sodium 140, potassium 3.7, chloride 108, bicarbonate 25, anion gap of 7, BUN 26, creatinine 1.1. Estimated GFR was 63 mL per minute. His glucose was 77. Lactic acid was 0.6. Calcium was 8.5. Total bilirubin, AST, ALT, alkaline phosphatase were normal. Total protein was 6. Albumin 2.8. FINAL DISCHARGE DIAGNOSES: 1. Syncope versus seizure activity. The patient has had no further episodes, no documented seizures, no syncopal episode. He was monitored in telemetry with no evidence of any high-grade heart block or arrhythmias, labile hypertension secondary to agitation. His blood pressure remained stable. CT scan of the chest suggests possible aortic stenosis; however, he is not a candidate for any surgical intervention, hyperlipidemia for which he is on statin. 2. Lactic acidosis, resolved. 3. Acute kidney injury, resolved. His creatinine is down to 1.1 from 1.6. 4. Protein calorie malnutrition with serum albumin of only 2.8. LAKSHMI CORTEZ MD DR: JOSE ANTONIO/jocelyn JOB#: [id number] / [id number]
--- NOTE | 2017-04-14 00:18 | PN ---
DATE: 04/13/2017 SUBJECTIVE: The patient has been restless throughout this morning and he does not follow any commands. He is somewhat violent as well. OBJECTIVE: GENERAL: Well-developed, well-nourished white male, not in acute distress. VITAL SIGNS: Blood pressure 132/59, respiratory rate 16, pulse is 76 regular, temperature is 97.6, oxygen saturation is not reported. HEENT: Normocephalic, atraumatic, otherwise unremarkable. NECK: Supple. Negative for carotid bruit, lymphadenopathy or JVD. LUNGS: Clear to A and P. CARDIOVASCULAR: Regular rate and rhythm, normal S1, S2. ABDOMEN: Soft. Bowel sounds positive. EXTREMITIES: Negative for cyanosis, clubbing, or pitting edema. NEUROLOGICAL EXAM: 1. Mental Status: The patient is awake, but does not follow any commands. He is very restless. 2. Cranial Nerves: The pupils are reactive to light and accommodation. Extraocular movements are intact. There is no nystagmus. There is no facial motor or sensory deficit. Hearing appeared to be intact. 3. Motor Examination: No focal muscle bulk was seen. The tone is normal. The patient moves all his extremities equally, but he is very restless and difficult to evaluate his muscle strength and to evaluate his muscles at this time. Sensory examination, the patient reactive to pinprick and light touch senses. Deep tendon reflexes are symmetric and hypoactive with absent Achilles responses. Gait not tested. LABORATORY DATA: CBC revealed white blood cells of 10.3 thousand, hemoglobin 10.9, hematocrit 32.2, platelet count 164,000. Chemistry revealed sodium of 140, potassium 3.7, chloride 108, CO2 25, BUN 25, creatinine 1.1, glucose is 83. IMPRESSION: 1. Syncope probably secondary to orthostatic hypotension. However, seizure could not be entirely excluded at this time. 2. Peripheral vascular disease, dementia due to Alzheimer disease, orthostatic hypotension, hypertension. RECOMMENDATIONS: Continue with current medical and psychiatric care. The patient is neurologically unchanged. M Charisma CURIEL MD DR: ELIDA/jocelyn JOB#: [id number] / [id number]
--- NOTE | 2017-04-14 11:35 | CARD ---
APPROVED REPORT EXAM: Two-dimensional and M-mode echocardiogram with Doppler and color Doppler. Other Information Quality : Good INDICATION Syncope Murmur 2D DIMENSIONS RVDd1.8 (2.9-3.5cm)Left Atrium(2D)3.2 (1.6-4.0cm) IVSd1.3 (0.7-1.1cm)Aortic Root(2D)2.3 (2.0-3.7cm) LVDd4.2 (3.9-5.9cm)LVOT Diameter2.0 (1.8-2.4cm) PWd1.3 (0.7-1.1cm)LVDs2.3 (2.5-4.0cm) FS (%) 30.0 %SV60.2 ml LVEF(%)60.0 (>50%) Aortic Valve AoV Peak Mukul.121.5cm/sAoV VTI28.7cm AO Peak GR.5.9mmHgLVOT Peak Mukul.128.1cm/s LVOT VTI 29.01cmAO Mean GR.4mmHg MARGOTH (VMAX)3.60ys9XPF (VTI)3.27cm2 Mitral Valve MV E Lkwaibbv98.5cm/sMV DECEL [id number] MV A Aauawiva787.9cm/sE/A Ratio0.9 LEFT VENTRICLE The left ventricle is normal size. There is mild concentric left ventricular hypertrophy. The left ve ntricular systolic function is normal and the ejection fraction is within normal range. The Ejection Fraction is 55-60%. Grossly normal wall motion, suboptimal images. Transmitral Doppler flow pattern i s Grade I-abnormal relaxation pattern. RIGHT VENTRICLE The right ventricle is normal size. The right ventricular systolic function is normal. ATRIA The left atrium size is normal. The right atrium size is normal. The interatrial septum is intact wit h no evidence for an atrial septal defect or patent foramen ovale as noted on 2-D or Doppler imaging. AORTIC VALVE The aortic valve is calcified but appears to open well. Doppler and Color Flow revealed no significan t aortic regurgitation. There is no significant aortic valvular stenosis. MITRAL VALVE Not well visualized. There is no mitral valve stenosis. Doppler and Color-flow revealed trace mitral regurgitation. TRICUSPID VALVE Doppler and Color Flow revealed trace tricuspid regurgitation. There is no tricuspid valve stenosis. PULMONIC VALVE Not well visualized. GREAT VESSELS The aortic root is normal in size. The IVC was not visualized. PERICARDIAL EFFUSION There is no evidence of significant pericardial effusion. Critical Notification Critical Value: No <Conclusion> The left ventricular systolic function is normal and the ejection fraction is within normal range. Th e Ejection Fraction is 55-60%. Grossly normal wall motion, suboptimal images. Technically very difficult study. Overall, no high grade abnormalities noted.
== END 2017-04-13 19:14 | disposition home or self-care (01) | DRG 100 ==
LOC: ICU 14:41
PROVIDERS: ADMIT Internal Medicine; ATTEND Internal Medicine
DX: R56.9 Unspecified convulsions (principal); E43 Unspecified severe protein-calorie malnutrition; F01.51 Vascular dementia, unspecified severity, with behavioral disturbance; F02.81 Dementia in other diseases classified elsewhere, unspecified severity, with behavioral disturbance; E87.2 Acidosis; N17.9 Acute kidney failure, unspecified; I35.0 Nonrheumatic aortic (valve) stenosis; R55 Syncope and collapse; E78.5 Hyperlipidemia, unspecified; F32.9 Major depressive disorder, single episode, unspecified; F41.9 Anxiety disorder, unspecified; F63.9 Impulse disorder, unspecified; G30.9 Alzheimer's disease, unspecified; I10 Essential (primary) hypertension; J30.9 Allergic rhinitis, unspecified; I25.10 Atherosclerotic heart disease of native coronary artery without angina pectoris; I73.9 Peripheral vascular disease, unspecified; Z68.21 Body mass index [BMI] 21.0-21.9, adult
CPT/HCPCS: 36415; 70450; 80053; 80061; 82553; 83605; 85027; 87641; 93306; 93880; J1630; J1650; J2060; J3490; J7030

== ENCOUNTER 2017-04-13 19:43 | Inpatient (IN) | payer MEDICARE ==
[~2017-04-13] VITALS: Ht 195.6 cm; Wt 88.2 kg
[2017-04-13] MEDS ORDERED: NYST15PO9 TP (19:56)
[2017-04-13] MEDS ORDERED: HYDR-2868 PO (19:56)
[2017-04-13] MEDS ORDERED: ENOX40DI3 SQ (19:56)
[2017-04-13] MEDS ORDERED: MAG HYDROX/AL HYDROX/SIMETH 30 ML ORAL.SUSP PO PRN (20:15)
[2017-04-13] MEDS ORDERED: MAGNESIUM HYDROXIDE 2,400 MG/30 ML ORAL.SUSP. PO PRN (20:15)
[2017-04-13] MEDS ORDERED: traMADol 50 MG TABLET PO PRN (20:15)
[2017-04-13] MEDS ORDERED: METHYL SALICYLATE/MENTHOL TOPICAL OINTMENT 29GM TUBE. TP PRN (20:15)
[2017-04-13] MEDS ORDERED: ACETAMINOPHEN 325 MG TABLET PO PRN (20:15)
[2017-04-13] MEDS ORDERED: NYSTATIN TOPICAL POWDER 15GM BOTTLE. TP PRN (20:15)
[2017-04-13] MEDS: ATORVASTATIN CALCIUM 20 MG TABLET PO SCH (21:15)
[2017-04-13] MEDS: DIVALPROEX 125 MG CAP.SPRINK PO SCH (21:15)
[2017-04-13] MEDS: QUEtiapine 100 MG TABLET. PO SCH (21:16)
[2017-04-13 21:17] VITALS: BP 124/59
[2017-04-13] MEDS: hydrALAZINE 25 MG TABLET PO SCH (21:18)
[2017-04-13] MEDS: ATENOLOL 25 MG TABLET PO SCH (21:19)
[2017-04-13] MEDS: LOSARTAN 50 MG TABLET. PO SCH (21:30)
[2017-04-14 06:08] VITALS: BP 144/70
[2017-04-14 06:08] LABS: BILIRUBIN,URINE NEG (NEG); CLARITY,URINE CLEAR; COLOR,URINE YELLOW; GLUCOSE,URINE NEG (NEG); NITRITE,URINE NEG (NEG); RBC,URINE 0 /HPF (0-2); UROBILINOGEN,URINE 0.2 mg/dL (0.2 mg/dL); WBC,URINE OCC /HPF (0-4)
[2017-04-14 06:09] LABS: BACTERIA,URINE 0 /HPF (0-FEW); SQUAMOUS EPITHELIAL CELL,UR OCC /LPF
[2017-04-14 07:06] LABS: BASO # 0.1 x10^3/uL (0.0-0.2); BASO % 1 % (0-3); EOS # 0.6 x10^3/uL (0.0-0.7); EOS % 7 % (0-3); HEMATOCRIT 34.1 % (39.0-53.0); HEMOGLOBIN 11.4 g/dL (13.0-17.5); LYMPH # 1.6 x10^3/uL (1.0-4.8); LYMPH % 17 % (24-48); MEAN CORPUSCULAR HEMOGLOBIN 30 pg (25-35); MEAN CORPUSCULAR HGB CONC 33 g/dL (31-37); MEAN CORPUSCULAR VOLUME 90 fL (79-100); MONO # 1.1 x10^3/uL (0.0-1.1); MONO % 13 % (0-9); NEUT # 5.5 x10^3uL (1.8-7.7); NEUT % 62 % (31-73); PLATELET COUNT 227 x10^3/uL (140-400); RED BLOOD COUNT 3.77 x10^6/uL (4.30-5.70); RED CELL DISTRIBUTION WIDTH 15.4 % (11.5-14.5); WHITE BLOOD COUNT 8.9 x10^3/uL (4.0-11.0)
[2017-04-14 07:18] LABS: ALBUMIN/GLOBULIN RATIO 0.9 (1.0-1.7); CALCIUM 8.8 mg/dL (8.5-10.1); CREATININE 1.2 mg/dL (0.7-1.3); GFR 57.4; MAGNESIUM 1.9 mg/dL (1.8-2.4); POTASSIUM 4.3 mmol/L (3.5-5.1); TOTAL BILIRUBIN 0.6 mg/dL (0.2-1.0); TOTAL PROTEIN 6.5 g/dL (6.4-8.2)
[2017-04-14 07:22] LABS: VAL ACID 43 mcg/mL (50-100)
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
[2017-04-14] MEDS: DIVALPROEX 125 MG CAP.SPRINK PO SCH ×3 (09:28→19:47)
[2017-04-14] MEDS: ATENOLOL 25 MG TABLET PO SCH ×3 (09:28→20:07)
[2017-04-14] MEDS: LOSARTAN 50 MG TABLET. PO SCH ×2 (09:29→19:47)
[2017-04-14] MEDS: hydrALAZINE 25 MG TABLET PO SCH ×3 (09:29→20:06)
[2017-04-14] MEDS: CLOPIDOGREL BISULFATE 75 MG TABLET PO SCH (09:46)
[2017-04-14] MEDS: CYANOCOBALAMIN (VITAMIN B-12) 1,000 MCG TABLET. PO SCH (09:46)
[2017-04-14] MEDS: SERTRALINE 50 MG TABLET. PO SCH (09:46)
[2017-04-14] MEDS: PANTOPRAZOLE 40 MG TABLET. PO SCH (09:46)
[2017-04-14] MEDS: QUEtiapine 25 MG TABLET. PO SCH ×3 (09:46→17:06)
[2017-04-14] MEDS: ENOXAPARIN 40 MG/0.4 ML DISP.SYRIN. SQ SCH (09:47)
[2017-04-14] MEDS: MULTIVITAMIN with MINERAL TABLET. PO SCH (09:47)
[2017-04-14 10:43] LABS: THYROID STIM HORMONE (TSH) 2.708 uIU/mL (0.358-3.740)
[2017-04-14 12:11] LABS: T3 TOTAL 78 ng/dL (71-180); THYROXINE 6.7 ug/dL (4.5-12.0)
[2017-04-14 16:22] VITALS: BP 102/56
[2017-04-14] MEDS: ATORVASTATIN CALCIUM 20 MG TABLET PO SCH (19:47)
[2017-04-14] MEDS: QUEtiapine 100 MG TABLET. PO SCH (19:49)
--- NOTE | 2017-04-14 20:02 | PDOC ---
Exam Mauricio Demential Exam: Mauricio Note: Please also refer to the separate dictated note~for this date of service dictated separately.~Patient seen individually. Discussed the patient with Nursing staff reviewed the chart.~Reviewed interim history and current functioning. Reviewed vital signs,~Labs/ Radiology~and current medications noted below. Continue current treatment with the changes noted in the dictated addendum note Assessment: Vital Signs: Vital Signs Date Time Temp Pulse Resp B/P (MAP) Pulse Ox O2 Delivery O2 Flow Rate FiO2 04/14/17 16:22 97.4 77 20 102/56 (71) 94 Room Air I&O Intake and Output 04/14/17 07:00 Intake Total 0 ml Balance 0 ml Intake Oral 0 ml Labs: Laboratory Tests Test 04/14/17 05:15 04/14/17 06:42 Urine Collection Type Void Urine Color Yellow Urine Clarity Clear Urine pH 6.0 Urine Specific Reading 1.015 Urine Protein Trace (NEG-TRACE) Urine Glucose (UA) Neg mg/dL (NEG) Urine Ketones (Stick) Neg mg/dL (NEG) Urine Blood Neg (NEG) Urine Nitrite Neg (NEG) Urine Bilirubin Neg (NEG) Urine Urobilinogen Dipstick 0.2 mg/dL (0.2 mg/dL) Urine Leukocyte Esterase Neg (NEG) Urine RBC 0 /HPF (0-2) Urine WBC Occ /HPF (0-4) Urine Squamous Epithelial Cells Occ /LPF Urine Bacteria 0 /HPF (0-FEW) Urine Mucus Slight /LPF White Blood Count 8.9 x10^3/uL (4.0-11.0) Red Blood Count 3.77 x10^6/uL (4.30-5.70) L Hemoglobin 11.4 g/dL (13.0-17.5) L Hematocrit 34.1 % (39.0-53.0) L Mean Corpuscular Volume 90 fL (79-100) Mean Corpuscular Hemoglobin 30 pg (25-35) Mean Corpuscular Hemoglobin Concent 33 g/dL (31-37) Red Cell Distribution Width 15.4 % (11.5-14.5) H Platelet Count 227 x10^3/uL (140-400) Neutrophils (%) (Auto) 62 % (31-73) Lymphocytes (%) (Auto) 17 % (24-48) L Monocytes (%) (Auto) 13 % (0-9) H Eosinophils (%) (Auto) 7 % (0-3) H Basophils (%) (Auto) 1 % (0-3) Neutrophils # (Auto) 5.5 x10^3uL (1.8-7.7) Lymphocytes # (Auto) 1.6 x10^3/uL (1.0-4.8) Monocytes # (Auto) 1.1 x10^3/uL (0.0-1.1) Eosinophils # (Auto) 0.6 x10^3/uL (0.0-0.7) Basophils # (Auto) 0.1 x10^3/uL (0.0-0.2) Sodium Level 142 mmol/L (136-145) Potassium Level 4.3 mmol/L (3.5-5.1) Chloride Level 106 mmol/L (98-107) Carbon Dioxide Level 28 mmol/L (21-32) Anion Gap 8 (6-14) Blood Urea Nitrogen 20 mg/dL (8-26) Creatinine 1.2 mg/dL (0.7-1.3) Estimated GFR (Cockcroft-Gault) 57.4 BUN/Creatinine Ratio 17 (6-20) Glucose Level 96 mg/dL (70-99) Calcium Level 8.8 mg/dL (8.5-10.1) Magnesium Level 1.9 mg/dL (1.8-2.4) Iron Level 36 ug/dL (65-175) L Total Iron Binding Capacity 266 ug/dL (250-450) Iron Saturation 14 % (15-34) L Total Bilirubin 0.6 mg/dL (0.2-1.0) Aspartate Amino Transferase (AST) 28 U/L (15-37) Alanine Aminotransferase (ALT) 23 U/L (16-63) Alkaline Phosphatase 59 U/L (46-116) Total Protein 6.5 g/dL (6.4-8.2) Albumin 3.0 g/dL (3.4-5.0) L Albumin/Globulin Ratio 0.9 (1.0-1.7) L Triglycerides Level 82 mg/dL (0-150) Cholesterol Level 140 mg/dL (0-200) LDL Cholesterol, Calculated 87 mg/dL (0-100) VLDL Cholesterol, Calculated 16 mg/dL (0-40) Non-HDL Cholesterol Calculated 103 mg/dL (0-129) HDL Cholesterol 37 mg/dL (40-60) L Cholesterol/HDL Ratio 3.0 25-Hydroxy Vitamin D Total Pending Thyroid Stimulating Hormone (TSH) 2.708 uIU/mL (0.358-3.740) Thyroxine (T4) 6.7 ug/dL (4.5-12.0) Total Triiodothyronine (TT3) 78 ng/dL (71-180) Valproic Acid Level 43 mcg/mL (50-100) L Valproic Acid Last Dose Date 04/13/17 Valproic Acid Last Dose Time 2100 RPR Titer Additional Testing Pending Current Medications: Meds: Current Medications Divalproex Sodium (Depakote Sprinkles) 250 mg 1400 PO Last administered on 04/14 14:13; Start 04/14/17 at 14:00 Divalproex Sodium (Depakote Sprinkles) 375 mg BID PO Last administered on 09:28; Start 04/13/17 at 21:00 Lorazepam (Ativan) 1 mg PRN Q4HRS PRN PO ANXIETY; Start 04/13/17 at 20:00 Olanzapine (ZyPREXA ZYDIS) 2.5 mg PRN Q2HR PRN PO PSYCHOSIS Last administered on 04/14/17 04:18; Start 04/13/17 at 20:00 Quetiapine Fumarate (SEROquel) 12.5 mg TIDWMEALS PO Last administered on 17:06; Start 04/14/17 at 08:00 Quetiapine Fumarate (SEROquel) 100 mg HS PO Last administered on 04/13/17 21: 16; Start 04/13/17 at 21:00 Sertraline HCl (Zoloft) 50 mg DAILY PO Last administered on 04/14/17 09:46; Start 04/14/17 at 09:00 Acetaminophen (Tylenol) 650 mg PRN Q6HRS PRN PO pain/temp; Start 04/13/17 at 20 :15 Atenolol (Tenormin) 25 mg BID PO Last administered on 04/14/17 09:28; Start at 21:00 Clopidogrel Bisulfate (Plavix) 75 mg DAILY PO Last administered on 04/14/17 09 :46; Start 04/14/17 at 09:00 Cyanocobalamin (Vitamin B-12) 1,000 mcg DAILY PO Last administered on 09:46; Start 04/14/17 at 09:00 Enoxaparin Sodium (Lovenox) 40 mg DAILY SQ Last administered on 04/14/17 09:47 ; Start 04/14/17 at 09:00 Hydralazine HCl (Apresoline) 25 mg TID PO Last administered on 04/14/17 14:14 ; Start 04/13/17 at 21:00 Al Hydroxide/Mg Hydroxide (Mylanta Plus Xs) 15 ml PRN AFTMEALHC PRN PO DYSPEPSIA; Start 04/13/17 at 20:15 Multi-Ingredient Ointment (Analgesic [place]) 1 vik PRN QID PRN TP MUSCLE PAIN; Start 04/13/17 at 20:15 Multivitamins/ Calcium (Thera-M Plus) 1 tab DAILY PO Last administered on 09:47; Start 04/14/17 at 09:00 Nystatin (Nystop) 1 vik PRN BID PRN TP REDNESS; Start 04/13/17 at 20:15 Pantoprazole Sodium (Protonix) 40 mg DAILYAC PO Last administered on 04/14/17 09:46; Start 04/14/17 at 07:30 Tramadol HCl (Ultram) 50 mg PRN Q6HRS PRN PO PAIN; Start 04/13/17 at 20:15 Atorvastatin Calcium (Lipitor) 40 mg QHS PO Last administered on 04/13/17 21: 15; Start 04/13/17 at 21:00 Losartan Potassium (Cozaar) 50 mg BID PO Last administered on 04/14/17 09:29; Start 04/13/17 at 21:00 Magnesium Hydroxide (Milk Of Magnesia) 2,400 mg PRN QHS PRN PO CONSTIPATION; Start 04/13/17 at 20:15 Active Scripts Active Reported Hydralazine Hcl 25 Mg Tablet 25 Mg PO TID Nystatin 15 Gm Powder 1 Vik TP PRN BID PRN Enoxaparin Sodium 40 Mg/0.4 Ml Disp.syrin 40 Mg SQ DAILY Seroquel (Quetiapine Fumarate) 25 Mg Tablet 12.5 Mg PO TIDWMEALS Depakote Sprinkle (Divalproex Sodium) 125 Mg Cap.sprink 250 Mg PO 1400 Tramadol Hcl (Tramadol HCl) 50 Mg Tablet 50 Mg PO PRN Q6HRS PRN Lorazepam 1 Mg Tablet 1 Mg PO PRN Q4HRS PRN Zoloft (Sertraline Hcl) 50 Mg Tablet 50 Mg PO DAILY Protonix (Pantoprazole Sodium) 40 Mg Tablet.dr 40 Mg PO DAILY Zyprexa Zydis (Olanzapine) 5 Mg Tab.rapdis 2.5 Mg PO PRN Q2HR PRN Thera M Plus Tablet (Multivits,Ca,Minerals/Iron/FA) 1 Each Tablet 1 Tab PO DAILY Analgesic [place] (Methyl Salicylate/Menthol) 29 Gm Oint...g. 1 Vik TP PRN QID PRN Milk Of Magnesia (Magnesium Hydroxide) 2,400 Mg/10 Ml Oral.susp 2,400 Mg PO PRN QHS PRN Mag-Al Plus Xs Suspension (Mag Hydrox/Al Hydrox/Simeth) 30 Ml Oral.susp 15 Ml PO PRN AFTMEALHC PRN Cozaar (Losartan Potassium) 100 Mg Tablet 50 Mg PO BID Depakote Sprinkle (Divalproex Sodium) 125 Mg Cap.sprink 375 Mg PO BID Vitamin B-12 (Cyanocobalamin (Vitamin B-12)) 1,000 Mcg Tablet 1,000 Mcg PO DAILY Tylenol (Acetaminophen) 325 Mg Tablet 650 Mg PO PRN Q6HRS PRN Seroquel (Quetiapine Fumarate) 100 Mg Tablet 100 Mg PO HS Plavix (Clopidogrel Bisulfate) 75 Mg Tablet 75 Mg PO DAILY Atorvastatin Calcium 40 Mg Tablet 40 Mg PO QHS Atenolol 25 Mg Tablet 25 Mg PO BID Diagnosis: Problems: (1) Anxiety disorder (2) Dementia in Alzheimer's disease with delusions (3) Dementia in Alzheimer's disease with depression (4) Dementia, vascular, with delusions (5) Dementia, vascular, with depression (6) Impulse control disorder (7) Abnormal behavior MARTHA SRINIVASAN MD Apr 14, 2017 20:02
[2017-04-14] MEDS: traZODone 50 MG TABLET. PO PRN ×2 (20:18→22:17)
[2017-04-14 23:06] LABS: HEMOGLOBIN A1C 5.3 % (4.8-5.6)
[2017-04-15 06:38] VITALS: BP 187/74
[2017-04-15] MEDS: DIVALPROEX 125 MG CAP.SPRINK PO SCH ×3 (08:06→19:18)
[2017-04-15] MEDS: SERTRALINE 50 MG TABLET. PO SCH (08:07)
[2017-04-15] MEDS: QUEtiapine 25 MG TABLET. PO SCH ×3 (08:07→17:24)
[2017-04-15] MEDS: PANTOPRAZOLE 40 MG TABLET. PO SCH (08:07)
[2017-04-15] MEDS: ATENOLOL 25 MG TABLET PO SCH ×2 (08:07→19:23)
[2017-04-15] MEDS: CYANOCOBALAMIN (VITAMIN B-12) 1,000 MCG TABLET. PO SCH (08:08)
[2017-04-15] MEDS: CLOPIDOGREL BISULFATE 75 MG TABLET PO SCH (08:08)
[2017-04-15] MEDS: LOSARTAN 50 MG TABLET. PO SCH ×2 (08:08→19:23)
[2017-04-15] MEDS: MULTIVITAMIN with MINERAL TABLET. PO SCH (08:08)
[2017-04-15] MEDS: ENOXAPARIN 40 MG/0.4 ML DISP.SYRIN. SQ SCH (08:09)
[2017-04-15] MEDS: hydrALAZINE 25 MG TABLET PO SCH ×3 (08:09→19:24)
[2017-04-15 16:39] VITALS: BP 116/56
[2017-04-15] MEDS: ATORVASTATIN CALCIUM 20 MG TABLET PO SCH (19:19)
[2017-04-15] MEDS: QUEtiapine 100 MG TABLET. PO SCH (19:19)
[2017-04-15] MEDS: busPIRone 5 MG TABLET. PO SCH (19:20)
[2017-04-15] MEDS: traZODone 50 MG TABLET. PO PRN (19:21)
--- NOTE | 2017-04-15 19:54 | PDOC ---
Exam Mauricio Demential Exam: Mauricio Note: Please also refer to the separate dictated note~for this date of service dictated separately.~Patient seen individually. Discussed the patient with Nursing staff reviewed the chart.~Reviewed interim history and current functioning. Reviewed vital signs,~Labs/ Radiology~and current medications noted below. Continue current treatment with the changes noted in the dictated addendum note Assessment: Vital Signs: Vital Signs Date Time Temp Pulse Resp B/P (MAP) Pulse Ox O2 Delivery O2 Flow Rate FiO2 04/15/17 19:24 87 149/62 04/15/17 16:39 97.6 20 98 Room Air I&O Intake and Output 04/15/17 07:00 Intake Total 420 ml Balance 420 ml Intake Oral 420 ml # Bowel Movements 2 Current Medications: Meds: Current Medications Divalproex Sodium (Depakote Sprinkles) 250 mg 1400 PO Last administered on 04/15 14:22; Start 04/14/17 at 14:00 Divalproex Sodium (Depakote Sprinkles) 375 mg BID PO Last administered on 19:18; Start 04/13/17 at 21:00 Lorazepam (Ativan) 1 mg PRN Q4HRS PRN PO ANXIETY; Start 04/13/17 at 20:00 Olanzapine (ZyPREXA ZYDIS) 2.5 mg PRN Q2HR PRN PO PSYCHOSIS Last administered on 04/15/17 07:03; Start 04/13/17 at 20:00 Quetiapine Fumarate (SEROquel) 12.5 mg TIDWMEALS PO Last administered on 17:24; Start 04/14/17 at 08:00 Quetiapine Fumarate (SEROquel) 100 mg HS PO Last administered on 04/15/17 19: 19; Start 04/13/17 at 21:00 Sertraline HCl (Zoloft) 50 mg DAILY PO Last administered on 04/15/17 08:07; Start 04/14/17 at 09:00 Acetaminophen (Tylenol) 650 mg PRN Q6HRS PRN PO pain/temp; Start 04/13/17 at 20 :15 Atenolol (Tenormin) 25 mg BID PO Last administered on 04/15/17 19:23; Start at 21:00 Clopidogrel Bisulfate (Plavix) 75 mg DAILY PO Last administered on 04/15/17 08 :08; Start 04/14/17 at 09:00 Cyanocobalamin (Vitamin B-12) 1,000 mcg DAILY PO Last administered on 08:08; Start 04/14/17 at 09:00 Enoxaparin Sodium (Lovenox) 40 mg DAILY SQ Last administered on 04/15/17 08:09 ; Start 04/14/17 at 09:00 Hydralazine HCl (Apresoline) 25 mg TID PO Last administered on 04/15/17 19:24 ; Start 04/13/17 at 21:00 Al Hydroxide/Mg Hydroxide (Mylanta Plus Xs) 15 ml PRN AFTMEALHC PRN PO DYSPEPSIA; Start 04/13/17 at 20:15 Multi-Ingredient Ointment (Analgesic [place]) 1 vik PRN QID PRN TP MUSCLE PAIN; Start 04/13/17 at 20:15 Multivitamins/ Calcium (Thera-M Plus) 1 tab DAILY PO Last administered on 08:08; Start 04/14/17 at 09:00 Nystatin (Nystop) 1 vik PRN BID PRN TP REDNESS; Start 04/13/17 at 20:15 Pantoprazole Sodium (Protonix) 40 mg DAILYAC PO Last administered on 04/15/17 08:07; Start 04/14/17 at 07:30 Tramadol HCl (Ultram) 50 mg PRN Q6HRS PRN PO PAIN; Start 04/13/17 at 20:15 Atorvastatin Calcium (Lipitor) 40 mg QHS PO Last administered on 04/15/17 19: 19; Start 04/13/17 at 21:00 Losartan Potassium (Cozaar) 50 mg BID PO Last administered on 04/15/17 19:23; Start 04/13/17 at 21:00 Magnesium Hydroxide (Milk Of Magnesia) 2,400 mg PRN QHS PRN PO CONSTIPATION; Start 04/13/17 at 20:15 Trazodone HCl (Desyrel) 50 mg PRN QHS PRN PO INSOMNIA, MAY REPEAT X1 Last administered on 04/15/17 19:21; Start 04/14/17 at 20:15 Buspirone HCl (Buspar) 5 mg TID PO Last administered on 04/15/17t 19:20; Start 04/15/17 at 21:00 Active Scripts Active Reported Hydralazine Hcl 25 Mg Tablet 25 Mg PO TID Nystatin 15 Gm Powder 1 Vik TP PRN BID PRN Enoxaparin Sodium 40 Mg/0.4 Ml Disp.syrin 40 Mg SQ DAILY Seroquel (Quetiapine Fumarate) 25 Mg Tablet 12.5 Mg PO TIDWMEALS Depakote Sprinkle (Divalproex Sodium) 125 Mg Cap.sprink 250 Mg PO 1400 Tramadol Hcl (Tramadol HCl) 50 Mg Tablet 50 Mg PO PRN Q6HRS PRN Lorazepam 1 Mg Tablet 1 Mg PO PRN Q4HRS PRN Zoloft (Sertraline Hcl) 50 Mg Tablet 50 Mg PO DAILY Protonix (Pantoprazole Sodium) 40 Mg Tablet.dr 40 Mg PO DAILY Zyprexa Zydis (Olanzapine) 5 Mg Tab.rapdis 2.5 Mg PO PRN Q2HR PRN Thera M Plus Tablet (Multivits,Ca,Minerals/Iron/FA) 1 Each Tablet 1 Tab PO DAILY Analgesic [place] (Methyl Salicylate/Menthol) 29 Gm Oint...g. 1 Vik TP PRN QID PRN Milk Of Magnesia (Magnesium Hydroxide) 2,400 Mg/10 Ml Oral.susp 2,400 Mg PO PRN QHS PRN Mag-Al Plus Xs Suspension (Mag Hydrox/Al Hydrox/Simeth) 30 Ml Oral.susp 15 Ml PO PRN AFTMEALHC PRN Cozaar (Losartan Potassium) 100 Mg Tablet 50 Mg PO BID Depakote Sprinkle (Divalproex Sodium) 125 Mg Cap.sprink 375 Mg PO BID Vitamin B-12 (Cyanocobalamin (Vitamin B-12)) 1,000 Mcg Tablet 1,000 Mcg PO DAILY Tylenol (Acetaminophen) 325 Mg Tablet 650 Mg PO PRN Q6HRS PRN Seroquel (Quetiapine Fumarate) 100 Mg Tablet 100 Mg PO HS Plavix (Clopidogrel Bisulfate) 75 Mg Tablet 75 Mg PO DAILY Atorvastatin Calcium 40 Mg Tablet 40 Mg PO QHS Atenolol 25 Mg Tablet 25 Mg PO BID Diagnosis: Problems: (1) Anxiety disorder (2) Dementia in Alzheimer's disease with delusions (3) Dementia in Alzheimer's disease with depression (4) Dementia, vascular, with delusions (5) Dementia, vascular, with depression (6) Impulse control disorder (7) Abnormal behavior MARTHA SRINIVASAN MD Apr 15, 2017 19:54
--- NOTE | 2017-04-15 23:40 | PN ---
DATE: 04/14/2017 PSYCHIATRIC PROGRESS NOTE This is a late entry of 04/14/2017 covers elements not covered in my initial note. SUBJECTIVE: I met with the patient in the evening of 04/14/2017. He remains confused, anxious, restless, trying to get out of his Broda chair, drowsy in the morning, resistive to medications. REVIEW OF SYSTEMS: Ambulation impaired, in a Broda chair. No CV, , pulmonary, eye, ENT system symptoms on review. Reliability poor. MENTAL STATUS EXAM: Oriented to himself. Insight, judgment, recent and remote memory, attention, concentration, fund of knowledge poor, consistent with his diagnosis mentioned in my initial note. PLAN: Continue current psychotropics, Depakote 375 b.i.d. 250 at 1400, Seroquel 12.5 t.i.d. 100 at bedtime, Zoloft 50 mg a day, Ativan and Zyprexa p.r.n. Valproic acid level is slightly subtherapeutic at 43. I will have to be very careful increasing the Seroquel due to his history of syncope and postural hypotension may consider adding BuSpar which we will do 5 mg 3 times a day for anxiety. Adjust further as clinically indicated. MARTHA SRINIVASAN MD DR: [email or web address] JOB#: [id number] / [id number]
[2017-04-16 07:31] VITALS: BP 130/71
[2017-04-16] MEDS: hydrALAZINE 25 MG TABLET PO SCH ×3 (08:01→19:36)
[2017-04-16] MEDS: CYANOCOBALAMIN (VITAMIN B-12) 1,000 MCG TABLET. PO SCH (08:01)
[2017-04-16] MEDS: PANTOPRAZOLE 40 MG TABLET. PO SCH (08:02)
[2017-04-16] MEDS: MULTIVITAMIN with MINERAL TABLET. PO SCH (08:02)
[2017-04-16] MEDS: CLOPIDOGREL BISULFATE 75 MG TABLET PO SCH (08:02)
[2017-04-16] MEDS: LOSARTAN 50 MG TABLET. PO SCH ×2 (08:02→19:37)
[2017-04-16] MEDS: ATENOLOL 25 MG TABLET PO SCH ×2 (08:02→19:39)
[2017-04-16] MEDS: busPIRone 5 MG TABLET. PO SCH ×2 (08:02→14:19)
[2017-04-16] MEDS: QUEtiapine 25 MG TABLET. PO SCH ×3 (08:02→17:00)
[2017-04-16] MEDS: SERTRALINE 50 MG TABLET. PO SCH (08:02)
[2017-04-16] MEDS: ENOXAPARIN 40 MG/0.4 ML DISP.SYRIN. SQ SCH (08:03)
[2017-04-16] MEDS: DIVALPROEX 125 MG CAP.SPRINK PO SCH ×3 (08:03→19:36)
[2017-04-16 16:05] VITALS: BP 118/62
[2017-04-16] MEDS: QUEtiapine 100 MG TABLET. PO SCH (19:36)
[2017-04-16] MEDS: ATORVASTATIN CALCIUM 20 MG TABLET PO SCH (19:39)
--- NOTE | 2017-04-16 19:58 | PDOC ---
Exam Mauricio Demential Exam: Mauricio Note: Please also refer to the separate dictated note~for this date of service dictated separately.~Patient seen individually. Discussed the patient with Nursing staff reviewed the chart.~Reviewed interim history and current functioning. Reviewed vital signs,~Labs/ Radiology~and current medications noted below. Continue current treatment with the changes noted in the dictated addendum note Assessment: Vital Signs: Vital Signs Date Time Temp Pulse Resp B/P (MAP) Pulse Ox O2 Delivery O2 Flow Rate FiO2 04/16/17 19:39 73 118/62 04/16/17 16:05 97.5 18 95 04/16/17 07:31 Room Air I&O Intake and Output 04/16/17 07:00 Intake Total 700 ml Balance 700 ml Intake Oral 700 ml Current Medications: Meds: Current Medications Divalproex Sodium (Depakote Sprinkles) 250 mg 1400 PO Last administered on 04/16 14:20; Start 04/14/17 at 14:00 Divalproex Sodium (Depakote Sprinkles) 375 mg BID PO Last administered on 19:36; Start 04/13/17 at 21:00 Lorazepam (Ativan) 1 mg PRN Q4HRS PRN PO ANXIETY; Start 04/13/17 at 20:00 Olanzapine (ZyPREXA ZYDIS) 2.5 mg PRN Q2HR PRN PO PSYCHOSIS Last administered on 04/16/17 09:55; Start 04/13/17 at 20:00 Quetiapine Fumarate (SEROquel) 12.5 mg TIDWMEALS PO Last administered on 17:00; Start 04/14/17 at 08:00 Quetiapine Fumarate (SEROquel) 100 mg HS PO Last administered on 04/16/17 19: 36; Start 04/13/17 at 21:00 Sertraline HCl (Zoloft) 50 mg DAILY PO Last administered on 04/16/17 08:02; Start 04/14/17 at 09:00 Acetaminophen (Tylenol) 650 mg PRN Q6HRS PRN PO pain/temp; Start 04/13/17 at 20 :15 Atenolol (Tenormin) 25 mg BID PO Last administered on 04/16/17 19:39; Start at 21:00 Clopidogrel Bisulfate (Plavix) 75 mg DAILY PO Last administered on 04/16/17 08 :02; Start 04/14/17 at 09:00 Cyanocobalamin (Vitamin B-12) 1,000 mcg DAILY PO Last administered on 08:01; Start 04/14/17 at 09:00 Enoxaparin Sodium (Lovenox) 40 mg DAILY SQ Last administered on 04/16/17 08:03 ; Start 04/14/17 at 09:00 Hydralazine HCl (Apresoline) 25 mg TID PO Last administered on 04/16/17 19:36 ; Start 04/13/17 at 21:00 Al Hydroxide/Mg Hydroxide (Mylanta Plus Xs) 15 ml PRN AFTMEALHC PRN PO DYSPEPSIA; Start 04/13/17 at 20:15 Multi-Ingredient Ointment (Analgesic [place]) 1 vik PRN QID PRN TP MUSCLE PAIN; Start 04/13/17 at 20:15 Multivitamins/ Calcium (Thera-M Plus) 1 tab DAILY PO Last administered on 08:02; Start 04/14/17 at 09:00 Nystatin (Nystop) 1 vik PRN BID PRN TP REDNESS; Start 04/13/17 at 20:15 Pantoprazole Sodium (Protonix) 40 mg DAILYAC PO Last administered on 04/16/17 08:02; Start 04/14/17 at 07:30 Tramadol HCl (Ultram) 50 mg PRN Q6HRS PRN PO PAIN; Start 04/13/17 at 20:15 Atorvastatin Calcium (Lipitor) 40 mg QHS PO Last administered on 04/16/17 19: 39; Start 04/13/17 at 21:00 Losartan Potassium (Cozaar) 50 mg BID PO Last administered on 04/16/17 19:37; Start 04/13/17 at 21:00 Magnesium Hydroxide (Milk Of Magnesia) 2,400 mg PRN QHS PRN PO CONSTIPATION; Start 04/13/17 at 20:15 Trazodone HCl (Desyrel) 50 mg PRN QHS PRN PO INSOMNIA, MAY REPEAT X1 Last administered on 04/15/17 19:21; Start 04/14/17 at 20:15 Buspirone HCl (Buspar) 5 mg TID PO Last administered on 04/16/17t 14:19; Start 04/15/17 at 21:00; Stop 04/16/17 at 18:08; Status DC Buspirone HCl (Buspar) 10 mg BID92 PO ; Start 04/17/17 at 09:00 Active Scripts Active Reported Hydralazine Hcl 25 Mg Tablet 25 Mg PO TID Nystatin 15 Gm Powder 1 Vik TP PRN BID PRN Enoxaparin Sodium 40 Mg/0.4 Ml Disp.syrin 40 Mg SQ DAILY Seroquel (Quetiapine Fumarate) 25 Mg Tablet 12.5 Mg PO TIDWMEALS Depakote Sprinkle (Divalproex Sodium) 125 Mg Cap.sprink 250 Mg PO 1400 Tramadol Hcl (Tramadol HCl) 50 Mg Tablet 50 Mg PO PRN Q6HRS PRN Lorazepam 1 Mg Tablet 1 Mg PO PRN Q4HRS PRN Zoloft (Sertraline Hcl) 50 Mg Tablet 50 Mg PO DAILY Protonix (Pantoprazole Sodium) 40 Mg Tablet.dr 40 Mg PO DAILY Zyprexa Zydis (Olanzapine) 5 Mg Tab.rapdis 2.5 Mg PO PRN Q2HR PRN Thera M Plus Tablet (Multivits,Ca,Minerals/Iron/FA) 1 Each Tablet 1 Tab PO DAILY Analgesic [place] (Methyl Salicylate/Menthol) 29 Gm Oint...g. 1 Vik TP PRN QID PRN Milk Of Magnesia (Magnesium Hydroxide) 2,400 Mg/10 Ml Oral.susp 2,400 Mg PO PRN QHS PRN Mag-Al Plus Xs Suspension (Mag Hydrox/Al Hydrox/Simeth) 30 Ml Oral.susp 15 Ml PO PRN AFTMEALHC PRN Cozaar (Losartan Potassium) 100 Mg Tablet 50 Mg PO BID Depakote Sprinkle (Divalproex Sodium) 125 Mg Cap.sprink 375 Mg PO BID Vitamin B-12 (Cyanocobalamin (Vitamin B-12)) 1,000 Mcg Tablet 1,000 Mcg PO DAILY Tylenol (Acetaminophen) 325 Mg Tablet 650 Mg PO PRN Q6HRS PRN Seroquel (Quetiapine Fumarate) 100 Mg Tablet 100 Mg PO HS Plavix (Clopidogrel Bisulfate) 75 Mg Tablet 75 Mg PO DAILY Atorvastatin Calcium 40 Mg Tablet 40 Mg PO QHS Atenolol 25 Mg Tablet 25 Mg PO BID Diagnosis: Problems: (1) Anxiety disorder (2) Dementia in Alzheimer's disease with delusions (3) Dementia in Alzheimer's disease with depression (4) Dementia, vascular, with delusions (5) Dementia, vascular, with depression MARTHA SRINIVASAN MD Apr 16, 2017 19:58
[2017-04-17 06:03] VITALS: BP 109/52
--- NOTE | 2017-04-17 06:44 | PN ---
DATE: 04/15/2017 This is a late entry on 04/15/2017 covers elements not covered in my initial note. SUBJECTIVE: The patient was seen individually evening of 04/15/2017. He was quite resistive to care the previous day. Earlier in the day on 04/15/2017, he was punching staff in the morning, received Zyprexa Zydis at 7:10 a.m. and then was more cooperative. He did ambulate with physical therapy staff, did 6 laps with a walker. REVIEW OF SYSTEMS: No CV, , pulmonary, eye system symptoms on review. Reliability poor. Gait impaired, in a Broda chair. MENTAL STATUS EXAM: Oriented to himself. Insight, judgment, recent and remote memory, attention, concentration, fund of knowledge poor, consistent with his diagnosis mentioned in my initial note. PLAN: Continue Seroquel 12.5 mg 3 times a day, 100 mg at bedtime, Depakote 375 mg b.i.d., 250 mg at 1400, Zoloft 50 mg a day, Ativan and Zyprexa p.r.n., trazodone at bedtime p.r.n., BuSpar 5 mg 3 times a day. Adjust further as clinically indicated. MARTHA SRINIVASAN MD DR: VIVEK/jocelyn JOB#: [id number] / [id number]
[2017-04-17] MEDS: CLOPIDOGREL BISULFATE 75 MG TABLET PO SCH (08:59)
[2017-04-17] MEDS: ENOXAPARIN 40 MG/0.4 ML DISP.SYRIN. SQ SCH (08:59)
[2017-04-17] MEDS: SERTRALINE 50 MG TABLET. PO SCH (08:59)
[2017-04-17] MEDS: QUEtiapine 25 MG TABLET. PO SCH ×3 (09:00→16:51)
[2017-04-17] MEDS: hydrALAZINE 25 MG TABLET PO SCH ×3 (09:00→20:26)
[2017-04-17] MEDS: MULTIVITAMIN with MINERAL TABLET. PO SCH (09:00)
[2017-04-17] MEDS: CYANOCOBALAMIN (VITAMIN B-12) 1,000 MCG TABLET. PO SCH (09:00)
[2017-04-17] MEDS: ATENOLOL 25 MG TABLET PO SCH ×2 (09:00→20:25)
[2017-04-17] MEDS: PANTOPRAZOLE 40 MG TABLET. PO SCH (09:00)
[2017-04-17] MEDS: LOSARTAN 50 MG TABLET. PO SCH ×2 (09:00→20:25)
[2017-04-17] MEDS: DIVALPROEX 125 MG CAP.SPRINK PO SCH ×3 (09:00→20:26)
[2017-04-17] MEDS: busPIRone 10 MG TABLET. PO SCH ×2 (09:02→15:02)
[2017-04-17] MEDS: LORazepam 1 MG TABLET PO PRN ×2 (10:50→17:23)
[2017-04-17 14:59] VITALS: BP 145/67
[2017-04-17 16:04] VITALS: BP 145/67
--- NOTE | 2017-04-17 20:02 | PDOC ---
Exam Mauricio Demential Exam: Mauricio Note: Please also refer to the separate dictated note~for this date of service dictated separately.~Patient seen individually. Discussed the patient with Nursing staff reviewed the chart.~Reviewed interim history and current functioning. Reviewed vital signs,~Labs/ Radiology~and current medications noted below. Continue current treatment with the changes noted in the dictated addendum note Assessment: Vital Signs: Vital Signs Date Time Temp Pulse Resp B/P (MAP) Pulse Ox O2 Delivery O2 Flow Rate FiO2 04/17/17 16:04 97.3 69 18 145/67 (93) 93 Room Air I&O Intake and Output 04/17/17 07:00 Intake Total 840 ml Balance 840 ml Intake Oral 840 ml Current Medications: Meds: Current Medications Divalproex Sodium (Depakote Sprinkles) 250 mg 1400 PO Last administered on 04/17 15:03; Start 04/14/17 at 14:00 Divalproex Sodium (Depakote Sprinkles) 375 mg BID PO Last administered on 09:00; Start 04/13/17 at 21:00 Lorazepam (Ativan) 1 mg PRN Q4HRS PRN PO ANXIETY Last administered on 17:23; Start 04/13/17 at 20:00 Olanzapine (ZyPREXA ZYDIS) 2.5 mg PRN Q2HR PRN PO PSYCHOSIS Last administered on 04/16/17 09:55; Start 04/13/17 at 20:00 Quetiapine Fumarate (SEROquel) 12.5 mg TIDWMEALS PO Last administered on 16:51; Start 04/14/17 at 08:00 Quetiapine Fumarate (SEROquel) 100 mg HS PO Last administered on 04/16/17 19: 36; Start 04/13/17 at 21:00 Sertraline HCl (Zoloft) 50 mg DAILY PO Last administered on 04/17/17 08:59; Start 04/14/17 at 09:00 Acetaminophen (Tylenol) 650 mg PRN Q6HRS PRN PO pain/temp; Start 04/13/17 at 20 :15 Atenolol (Tenormin) 25 mg BID PO Last administered on 04/16/17 19:39; Start at 21:00 Clopidogrel Bisulfate (Plavix) 75 mg DAILY PO Last administered on 04/17/17 08 :59; Start 04/14/17 at 09:00 Cyanocobalamin (Vitamin B-12) 1,000 mcg DAILY PO Last administered on 09:00; Start 04/14/17 at 09:00 Enoxaparin Sodium (Lovenox) 40 mg DAILY SQ Last administered on 04/17/17 08:59 ; Start 04/14/17 at 09:00 Hydralazine HCl (Apresoline) 25 mg TID PO Last administered on 04/17/17 15:02 ; Start 04/13/17 at 21:00 Al Hydroxide/Mg Hydroxide (Mylanta Plus Xs) 15 ml PRN AFTMEALHC PRN PO DYSPEPSIA; Start 04/13/17 at 20:15 Multi-Ingredient Ointment (Analgesic [place]) 1 vik PRN QID PRN TP MUSCLE PAIN; Start 04/13/17 at 20:15 Multivitamins/ Calcium (Thera-M Plus) 1 tab DAILY PO Last administered on 09:00; Start 04/14/17 at 09:00 Nystatin (Nystop) 1 vik PRN BID PRN TP REDNESS; Start 04/13/17 at 20:15 Pantoprazole Sodium (Protonix) 40 mg DAILYAC PO Last administered on 04/17/17 09:00; Start 04/14/17 at 07:30 Tramadol HCl (Ultram) 50 mg PRN Q6HRS PRN PO PAIN; Start 04/13/17 at 20:15 Atorvastatin Calcium (Lipitor) 40 mg QHS PO Last administered on 04/16/17 19: 39; Start 04/13/17 at 21:00 Losartan Potassium (Cozaar) 50 mg BID PO Last administered on 04/16/17 19:37; Start 04/13/17 at 21:00 Magnesium Hydroxide (Milk Of Magnesia) 2,400 mg PRN QHS PRN PO CONSTIPATION; Start 04/13/17 at 20:15 Trazodone HCl (Desyrel) 50 mg PRN QHS PRN PO INSOMNIA, MAY REPEAT X1 Last administered on 04/15/17 19:21; Start 04/14/17 at 20:15 Buspirone HCl (Buspar) 5 mg TID PO Last administered on 04/16/17 14:19; Start 04/15/17 at 21:00; Stop 04/16/17 at 18:08; Status DC Buspirone HCl (Buspar) 10 mg BID92 PO Last administered on 04/17/17 15:02; Start 04/17/17 at 09:00; Stop 04/17/17 at 19:05; Status DC Buspirone HCl (Buspar) 10 mg TID@0900,1300,1700 PO ; Start 04/18/17 at 09:00 Active Scripts Active Reported Hydralazine Hcl 25 Mg Tablet 25 Mg PO TID Nystatin 15 Gm Powder 1 Vik TP PRN BID PRN Enoxaparin Sodium 40 Mg/0.4 Ml Disp.syrin 40 Mg SQ DAILY Seroquel (Quetiapine Fumarate) 25 Mg Tablet 12.5 Mg PO TIDWMEALS Depakote Sprinkle (Divalproex Sodium) 125 Mg Cap.sprink 250 Mg PO 1400 Tramadol Hcl (Tramadol HCl) 50 Mg Tablet 50 Mg PO PRN Q6HRS PRN Lorazepam 1 Mg Tablet 1 Mg PO PRN Q4HRS PRN Zoloft (Sertraline Hcl) 50 Mg Tablet 50 Mg PO DAILY Protonix (Pantoprazole Sodium) 40 Mg Tablet.dr 40 Mg PO DAILY Zyprexa Zydis (Olanzapine) 5 Mg Tab.rapdis 2.5 Mg PO PRN Q2HR PRN Thera M Plus Tablet (Multivits,Ca,Minerals/Iron/FA) 1 Each Tablet 1 Tab PO DAILY Analgesic [place] (Methyl Salicylate/Menthol) 29 Gm Oint...g. 1 Vik TP PRN QID PRN Milk Of Magnesia (Magnesium Hydroxide) 2,400 Mg/10 Ml Oral.susp 2,400 Mg PO PRN QHS PRN Mag-Al Plus Xs Suspension (Mag Hydrox/Al Hydrox/Simeth) 30 Ml Oral.susp 15 Ml PO PRN AFTMEALHC PRN Cozaar (Losartan Potassium) 100 Mg Tablet 50 Mg PO BID Depakote Sprinkle (Divalproex Sodium) 125 Mg Cap.sprink 375 Mg PO BID Vitamin B-12 (Cyanocobalamin (Vitamin B-12)) 1,000 Mcg Tablet 1,000 Mcg PO DAILY Tylenol (Acetaminophen) 325 Mg Tablet 650 Mg PO PRN Q6HRS PRN Seroquel (Quetiapine Fumarate) 100 Mg Tablet 100 Mg PO HS Plavix (Clopidogrel Bisulfate) 75 Mg Tablet 75 Mg PO DAILY Atorvastatin Calcium 40 Mg Tablet 40 Mg PO QHS Atenolol 25 Mg Tablet 25 Mg PO BID Diagnosis: Problems: (1) Anxiety disorder (2) Dementia in Alzheimer's disease with delusions (3) Dementia in Alzheimer's disease with depression (4) Dementia, vascular, with delusions (5) Dementia, vascular, with depression (6) Impulse control disorder (7) Abnormal behavior (8) Syncopal episodes (9) Postural hypotension MARTHA SRINIVASAN MD Apr 17, 2017 20:02
[2017-04-17] MEDS: ATORVASTATIN CALCIUM 20 MG TABLET PO SCH (20:25)
[2017-04-17] MEDS: QUEtiapine 100 MG TABLET. PO SCH (20:26)
--- NOTE | 2017-04-17 22:15 | PN ---
DATE: 04/16/2017 This is a late entry of 04/16/2017 covers elements not covered in my initial note. The patient was seen individually evening of 04/16/2017. The patient slept 8 hours previous night. He has been "up and down all day" per nursing report. He is agitated when in the Broda chair, wanting to walk. He did walk with physical therapy staff, but when he is in the wheelchair, he is at risk of fall. He has been hallucinating, he is back in the Broda by the time I met with him, reaching out to the floor as if he is seeing things there. REVIEW OF SYSTEMS: Ambulation impaired. No CV, , eye, ENT or pulmonary system symptoms on review. Reliability poor. MENTAL STATUS EXAM: Oriented to himself. Insight, judgment, recent and remote memory, attention, concentration, fund of knowledge poor, consistent with his diagnosis mentioned in my initial note. LABORATORY DATA: Reviewed. IMPRESSION: Major neurocognitive disorder, Alzheimer, vascular with depression, delusion, behavioral disturbance. Rest unchanged. PLAN: Increase BuSpar from 5 mg 3 times a day to 10 mg twice a day at 9:00 a.m. and 2 p.m. Maintain Seroquel, Depakote, Zoloft, Ativan p.r.n., Zyprexa p.r.n., trazodone p.r.n. Adjust further as clinically indicated. MARTHA SRINIVASAN MD DR: VIVEK/jocelyn JOB#: [id number] / [id number]
[2017-04-17] MEDS: traZODone 50 MG TABLET. PO PRN (23:16)
[2017-04-18 02:06] LABS: BACTERIA,URINE 0 /HPF (0-FEW); BILIRUBIN,URINE NEG (NEG); CLARITY,URINE CLEAR; COLOR,URINE YELLOW; GLUCOSE,URINE NEG (NEG); NITRITE,URINE NEG (NEG); RBC,URINE 0 /HPF (0-2); SQUAMOUS EPITHELIAL CELL,UR OCC /LPF; UROBILINOGEN,URINE 0.2 mg/dL (0.2 mg/dL); WBC,URINE RARE /HPF (0-4)
[2017-04-18 05:51] VITALS: BP 173/67
[2017-04-18] MEDS: DIVALPROEX 125 MG CAP.SPRINK PO SCH ×3 (08:00→19:34)
[2017-04-18] MEDS: PANTOPRAZOLE 40 MG TABLET. PO SCH (08:00)
[2017-04-18] MEDS: MULTIVITAMIN with MINERAL TABLET. PO SCH (08:01)
[2017-04-18] MEDS: ATENOLOL 25 MG TABLET PO SCH ×2 (08:01→19:35)
[2017-04-18] MEDS: CYANOCOBALAMIN (VITAMIN B-12) 1,000 MCG TABLET. PO SCH (08:01)
[2017-04-18] MEDS: hydrALAZINE 25 MG TABLET PO SCH ×3 (08:01→19:34)
[2017-04-18] MEDS: SERTRALINE 50 MG TABLET. PO SCH (08:01)
[2017-04-18] MEDS: LOSARTAN 50 MG TABLET. PO SCH ×2 (08:02→19:34)
[2017-04-18] MEDS: QUEtiapine 25 MG TABLET. PO SCH ×3 (08:03→16:15)
[2017-04-18] MEDS: CLOPIDOGREL BISULFATE 75 MG TABLET PO SCH (08:03)
[2017-04-18] MEDS: ENOXAPARIN 40 MG/0.4 ML DISP.SYRIN. SQ SCH (08:03)
[2017-04-18] MEDS: TAMSULOSIN 0.4 MG CAP.ER.24H. PO SCH (08:06)
[2017-04-18] MEDS: busPIRone 10 MG TABLET. PO SCH ×3 (08:06→16:14)
[2017-04-18] MEDS: LORazepam 1 MG TABLET PO PRN ×2 (09:41→17:59)
[2017-04-18] MEDS ORDERED: clonazePAM 0.5 MG TABLET PO PRN (11:00)
[2017-04-18 16:12] VITALS: BP 108/43
[2017-04-18] MEDS: ATORVASTATIN CALCIUM 20 MG TABLET PO SCH (19:34)
[2017-04-18] MEDS: QUEtiapine 100 MG TABLET. PO SCH (19:34)
--- NOTE | 2017-04-18 19:58 | PDOC ---
Exam Mauricio Demential Exam: Mauricio Note: Please also refer to the separate dictated note~for this date of service dictated separately.~Patient seen individually. Discussed the patient with Nursing staff reviewed the chart.~Reviewed interim history and current functioning. Reviewed vital signs,~Labs/ Radiology~and current medications noted below. Continue current treatment with the changes noted in the dictated addendum note Assessment: Vital Signs: Vital Signs Date Time Temp Pulse Resp B/P (MAP) Pulse Ox O2 Delivery O2 Flow Rate FiO2 04/18/17 19:35 71 108/43 04/18/17 16:12 97.2 20 93 04/18/17 05:51 Room Air I&O Intake and Output 04/18/17 07:00 Intake Total 1080 ml Output Total 1500 ml Balance -420 ml Intake Oral 1080 ml Output Urine Total 1500 ml Labs: Laboratory Tests Test 04/18/17 01:05 Urine Collection Type U cath Urine Color Yellow Urine Clarity Clear Urine pH 6.0 Urine Specific [place] 1.020 Urine Protein Neg (NEG-TRACE) Urine Glucose (UA) Neg mg/dL (NEG) Urine Ketones (Stick) Neg mg/dL (NEG) Urine Blood Neg (NEG) Urine Nitrite Neg (NEG) Urine Bilirubin Neg (NEG) Urine Urobilinogen Dipstick 0.2 mg/dL (0.2 mg/dL) Urine Leukocyte Esterase Neg (NEG) Urine RBC 0 /HPF (0-2) Urine WBC Rare /HPF (0-4) Urine Squamous Epithelial Cells Occ /LPF Urine Bacteria 0 /HPF (0-FEW) Current Medications: Meds: Current Medications Divalproex Sodium (Depakote Sprinkles) 250 mg 1400 PO Last administered on 04/18 16:15; Start 04/14/17 at 14:00 Divalproex Sodium (Depakote Sprinkles) 375 mg BID PO Last administered on 19:34; Start 04/13/17 at 21:00 Lorazepam (Ativan) 1 mg PRN Q4HRS PRN PO ANXIETY Last administered on 17:59; Start 04/13/17 at 20:00 Olanzapine (ZyPREXA ZYDIS) 2.5 mg PRN Q2HR PRN PO PSYCHOSIS Last administered on 04/16/17 09:55; Start 04/13/17 at 20:00 Quetiapine Fumarate (SEROquel) 12.5 mg TIDWMEALS PO Last administered on 16:15; Start 04/14/17 at 08:00 Quetiapine Fumarate (SEROquel) 100 mg HS PO Last administered on 04/18/17 19: 34; Start 04/13/17 at 21:00 Sertraline HCl (Zoloft) 50 mg DAILY PO Last administered on 04/18/17 08:01; Start 04/14/17 at 09:00 Acetaminophen (Tylenol) 650 mg PRN Q6HRS PRN PO pain/temp; Start 04/13/17 at 20 :15 Atenolol (Tenormin) 25 mg BID PO Last administered on 04/18/17 08:01; Start at 21:00 Clopidogrel Bisulfate (Plavix) 75 mg DAILY PO Last administered on 04/18/17 08 :03; Start 04/14/17 at 09:00 Cyanocobalamin (Vitamin B-12) 1,000 mcg DAILY PO Last administered on 08:01; Start 04/14/17 at 09:00 Enoxaparin Sodium (Lovenox) 40 mg DAILY SQ Last administered on 04/18/17 08:03 ; Start 04/14/17 at 09:00 Hydralazine HCl (Apresoline) 25 mg TID PO Last administered on 04/18/17 08:01 ; Start 04/13/17 at 21:00 Al Hydroxide/Mg Hydroxide (Mylanta Plus Xs) 15 ml PRN AFTMEALHC PRN PO DYSPEPSIA; Start 04/13/17 at 20:15 Multi-Ingredient Ointment (Analgesic [place]) 1 vik PRN QID PRN TP MUSCLE PAIN; Start 04/13/17 at 20:15 Multivitamins/ Calcium (Thera-M Plus) 1 tab DAILY PO Last administered on 08:01; Start 04/14/17 at 09:00 Nystatin (Nystop) 1 vik PRN BID PRN TP REDNESS; Start 04/13/17 at 20:15 Pantoprazole Sodium (Protonix) 40 mg DAILYAC PO Last administered on 04/18/17 08:00; Start 04/14/17 at 07:30 Tramadol HCl (Ultram) 50 mg PRN Q6HRS PRN PO PAIN; Start 04/13/17 at 20:15 Atorvastatin Calcium (Lipitor) 40 mg QHS PO Last administered on 04/18/17 19: 34; Start 04/13/17 at 21:00 Losartan Potassium (Cozaar) 50 mg BID PO Last administered on 04/18/17 08:02; Start 04/13/17 at 21:00 Magnesium Hydroxide (Milk Of Magnesia) 2,400 mg PRN QHS PRN PO CONSTIPATION; Start 04/13/17 at 20:15 Trazodone HCl (Desyrel) 50 mg PRN QHS PRN PO INSOMNIA, MAY REPEAT X1 Last administered on 04/17/17 23:16; Start 04/14/17 at 20:15 Buspirone HCl (Buspar) 5 mg TID PO Last administered on 04/16/17 14:19; Start 04/15/17 at 21:00; Stop 04/16/17 at 18:08; Status DC Buspirone HCl (Buspar) 10 mg BID92 PO Last administered on 04/17/17 15:02; Start 04/17/17 at 09:00; Stop 04/17/17 at 19:05; Status DC Buspirone HCl (Buspar) 10 mg TID@0900,1300,1700 PO Last administered on 16:14; Start 04/18/17 at 09:00 Tamsulosin HCl (Flomax) 0.4 mg DAILY PO Last administered on 04/18/17 08:06; Start 04/18/17 at 09:00 Clonazepam (KlonoPIN) 0.25 mg PRN BID PRN PO ANXIETY / AGITATION; Start at 11:00 Active Scripts Active Reported Hydralazine Hcl 25 Mg Tablet 25 Mg PO TID Nystatin 15 Gm Powder 1 Vik TP PRN BID PRN Enoxaparin Sodium 40 Mg/0.4 Ml Disp.syrin 40 Mg SQ DAILY Seroquel (Quetiapine Fumarate) 25 Mg Tablet 12.5 Mg PO TIDWMEALS Depakote Sprinkle (Divalproex Sodium) 125 Mg Cap.sprink 250 Mg PO 1400 Tramadol Hcl (Tramadol HCl) 50 Mg Tablet 50 Mg PO PRN Q6HRS PRN Lorazepam 1 Mg Tablet 1 Mg PO PRN Q4HRS PRN Zoloft (Sertraline Hcl) 50 Mg Tablet 50 Mg PO DAILY Protonix (Pantoprazole Sodium) 40 Mg Tablet.dr 40 Mg PO DAILY Zyprexa Zydis (Olanzapine) 5 Mg Tab.rapdis 2.5 Mg PO PRN Q2HR PRN Thera M Plus Tablet (Multivits,Ca,Minerals/Iron/FA) 1 Each Tablet 1 Tab PO DAILY Analgesic [place] (Methyl Salicylate/Menthol) 29 Gm Oint...g. 1 Vik TP PRN QID PRN Milk Of Magnesia (Magnesium Hydroxide) 2,400 Mg/10 Ml Oral.susp 2,400 Mg PO PRN QHS PRN Mag-Al Plus Xs Suspension (Mag Hydrox/Al Hydrox/Simeth) 30 Ml Oral.susp 15 Ml PO PRN AFTMEALHC PRN Cozaar (Losartan Potassium) 100 Mg Tablet 50 Mg PO BID Depakote Sprinkle (Divalproex Sodium) 125 Mg Cap.sprink 375 Mg PO BID Vitamin B-12 (Cyanocobalamin (Vitamin B-12)) 1,000 Mcg Tablet 1,000 Mcg PO DAILY Tylenol (Acetaminophen) 325 Mg Tablet 650 Mg PO PRN Q6HRS PRN Seroquel (Quetiapine Fumarate) 100 Mg Tablet 100 Mg PO HS Plavix (Clopidogrel Bisulfate) 75 Mg Tablet 75 Mg PO DAILY Atorvastatin Calcium 40 Mg Tablet 40 Mg PO QHS Atenolol 25 Mg Tablet 25 Mg PO BID Diagnosis: Problems: (1) Anxiety disorder (2) Dementia in Alzheimer's disease with delusions (3) Dementia in Alzheimer's disease with depression (4) Dementia, vascular, with delusions (5) Dementia, vascular, with depression (6) Impulse control disorder (7) Abnormal behavior MARTHA SRINIVASAN MD Apr 18, 2017 19:58
--- NOTE | 2017-04-18 23:43 | PN ---
DATE: 04/17/2017 PSYCHIATRIC PROGRESS NOTE This is a late entry 04/17/2017, covers elements not covered in my initial note. SUBJECTIVE: Per nursing report, the patient has had urinary retention, did have a straight cath, may need a Port[place] placed. Remains anxious, restless more so since he is in a Broda chair due to fall risk. He does better if allowed to ambulate, but he is at fall risk, which makes it hard to do this. REVIEW OF SYSTEMS: No CV, , pulmonary, eye, ENT system symptoms on review. Reliability poor. MENTAL STATUS EXAM: Oriented to himself. Insight, judgment, recent and remote memory, attention, concentration, fund of knowledge poor, consistent with his diagnoses mentioned in my initial note. PLAN: Increase BuSpar from 10 mg twice a day to 10 mg 3 times a day, Ativan p.r.n. has been effective and we may start Klonopin as an alternative on a scheduled basis. Maintain Seroquel, Depakote, Zoloft along with trazodone, Zyprexa p.r.n., and BuSpar is noted for now. MARTHA SRINIVASAN MD DR: VIVEK/jocelyn JOB#: [id number] / [id number]
[2017-04-19 06:17] VITALS: BP 142/62
[2017-04-19 06:32] LABS: HEMATOCRIT 30.6 % (39.0-53.0); HEMOGLOBIN 10.3 g/dL (13.0-17.5); RED BLOOD COUNT 3.4 x10^6/uL (4.30-5.70); RED CELL DISTRIBUTION WIDTH 15.8 % (11.5-14.5); WHITE BLOOD COUNT 8.5 x10^3/uL (4.0-11.0)
[2017-04-19 06:46] LABS: ALBUMIN 2.6 g/dL (3.4-5.0); ALBUMIN/GLOBULIN RATIO 0.8 (1.0-1.7); CALCIUM 8.3 mg/dL (8.5-10.1); CREATININE 1.3 mg/dL (0.7-1.3); GFR 52.3; MAGNESIUM 1.9 mg/dL (1.8-2.4); POTASSIUM 3.7 mmol/L (3.5-5.1); TOTAL BILIRUBIN 0.4 mg/dL (0.2-1.0); TOTAL PROTEIN 5.9 g/dL (6.4-8.2)
[2017-04-19] MEDS ORDERED: clonazePAM 0.5 MG TABLET PO SCH (09:00)
[2017-04-19] MEDS: CLOPIDOGREL BISULFATE 75 MG TABLET PO SCH (10:10)
[2017-04-19] MEDS: ATENOLOL 25 MG TABLET PO SCH ×2 (10:11→19:29)
[2017-04-19] MEDS: hydrALAZINE 25 MG TABLET PO SCH ×3 (10:11→19:31)
[2017-04-19] MEDS: SERTRALINE 50 MG TABLET. PO SCH (10:11)
[2017-04-19] MEDS: CYANOCOBALAMIN (VITAMIN B-12) 1,000 MCG TABLET. PO SCH (10:11)
[2017-04-19] MEDS: PANTOPRAZOLE 40 MG TABLET. PO SCH (10:12)
[2017-04-19] MEDS: QUEtiapine 25 MG TABLET. PO SCH ×3 (10:12→16:42)
[2017-04-19] MEDS: busPIRone 10 MG TABLET. PO SCH ×3 (10:13→16:42)
[2017-04-19] MEDS: DIVALPROEX 125 MG CAP.SPRINK PO SCH ×3 (10:13→19:28)
[2017-04-19] MEDS: LOSARTAN 50 MG TABLET. PO SCH ×2 (10:13→19:28)
[2017-04-19] MEDS: MULTIVITAMIN with MINERAL TABLET. PO SCH (10:13)
[2017-04-19] MEDS: TAMSULOSIN 0.4 MG CAP.ER.24H. PO SCH (10:13)
[2017-04-19] MEDS: ENOXAPARIN 40 MG/0.4 ML DISP.SYRIN. SQ SCH (10:14)
[2017-04-19] MEDS: clonazePAM 0.5 MG TABLET PO SCH (14:55)
[2017-04-19 16:19] VITALS: BP 125/52
[2017-04-19] MEDS: LORazepam 1 MG TABLET PO PRN ×2 (17:43→19:33)
[2017-04-19] MEDS: ATORVASTATIN CALCIUM 20 MG TABLET PO SCH (19:28)
[2017-04-19] MEDS: QUEtiapine 100 MG TABLET. PO SCH (19:29)
[2017-04-19] MEDS: traZODone 50 MG TABLET. PO PRN (19:33)
--- NOTE | 2017-04-19 21:36 | PDOC ---
Exam Mauricio Demential Exam: Mauricio Note: Please also refer to the separate dictated note~for this date of service dictated separately.~Patient seen individually. Discussed the patient with Nursing staff reviewed the chart.~Reviewed interim history and current functioning. Reviewed vital signs,~Labs/ Radiology~and current medications noted below. Continue current treatment with the changes noted in the dictated addendum note Assessment: Vital Signs: Vital Signs Date Time Temp Pulse Resp B/P (MAP) Pulse Ox O2 Delivery O2 Flow Rate FiO2 04/19/17 19:31 59 125/52 04/19/17 16:19 98.6 16 91 04/18/17 05:51 Room Air I&O Intake and Output 04/19/17 07:00 Intake Total 3125 ml Output Total 675 ml Balance 2450 ml Intake Oral 3125 ml Output Urine Total 675 ml # Bowel Movements 2 Labs: Laboratory Tests Test 04/19/17 06:23 White Blood Count 8.5 x10^3/uL (4.0-11.0) Red Blood Count 3.40 x10^6/uL (4.30-5.70) L Hemoglobin 10.3 g/dL (13.0-17.5) L Hematocrit 30.6 % (39.0-53.0) L Mean Corpuscular Volume 90 fL (79-100) Mean Corpuscular Hemoglobin 30 pg (25-35) Mean Corpuscular Hemoglobin Concent 34 g/dL (31-37) Red Cell Distribution Width 15.8 % (11.5-14.5) H Platelet Count 216 x10^3/uL (140-400) Sodium Level 141 mmol/L (136-145) Potassium Level 3.7 mmol/L (3.5-5.1) Chloride Level 105 mmol/L (98-107) Carbon Dioxide Level 30 mmol/L (21-32) Anion Gap 6 (6-14) Blood Urea Nitrogen 25 mg/dL (8-26) Creatinine 1.3 mg/dL (0.7-1.3) Estimated GFR (Cockcroft-Gault) 52.3 BUN/Creatinine Ratio 19 (6-20) Glucose Level 94 mg/dL (70-99) Calcium Level 8.3 mg/dL (8.5-10.1) L Magnesium Level 1.9 mg/dL (1.8-2.4) Total Bilirubin 0.4 mg/dL (0.2-1.0) Aspartate Amino Transferase (AST) 25 U/L (15-37) Alanine Aminotransferase (ALT) 25 U/L (16-63) Alkaline Phosphatase 51 U/L (46-116) Total Protein 5.9 g/dL (6.4-8.2) L Albumin 2.6 g/dL (3.4-5.0) L Albumin/Globulin Ratio 0.8 (1.0-1.7) L Current Medications: Meds: Current Medications Divalproex Sodium (Depakote Sprinkles) 250 mg 1400 PO Last administered on 04/19 14:56; Start 04/14/17 at 14:00 Divalproex Sodium (Depakote Sprinkles) 375 mg BID PO Last administered on 19:28; Start 04/13/17 at 21:00 Lorazepam (Ativan) 1 mg PRN Q4HRS PRN PO ANXIETY Last administered on 19:33; Start 04/13/17 at 20:00 Olanzapine (ZyPREXA ZYDIS) 2.5 mg PRN Q2HR PRN PO PSYCHOSIS Last administered on 04/16/17 09:55; Start 04/13/17 at 20:00 Quetiapine Fumarate (SEROquel) 12.5 mg TIDWMEALS PO Last administered on 16:42; Start 04/14/17 at 08:00 Quetiapine Fumarate (SEROquel) 100 mg HS PO Last administered on 04/19/17 19: 29; Start 04/13/17 at 21:00 Sertraline HCl (Zoloft) 50 mg DAILY PO Last administered on 04/19/17 10:11; Start 04/14/17 at 09:00 Acetaminophen (Tylenol) 650 mg PRN Q6HRS PRN PO pain/temp; Start 04/13/17 at 20 :15 Atenolol (Tenormin) 25 mg BID PO Last administered on 04/19/17 10:11; Start at 21:00 Clopidogrel Bisulfate (Plavix) 75 mg DAILY PO Last administered on 04/19/17 10 :10; Start 04/14/17 at 09:00 Cyanocobalamin (Vitamin B-12) 1,000 mcg DAILY PO Last administered on 10:11; Start 04/14/17 at 09:00 Enoxaparin Sodium (Lovenox) 40 mg DAILY SQ Last administered on 04/19/17 10:14 ; Start 04/14/17 at 09:00 Hydralazine HCl (Apresoline) 25 mg TID PO Last administered on 04/19/17 19:31 ; Start 04/13/17 at 21:00 Al Hydroxide/Mg Hydroxide (Mylanta Plus Xs) 15 ml PRN AFTMEALHC PRN PO DYSPEPSIA; Start 04/13/17 at 20:15 Multi-Ingredient Ointment (Analgesic [place]) 1 vik PRN QID PRN TP MUSCLE PAIN; Start 04/13/17 at 20:15 Multivitamins/ Calcium (Thera-M Plus) 1 tab DAILY PO Last administered on 10:13; Start 04/14/17 at 09:00 Nystatin (Nystop) 1 vik PRN BID PRN TP REDNESS; Start 04/13/17 at 20:15 Pantoprazole Sodium (Protonix) 40 mg DAILYAC PO Last administered on 04/19/17 10:12; Start 04/14/17 at 07:30 Tramadol HCl (Ultram) 50 mg PRN Q6HRS PRN PO PAIN; Start 04/13/17 at 20:15 Atorvastatin Calcium (Lipitor) 40 mg QHS PO Last administered on 04/19/17 19: 28; Start 04/13/17 at 21:00 Losartan Potassium (Cozaar) 50 mg BID PO Last administered on 04/19/17 19:28; Start 04/13/17 at 21:00 Magnesium Hydroxide (Milk Of Magnesia) 2,400 mg PRN QHS PRN PO CONSTIPATION; Start 04/13/17 at 20:15 Trazodone HCl (Desyrel) 50 mg PRN QHS PRN PO INSOMNIA, MAY REPEAT X1 Last administered on 04/19/17 19:33; Start 04/14/17 at 20:15 Buspirone HCl (Buspar) 5 mg TID PO Last administered on 04/16/17 14:19; Start 04/15/17 at 21:00; Stop 04/16/17 at 18:08; Status DC Buspirone HCl (Buspar) 10 mg BID92 PO Last administered on 04/17/17 15:02; Start 04/17/17 at 09:00; Stop 04/17/17 at 19:05; Status DC Buspirone HCl (Buspar) 10 mg TID@0900,1300,1700 PO Last administered on 16:42; Start 04/18/17 at 09:00 Tamsulosin HCl (Flomax) 0.4 mg DAILY PO Last administered on 04/19/17 10:13; Start 04/18/17 at 09:00 Clonazepam (KlonoPIN) 0.25 mg PRN BID PRN PO ANXIETY / AGITATION; Start at 11:00; Stop 04/19/17 at 09:00; Status DC Clonazepam (KlonoPIN) 0.25 mg BID PO Last administered on 04/19/17 10:14; Start 04/19/17 at 09:00; Stop 04/19/17 at 10:17; Status DC Clonazepam (KlonoPIN) 0.25 mg BID92 PO Last administered on 04/19/17 14:55; Start 04/19/17 at 14:00 Active Scripts Active Reported Hydralazine Hcl 25 Mg Tablet 25 Mg PO TID Nystatin 15 Gm Powder 1 Vik TP PRN BID PRN Enoxaparin Sodium 40 Mg/0.4 Ml Disp.syrin 40 Mg SQ DAILY Seroquel (Quetiapine Fumarate) 25 Mg Tablet 12.5 Mg PO TIDWMEALS Depakote Sprinkle (Divalproex Sodium) 125 Mg Cap.sprink 250 Mg PO 1400 Tramadol Hcl (Tramadol HCl) 50 Mg Tablet 50 Mg PO PRN Q6HRS PRN Lorazepam 1 Mg Tablet 1 Mg PO PRN Q4HRS PRN Zoloft (Sertraline Hcl) 50 Mg Tablet 50 Mg PO DAILY Protonix (Pantoprazole Sodium) 40 Mg Tablet.dr 40 Mg PO DAILY Zyprexa Zydis (Olanzapine) 5 Mg Tab.rapdis 2.5 Mg PO PRN Q2HR PRN Thera M Plus Tablet (Multivits,Ca,Minerals/Iron/FA) 1 Each Tablet 1 Tab PO DAILY Analgesic [place] (Methyl Salicylate/Menthol) 29 Gm Oint...g. 1 Vik TP PRN QID PRN Milk Of Magnesia (Magnesium Hydroxide) 2,400 Mg/10 Ml Oral.susp 2,400 Mg PO PRN QHS PRN Mag-Al Plus Xs Suspension (Mag Hydrox/Al Hydrox/Simeth) 30 Ml Oral.susp 15 Ml PO PRN AFTMEALHC PRN Cozaar (Losartan Potassium) 100 Mg Tablet 50 Mg PO BID Depakote Sprinkle (Divalproex Sodium) 125 Mg Cap.sprink 375 Mg PO BID Vitamin B-12 (Cyanocobalamin (Vitamin B-12)) 1,000 Mcg Tablet 1,000 Mcg PO DAILY Tylenol (Acetaminophen) 325 Mg Tablet 650 Mg PO PRN Q6HRS PRN Seroquel (Quetiapine Fumarate) 100 Mg Tablet 100 Mg PO HS Plavix (Clopidogrel Bisulfate) 75 Mg Tablet 75 Mg PO DAILY Atorvastatin Calcium 40 Mg Tablet 40 Mg PO QHS Atenolol 25 Mg Tablet 25 Mg PO BID Diagnosis: Problems: (1) Anxiety disorder (2) Dementia in Alzheimer's disease with delusions (3) Dementia in Alzheimer's disease with depression (4) Dementia, vascular, with delusions (5) Dementia, vascular, with depression (6) Impulse control disorder (7) Abnormal behavior (8) Syncopal episodes (9) Postural hypotension MARTHA SRINIVASAN MD Apr 19, 2017 21:36
--- NOTE | 2017-04-19 21:58 | PN ---
DATE: 04/18/2017 SUBJECTIVE: I was asked to see this 86-year-old male in the [facility] because of a swollen left elbow, does not appear to be tender. The patient stays in a Broda chair and his elbows make a lot of pressure on the arm part of the chair. OBJECTIVE: VITAL SIGNS: Blood pressure 108/43, pulse 71. EXTREMITIES: Focus exam of the left elbow, the patient moves arm without difficulty. The left elbow area has swollen bursa sac. There is no erythema and no tenderness just swelling of the bursa sac. ASSESSMENT: Olecranon bursa swelling without inflammation. PLAN: Compression. ROE KAUFMAN DO DR: CLAUDY/jocelyn JOB#: [id number] / [id number]
--- NOTE | 2017-04-20 02:44 | PN ---
DATE: 04/18/2017 PSYCHIATRIC PROGRESS NOTE This is a late entry of 04/18/2017 covers elements not covered in my initial note. SUBJECTIVE: The patient was staffed at a treatment team meeting with the entire team morning of 04/18/2017, seen individually evening of 04/18/2017. At treatment team meeting reviewed the patient's history, diagnosis, discharge and aftercare plans. Slept about 4 hours previous night, has a Portillo in place. Urine output is limited, we will defer to Dr. Mina. Compliant with his medications. REVIEW OF SYSTEMS: Ambulation impaired, in a Broda chair. No CV, , pulmonary, eye, ENT system symptoms on review. Reliability poor. MENTAL STATUS EXAM: Oriented to himself. Insight, judgment, recent and remote memory, attention, concentration, fund of knowledge poor, consistent with his diagnosis mentioned in my initial note. PLAN: Nursing staff feels very strongly that the patient responds very positively to Ativan p.r.n. and does well with benzodiazepines. We will start him on Klonopin, low dosage 0.25 mg twice a day 9:00 a.m. and 2 p.m. Maintain Depakote, Seroquel, Zoloft, Ativan p.r.n., Zyprexa p.r.n., trazodone and BuSpar for now. Adjust further as clinically indicated. MARTHA SRINIVASAN MD DR: VIVEK/jocelyn JOB#: [id number] / [id number]
[2017-04-20 06:09] VITALS: BP 121/61
[2017-04-20] MEDS: ATENOLOL 25 MG TABLET PO SCH ×2 (09:00→21:00)
[2017-04-20] MEDS: MULTIVITAMIN with MINERAL TABLET. PO SCH (09:52)
[2017-04-20] MEDS: CLOPIDOGREL BISULFATE 75 MG TABLET PO SCH (09:52)
[2017-04-20] MEDS: ENOXAPARIN 40 MG/0.4 ML DISP.SYRIN. SQ SCH (09:52)
[2017-04-20] MEDS: DIVALPROEX 125 MG CAP.SPRINK PO SCH ×3 (09:52→19:23)
[2017-04-20] MEDS: CYANOCOBALAMIN (VITAMIN B-12) 1,000 MCG TABLET. PO SCH (09:53)
[2017-04-20] MEDS: hydrALAZINE 25 MG TABLET PO SCH ×3 (09:54→21:00)
[2017-04-20] MEDS: TAMSULOSIN 0.4 MG CAP.ER.24H. PO SCH (09:54)
[2017-04-20] MEDS: LOSARTAN 50 MG TABLET. PO SCH ×2 (09:55→21:00)
[2017-04-20] MEDS: SERTRALINE 50 MG TABLET. PO SCH (09:55)
[2017-04-20] MEDS: PANTOPRAZOLE 40 MG TABLET. PO SCH (09:57)
[2017-04-20] MEDS: QUEtiapine 25 MG TABLET. PO SCH ×3 (09:57→17:18)
[2017-04-20] MEDS: busPIRone 10 MG TABLET. PO SCH ×3 (09:57→17:17)
[2017-04-20] MEDS: clonazePAM 0.5 MG TABLET PO SCH ×2 (09:58→13:25)
[2017-04-20 15:53] VITALS: BP 122/54
--- NOTE | 2017-04-20 18:43 | PN ---
DATE: 04/19/2017 PSYCHIATRIC PROGRESS NOTE This is a late entry for 04/19/2017, covers elements not covered in my initial note. SUBJECTIVE: I met with the patient the evening of 04/19/2017. He remains quite confused, restless, remains in a Broda chair. Nursing staff were pushing the Broda chair all around the hallways to keep him calm. At one point, he was swinging at staff, but during the day, he was doing well. The agitation, swinging at staff was evident only in the evening as the restlessness worsened. REVIEW OF SYSTEMS: Ambulation impaired. No CV, , pulmonary, eye, ENT system symptoms on review. Reliability poor. He is smiling holding my hand. Less paranoid as I met with him individually. MENTAL STATUS EXAM: Oriented to himself. Insight, judgment, recent and remote memory, attention, concentration, fund of knowledge poor, consistent with his diagnosis mentioned in my initial note. PLAN: Continue Seroquel 12.5 mg t.i.d. and 100 mg at bedtime, Depakote 375 mg b.i.d. and 250 mg at 1400 hours, Zoloft 50 mg a day, Ativan p.r.n., trazodone p.r.n., BuSpar 10 mg 3 times a day, Klonopin 0.25 mg twice a day since he seems to respond positively to benzodiazepines. We may need to adjust these as clinically indicated. MARTHA SRINIVASAN MD DR: VIVEK/jocelyn JOB#: [id number] / [id number]
[2017-04-20] MEDS: QUEtiapine 100 MG TABLET. PO SCH (19:22)
[2017-04-20] MEDS: LORazepam 1 MG TABLET PO PRN (21:03)
--- NOTE | 2017-04-20 21:38 | PDOC ---
Exam Mauricio Demential Exam: Mauricio Note: Please also refer to the separate dictated note~for this date of service dictated separately.~Patient seen individually. Discussed the patient with Nursing staff reviewed the chart.~Reviewed interim history and current functioning. Reviewed vital signs,~Labs/ Radiology~and current medications noted below. Continue current treatment with the changes noted in the dictated addendum note Assessment: Vital Signs: Vital Signs Date Time Temp Pulse Resp B/P (MAP) Pulse Ox O2 Delivery O2 Flow Rate FiO2 04/20/17 15:53 98.9 63 18 122/54 (76) 95 04/18/17 05:51 Room Air I&O Intake and Output 04/20/17 07:00 Intake Total 1320 ml Balance 1320 ml Intake Oral 1320 ml Current Medications: Meds: Current Medications Divalproex Sodium (Depakote Sprinkles) 250 mg 1400 PO Last administered on 04/20 13:25; Start 04/14/17 at 14:00 Divalproex Sodium (Depakote Sprinkles) 375 mg BID PO Last administered on 19:23; Start 04/13/17 at 21:00 Lorazepam (Ativan) 1 mg PRN Q4HRS PRN PO ANXIETY Last administered on 21:03; Start 04/13/17 at 20:00 Olanzapine (ZyPREXA ZYDIS) 2.5 mg PRN Q2HR PRN PO PSYCHOSIS Last administered on 04/20/17 19:25; Start 04/13/17 at 20:00 Quetiapine Fumarate (SEROquel) 12.5 mg TIDWMEALS PO Last administered on 17:18; Start 04/14/17 at 08:00 Quetiapine Fumarate (SEROquel) 100 mg HS PO Last administered on 04/20/17 19: 22; Start 04/13/17 at 21:00 Sertraline HCl (Zoloft) 50 mg DAILY PO Last administered on 04/20/17 09:55; Start 04/14/17 at 09:00 Acetaminophen (Tylenol) 650 mg PRN Q6HRS PRN PO pain/temp; Start 04/13/17 at 20 :15 Atenolol (Tenormin) 25 mg BID PO Last administered on 04/19/17 10:11; Start at 21:00 Clopidogrel Bisulfate (Plavix) 75 mg DAILY PO Last administered on 04/20/17 09 :52; Start 04/14/17 at 09:00 Cyanocobalamin (Vitamin B-12) 1,000 mcg DAILY PO Last administered on 09:53; Start 04/14/17 at 09:00 Enoxaparin Sodium (Lovenox) 40 mg DAILY SQ Last administered on 04/20/17 09:52 ; Start 04/14/17 at 09:00 Hydralazine HCl (Apresoline) 25 mg TID PO Last administered on 04/20/17 09:54 ; Start 04/13/17 at 21:00 Al Hydroxide/Mg Hydroxide (Mylanta Plus Xs) 15 ml PRN AFTMEALHC PRN PO DYSPEPSIA; Start 04/13/17 at 20:15 Multi-Ingredient Ointment (Analgesic [place]) 1 vik PRN QID PRN TP MUSCLE PAIN; Start 04/13/17 at 20:15 Multivitamins/ Calcium (Thera-M Plus) 1 tab DAILY PO Last administered on 09:52; Start 04/14/17 at 09:00 Nystatin (Nystop) 1 vik PRN BID PRN TP REDNESS; Start 04/13/17 at 20:15 Pantoprazole Sodium (Protonix) 40 mg DAILYAC PO Last administered on 04/20/17 09:57; Start 04/14/17 at 07:30 Tramadol HCl (Ultram) 50 mg PRN Q6HRS PRN PO PAIN; Start 04/13/17 at 20:15 Atorvastatin Calcium (Lipitor) 40 mg QHS PO Last administered on 04/19/17 19: 28; Start 04/13/17 at 21:00 Losartan Potassium (Cozaar) 50 mg BID PO Last administered on 04/20/17 09:55; Start 04/13/17 at 21:00 Magnesium Hydroxide (Milk Of Magnesia) 2,400 mg PRN QHS PRN PO CONSTIPATION; Start 04/13/17 at 20:15 Trazodone HCl (Desyrel) 50 mg PRN QHS PRN PO INSOMNIA, MAY REPEAT X1 Last administered on 04/19/17 19:33; Start 04/14/17 at 20:15 Buspirone HCl (Buspar) 5 mg TID PO Last administered on 04/16/17 14:19; Start 04/15/17 at 21:00; Stop 04/16/17 at 18:08; Status DC Buspirone HCl (Buspar) 10 mg BID92 PO Last administered on 04/17/17 15:02; Start 04/17/17 at 09:00; Stop 04/17/17 at 19:05; Status DC Buspirone HCl (Buspar) 10 mg TID@0900,1300,1700 PO Last administered on 17:17; Start 04/18/17 at 09:00 Tamsulosin HCl (Flomax) 0.4 mg DAILY PO Last administered on 04/20/17 09:54; Start 04/18/17 at 09:00 Clonazepam (KlonoPIN) 0.25 mg PRN BID PRN PO ANXIETY / AGITATION; Start at 11:00; Stop 04/19/17 at 09:00; Status DC Clonazepam (KlonoPIN) 0.25 mg BID PO Last administered on 04/19/17 10:14; Start 04/19/17 at 09:00; Stop 04/19/17 at 10:17; Status DC Clonazepam (KlonoPIN) 0.25 mg BID92 PO Last administered on 04/20/17 13:25; Start 04/19/17 at 14:00 Active Scripts Active Reported Hydralazine Hcl 25 Mg Tablet 25 Mg PO TID Nystatin 15 Gm Powder 1 Vik TP PRN BID PRN Enoxaparin Sodium 40 Mg/0.4 Ml Disp.syrin 40 Mg SQ DAILY Seroquel (Quetiapine Fumarate) 25 Mg Tablet 12.5 Mg PO TIDWMEALS Depakote Sprinkle (Divalproex Sodium) 125 Mg Cap.sprink 250 Mg PO 1400 Tramadol Hcl (Tramadol HCl) 50 Mg Tablet 50 Mg PO PRN Q6HRS PRN Lorazepam 1 Mg Tablet 1 Mg PO PRN Q4HRS PRN Zoloft (Sertraline Hcl) 50 Mg Tablet 50 Mg PO DAILY Protonix (Pantoprazole Sodium) 40 Mg Tablet.dr 40 Mg PO DAILY Zyprexa Zydis (Olanzapine) 5 Mg Tab.rapdis 2.5 Mg PO PRN Q2HR PRN Thera M Plus Tablet (Multivits,Ca,Minerals/Iron/FA) 1 Each Tablet 1 Tab PO DAILY Analgesic [place] (Methyl Salicylate/Menthol) 29 Gm Oint...g. 1 Vik TP PRN QID PRN Milk Of Magnesia (Magnesium Hydroxide) 2,400 Mg/10 Ml Oral.susp 2,400 Mg PO PRN QHS PRN Mag-Al Plus Xs Suspension (Mag Hydrox/Al Hydrox/Simeth) 30 Ml Oral.susp 15 Ml PO PRN AFTMEALHC PRN Cozaar (Losartan Potassium) 100 Mg Tablet 50 Mg PO BID Depakote Sprinkle (Divalproex Sodium) 125 Mg Cap.sprink 375 Mg PO BID Vitamin B-12 (Cyanocobalamin (Vitamin B-12)) 1,000 Mcg Tablet 1,000 Mcg PO DAILY Tylenol (Acetaminophen) 325 Mg Tablet 650 Mg PO PRN Q6HRS PRN Seroquel (Quetiapine Fumarate) 100 Mg Tablet 100 Mg PO HS Plavix (Clopidogrel Bisulfate) 75 Mg Tablet 75 Mg PO DAILY Atorvastatin Calcium 40 Mg Tablet 40 Mg PO QHS Atenolol 25 Mg Tablet 25 Mg PO BID Diagnosis: Problems: (1) Anxiety disorder (2) Dementia in Alzheimer's disease with delusions (3) Dementia in Alzheimer's disease with depression (4) Dementia, vascular, with delusions (5) Dementia, vascular, with depression (6) Impulse control disorder (7) Abnormal behavior MARTHA SRINIVASAN MD Apr 20, 2017 21:38
[2017-04-21] MEDS: ATORVASTATIN CALCIUM 20 MG TABLET PO SCH ×2 (00:27→20:16)
[2017-04-21 05:51] VITALS: BP 164/70
[2017-04-21] MEDS: DIVALPROEX 125 MG CAP.SPRINK PO SCH ×3 (07:36→20:17)
[2017-04-21] MEDS: busPIRone 10 MG TABLET. PO SCH ×3 (07:36→17:21)
[2017-04-21] MEDS: LOSARTAN 50 MG TABLET. PO SCH ×2 (07:36→20:18)
[2017-04-21] MEDS: QUEtiapine 25 MG TABLET. PO SCH ×3 (07:37→17:21)
[2017-04-21] MEDS: MULTIVITAMIN with MINERAL TABLET. PO SCH (07:37)
[2017-04-21] MEDS: CYANOCOBALAMIN (VITAMIN B-12) 1,000 MCG TABLET. PO SCH (07:37)
[2017-04-21] MEDS: CLOPIDOGREL BISULFATE 75 MG TABLET PO SCH (07:38)
[2017-04-21] MEDS: ATENOLOL 25 MG TABLET PO SCH ×2 (07:38→20:19)
[2017-04-21] MEDS: SERTRALINE 50 MG TABLET. PO SCH (07:38)
[2017-04-21] MEDS: hydrALAZINE 25 MG TABLET PO SCH ×3 (07:38→20:18)
[2017-04-21] MEDS: PANTOPRAZOLE 40 MG TABLET. PO SCH (07:38)
[2017-04-21] MEDS: TAMSULOSIN 0.4 MG CAP.ER.24H. PO SCH (07:38)
[2017-04-21] MEDS: clonazePAM 0.5 MG TABLET PO SCH ×2 (07:40→14:49)
[2017-04-21] MEDS: ENOXAPARIN 40 MG/0.4 ML DISP.SYRIN. SQ SCH (07:41)
--- NOTE | 2017-04-21 12:14 | PN ---
DATE: 04/20/2017 PSYCHIATRIC PROGRESS NOTE This is a late entry 04/20/2017, covers elements not covered in my initial note of 04/20/2017. SUBJECTIVE: The patient slept 7-1/2 hours. I met with the patient evening of 04/20/2017. He was somewhat hypotensive earlier in the day. BP 122/54, pulse 63, hydralazine was held. He has been somewhat tired in the day. At 4:00 p.m. he was starting to sit in the chair and missed his lunch, ate his dinner. Previous evening he got agitated, received a skin tear, but cooperative with the dressing change. REVIEW OF SYSTEMS: Ambulation impaired, in Broda chair. No CV, , pulmonary, eye, ENT system symptoms on review. Reliability poor. MENTAL STATUS EXAM: Oriented to himself. Insight, judgment, recent and remote memory, attention, concentration, fund of knowledge poor, consistent with his diagnoses mentioned in my initial note. LABORATORY DATA: Reviewed. IMPRESSION: Unchanged from my initial note. PLAN: Continue current psychotropics. Adjust as clinically indicated. MAN Jules SRINIVASAN MD DR: VIVEK/jocelyn JOB#: [id number] / [id number]
[2017-04-21 16:22] VITALS: BP 107/51
--- NOTE | 2017-04-21 19:44 | PDOC ---
Exam Mauricio Demential Exam: Mauricio Note: Please also refer to the separate dictated note~for this date of service dictated separately.~Patient seen individually. Discussed the patient with Nursing staff reviewed the chart.~Reviewed interim history and current functioning. Reviewed vital signs,~Labs/ Radiology~and current medications noted below. Continue current treatment with the changes noted in the dictated addendum note Assessment: Vital Signs: Vital Signs Date Time Temp Pulse Resp B/P (MAP) Pulse Ox O2 Delivery O2 Flow Rate FiO2 04/21/17 16:22 97.4 58 18 107/51 (69) 99 04/18/17 05:51 Room Air I&O Intake and Output 04/21/17 07:00 Intake Total 720 ml Output Total 350 ml Balance 370 ml Intake Oral 720 ml Output Urine Total 350 ml Current Medications: Meds: Current Medications Divalproex Sodium (Depakote Sprinkles) 250 mg 1400 PO Last administered on 04/21 14:50; Start 04/14/17 at 14:00 Divalproex Sodium (Depakote Sprinkles) 375 mg BID PO Last administered on 07:36; Start 04/13/17 at 21:00 Lorazepam (Ativan) 1 mg PRN Q4HRS PRN PO ANXIETY Last administered on 21:03; Start 04/13/17 at 20:00 Olanzapine (ZyPREXA ZYDIS) 2.5 mg PRN Q2HR PRN PO PSYCHOSIS Last administered on 04/20/17 19:25; Start 04/13/17 at 20:00 Quetiapine Fumarate (SEROquel) 12.5 mg TIDWMEALS PO Last administered on 17:21; Start 04/14/17 at 08:00 Quetiapine Fumarate (SEROquel) 100 mg HS PO Last administered on 04/20/17 19: 22; Start 04/13/17 at 21:00 Sertraline HCl (Zoloft) 50 mg DAILY PO Last administered on 04/21/17 07:38; Start 04/14/17 at 09:00 Acetaminophen (Tylenol) 650 mg PRN Q6HRS PRN PO pain/temp; Start 04/13/17 at 20 :15 Atenolol (Tenormin) 25 mg BID PO Last administered on 04/21/17 07:38; Start at 21:00 Clopidogrel Bisulfate (Plavix) 75 mg DAILY PO Last administered on 04/21/17 07 :38; Start 04/14/17 at 09:00 Cyanocobalamin (Vitamin B-12) 1,000 mcg DAILY PO Last administered on 07:37; Start 04/14/17 at 09:00 Enoxaparin Sodium (Lovenox) 40 mg DAILY SQ Last administered on 04/21/17 07:41 ; Start 04/14/17 at 09:00 Hydralazine HCl (Apresoline) 25 mg TID PO Last administered on 04/21/17 07:38 ; Start 04/13/17 at 21:00 Al Hydroxide/Mg Hydroxide (Mylanta Plus Xs) 15 ml PRN AFTMEALHC PRN PO DYSPEPSIA; Start 04/13/17 at 20:15 Multi-Ingredient Ointment (Analgesic [place]) 1 vik PRN QID PRN TP MUSCLE PAIN; Start 04/13/17 at 20:15 Multivitamins/ Calcium (Thera-M Plus) 1 tab DAILY PO Last administered on 07:37; Start 04/14/17 at 09:00 Nystatin (Nystop) 1 vik PRN BID PRN TP REDNESS; Start 04/13/17 at 20:15 Pantoprazole Sodium (Protonix) 40 mg DAILYAC PO Last administered on 04/21/17 07:38; Start 04/14/17 at 07:30 Tramadol HCl (Ultram) 50 mg PRN Q6HRS PRN PO PAIN; Start 04/13/17 at 20:15 Atorvastatin Calcium (Lipitor) 40 mg QHS PO Last administered on 04/21/17 00: 27; Start 04/13/17 at 21:00 Losartan Potassium (Cozaar) 50 mg BID PO Last administered on 04/21/17 07:36; Start 04/13/17 at 21:00 Magnesium Hydroxide (Milk Of Magnesia) 2,400 mg PRN QHS PRN PO CONSTIPATION; Start 04/13/17 at 20:15 Trazodone HCl (Desyrel) 50 mg PRN QHS PRN PO INSOMNIA, MAY REPEAT X1 Last administered on 04/19/17 19:33; Start 04/14/17 at 20:15 Buspirone HCl (Buspar) 5 mg TID PO Last administered on 04/16/17 14:19; Start 04/15/17 at 21:00; Stop 04/16/17 at 18:08; Status DC Buspirone HCl (Buspar) 10 mg BID92 PO Last administered on 04/17/17 15:02; Start 04/17/17 at 09:00; Stop 04/17/17 at 19:05; Status DC Buspirone HCl (Buspar) 10 mg TID@0900,1300,1700 PO Last administered on 17:21; Start 04/18/17 at 09:00 Tamsulosin HCl (Flomax) 0.4 mg DAILY PO Last administered on 04/21/17 07:38; Start 04/18/17 at 09:00 Clonazepam (KlonoPIN) 0.25 mg PRN BID PRN PO ANXIETY / AGITATION; Start at 11:00; Stop 04/19/17 at 09:00; Status DC Clonazepam (KlonoPIN) 0.25 mg BID PO Last administered on 04/19/17 10:14; Start 04/19/17 at 09:00; Stop 04/19/17 at 10:17; Status DC Clonazepam (KlonoPIN) 0.25 mg BID92 PO Last administered on 04/21/17 14:49; Start 04/19/17 at 14:00 Active Scripts Active Reported Hydralazine Hcl 25 Mg Tablet 25 Mg PO TID Nystatin 15 Gm Powder 1 Vik TP PRN BID PRN Enoxaparin Sodium 40 Mg/0.4 Ml Disp.syrin 40 Mg SQ DAILY Seroquel (Quetiapine Fumarate) 25 Mg Tablet 12.5 Mg PO TIDWMEALS Depakote Sprinkle (Divalproex Sodium) 125 Mg Cap.sprink 250 Mg PO 1400 Tramadol Hcl (Tramadol HCl) 50 Mg Tablet 50 Mg PO PRN Q6HRS PRN Lorazepam 1 Mg Tablet 1 Mg PO PRN Q4HRS PRN Zoloft (Sertraline Hcl) 50 Mg Tablet 50 Mg PO DAILY Protonix (Pantoprazole Sodium) 40 Mg Tablet.dr 40 Mg PO DAILY Zyprexa Zydis (Olanzapine) 5 Mg Tab.rapdis 2.5 Mg PO PRN Q2HR PRN Thera M Plus Tablet (Multivits,Ca,Minerals/Iron/FA) 1 Each Tablet 1 Tab PO DAILY Analgesic [place] (Methyl Salicylate/Menthol) 29 Gm Oint...g. 1 Vik TP PRN QID PRN Milk Of Magnesia (Magnesium Hydroxide) 2,400 Mg/10 Ml Oral.susp 2,400 Mg PO PRN QHS PRN Mag-Al Plus Xs Suspension (Mag Hydrox/Al Hydrox/Simeth) 30 Ml Oral.susp 15 Ml PO PRN AFTMEALHC PRN Cozaar (Losartan Potassium) 100 Mg Tablet 50 Mg PO BID Depakote Sprinkle (Divalproex Sodium) 125 Mg Cap.sprink 375 Mg PO BID Vitamin B-12 (Cyanocobalamin (Vitamin B-12)) 1,000 Mcg Tablet 1,000 Mcg PO DAILY Tylenol (Acetaminophen) 325 Mg Tablet 650 Mg PO PRN Q6HRS PRN Seroquel (Quetiapine Fumarate) 100 Mg Tablet 100 Mg PO HS Plavix (Clopidogrel Bisulfate) 75 Mg Tablet 75 Mg PO DAILY Atorvastatin Calcium 40 Mg Tablet 40 Mg PO QHS Atenolol 25 Mg Tablet 25 Mg PO BID Diagnosis: Problems: (1) Anxiety disorder (2) Dementia in Alzheimer's disease with delusions (3) Dementia in Alzheimer's disease with depression (4) Dementia, vascular, with delusions (5) Dementia, vascular, with depression (6) Impulse control disorder (7) Abnormal behavior (8) Syncopal episodes (9) Postural hypotension MARTHA SRINIVASAN MD Apr 21, 2017 19:44
[2017-04-21] MEDS: QUEtiapine 100 MG TABLET. PO SCH (20:19)
[2017-04-21] MEDS: traZODone 50 MG TABLET. PO PRN (23:11)
[2017-04-22] MEDS: busPIRone 10 MG TABLET. PO SCH ×3 (07:54→17:05)
[2017-04-22] MEDS: LOSARTAN 50 MG TABLET. PO SCH ×2 (07:54→21:00)
[2017-04-22] MEDS: TAMSULOSIN 0.4 MG CAP.ER.24H. PO SCH (07:54)
[2017-04-22] MEDS: DIVALPROEX 125 MG CAP.SPRINK PO SCH ×3 (07:54→19:03)
[2017-04-22] MEDS: QUEtiapine 25 MG TABLET. PO SCH ×3 (07:55→17:05)
[2017-04-22] MEDS: SERTRALINE 50 MG TABLET. PO SCH (07:55)
[2017-04-22] MEDS: CYANOCOBALAMIN (VITAMIN B-12) 1,000 MCG TABLET. PO SCH (07:55)
[2017-04-22] MEDS: CLOPIDOGREL BISULFATE 75 MG TABLET PO SCH (07:55)
[2017-04-22] MEDS: MULTIVITAMIN with MINERAL TABLET. PO SCH (07:55)
[2017-04-22] MEDS: PANTOPRAZOLE 40 MG TABLET. PO SCH (07:56)
[2017-04-22] MEDS: ENOXAPARIN 40 MG/0.4 ML DISP.SYRIN. SQ SCH (07:56)
[2017-04-22] MEDS: ATENOLOL 25 MG TABLET PO SCH ×2 (07:56→21:00)
[2017-04-22] MEDS: hydrALAZINE 25 MG TABLET PO SCH ×3 (07:56→21:00)
[2017-04-22] MEDS: clonazePAM 0.5 MG TABLET PO SCH ×2 (07:58→13:21)
[2017-04-22 08:00] VITALS: BP 150/80
[2017-04-22 15:58] VITALS: BP 114/54
[2017-04-22] MEDS: LORazepam 1 MG TABLET PO PRN (17:59)
[2017-04-22] MEDS: QUEtiapine 100 MG TABLET. PO SCH (19:03)
[2017-04-22] MEDS: ATORVASTATIN CALCIUM 20 MG TABLET PO SCH (19:04)
--- NOTE | 2017-04-22 19:50 | PDOC ---
Exam Mauricio Demential Exam: Mauricio Note: Please also refer to the separate dictated note~for this date of service dictated separately.~Patient seen individually. Discussed the patient with Nursing staff reviewed the chart.~Reviewed interim history and current functioning. Reviewed vital signs,~Labs/ Radiology~and current medications noted below. Continue current treatment with the changes noted in the dictated addendum note Assessment: Vital Signs: Vital Signs Date Time Temp Pulse Resp B/P (MAP) Pulse Ox O2 Delivery O2 Flow Rate FiO2 04/22/17 15:58 97.2 73 20 114/54 (74) 98 04/22/17 08:00 Room Air I&O Intake and Output 04/22/17 07:00 Intake Total 1140 ml Balance 1140 ml Intake Oral 1140 ml # Bowel Movements 1 Current Medications: Meds: Current Medications Divalproex Sodium (Depakote Sprinkles) 250 mg 1400 PO Last administered on 04/22 13:20; Start 04/14/17 at 14:00; Stop 04/22/17 at 18:33; Status DC Divalproex Sodium (Depakote Sprinkles) 375 mg BID PO Last administered on 07:54; Start 04/13/17 at 21:00; Stop 04/22/17 at 18:33; Status DC Lorazepam (Ativan) 1 mg PRN Q4HRS PRN PO ANXIETY Last administered on 17:59; Start 04/13/17 at 20:00 Olanzapine (ZyPREXA ZYDIS) 2.5 mg PRN Q2HR PRN PO PSYCHOSIS Last administered on 04/21/17 23:12; Start 04/13/17 at 20:00 Quetiapine Fumarate (SEROquel) 12.5 mg TIDWMEALS PO Last administered on 17:05; Start 04/14/17 at 08:00 Quetiapine Fumarate (SEROquel) 100 mg HS PO Last administered on 04/22/17 19: 03; Start 04/13/17 at 21:00 Sertraline HCl (Zoloft) 50 mg DAILY PO Last administered on 04/22/17 07:55; Start 04/14/17 at 09:00 Acetaminophen (Tylenol) 650 mg PRN Q6HRS PRN PO pain/temp; Start 04/13/17 at 20 :15 Atenolol (Tenormin) 25 mg BID PO Last administered on 04/22/17 07:56; Start at 21:00 Clopidogrel Bisulfate (Plavix) 75 mg DAILY PO Last administered on 04/22/17 07 :55; Start 04/14/17 at 09:00 Cyanocobalamin (Vitamin B-12) 1,000 mcg DAILY PO Last administered on 07:55; Start 04/14/17 at 09:00 Enoxaparin Sodium (Lovenox) 40 mg DAILY SQ Last administered on 04/22/17 07:56 ; Start 04/14/17 at 09:00 Hydralazine HCl (Apresoline) 25 mg TID PO Last administered on 04/22/17 13:21 ; Start 04/13/17 at 21:00 Al Hydroxide/Mg Hydroxide (Mylanta Plus Xs) 15 ml PRN AFTMEALHC PRN PO DYSPEPSIA; Start 04/13/17 at 20:15 Multi-Ingredient Ointment (Analgesic [place]) 1 vik PRN QID PRN TP MUSCLE PAIN; Start 04/13/17 at 20:15 Multivitamins/ Calcium (Thera-M Plus) 1 tab DAILY PO Last administered on 07:55; Start 04/14/17 at 09:00 Nystatin (Nystop) 1 vik PRN BID PRN TP REDNESS; Start 04/13/17 at 20:15 Pantoprazole Sodium (Protonix) 40 mg DAILYAC PO Last administered on 04/22/17 07:56; Start 04/14/17 at 07:30 Tramadol HCl (Ultram) 50 mg PRN Q6HRS PRN PO PAIN; Start 04/13/17 at 20:15 Atorvastatin Calcium (Lipitor) 40 mg QHS PO Last administered on 04/22/17 19: 04; Start 04/13/17 at 21:00 Losartan Potassium (Cozaar) 50 mg BID PO Last administered on 04/22/17 07:54; Start 04/13/17 at 21:00 Magnesium Hydroxide (Milk Of Magnesia) 2,400 mg PRN QHS PRN PO CONSTIPATION; Start 04/13/17 at 20:15 Trazodone HCl (Desyrel) 50 mg PRN QHS PRN PO INSOMNIA, MAY REPEAT X1 Last administered on 04/21/17 23:11; Start 04/14/17 at 20:15 Buspirone HCl (Buspar) 5 mg TID PO Last administered on 04/16/17 14:19; Start 04/15/17 at 21:00; Stop 04/16/17 at 18:08; Status DC Buspirone HCl (Buspar) 10 mg BID92 PO Last administered on 04/17/17 15:02; Start 04/17/17 at 09:00; Stop 04/17/17 at 19:05; Status DC Buspirone HCl (Buspar) 10 mg TID@0900,1300,1700 PO Last administered on 17:05; Start 04/18/17 at 09:00 Tamsulosin HCl (Flomax) 0.4 mg DAILY PO Last administered on 04/22/17 07:54; Start 04/18/17 at 09:00 Clonazepam (KlonoPIN) 0.25 mg PRN BID PRN PO ANXIETY / AGITATION; Start at 11:00; Stop 04/19/17 at 09:00; Status DC Clonazepam (KlonoPIN) 0.25 mg BID PO Last administered on 04/19/17 10:14; Start 04/19/17 at 09:00; Stop 04/19/17 at 10:17; Status DC Clonazepam (KlonoPIN) 0.25 mg BID92 PO Last administered on 04/22/17 13:21; Start 04/19/17 at 14:00; Stop 04/22/17 at 18:07; Status DC Divalproex Sodium (Depakote Sprinkles) 375 mg TID PO Last administered on 19:03; Start 04/22/17 at 21:00 Active Scripts Active Reported Hydralazine Hcl 25 Mg Tablet 25 Mg PO TID Nystatin 15 Gm Powder 1 Vik TP PRN BID PRN Enoxaparin Sodium 40 Mg/0.4 Ml Disp.syrin 40 Mg SQ DAILY Seroquel (Quetiapine Fumarate) 25 Mg Tablet 12.5 Mg PO TIDWMEALS Depakote Sprinkle (Divalproex Sodium) 125 Mg Cap.sprink 250 Mg PO 1400 Tramadol Hcl (Tramadol HCl) 50 Mg Tablet 50 Mg PO PRN Q6HRS PRN Lorazepam 1 Mg Tablet 1 Mg PO PRN Q4HRS PRN Zoloft (Sertraline Hcl) 50 Mg Tablet 50 Mg PO DAILY Protonix (Pantoprazole Sodium) 40 Mg Tablet.dr 40 Mg PO DAILY Zyprexa Zydis (Olanzapine) 5 Mg Tab.rapdis 2.5 Mg PO PRN Q2HR PRN Thera M Plus Tablet (Multivits,Ca,Minerals/Iron/FA) 1 Each Tablet 1 Tab PO DAILY Analgesic [place] (Methyl Salicylate/Menthol) 29 Gm Oint...g. 1 Vik TP PRN QID PRN Milk Of Magnesia (Magnesium Hydroxide) 2,400 Mg/10 Ml Oral.susp 2,400 Mg PO PRN QHS PRN Mag-Al Plus Xs Suspension (Mag Hydrox/Al Hydrox/Simeth) 30 Ml Oral.susp 15 Ml PO PRN AFTMEALHC PRN Cozaar (Losartan Potassium) 100 Mg Tablet 50 Mg PO BID Depakote Sprinkle (Divalproex Sodium) 125 Mg Cap.sprink 375 Mg PO BID Vitamin B-12 (Cyanocobalamin (Vitamin B-12)) 1,000 Mcg Tablet 1,000 Mcg PO DAILY Tylenol (Acetaminophen) 325 Mg Tablet 650 Mg PO PRN Q6HRS PRN Seroquel (Quetiapine Fumarate) 100 Mg Tablet 100 Mg PO HS Plavix (Clopidogrel Bisulfate) 75 Mg Tablet 75 Mg PO DAILY Atorvastatin Calcium 40 Mg Tablet 40 Mg PO QHS Atenolol 25 Mg Tablet 25 Mg PO BID Diagnosis: Problems: (1) Anxiety disorder (2) Dementia in Alzheimer's disease with delusions (3) Dementia in Alzheimer's disease with depression (4) Dementia, vascular, with delusions (5) Dementia, vascular, with depression (6) Impulse control disorder (7) Abnormal behavior MARTHA SRINIVASAN MD Apr 22, 2017 19:50
[2017-04-22 21:10] VITALS: BP 147/64
--- NOTE | 2017-04-23 01:00 | PN ---
DATE: 04/21/2017 SUBJECTIVE: This is a late entry 04/21/2017, covers elements not covered in my initial note. The patient slept about 7-1/2 hours previous night and remains confused. Gait is unsteady. Possibly the Klonopin may be impacting this. He remains anxious and restless nevertheless. REVIEW OF SYSTEMS: Ambulation impaired. No CV, , pulmonary, eye, or ENT system symptoms on review. Reliability poor. He is not forthcoming on directly being questioned on this. MENTAL STATUS EXAM: Oriented to himself. Insight, judgment, recent and remote memory, attention, concentration, and fund of knowledge poor consistent with his diagnosis mentioned in my initial note. LABORATORY DATA: Reviewed. PLAN: Continue current psychotropics. We will go ahead and stop the Klonopin on 04/22/2017. If the unsteady gait persists, maintain the rest unchanged and adjust as clinically indicated. MARTHA SRINIVASAN MD DR: VIVEK/jocelyn JOB#: [id number] / [id number]
[2017-04-23] MEDS: SERTRALINE 50 MG TABLET. PO SCH (07:44)
[2017-04-23] MEDS: MULTIVITAMIN with MINERAL TABLET. PO SCH (07:44)
[2017-04-23] MEDS: QUEtiapine 25 MG TABLET. PO SCH ×3 (07:44→17:00)
[2017-04-23] MEDS: busPIRone 10 MG TABLET. PO SCH ×3 (07:44→17:00)
[2017-04-23] MEDS: TAMSULOSIN 0.4 MG CAP.ER.24H. PO SCH (07:44)
[2017-04-23] MEDS: CLOPIDOGREL BISULFATE 75 MG TABLET PO SCH (07:45)
[2017-04-23] MEDS: PANTOPRAZOLE 40 MG TABLET. PO SCH (07:45)
[2017-04-23] MEDS: CYANOCOBALAMIN (VITAMIN B-12) 1,000 MCG TABLET. PO SCH (07:45)
[2017-04-23] MEDS: DIVALPROEX 125 MG CAP.SPRINK PO SCH ×3 (07:45→19:17)
[2017-04-23] MEDS: hydrALAZINE 25 MG TABLET PO SCH ×3 (07:45→19:28)
[2017-04-23] MEDS: ENOXAPARIN 40 MG/0.4 ML DISP.SYRIN. SQ SCH (07:46)
[2017-04-23] MEDS: ATENOLOL 25 MG TABLET PO SCH ×2 (07:46→19:29)
[2017-04-23] MEDS: LOSARTAN 50 MG TABLET. PO SCH ×2 (07:46→19:28)
[2017-04-23 16:19] VITALS: BP 118/54
[2017-04-23] MEDS: QUEtiapine 100 MG TABLET. PO SCH (19:17)
[2017-04-23] MEDS: ATORVASTATIN CALCIUM 20 MG TABLET PO SCH (19:18)
[2017-04-23 19:30] VITALS: BP 86/45
[2017-04-23 19:52] VITALS: BP 92/56
--- NOTE | 2017-04-23 19:55 | PDOC ---
Exam Mauricio Demential Exam: Mauricio Note: Please also refer to the separate dictated note~for this date of service dictated separately.~Patient seen individually. Discussed the patient with Nursing staff reviewed the chart.~Reviewed interim history and current functioning. Reviewed vital signs,~Labs/ Radiology~and current medications noted below. Continue current treatment with the changes noted in the dictated addendum note Assessment: Vital Signs: Vital Signs Date Time Temp Pulse Resp B/P (MAP) Pulse Ox O2 Delivery O2 Flow Rate FiO2 04/23/17 19:29 86 86/45 04/23/17 16:19 97.6 16 97 04/22/17 08:00 Room Air I&O Intake and Output 04/23/17 07:00 Intake Total 720 ml Output Total 700 ml Balance 20 ml Intake Oral 720 ml Output Urine Total 700 ml Current Medications: Meds: Current Medications Divalproex Sodium (Depakote Sprinkles) 250 mg 1400 PO Last administered on 04/22 13:20; Start 04/14/17 at 14:00; Stop 04/22/17 at 18:33; Status DC Divalproex Sodium (Depakote Sprinkles) 375 mg BID PO Last administered on 07:54; Start 04/13/17 at 21:00; Stop 04/22/17 at 18:33; Status DC Lorazepam (Ativan) 1 mg PRN Q4HRS PRN PO ANXIETY Last administered on 17:59; Start 04/13/17 at 20:00 Olanzapine (ZyPREXA ZYDIS) 2.5 mg PRN Q2HR PRN PO PSYCHOSIS Last administered on 04/21/17 23:12; Start 04/13/17 at 20:00 Quetiapine Fumarate (SEROquel) 12.5 mg TIDWMEALS PO Last administered on 17:00; Start 04/14/17 at 08:00 Quetiapine Fumarate (SEROquel) 100 mg HS PO Last administered on 04/23/17 19:17 ; Start 04/13/17 at 21:00 Sertraline HCl (Zoloft) 50 mg DAILY PO Last administered on 04/23/17 07:44; Start 04/14/17 at 09:00 Acetaminophen (Tylenol) 650 mg PRN Q6HRS PRN PO pain/temp; Start 04/13/17 at 20 :15 Atenolol (Tenormin) 25 mg BID PO Last administered on 04/23/17 07:46; Start at 21:00 Clopidogrel Bisulfate (Plavix) 75 mg DAILY PO Last administered on 04/23/17 07: 45; Start 04/14/17 at 09:00 Cyanocobalamin (Vitamin B-12) 1,000 mcg DAILY PO Last administered on 04/23/17 07:45; Start 04/14/17 at 09:00 Enoxaparin Sodium (Lovenox) 40 mg DAILY SQ Last administered on 04/23/17 07:46 ; Start 04/14/17 at 09:00 Hydralazine HCl (Apresoline) 25 mg TID PO Last administered on 04/23/17 07:45; Start 04/13/17 at 21:00 Al Hydroxide/Mg Hydroxide (Mylanta Plus Xs) 15 ml PRN AFTMEALHC PRN PO DYSPEPSIA; Start 04/13/17 at 20:15 Multi-Ingredient Ointment (Analgesic [place]) 1 vik PRN QID PRN TP MUSCLE PAIN; Start 04/13/17 at 20:15 Multivitamins/ Calcium (Thera-M Plus) 1 tab DAILY PO Last administered on 07:44; Start 04/14/17 at 09:00 Nystatin (Nystop) 1 vik PRN BID PRN TP REDNESS; Start 04/13/17 at 20:15 Pantoprazole Sodium (Protonix) 40 mg DAILYAC PO Last administered on 04/23/17 07:45; Start 04/14/17 at 07:30 Tramadol HCl (Ultram) 50 mg PRN Q6HRS PRN PO PAIN; Start 04/13/17 at 20:15 Atorvastatin Calcium (Lipitor) 40 mg QHS PO Last administered on 04/23/17 19:18 ; Start 04/13/17 at 21:00 Losartan Potassium (Cozaar) 50 mg BID PO Last administered on 04/23/17 07:46; Start 04/13/17 at 21:00 Magnesium Hydroxide (Milk Of Magnesia) 2,400 mg PRN QHS PRN PO CONSTIPATION; Start 04/13/17 at 20:15 Trazodone HCl (Desyrel) 50 mg PRN QHS PRN PO INSOMNIA, MAY REPEAT X1 Last administered on 04/21/17 23:11; Start 04/14/17 at 20:15 Buspirone HCl (Buspar) 5 mg TID PO Last administered on 04/16/17 14:19; Start 04/15/17 at 21:00; Stop 04/16/17 at 18:08; Status DC Buspirone HCl (Buspar) 10 mg BID92 PO Last administered on 04/17/17 15:02; Start 04/17/17 at 09:00; Stop 04/17/17 at 19:05; Status DC Buspirone HCl (Buspar) 10 mg TID@0900,1300,1700 PO Last administered on 17:00; Start 04/18/17 at 09:00 Tamsulosin HCl (Flomax) 0.4 mg DAILY PO Last administered on 04/23/17 07:44; Start 04/18/17 at 09:00 Clonazepam (KlonoPIN) 0.25 mg PRN BID PRN PO ANXIETY / AGITATION; Start at 11:00; Stop 04/19/17 at 09:00; Status DC Clonazepam (KlonoPIN) 0.25 mg BID PO Last administered on 04/19/17 10:14; Start 04/19/17 at 09:00; Stop 04/19/17 at 10:17; Status DC Clonazepam (KlonoPIN) 0.25 mg BID92 PO Last administered on 04/22/17 13:21; Start 04/19/17 at 14:00; Stop 04/22/17 at 18:07; Status DC Divalproex Sodium (Depakote Sprinkles) 375 mg TID PO Last administered on 19:17; Start 04/22/17 at 21:00 Active Scripts Active Reported Hydralazine Hcl 25 Mg Tablet 25 Mg PO TID Nystatin 15 Gm Powder 1 Vik TP PRN BID PRN Enoxaparin Sodium 40 Mg/0.4 Ml Disp.syrin 40 Mg SQ DAILY Seroquel (Quetiapine Fumarate) 25 Mg Tablet 12.5 Mg PO TIDWMEALS Depakote Sprinkle (Divalproex Sodium) 125 Mg Cap.sprink 250 Mg PO 1400 Tramadol Hcl (Tramadol HCl) 50 Mg Tablet 50 Mg PO PRN Q6HRS PRN Lorazepam 1 Mg Tablet 1 Mg PO PRN Q4HRS PRN Zoloft (Sertraline Hcl) 50 Mg Tablet 50 Mg PO DAILY Protonix (Pantoprazole Sodium) 40 Mg Tablet.dr 40 Mg PO DAILY Zyprexa Zydis (Olanzapine) 5 Mg Tab.rapdis 2.5 Mg PO PRN Q2HR PRN Thera M Plus Tablet (Multivits,Ca,Minerals/Iron/FA) 1 Each Tablet 1 Tab PO DAILY Analgesic [place] (Methyl Salicylate/Menthol) 29 Gm Oint...g. 1 Vik TP PRN QID PRN Milk Of Magnesia (Magnesium Hydroxide) 2,400 Mg/10 Ml Oral.susp 2,400 Mg PO PRN QHS PRN Mag-Al Plus Xs Suspension (Mag Hydrox/Al Hydrox/Simeth) 30 Ml Oral.susp 15 Ml PO PRN AFTMEALHC PRN Cozaar (Losartan Potassium) 100 Mg Tablet 50 Mg PO BID Depakote Sprinkle (Divalproex Sodium) 125 Mg Cap.sprink 375 Mg PO BID Vitamin B-12 (Cyanocobalamin (Vitamin B-12)) 1,000 Mcg Tablet 1,000 Mcg PO DAILY Tylenol (Acetaminophen) 325 Mg Tablet 650 Mg PO PRN Q6HRS PRN Seroquel (Quetiapine Fumarate) 100 Mg Tablet 100 Mg PO HS Plavix (Clopidogrel Bisulfate) 75 Mg Tablet 75 Mg PO DAILY Atorvastatin Calcium 40 Mg Tablet 40 Mg PO QHS Atenolol 25 Mg Tablet 25 Mg PO BID Diagnosis: Problems: (1) Anxiety disorder (2) Dementia in Alzheimer's disease with delusions (3) Dementia in Alzheimer's disease with depression (4) Dementia, vascular, with delusions (5) Dementia, vascular, with depression (6) Impulse control disorder (7) Abnormal behavior (8) Syncopal episodes (9) Postural hypotension MARTHA SRINIVASAN MD Apr 23, 2017 19:55
[2017-04-23 20:30] VITALS: BP 81/50
[2017-04-23 20:31] VITALS: BP 82/50
[2017-04-23 23:41] VITALS: BP 137/51
--- NOTE | 2017-04-23 23:47 | PN ---
DATE: 04/22/2017 SUBJECTIVE: This is a late entry 04/22/2017, covers elements not covered in my initial note. The patient slept 6 hours previous evening. Valproic acid level is 43 on 04/19/2017. He has been cooperative till 6:00 p.m. and then more anxious and restless. I discussed with nursing staff earlier in the day on 04/22/2017, and the social service staff as well regarding discharge plans. I had added Klonopin and gait was a little more unsteady with this and we will go ahead and stop it and adjust the Depakote as noted below to help compensate for this so his agitation and mood lability. After about 6 p.m., he was little more agitated and restless ____ in the dining room. Did redirect and did participate ambulation with physical therapy morning of 04/22/2017. REVIEW OF SYSTEMS: No CV, , pulmonary, eye, or ENT system symptoms on review. Reliability poor. MENTAL STATUS EXAM: Oriented to himself. Insight, judgment, recent and remote memory, attention, concentration, and fund of knowledge poor consistent with his diagnosis mentioned in my initial note. PLAN: Increase Depakote from 250 mg at 14:00 to 375 mg at 14:00 and continue the Depakote 375 b.i.d. for a total of 375 t.i.d. Check CBC, CMP, and valproic acid level in 3 days. Maintain Seroquel, trazodone, Zyprexa p.r.n., Ativan p.r.n., Zoloft 50 mg a day, and BuSpar 10 mg 3 times a day. Klonopin was discontinued. MAN Jules SRINIVASAN MD DR: VIVEK/jocelyn JOB#: [id number] / [id number]
[2017-04-24 05:53] VITALS: BP 169/55
[2017-04-24 07:48] VITALS: BP 137/61
[2017-04-24] MEDS: MULTIVITAMIN with MINERAL TABLET. PO SCH (09:21)
[2017-04-24] MEDS: SERTRALINE 50 MG TABLET. PO SCH (09:21)
[2017-04-24] MEDS: ATENOLOL 25 MG TABLET PO SCH ×2 (09:21→21:00)
[2017-04-24] MEDS: CLOPIDOGREL BISULFATE 75 MG TABLET PO SCH (09:22)
[2017-04-24] MEDS: TAMSULOSIN 0.4 MG CAP.ER.24H. PO SCH (09:22)
[2017-04-24] MEDS: PANTOPRAZOLE 40 MG TABLET. PO SCH (09:22)
[2017-04-24] MEDS: busPIRone 10 MG TABLET. PO SCH ×3 (09:22→16:48)
[2017-04-24] MEDS: LOSARTAN 50 MG TABLET. PO SCH ×2 (09:27→21:00)
[2017-04-24] MEDS: DIVALPROEX 125 MG CAP.SPRINK PO SCH ×3 (09:27→19:23)
[2017-04-24] MEDS: CYANOCOBALAMIN (VITAMIN B-12) 1,000 MCG TABLET. PO SCH (09:27)
[2017-04-24] MEDS: hydrALAZINE 25 MG TABLET PO SCH ×3 (09:28→21:00)
[2017-04-24] MEDS: ENOXAPARIN 40 MG/0.4 ML DISP.SYRIN. SQ SCH (09:28)
[2017-04-24] MEDS: QUEtiapine 25 MG TABLET. PO SCH ×3 (09:29→16:47)
[2017-04-24 16:22] VITALS: BP 108/41
[2017-04-24] MEDS: QUEtiapine 100 MG TABLET. PO SCH (19:23)
[2017-04-24] MEDS: ATORVASTATIN CALCIUM 20 MG TABLET PO SCH (19:23)
--- NOTE | 2017-04-24 19:43 | PDOC ---
Exam Mauricio Demential Exam: Mauricio Note: Please also refer to the separate dictated note~for this date of service dictated separately.~Patient seen individually. Discussed the patient with Nursing staff reviewed the chart.~Reviewed interim history and current functioning. Reviewed vital signs,~Labs/ Radiology~and current medications noted below. Continue current treatment with the changes noted in the dictated addendum note Assessment: Vital Signs: Vital Signs Date Time Temp Pulse Resp B/P (MAP) Pulse Ox O2 Delivery O2 Flow Rate FiO2 04/24/17 16:22 97.8 73 18 108/41 (63) 95 04/24/17 07:48 Room Air I&O Intake and Output 04/24/17 07:00 Intake Total 600 ml Output Total 225 ml Balance 375 ml Intake Oral 600 ml Output Urine Total 225 ml # Bowel Movements 2 Current Medications: Meds: Current Medications Divalproex Sodium (Depakote Sprinkles) 250 mg 1400 PO Last administered on 04/22 13:20; Start 04/14/17 at 14:00; Stop 04/22/17 at 18:33; Status DC Divalproex Sodium (Depakote Sprinkles) 375 mg BID PO Last administered on 07:54; Start 04/13/17 at 21:00; Stop 04/22/17 at 18:33; Status DC Lorazepam (Ativan) 1 mg PRN Q4HRS PRN PO ANXIETY Last administered on 17:59; Start 04/13/17 at 20:00 Olanzapine (ZyPREXA ZYDIS) 2.5 mg PRN Q2HR PRN PO PSYCHOSIS Last administered on 04/24/17 11:41; Start 04/13/17 at 20:00 Quetiapine Fumarate (SEROquel) 12.5 mg TIDWMEALS PO Last administered on 16:47; Start 04/14/17 at 08:00 Quetiapine Fumarate (SEROquel) 100 mg HS PO Last administered on 04/24/17 19:23 ; Start 04/13/17 at 21:00 Sertraline HCl (Zoloft) 50 mg DAILY PO Last administered on 04/24/17 09:21; Start 04/14/17 at 09:00 Acetaminophen (Tylenol) 650 mg PRN Q6HRS PRN PO pain/temp; Start 04/13/17 at 20 :15 Atenolol (Tenormin) 25 mg BID PO Last administered on 04/24/17 09:21; Start at 21:00 Clopidogrel Bisulfate (Plavix) 75 mg DAILY PO Last administered on 04/24/17 09: 22; Start 04/14/17 at 09:00 Cyanocobalamin (Vitamin B-12) 1,000 mcg DAILY PO Last administered on 04/24/17 09:27; Start 04/14/17 at 09:00 Enoxaparin Sodium (Lovenox) 40 mg DAILY SQ Last administered on 04/24/17 09:28 ; Start 04/14/17 at 09:00 Hydralazine HCl (Apresoline) 25 mg TID PO Last administered on 04/24/17 14:23; Start 04/13/17 at 21:00 Al Hydroxide/Mg Hydroxide (Mylanta Plus Xs) 15 ml PRN AFTMEALHC PRN PO DYSPEPSIA; Start 04/13/17 at 20:15 Multi-Ingredient Ointment (Analgesic [place]) 1 vik PRN QID PRN TP MUSCLE PAIN; Start 04/13/17 at 20:15 Multivitamins/ Calcium (Thera-M Plus) 1 tab DAILY PO Last administered on 09:21; Start 04/14/17 at 09:00 Nystatin (Nystop) 1 vik PRN BID PRN TP REDNESS; Start 04/13/17 at 20:15 Pantoprazole Sodium (Protonix) 40 mg DAILYAC PO Last administered on 04/24/17 09:22; Start 04/14/17 at 07:30 Tramadol HCl (Ultram) 50 mg PRN Q6HRS PRN PO PAIN; Start 04/13/17 at 20:15 Atorvastatin Calcium (Lipitor) 40 mg QHS PO Last administered on 04/24/17 19:23 ; Start 04/13/17 at 21:00 Losartan Potassium (Cozaar) 50 mg BID PO Last administered on 04/24/17 09:27; Start 04/13/17 at 21:00 Magnesium Hydroxide (Milk Of Magnesia) 2,400 mg PRN QHS PRN PO CONSTIPATION; Start 04/13/17 at 20:15 Trazodone HCl (Desyrel) 50 mg PRN QHS PRN PO INSOMNIA, MAY REPEAT X1 Last administered on 04/21/17 23:11; Start 04/14/17 at 20:15 Buspirone HCl (Buspar) 5 mg TID PO Last administered on 04/16/17 14:19; Start 04/15/17 at 21:00; Stop 04/16/17 at 18:08; Status DC Buspirone HCl (Buspar) 10 mg BID92 PO Last administered on 04/17/17 15:02; Start 04/17/17 at 09:00; Stop 04/17/17 at 19:05; Status DC Buspirone HCl (Buspar) 10 mg TID@0900,1300,1700 PO Last administered on 16:48; Start 04/18/17 at 09:00 Tamsulosin HCl (Flomax) 0.4 mg DAILY PO Last administered on 04/24/17 09:22; Start 04/18/17 at 09:00 Clonazepam (KlonoPIN) 0.25 mg PRN BID PRN PO ANXIETY / AGITATION; Start at 11:00; Stop 04/19/17 at 09:00; Status DC Clonazepam (KlonoPIN) 0.25 mg BID PO Last administered on 04/19/17 10:14; Start 04/19/17 at 09:00; Stop 04/19/17 at 10:17; Status DC Clonazepam (KlonoPIN) 0.25 mg [id number] PO Last administered on 04/22/17 13:21; Start 04/19/17 at 14:00; Stop 04/22/17 at 18:07; Status DC Divalproex Sodium (Depakote Sprinkles) 375 mg TID PO Last administered on 19:23; Start 04/22/17 at 21:00 Active Scripts Active Reported Hydralazine Hcl 25 Mg Tablet 25 Mg PO TID Nystatin 15 Gm Powder 1 Vik TP PRN BID PRN Enoxaparin Sodium 40 Mg/0.4 Ml Disp.syrin 40 Mg SQ DAILY Seroquel (Quetiapine Fumarate) 25 Mg Tablet 12.5 Mg PO TIDWMEALS Depakote Sprinkle (Divalproex Sodium) 125 Mg Cap.sprink 250 Mg PO 1400 Tramadol Hcl (Tramadol HCl) 50 Mg Tablet 50 Mg PO PRN Q6HRS PRN Lorazepam 1 Mg Tablet 1 Mg PO PRN Q4HRS PRN Zoloft (Sertraline Hcl) 50 Mg Tablet 50 Mg PO DAILY Protonix (Pantoprazole Sodium) 40 Mg Tablet.dr 40 Mg PO DAILY Zyprexa Zydis (Olanzapine) 5 Mg Tab.rapdis 2.5 Mg PO PRN Q2HR PRN Thera M Plus Tablet (Multivits,Ca,Minerals/Iron/FA) 1 Each Tablet 1 Tab PO DAILY Analgesic [place] (Methyl Salicylate/Menthol) 29 Gm Oint...g. 1 Vik TP PRN QID PRN Milk Of Magnesia (Magnesium Hydroxide) 2,400 Mg/10 Ml Oral.susp 2,400 Mg PO PRN QHS PRN Mag-Al Plus Xs Suspension (Mag Hydrox/Al Hydrox/Simeth) 30 Ml Oral.susp 15 Ml PO PRN AFTMEALHC PRN Cozaar (Losartan Potassium) 100 Mg Tablet 50 Mg PO BID Depakote Sprinkle (Divalproex Sodium) 125 Mg Cap.sprink 375 Mg PO BID Vitamin B-12 (Cyanocobalamin (Vitamin B-12)) 1,000 Mcg Tablet 1,000 Mcg PO DAILY Tylenol (Acetaminophen) 325 Mg Tablet 650 Mg PO PRN Q6HRS PRN Seroquel (Quetiapine Fumarate) 100 Mg Tablet 100 Mg PO HS Plavix (Clopidogrel Bisulfate) 75 Mg Tablet 75 Mg PO DAILY Atorvastatin Calcium 40 Mg Tablet 40 Mg PO QHS Atenolol 25 Mg Tablet 25 Mg PO BID Diagnosis: Problems: (1) Anxiety disorder (2) Dementia in Alzheimer's disease with delusions (3) Dementia in Alzheimer's disease with depression (4) Dementia, vascular, with delusions (5) Dementia, vascular, with depression (6) Impulse control disorder (7) Abnormal behavior MARTHA SRINIVASAN MD Apr 24, 2017 19:43
[2017-04-24] MEDS: LORazepam 1 MG TABLET PO PRN (22:38)
--- NOTE | 2017-04-25 00:26 | PN ---
DATE: PSYCHIATRIC PROGRESS NOTE This late entry 04/23/2017 covers elements not covered in my initial note of 04/23/2017. SUBJECTIVE: I met with the patient evening of 04/23/2017. The patient slept 6-3/4 hours previous night and was cooperative in the morning with physical therapy, occupational therapy and then had an episode of almost passing out consequent to a vasovagal attach per nursing staff and he was pale. Arrangements have been made between the family and staff and Dr. Nails for him to be on hospice care with the tentative discharge on . REVIEW OF SYSTEMS: Ambulation impaired, in a Broda chair. No CV, , pulmonary, eye, ENT system symptoms on review. MENTAL STATUS EXAM: Oriented to himself, pleasant, smiling at me as I met with him, oblivious of his surroundings. Insight, judgment, recent and remote memory, attention, concentration, fund of knowledge poor, consistent with his diagnosis mentioned in my initial note. PLAN: Continue current psychotropics. Adjust further as clinically indicated. MAN Jules SRINIVASAN MD DR: VIVEK/jocelyn JOB#: [id number] / [id number]
[2017-04-25] MEDS ORDERED: TAMS0.4C2 PO (03:30)
[2017-04-25] MEDS ORDERED: TRAZ50TA15 PO (03:32)
[2017-04-25 05:46] VITALS: BP 126/88
[2017-04-25] MEDS: hydrALAZINE 25 MG TABLET PO SCH (09:07)
[2017-04-25 09:08] VITALS: BP 126/88
[2017-04-25] MEDS: LOSARTAN 50 MG TABLET. PO SCH (09:08)
[2017-04-25] MEDS: ATENOLOL 25 MG TABLET PO SCH (09:08)
[2017-04-25] MEDS: CLOPIDOGREL BISULFATE 75 MG TABLET PO SCH (09:08)
[2017-04-25] MEDS: TAMSULOSIN 0.4 MG CAP.ER.24H. PO SCH (09:08)
[2017-04-25] MEDS: DIVALPROEX 125 MG CAP.SPRINK PO SCH (09:08)
[2017-04-25] MEDS: MULTIVITAMIN with MINERAL TABLET. PO SCH (09:08)
[2017-04-25] MEDS: busPIRone 10 MG TABLET. PO SCH ×2 (09:09→13:06)
[2017-04-25] MEDS: SERTRALINE 50 MG TABLET. PO SCH (09:09)
[2017-04-25] MEDS: CYANOCOBALAMIN (VITAMIN B-12) 1,000 MCG TABLET. PO SCH (09:09)
[2017-04-25] MEDS: PANTOPRAZOLE 40 MG TABLET. PO SCH (09:09)
[2017-04-25] MEDS: QUEtiapine 25 MG TABLET. PO SCH ×2 (09:09→12:59)
[2017-04-25] MEDS: ENOXAPARIN 40 MG/0.4 ML DISP.SYRIN. SQ SCH (09:10)
[2017-04-25] MEDS ORDERED: BUSP10TA PO (11:25)
--- NOTE | 2017-04-25 18:30 | PDOC ---
Exam Mauricio Demential Exam: Mauricio Note: Please also refer to the separate dictated note~for this date of service dictated separately.~Patient seen individually. Discussed the patient with Nursing staff reviewed the chart.~Reviewed interim history and current functioning. Reviewed vital signs,~Labs/ Radiology~and current medications noted below. Continue current treatment with the changes noted in the dictated addendum note Assessment: Vital Signs: Vital Signs Date Time Temp Pulse Resp B/P (MAP) Pulse Ox O2 Delivery O2 Flow Rate FiO2 04/25/17 09:08 75 126/88 04/25/17 05:46 98.2 20 97 04/24/17 07:48 Room Air I&O Intake and Output 04/25/17 07:00 Intake Total 1550 ml Output Total 350 ml Balance 1200 ml Intake Oral 1550 ml Output Urine Total 350 ml # Voids 1 Current Medications: Meds: Current Medications Divalproex Sodium (Depakote Sprinkles) 250 mg 1400 PO Last administered on 04/22 13:20; Start 04/14/17 at 14:00; Stop 04/22/17 at 18:33; Status DC Divalproex Sodium (Depakote Sprinkles) 375 mg BID PO Last administered on 07:54; Start 04/13/17 at 21:00; Stop 04/22/17 at 18:33; Status DC Lorazepam (Ativan) 1 mg PRN Q4HRS PRN PO ANXIETY Last administered on 04/24/17 22:38; Start 04/13/17 at 20:00; Stop 04/25/17 at 13:26; Status DC Olanzapine (ZyPREXA ZYDIS) 2.5 mg PRN Q2HR PRN PO PSYCHOSIS Last administered on 04/25/17 13:03; Start 04/13/17 at 20:00; Stop 04/25/17 at 13:26; Status DC Quetiapine Fumarate (SEROquel) 12.5 mg TIDWMEALS PO Last administered on 12:59; Start 04/14/17 at 08:00; Stop 04/25/17 at 13:26; Status DC Quetiapine Fumarate (SEROquel) 100 mg HS PO Last administered on 04/24/17 19:23 ; Start 04/13/17 at 21:00; Stop 04/25/17 at 13:26; Status DC Sertraline HCl (Zoloft) 50 mg DAILY PO Last administered on 04/25/17 09:09; Start 04/14/17 at 09:00; Stop 04/25/17 at 13:26; Status DC Acetaminophen (Tylenol) 650 mg PRN Q6HRS PRN PO pain/temp; Start 04/13/17 at 20 :15; Stop 04/25/17 at 13:26; Status DC Atenolol (Tenormin) 25 mg BID PO Last administered on 04/25/17 09:08; Start at 21:00; Stop 04/25/17 at 13:26; Status DC Clopidogrel Bisulfate (Plavix) 75 mg DAILY PO Last administered on 04/25/17 09: 08; Start 04/14/17 at 09:00; Stop 04/25/17 at 13:26; Status DC Cyanocobalamin (Vitamin B-12) 1,000 mcg DAILY PO Last administered on 04/25/17 09:09; Start 04/14/17 at 09:00; Stop 04/25/17 at 13:26; Status DC Enoxaparin Sodium (Lovenox) 40 mg DAILY SQ Last administered on 04/25/17 09:10 ; Start 04/14/17 at 09:00; Stop 04/25/17 at 13:26; Status DC Hydralazine HCl (Apresoline) 25 mg TID PO Last administered on 04/25/17 09:07; Start 04/13/17 at 21:00; Stop 04/25/17 at 13:26; Status DC Al Hydroxide/Mg Hydroxide (Mylanta Plus Xs) 15 ml PRN AFTMEALHC PRN PO DYSPEPSIA; Start 04/13/17 at 20:15; Stop 04/25/17 at 13:26; Status DC Multi-Ingredient Ointment (Analgesic [place]) 1 vik PRN QID PRN TP MUSCLE PAIN; Start 04/13/17 at 20:15; Stop 04/25/17 at 13:26; Status DC Multivitamins/ Calcium (Thera-M Plus) 1 tab DAILY PO Last administered on 09:08; Start 04/14/17 at 09:00; Stop 04/25/17 at 13:26; Status DC Nystatin (Nystop) 1 vik PRN BID PRN TP REDNESS; Start 04/13/17 at 20:15; Stop 04/25/17 at 13:26; Status DC Pantoprazole Sodium (Protonix) 40 mg DAILYAC PO Last administered on 04/25/17 09:09; Start 04/14/17 at 07:30; Stop 04/25/17 at 13:26; Status DC Tramadol HCl (Ultram) 50 mg PRN Q6HRS PRN PO PAIN; Start 04/13/17 at 20:15; Stop 04/25/17 at 13:26; Status DC Atorvastatin Calcium (Lipitor) 40 mg QHS PO Last administered on 04/24/17 19:23 ; Start 04/13/17 at 21:00; Stop 04/25/17 at 13:26; Status DC Losartan Potassium (Cozaar) 50 mg BID PO Last administered on 04/25/17 09:08; Start 04/13/17 at 21:00; Stop 04/25/17 at 13:26; Status DC Magnesium Hydroxide (Milk Of Magnesia) 2,400 mg PRN QHS PRN PO CONSTIPATION; Start 04/13/17 at 20:15; Stop 04/25/17 at 13:26; Status DC Trazodone HCl (Desyrel) 50 mg PRN QHS PRN PO INSOMNIA, MAY REPEAT X1 Last administered on 04/21/17 23:11; Start 04/14/17 at 20:15; Stop 04/25/17 at 13:26 ; Status DC Buspirone HCl (Buspar) 5 mg TID PO Last administered on 04/16/17 14:19; Start 04/15/17 at 21:00; Stop 04/16/17 at 18:08; Status DC Buspirone HCl (Buspar) 10 mg [id number] PO Last administered on 04/17/17 15:02; Start 04/17/17 at 09:00; Stop 04/17/17 at 19:05; Status DC Buspirone HCl (Buspar) 10 mg TID@0900,1300,1700 PO Last administered on 13:06; Start 04/18/17 at 09:00; Stop 04/25/17 at 13:26; Status DC Tamsulosin HCl (Flomax) 0.4 mg DAILY PO Last administered on 04/25/17 09:08; Start 04/18/17 at 09:00; Stop 04/25/17 at 13:26; Status DC Clonazepam (KlonoPIN) 0.25 mg PRN BID PRN PO ANXIETY / AGITATION; Start at 11:00; Stop 04/19/17 at 09:00; Status DC Clonazepam (KlonoPIN) 0.25 mg BID PO Last administered on 04/19/17 10:14; Start 04/19/17 at 09:00; Stop 04/19/17 at 10:17; Status DC Clonazepam (KlonoPIN) 0.25 mg [id number] PO Last administered on 04/22/17 13:21; Start 04/19/17 at 14:00; Stop 04/22/17 at 18:07; Status DC Divalproex Sodium (Depakote Sprinkles) 375 mg TID PO Last administered on 09:08; Start 04/22/17 at 21:00; Stop 04/25/17 at 13:26; Status DC Active Scripts Active Reported Buspirone Hcl 10 Mg Tablet 1 Tab PO TIDWMEALS Trazodone Hcl 50 Mg Tablet 50 Mg PO HS PRN Tamsulosin Hcl 0.4 Mg Cap.er.24h 0.4 Mg PO DAILY Hydralazine Hcl 25 Mg Tablet 25 Mg PO TID Nystatin 15 Gm Powder 1 Vik TP PRN BID PRN Enoxaparin Sodium 40 Mg/0.4 Ml Disp.syrin 40 Mg SQ DAILY Seroquel (Quetiapine Fumarate) 25 Mg Tablet 12.5 Mg PO TIDWMEALS Tramadol Hcl (Tramadol HCl) 50 Mg Tablet 50 Mg PO PRN Q6HRS PRN Lorazepam 1 Mg Tablet 1 Mg PO PRN Q4HRS PRN Zoloft (Sertraline Hcl) 50 Mg Tablet 50 Mg PO DAILY Protonix (Pantoprazole Sodium) 40 Mg Tablet.dr 40 Mg PO DAILY Zyprexa Zydis (Olanzapine) 5 Mg Tab.rapdis 2.5 Mg PO PRN Q2HR PRN Thera M Plus Tablet (Multivits,Ca,Minerals/Iron/FA) 1 Each Tablet 1 Tab PO DAILY Analgesic [place] (Methyl Salicylate/Menthol) 29 Gm Oint...g. 1 Vik TP PRN QID PRN Milk Of Magnesia (Magnesium Hydroxide) 2,400 Mg/10 Ml Oral.susp 2,400 Mg PO PRN QHS PRN Mag-Al Plus Xs Suspension (Mag Hydrox/Al Hydrox/Simeth) 30 Ml Oral.susp 15 Ml PO PRN AFTMEALHC PRN Cozaar (Losartan Potassium) 100 Mg Tablet 50 Mg PO BID Depakote Sprinkle (Divalproex Sodium) 125 Mg Cap.sprink 375 Mg PO TID Vitamin B-12 (Cyanocobalamin (Vitamin B-12)) 1,000 Mcg Tablet 1,000 Mcg PO DAILY Tylenol (Acetaminophen) 325 Mg Tablet 650 Mg PO PRN Q6HRS PRN Seroquel (Quetiapine Fumarate) 100 Mg Tablet 100 Mg PO HS Plavix (Clopidogrel Bisulfate) 75 Mg Tablet 75 Mg PO DAILY Atorvastatin Calcium 40 Mg Tablet 40 Mg PO QHS Atenolol 25 Mg Tablet 25 Mg PO BID Diagnosis: Problems: (1) Impulse control disorder (2) Dementia, vascular, with depression (3) Dementia, vascular, 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
--- NOTE | 2017-04-25 23:02 | PN ---
DATE: 04/24/2017 This late entry of 04/24/2017 covers elements not covered in my initial note of 04/24/2017. SUBJECTIVE: I met with the patient the evening of 04/24/2017. The previous evening, the patient was confused, played with his feces in bed during the day on 04/24/2017, somewhat anxious, restless, but redirectable. Very pleasant, smiling as I met with him the evening of 04/24/2017 oblivious of his surroundings. REVIEW OF SYSTEMS: Ambulation impaired. No CV, , pulmonary, eye, ENT system symptoms on review. Reliability poor. MENTAL STATUS EXAM: Oriented to himself. Insight, judgment, recent and remote memory, attention, concentration, fund of knowledge poor consistent with his diagnosis mentioned in my initial note. PLAN: Received Zyprexa at 11:45 p.r.n. to help with his agitation. He later did much better. Reviewed drug interactions, risk/benefit ratio favors no change at this time. Possible transition to nursing facility, 04/25/2017. MAN Jules SRINIVASAN MD DR: VIVEK/[email or web address] JOB#: [id number] / [id number]
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
== END 2017-04-25 13:26 | disposition home or self-care (01) | DRG 884 ==
LOC: GEROPSY 19:43
PROVIDERS: ADMIT Psychiatry & Neurology Psychiatry; ATTEND Psychiatry & Neurology Psychiatry
DX: F01.51 Vascular dementia, unspecified severity, with behavioral disturbance (principal); F02.81 Dementia in other diseases classified elsewhere, unspecified severity, with behavioral disturbance; E87.2 Acidosis; N17.9 Acute kidney failure, unspecified; E46 Unspecified protein-calorie malnutrition; F22 Delusional disorders; F63.9 Impulse disorder, unspecified; F41.9 Anxiety disorder, unspecified; G30.9 Alzheimer's disease, unspecified; I95.1 Orthostatic hypotension; Z51.5 Encounter for palliative care; F32.9 Major depressive disorder, single episode, unspecified; I10 Essential (primary) hypertension; R33.9 Retention of urine, unspecified; I73.9 Peripheral vascular disease, unspecified; E78.5 Hyperlipidemia, unspecified; I25.10 Atherosclerotic heart disease of native coronary artery without angina pectoris; Z68.23 Body mass index [BMI] 23.0-23.9, adult; Z79.899 Other long term (current) drug therapy; Z91.81 History of falling; M25.422 Effusion, left elbow
CPT/HCPCS: 36415; 80053; 80061; 80164; 81001; 82306; 82607; 83036; 83540; 83550; 83735; 84436; 84443; 84480; 85027; 86592; 86593; J1650; 97116; 97530